=== PATIENT | male | born 1950 | race Caucasian/White ===

== ENCOUNTER → 2020-08-13 09:16 | Outpatient (BNVA) | payer MEDICARE, SELFPAY | PROVIDERS: PCP Internal Medicine; Visit Provider Internal Medicine | DX: R07.2 Precordial pain (principal) | CPT/HCPCS: 93005; 99212 ==

== ENCOUNTER 2021-08-10 07:05 | Emergency (ER) | payer MEDICARE, SELFPAY ==
--- NOTE | ~2021-08-10 | MR_ITS ---
EXAMINATION: MR BRAIN WITHOUT CONTRAST CLINICAL INFORMATION: Vertigo. Posterior fossa stroke. COMPARISON: CT head from 08/10/2021. TECHNIQUE: MRI of the brain was obtained using routine sequences without contrast. FINDINGS: No focal restricted diffusion is demonstrated to suggest acute or subacute cerebral ischemia. No evidence of acute or chronic hemorrhagic products on heme-sensitive imaging. Scattered periventricular, deep white matter, and brainstem T2 FLAIR hyperintensities consistent with mild to moderate underlying microangiopathy. Proportional prominence of the ventricles and sulcal spaces without evidence of obstructive hydrocephalus. No abnormal mass effect. No midline shift. Normal appearance of the pituitary gland. Normal positioning of the cerebellar tonsils. Normal arterial and venous vascular flow voids are present. Normal, homogeneous marrow signal. Mild mucosal thickening of the paranasal sinuses. No signal abnormalities within the mastoids. MR/MR head/brain wo con IMPRESSION: 1. No acute intracranial abnormalities. 2. Mild to moderate underlying microangiopathy.
--- NOTE | ~2021-08-10 | XR_ITS ---
EXAMINATION: XR CHEST CLINICAL INFORMATION: Dizziness COMPARISON: Previous chest x-ray November 2018 TECHNIQUE: Frontal view of the chest was obtained. FINDINGS: The cardiac and mediastinal contours are stable. The lungs are clear. There is no pleural effusion or pneumothorax. There are degenerative changes of the spine. XR/XR chest 1V IMPRESSION: No evidence for acute disease in the chest.
--- NOTE | ~2021-08-10 | CT_ITS ---
EXAMINATION: CT HEAD WITHOUT CONTRAST CLINICAL INFORMATION: Dizziness COMPARISON: Previous head CT July 2014 TECHNIQUE: Contiguous axial imaging was performed from the skull base to vertex without intravenous administration of contrast. This CT examination was performed using dose optimization techniques as appropriate, variously including the following: *Automated exposure control *Adjustment of mA and/or kV according to patient size (this includes techniques or standardized protocols for targeted exams where dose is matched to indication/reason for exam; i.e. extremities or head) *Use of iterative reconstruction technique DLP: 695 mGy-cm FINDINGS: There is no evidence of acute intracranial hemorrhage or territorial infarction. No abnormal mass effect or midline shift is seen. Boogie to white matter differentiation is well preserved. No extra-axial fluid collections are identified. The ventricles are normal in size. There is no abnormal attenuation within the brain parenchyma. The osseous structures and soft tissues are normal. The mastoid air cells and visualized portions of the paranasal sinuses are well aerated. CT/CT head/brain wo con IMPRESSION: No acute intracranial pathology.
--- NOTE | 2021-08-10 07:19 | ECG_ITS ---
Test Reason : dizziness Blood Pressure : / mmHG Vent. Rate : 056 BPM Atrial Rate : 056 BPM P-R Int : 166 ms QRS Dur : 082 ms QT Int : 448 ms P-R-T Axes : -10 -18 030 degrees QTc Int : 432 ms Sinus bradycardia Minimal voltage criteria for LVH, may be normal variant ( R in aVL ) Borderline ECG When compared with ECG of 27-NOV-2018 06:54, No significant change was found Referred By: Glenroy Aggarwal Electronically Signed By:CLAUDIO DELGADILLO MD
--- NOTE | 2021-08-10 07:22 | ED_ITS ---
HPI - Dizziness General Chief Complaint: Dizziness Stated Complaint: dizziness Time Seen by Provider: 08/10/21 07:18 Source: patient and EMS Mode of arrival: ambulatory Limitations: no limitations History of Present Illness HPI Narrative: 70-year-old male came in by ambulance for evaluation of feeling dizziness since she woke up this morning. 70-year-old male woke up this morning feeling room spinning around him, patient could not walk around at home unsteady gait, patient otherwise decline headache, nausea, vomiting, numbness, or weakness. Patient had history of similar symptoms in the past. Related Data Home Medications Medication Instructions Recorded Confirmed aspirin 81 mg tablet,delayed 81 mg PO DAILY 08/13/20 08/13/20 release cetirizine 10 mg tablet 10 mg PO DAILY 08/13/20 08/13/20 citalopram 10 mg tablet 10 mg PO DAILY 08/13/20 08/13/20 cyanocobalamin (vitamin B-12) 500 500 mcg PO DAILY 08/13/20 08/13/20 mcg tablet docusate sodium 100 mg capsule 100 mg PO DAILY 08/13/20 08/13/20 donepezil 10 mg tablet 10 mg PO DAILY 08/13/20 08/13/20 epinephrine 0.3 mg/0.3 mL 0.3 mg IM DAILY PRN 08/13/20 08/13/20 injection, auto-injector finasteride 5 mg tablet 5 mg PO DAILY 08/13/20 08/13/20 gabapentin 400 mg capsule 800 mg PO TID 08/13/20 08/13/20 lisinopril 20 mg tablet 20 mg PO DAILY 08/13/20 08/13/20 metformin 500 mg tablet,extended 500 mg PO BID 08/13/20 08/13/20 release 24 hr omeprazole 20 mg capsule,delayed 20 mg PO DAILY 08/13/20 08/13/20 release oxycodone-acetaminophen 5 mg-325 1 tab PO BID PRN 08/13/20 08/13/20 mg tablet risperidone 0.5 mg tablet 0.5 mg PO BID 08/13/20 08/13/20 rosuvastatin 40 mg tablet 40 mg PO DAILY 08/13/20 08/13/20 sennosides 8.6 mg tablet 8.6 mg PO DAILY 08/13/20 08/13/20 tamsulosin 0.4 mg capsule mg PO 08/13/20 08/13/20 Previous Rx's Medication Instructions Recorded meclizine 25 mg tablet 25 mg PO TID PRN #20 tab 08/10/21 Allergies Allergy/AdvReac Type Severity Reaction Status Date / Time shellfish derived Allergy Unknown Hives/Short Verified 08/13/20 09:37 of breath Review of Systems Review of Systems: All other systems are reviewed and are negative Constitutional: Reports as per HPI and Reports no additional constitutional complaints Eyes: Reports as per HPI and Reports no additional eye complaints Reports system reviewed and no additional complaints, except as documented Cardiovascular: Reports as per HPI and Reports no additional cardiovascular complaints Respiratory: Reports as per HPI and Reports no additional respiratory complaints Gastrointestinal: Reports as per HPI and Reports no additional gastrointestinal complaints Genitourinary: Reports no additional female genitourinary complaints Musculoskeletal: Reports no additional musculoskeletal complaints Skin/Breast: Reports system reviewed and no additional complaints, except as docu Psychiatric: Reports no additional psychiatric complaints Endocrine: Reports no additional endocrine complaints Hematologic/Lymphatic: Reports no additional hematologic/lymphatic complaints Allergic/Immunologic: Reports no additional allergic/immunologic complaints Reports system reviewed and no additional complaints, except as documented and Reports Abnormal speech present COUNT INCLUDES THE [facility] Past Medical History Medical History Essential hypertension Other and unspecified hyperlipidemia Type 2 diabetes mellitus with unspecified complications Surgical History History of cardiac catheterization (~09/17/14) Family History Family History Father Diabetes Hyperlipidemia Mother Stroke Social History Social History Alcohol intake: never Patient Tobacco Use Status: Former Tobacco user Use of substances other than those prescribed or required for medical reasons: No Advance Directives: No Advance Directives Information Provided: No Physical Exam Vital Signs: Vital Signs: Last Vital Signs Temp 98.0 F 08/10/21 13:22 Pulse 56 08/10/21 13:22 Resp 15 08/10/21 13:22 BP 133/72 08/10/21 13:22 Pulse Ox 98 08/10/21 13:22 Body Mass Index 26.7 Vital signs have been reviewed as appeared to be correct. Blood pressure normal. Heart rate normal. Respiration rate normal. Temperature normal. Oxygen saturation normal. Appearance: Alert. Oriented X3. No acute distress. Head: Normal external exam. Normocephalic. Atraumatic. No Schrader signs noted. No raccoon eyes noted Eyes: PERRLA. EOMI. Conjunctiva and sclera normal. Eyelids normal. ENT: TM's Normal. Pharynx normal. Uvula midline. Moist mucous membranes. No trismus noted. No drooling noted. No muffled voice noted. Neck: Normal inspection. Neck supple. FROM. No adenopathy. Thyroid Normal. No meningeal signs. No neck mass noted. CVS: Normal heart rate and rhythm. Heart sound normal. No murmurs noted. Pulses normal throughout. Respiratory: No respiratory distress. Painless inspiration. Breath sounds normal. No wheezes/rales/rhonchi noted. Chest nontender. No accessory muscle usage noted or decreased air movement noted. Abdomen: Soft and nontender. Bowel sounds normal in all 4 quadrants. No distention noted. No organomegaly noted. No visible injury noted. Back: No CVA tenderness. Full range of motion noted. Skin: Skin warm and dry. Normal skin color. Normal skin turgor. No rashes/lesions/lacerations noted. Extremities: No lower extremity edema. Extremities exhibit normal range of motion. Extremities nontender. Neuro: Oriented X 3. Cranial nerve exam: II-XII are grossly intact No motor deficit. No sensory deficit. Reflexes normal. NIH Stroke Scale Internal: Initial- Upon Arrival Level of Consciousness: Alert Level of Consciousness Questions: Answers both questions correctly Level of Consciousness Commands: Performs both tasks correctly Best Gaze: Normal Visual: No visual loss Facial Palsy: Normal Motor Arm (Right): No drift Motor Arm (Left): No drift Motor Leg (Right): No drift Motor Leg (Left): No drift Limb Ataxia: Absent Sensory: Normal Best Language: No aphasia Dysarthia: Normal Extinction and Inattention: No abnormality Score: 0 Course Course Course Narrative: Assessment and plan. 70-year-old male came in with vertigo since he woke up this morning, patient has a normal neuro exam, CT/MRI of the brain show no acute stroke, patient's symptoms improved with meclizine, patient has unremarkable labs. Patient was instructed to use meclizine, drink plenty of fluids, take time before changing position. MDM - Dizziness Medical Records Attestation: I reviewed the patient's medical records. Lab Data Attestation: I reviewed the patient's lab results. Result diagrams: 08/10/21 07:32 08/10/21 07:32 Labs: Lab Results 08/10/21 08/10/21 08/10/21 Range/Units 07:32 07:32 07:32 WBC 7.1 (4.8-10.8) X10*3/uL RBC 4.55 L (4.60-5.80) X10*6/uL Hgb 13.0 L (14.0-18.0) g/dl Hct 40.1 L (42.0-52.0) % MCV 88.1 (80.0-98.0) fL MCH 28.6 (27.0-33.0) pg MCHC 32.4 (31.0-36.0) g/dl RDW 13.2 (11.0-16.0) % Plt Count 261 (160-400) X10*3/uL MPV 11.0 (9.4-12.4) fL Immature Gran % (Auto) 0.1 (0.0-0.4) % Neut % (Auto) 63.1 (45-73) % Lymph % (Auto) 23.5 (20-40) % [place] % (Auto) 9.9 (2-11) % Eos % (Auto) 2.4 (0-4) % Baso % (Auto) 1.0 (0-2) % Lymph # (Auto) 1.7 (1.2-4.9) X10*3/uL [place] # (Auto) 0.7 (0.1-1.2) X10*3/uL Eos # (Auto) 0.2 (0.0-0.4) X10*3/uL Baso # (Auto) 0.1 (0.0-0.2) X10*3/uL Abs Immat Gran (auto) 0.01 (0.00-0.03) X10*3/uL Absolute Neuts (auto) 4.5 (2.0-8.3) x10*3/uL Absolute Nucleated RBC 0.000 (0.0-0.012) X10*3/uL Nucleated RBC % (auto) 0.0 (0.0-0.2) /100WBC Sodium 140 (135-145) mmol/L Potassium 4.1 (3.3-5.1) mmol/L Chloride 110 H (96-108) mmol/L Carbon Dioxide 24 (22-29) mmol/L Anion Gap 10 L (12-20) BUN 14 (9-16) mg/dL Creatinine 0.79 (0.5-1.4) mg/dL Estim Creat Clear Calc 79.0 Estimated GFR > 60 Random Glucose 120 H (60-115) mg/dL Calcium 9.0 (8.4-10.2) mg/dL Total Bilirubin 0.8 (0.0-1.0) mg/dL Direct Bilirubin 0.3 (0.0-0.5) mg/dL AST 17 (5-37) U/L ALT 18 (0-40) U/L Alkaline Phosphatase 64 (39-117) U/L Troponin I High Sens < 3.5 (<3.5-35.0) ng/L B-Natriuretic Peptide 92 (<100) pg/mL Total Protein 6.3 L (6.5-8.0) g/dL Albumin 4.1 (3.5-5.0) g/dL Lipase 20 (8-78) U/L Urine Color Urine Appearance Urine pH (5.0-8.0) Ur Specific [place] (1.005-1.025) Urine Protein (NEG-TRACE) MG/DL Urine Glucose (UA) (NEG) MG/DL Urine Ketones (NEG) MG/DL Urine Blood (NEG) Urine Nitrite (NEG) Ur Leukocyte Esterase (NEG) COVID-19 (DAVIAN) (Negative) COVID-19 Clin Com 08/10/21 08/10/21 Range/Units 07:32 09:53 WBC (4.8-10.8) X10*3/uL RBC (4.60-5.80) X10*6/uL Hgb (14.0-18.0) g/dl Hct (42.0-52.0) % MCV (80.0-98.0) fL MCH (27.0-33.0) pg MCHC (31.0-36.0) g/dl RDW (11.0-16.0) % Plt Count (160-400) X10*3/uL MPV (9.4-12.4) fL Immature Gran % (Auto) (0.0-0.4) % Neut % (Auto) (45-73) % Lymph % (Auto) (20-40) % [place] % (Auto) (2-11) % Eos % (Auto) (0-4) % Baso % (Auto) (0-2) % Lymph # (Auto) (1.2-4.9) X10*3/uL [place] # (Auto) (0.1-1.2) X10*3/uL Eos # (Auto) (0.0-0.4) X10*3/uL Baso # (Auto) (0.0-0.2) X10*3/uL Abs Immat Gran (auto) (0.00-0.03) X10*3/uL Absolute Neuts (auto) (2.0-8.3) x10*3/uL Absolute Nucleated RBC (0.0-0.012) X10*3/uL Nucleated RBC % (auto) (0.0-0.2) /100WBC Sodium (135-145) mmol/L Potassium (3.3-5.1) mmol/L Chloride (96-108) mmol/L Carbon Dioxide (22-29) mmol/L Anion Gap (12-20) BUN (9-16) mg/dL Creatinine (0.5-1.4) mg/dL Estim Creat Clear Calc Estimated GFR Random Glucose (60-115) mg/dL Calcium (8.4-10.2) mg/dL Total Bilirubin (0.0-1.0) mg/dL Direct Bilirubin (0.0-0.5) mg/dL AST (5-37) U/L ALT (0-40) U/L Alkaline Phosphatase (39-117) U/L Troponin I High Sens (<3.5-35.0) ng/L B-Natriuretic Peptide (<100) pg/mL Total Protein (6.5-8.0) g/dL Albumin (3.5-5.0) g/dL Lipase (8-78) U/L Urine Color STRAW Urine Appearance CLEAR Urine pH 5.5 (5.0-8.0) Ur Specific [place] <= 1.005 (1.005-1.025) Urine Protein NEG (NEG-TRACE) MG/DL Urine Glucose (UA) NEG (NEG) MG/DL Urine Ketones NEG (NEG) MG/DL Urine Blood NEG (NEG) Urine Nitrite NEG (NEG) Ur Leukocyte Esterase NEG (NEG) COVID-19 (DAVIAN) Negative (Negative) COVID-19 Clin Com See Note Imaging Data CT scan - head: Radiologist's impression: No acute intracranial pathology. Chest x-ray: Radiologist's impression: No evidence for acute disease in the chest. MRI - head: Radiologist's impression: 1. No acute intracranial abnormalities. 2. Mild to moderate underlying microangiopathy. ? ECG Data Attestation: I personally reviewed and interpreted this ECG as follows: Interpretation: Sinus bradycardia at 56 beats per minutes, left axis deviation, LVH, no ST-T changes. Discharge Plan Discharge Clinical Impression: Vertigo Patient Disposition: Home, Self-Care Instructions: Vertigo (ED) Prescriptions: New meclizine 25 mg tablet 25 mg PO TID PRN (Reason: motion sickness) Qty: 20 RF: 0 No Action aspirin 81 mg tablet,delayed release (DR/EC) 81 mg PO DAILY RF: 0 sennosides 8.6 mg tablet 8.6 mg PO DAILY RF: 0 oxycodone-acetaminophen 5-325 mg tablet 1 tab PO BID PRNRF: 0 gabapentin 400 mg capsule 800 mg PO TID RF: 0 finasteride 5 mg tablet 5 mg PO DAILY RF: 0 cetirizine 10 mg tablet 10 mg PO DAILY RF: 0 rosuvastatin 40 mg tablet 40 mg PO DAILY RF: 0 docusate sodium 100 mg capsule 100 mg PO DAILY RF: 0 lisinopril 20 mg tablet 20 mg PO DAILY RF: 0 citalopram 10 mg tablet 10 mg PO DAILY RF: 0 omeprazole 20 mg capsule,delayed release(DR/EC) 20 mg PO DAILY RF: 0 metformin 500 mg tablet extended release 24 hr 500 mg PO BID RF: 0 cyanocobalamin (vitamin B-12) 500 mcg tablet 500 mcg PO DAILY RF: 0 epinephrine 0.3 mg/0.3 mL auto-injector 0.3 mg IM DAILY PRN (Reason: allergies) RF: 0 tamsulosin 0.4 mg capsule PO RF: 0 donepezil 10 mg tablet 10 mg PO DAILY RF: 0 risperidone 0.5 mg tablet 0.5 mg PO BID RF: 0 Referrals: Katalina Banks MD [Primary Care Provider] - 2 days
[2021-08-10 07:23] VITALS: BP 151/72; PULSE 62; RESP 15; TEMP 36.6; O2SAT 99; BMI 26.7
[2021-08-10] MEDS: 0.9 % Sodium Chloride 1,000 ML 999 ML IVCONT (07:33)
[2021-08-10 07:38] LABS: MANUAL DIFF FLAG NO
[2021-08-10] MEDS: Meclizine HCl 25 MG TABLET PO (07:38)
[2021-08-10 07:40] LABS: Basophils Absolute Auto 0.1 X10*3/uL (0.0-0.2); Eosinophils Absolute Auto 0.2 X10*3/uL (0.0-0.4); Eosinophils Percent Auto 2.4 % (0-4); Hematocrit 40.1 % (42.0-52.0); Imm Gran Abs Auto 0.01 X10*3/uL (0.00-0.03); Imm Gran Pct Auto 0.1 % (0.0-0.4); Lymphocytes Absolute Auto 1.7 X10*3/uL (1.2-4.9); Lymphocytes Percent Auto 23.5 % (20-40); Mean Corpuscular HGB Conc 32.4 g/dl (31.0-36.0); Mean Corpuscular Hemoglobin 28.6 pg (27.0-33.0); Mean Corpuscular Volume 88.1 fL (80.0-98.0); Monocytes Absolute Auto 0.7 X10*3/uL (0.1-1.2); Monocytes Percent Auto 9.9 % (2-11); Neutrophils Absolute Auto 4.5 x10*3/uL (2.0-8.3); Neutrophils Percent Auto 63.1 % (45-73); Platelet Count 261 X10*3/uL (160-400); Red Blood Count 4.55 X10*6/uL (4.60-5.80); Red Cell Distribution Width 13.2 % (11.0-16.0); White Blood Count 7.1 X10*3/uL (4.8-10.8)
[2021-08-10 07:55] LABS: COVID-19 Test Negative (Negative)
[2021-08-10 07:59] LABS: Alanine Aminotransferase 18 U/L (0-40); Albumin Level 4.1 g/dL (3.5-5.0); Alkaline Phosphatase 64 U/L (39-117); Anion Gap 10 (12-20); Aspartate Amino Transferase 17 U/L (5-37); Bilirubin Direct 0.3 mg/dL (0.0-0.5); Bilirubin Total 0.8 mg/dL (0.0-1.0); Blood Urea Nitrogen 14 mg/dL (9-16); Carbon Dioxide 24 mmol/L (22-29); Chloride 110 mmol/L (96-108); Estimated Glomerular Filt Rate > 60; Glucose Random 120 mg/dL (60-115); Lipase 20 U/L (8-78); Potassium 4.1 mmol/L (3.3-5.1); Sodium 140 mmol/L (135-145); Total Protein 6.3 g/dL (6.5-8.0)
[2021-08-10 08:01] LABS: B Type Natriuretic Peptide 92 pg/mL (<100); Troponin-I High Sensitivity < 3.5 ng/L (<3.5-35.0)
[2021-08-10 09:44] VITALS: BP 141/75; PULSE 58; RESP 15; O2SAT 99
[2021-08-10 10:00] LABS: Appearance Urine CLEAR; Color Urine STRAW; Glucose Urine UA NEG (NEG); Leukocyte Esterase Urine NEG (NEG); Nitrite Urine NEG (NEG); PH 5.5 (5.0-8.0); Specific Gravity - Urine <= 1.005 (1.005-1.025); Urine Blood NEG (NEG); Urine Ketones NEG (NEG); Urine Protein NEG (NEG-TRACE)
[2021-08-10 10:59] VITALS: BP 133/72; PULSE 56; RESP 16; TEMP 36.8; O2SAT 99
[2021-08-10 13:22] VITALS: BP 133/72; PULSE 56; RESP 15; TEMP 36.7; O2SAT 98
== END 2021-08-10 15:05 | disposition home or self-care (01) ==
PROVIDERS: Emergency Provider Emergency Medicine; PCP Internal Medicine
DX: R42 Dizziness and giddiness (principal); E11.9 Type 2 diabetes mellitus without complications; I10 Essential (primary) hypertension; E78.5 Hyperlipidemia, unspecified; Z20.822 Contact with and (suspected) exposure to COVID-19; Z79.02 Long term (current) use of antithrombotics/antiplatelets; Z79.899 Other long term (current) drug therapy
CPT/HCPCS: 36415; 70450; 70551; 71045; 80048; 80076; 81003; 83690; 83880; 84484; 85025; 87635; 93005; 96360; 99284; 99285

== ENCOUNTER → 2021-08-16 08:41 | Outpatient (BNVA) | payer MEDICARE, SELFPAY | PROVIDERS: PCP Internal Medicine; Referring Provider Internal Medicine; Visit Provider Internal Medicine | DX: R07.2 Precordial pain (principal) | CPT/HCPCS: 99212 ==

== ENCOUNTER 2022-05-27 10:54 | Observation (INO) | payer OTHER, SELFPAY ==
[2022-05-27] VITALS (8 sets, daily range): BP systolic 120–179; BP diastolic 64–95; PULSE 52–82; RESP 12–19; TEMP 36.6–36.9; O2SAT 98–100; BMI 26.8
--- NOTE | 2022-05-27 | ECG_ITS ---
Test Reason : chest pain Blood Pressure : / mmHG Vent. Rate : 061 BPM Atrial Rate : 061 BPM P-R Int : 158 ms QRS Dur : 092 ms QT Int : 424 ms P-R-T Axes : 002 -25 033 degrees QTc Int : 426 ms Normal sinus rhythm Minimal voltage criteria for LVH, may be normal variant ( R in aVL ) Borderline ECG When compared with ECG of 27-MAY-2022 11:09, No significant change was found Referred By: Sisi Campbell Electronically Signed By:LORETO MALAGON
--- NOTE | ~2022-05-27 | CT_ITS ---
EXAMINATION: CT HEAD WITHOUT CONTRAST (STROKE PROTOCOL) CLINICAL INFORMATION: Stroke protocol. Confusion, headache. COMPARISON: CT head 08/10/2021, MR brain 08/10/2021 TECHNIQUE: Contiguous axial imaging was performed from the skull base to vertex without intravenous administration of contrast. This CT examination was performed using dose optimization techniques as appropriate, variously including the following: *Automated exposure control *Adjustment of mA and/or kV according to patient size (this includes techniques or standardized protocols for targeted exams where dose is matched to indication/reason for exam; i.e. extremities or head) *Use of iterative reconstruction technique DLP: 753 mGy-cm FINDINGS: There is no intracranial hemorrhage, hematoma, or extra-axial fluid collection. The ventricles are normal in size. There is no hydrocephalus, edema, or mass effect. The kuhn-white matter differentiation appears well preserved . Some minor periventricular white matter gliosis is similar to prior exam. There is no visible acute territorial infarct or mass lesion. The calvarium appears intact. There is no pneumocephalus or orbital emphysema. The visualized sinuses and middle ears and mastoid air cells show no significant mucosal thickening. There are no air-fluid levels. Small plaque-like exostosis from left lateral frontal bone is stable from prior exam. Results called and discussed with ROBERT Epstein in the emergency department at [address]/CT head for stroke IMPRESSION: No acute intracranial abnormality.
--- NOTE | ~2022-05-27 | US_ITS ---
EXAMINATION: US EXTRACRANIAL CAROTID DUPLEX, BILATERAL CLINICAL INFORMATION: TIA COMPARISON: Carotid ultrasound July 23, 2014 TECHNIQUE: Real-time ultrasound and Doppler techniques (integrating B-mode 2-D vascular images, Doppler spectral analysis and color-flow Doppler imaging) were utilized to interrogate the extracranial carotid arteries, the vertebral arteries and proximal subclavian arteries bilaterally. The degree of stenosis is determined by criteria similar to NASCET. FINDINGS: Right Side: 1. There is mild atherosclerotic plaque seen in the bifurcation/proximal ICA region. 2. The common carotid artery PSV proximally is 59 cm/s and distally 55 cm/s. 3. The proximal internal carotid artery velocities are 94 cm/s systolic and 28 cm/s diastolic. 4. The proximal external carotid artery PSV is 84 cm/s. 5. The vertebral artery shows antegrade flow. 6. The subclavian artery waveforms are normal. Left Side: 1. There is mild atherosclerotic plaque seen in the bifurcation/proximal ICA region. 2. The common carotid artery PSV proximally is 80 cm/s and distally 64 cm/s. 3. The proximal internal carotid artery velocities are 75 cm/s systolic and 25 cm/s diastolic. 4. The proximal external carotid artery PSV is 111 cm/s. 5. The vertebral artery shows antegrade flow. 6. The subclavian artery waveforms are normal. US/US carotid duplex BI IMPRESSION: 1. RIGHT: Minimal, non-hemodynamically significant stenosis of the proximal right internal carotid artery corresponding to a 0-49% stenosis by velocity criteria. 2. LEFT: Minimal, non-hemodynamically significant stenosis of the proximal left internal carotid artery corresponding to a 0-49% stenosis by velocity criteria.
--- NOTE | ~2022-05-27 | MR_ITS ---
EXAMINATION: MR BRAIN WITHOUT CONTRAST CLINICAL INFORMATION: Question TIA. COMPARISON: MRI dated 08/10/2021. TECHNIQUE: Multiplanar, multisequence imaging of the brain was performed without contrast. FINDINGS: No diffusion abnormalities are identified to suggest an acute or subacute infarct. The ventricles are normal in size. No mass effect or midline shift is seen. Mild scattered white matter signal changes remain stable compared to the previous examination. No extra-axial fluid collections are seen. Mild chronic white matter microangiopathy and the sara is stable. The cerebellum is normal. The gradient refocused acquisition demonstrates no pathologic magnetic susceptibility artifact to indicate underlying acute or chronic blood products. The craniovertebral junction, marrow signal, and midline structures are normal. The major intracranial flow voids at the level of the kash[place] of [place] are preserved. The dural venous sinus flow voids are maintained. The mastoid air cells and paranasal sinuses are well aerated. MR/MR head/brain wo con IMPRESSION: No acute infarct. No acute intracranial process. Stable mild chronic white matter microangiopathy.
--- NOTE | ~2022-05-27 | XR_ITS ---
EXAMINATION: XR CHEST CLINICAL INFORMATION: Stroke symptoms COMPARISON: 08/10/2021 TECHNIQUE: Frontal view of the chest was obtained. FINDINGS: Cardiac leads overlie the chest. The lungs are well expanded. There is no focal consolidation, edema, or effusion. No pneumothorax. The cardiomediastinal silhouette is within normal limits. No acute osseous abnormality. XR/XR chest 1V IMPRESSION: Clear lungs.
--- NOTE | 2022-05-27 11:00 | ECG_ITS ---
Test Reason : stroke Blood Pressure : / mmHG Vent. Rate : 066 BPM Atrial Rate : 066 BPM P-R Int : 166 ms QRS Dur : 092 ms QT Int : 410 ms P-R-T Axes : 024 -23 044 degrees QTc Int : 429 ms Normal sinus rhythm Minimal voltage criteria for LVH, may be normal variant ( R in aVL ) Borderline ECG When compared with ECG of 10-AUG-2021 08:07, No significant change was found Referred By: Sisi Campbell Electronically Signed By:LORETO MALAGON
[2022-05-27 11:09] LABS: MANUAL DIFF FLAG NO
[2022-05-27 11:13] LABS: Basophils Percent Auto 0.6 % (0-2); Eosinophils Absolute Auto 0.1 X10*3/uL (0.0-0.4); Hematocrit 39.4 % (42.0-52.0); Imm Gran Abs Auto 0.02 X10*3/uL (0.00-0.03); Imm Gran Pct Auto 0.3 % (0.0-0.4); Lymphocytes Absolute Auto 1.2 X10*3/uL (1.2-4.9); Lymphocytes Percent Auto 17.1 % (20-40); Mean Corpuscular Hemoglobin 28.4 pg (27.0-33.0); Mean Corpuscular Volume 86.2 fL (80.0-98.0); Mean Platelet Volume 10.4 fL (9.4-12.4); Monocytes Absolute Auto 0.7 X10*3/uL (0.1-1.2); Neutrophils Absolute Auto 4.8 x10*3/uL (2.0-8.3); Platelet Count 288 X10*3/uL (160-400); Red Blood Count 4.57 X10*6/uL (4.60-5.80); White Blood Count 6.8 X10*3/uL (4.8-10.8)
[2022-05-27 11:18] LABS: Glucose, Whole Blood 98 mg/dL (60-115)
[2022-05-27 11:20] LABS: INTERNATIONAL NORM RATIO 1.1 (0.9-1.1); Prothrombin Time 12.1 SEC (10.0-13.1)
[2022-05-27 11:22] LABS: Partial Thromboplastin Time 28.1 SEC (26.0-36.4)
--- NOTE | 2022-05-27 11:29 | ED.NEUROSD ---
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 No signs of weakness, no falls reported. A neighbor told EMS he seemed fine at 8am. Onset (ago): hour(s) (patient seemed himself at 8am per a neighbor) Timing confirmed by: other (neighbor) Location: altered History of same: No Severity: mild Quality: improving Relieving factors: time Exacerbating factors: none Context: gradual onset On Anticoagulants: No Associated symptoms: denies other symptoms Treatments Prior to Arrival: none Related Data Home Medications Medication Instructions Recorded Confirmed aspirin 81 mg tablet,delayed 81 mg PO DAILY 08/13/20 08/16/21 release cetirizine 10 mg tablet 10 mg PO DAILY 08/13/20 08/16/21 cyanocobalamin (vitamin B-12) 500 500 mcg PO DAILY 08/13/20 08/16/21 mcg tablet docusate sodium 100 mg capsule 100 mg PO DAILY 08/13/20 08/16/21 donepezil 10 mg tablet 10 mg PO BEDTIME 08/13/20 08/16/21 epinephrine 0.3 mg/0.3 mL 0.3 mg IM DAILY PRN allergies 08/13/20 08/16/21 injection, auto-injector finasteride 5 mg tablet 5 mg PO DAILY 08/13/20 08/16/21 gabapentin 400 mg capsule 800 mg PO TID 08/13/20 08/16/21 lisinopril 20 mg tablet 20 mg PO DAILY 08/13/20 08/16/21 metformin 500 mg tablet,extended 500 mg PO BID 08/13/20 08/16/21 release 24 hr omeprazole 20 mg capsule,delayed 20 mg PO DAILY 08/13/20 08/16/21 release oxycodone-acetaminophen 5 mg-325 1 tab PO BID PRN 08/13/20 08/16/21 mg tablet risperidone 0.5 mg tablet 0.5 mg PO BID 08/13/20 08/16/21 rosuvastatin 40 mg tablet 40 mg PO DAILY 08/13/20 08/16/21 sennosides 8.6 mg tablet 8.6 mg PO DAILY 08/13/20 08/16/21 tamsulosin 0.4 mg capsule 0.8 mg PO DAILY 08/13/20 08/16/21 citalopram 20 mg tablet 1 tab PO BEDTIME 05/27/22 trazodone 50 mg tablet 1 tab PO BEDTIME PRN Sleep 05/27/22 Previous Rx's Medication Instructions Recorded meclizine 25 mg tablet 25 mg PO TID PRN motion sickness 08/10/21 #20 tabs Allergies Allergy/AdvReac Type Severity Reaction Status Date / Time shellfish derived Allergy Unknown Hives/Short Verified 08/16/21 09:18 of breath Review of Systems Review of Systems: Constitutional : No Weight loss, No Fever, No Chills, No Fatigue, No Malaise ENT/Mouth : No sore throat, No Rhinorrhea Eyes: No Eye Pain, No Swelling, No Redness Cardiovascular : No Chest Pain, No SOB, No Dyspnea on Exertion, No Orthopnea, No Edema, No Palpitations Respiratory : No Cough, No Sputum, No Wheezing Gastrointestinal : No Nausea, No Vomiting, No Diarrhea, No Constipation, No abdominal Pain, No Hematochezia, No Melena Genitourinary : No Dysuria, No Urinary Frequency, No Hematuria, Musculoskeletal : No joint pain, No Myalgias, No Joint Swelling Skin : No Skin Lesions, No rash Neuro : No Weakness, No Numbness, No Dizziness, No Headache, pos confusion Psych : No Anxiety/Panic, No Depression Heme/Lymph: No Bruising, No Bleeding,No Lymphadenopathy Endocrine : No Polyuria, No Polydipsia All other systems reviewed and are negative [facility] Past Medical History Attestation statement: The following information was validated with the patient. Medical History Essential hypertension Other and unspecified hyperlipidemia Type 2 diabetes mellitus with unspecified complications Surgical History History of cardiac catheterization (~09/17/14) Family History Family History Father Diabetes Hyperlipidemia Mother Stroke Social History Social History Alcohol intake: never Patient Tobacco Use Status: Never used Tobacco Use of substances other than those prescribed or required for medical reasons: No Advance Directives: Yes Advance Directives Information Provided: Yes Advance Directives on File: No Physical Exam Vital Signs: Vital Signs: Last Vital Signs Temp 98.5 F 05/27/22 11:18 Pulse 72 05/27/22 12:53 Resp 18 05/27/22 12:53 BP 152/79 H 05/27/22 12:53 Pulse Ox 98 05/27/22 12:53 O2 Del Method 05/27/22 12:53 BMI result Body Mass Index 26.8 Appearance: Alert. Oriented X2. No acute distress. Eyes: Pupils equal, round and reactive to light. ENT: Pharynx normal. Neck: Normal inspection. Neck supple. CVS: Normal heart rate and rhythm. Pulses normal. Respiratory: No respiratory distress. Breath sounds normal. Abdomen: Soft and non-tender. Skin: Skin warm and dry. Normal skin color. Normal skin turgor. Extremities: No lower extremity edema. No calf ttp Neuro: Oriented X 2. No motor deficit. No sensory deficit. Course Course Course Narrative: not a candidate for tPa given mild symptoms and non debilitating symptoms NIH 1 at this time patient now fluent and more coherent, does not know the year still patient now back to baseline states he remembers getting up this AM then cannot remember what happened after that, he is very alert now looks much better, possible TIA will admit for further workup PO aspirin ordered, patient aware patient c/o chest pain, repeat EKG ordered will send off repeat troponin as well - repeat EKG no ischemic findings MDM - Neuro Symptoms/Deficit MDM Narrative Medical decision making narrative: 71 yo male with hx of HTN, DM, HLD, on donepezil so there must be some form of cognitive impairment here with confusion possibly seen normal at 8am by a neighbor. At this time will need labs, UA and CXR for infection. CT head for ICH. He has no deficits to suggest LVO I am holding off on CTA at this time. Possible TIA vs infection. Dispo per results and findings. Lab Data Result diagrams: 05/27/22 11:04 05/27/22 11:04 Labs: Lab Results 05/27/22 05/27/22 05/27/22 Range/Units 10:59 11:04 11:04 WBC 6.8 (4.8-10.8) X10*3/uL RBC 4.57 L (4.60-5.80) X10*6/uL Hgb 13.0 L (14.0-18.0) g/dl Hct 39.4 L (42.0-52.0) % MCV 86.2 (80.0-98.0) fL MCH 28.4 (27.0-33.0) pg MCHC 33.0 (31.0-36.0) g/dl RDW 13.0 (11.0-16.0) % Plt Count 288 (160-400) X10*3/uL MPV 10.4 (9.4-12.4) fL Immature Gran % (Auto) 0.3 (0.0-0.4) % Neut % (Auto) 71.0 (45-73) % Lymph % (Auto) 17.1 L (20-40) % [place] % (Auto) 10.0 (2-11) % Eos % (Auto) 1.0 (0-4) % Baso % (Auto) 0.6 (0-2) % Lymph # (Auto) 1.2 (1.2-4.9) X10*3/uL [place] # (Auto) 0.7 (0.1-1.2) X10*3/uL Eos # (Auto) 0.1 (0.0-0.4) X10*3/uL Baso # (Auto) 0.0 (0.0-0.2) X10*3/uL Abs Immat Gran (auto) 0.02 (0.00-0.03) X10*3/uL Absolute Neuts (auto) 4.8 (2.0-8.3) x10*3/uL Absolute Nucleated RBC 0.000 (0.0-0.012) X10*3/uL Nucleated RBC % (auto) 0.0 (0.0-0.2) /100WBC PT (10.0-13.1) SEC Whole Blood PT 12.0 (11.1-13.5) sec INR (0.9-1.1) Whole Blood INR 1.0 (0.9-1.1) APTT (26.0-36.4) SEC VBG pH (7.32-7.43) VBG pCO2 mmHg VBG pO2 mmHg VBG HCO3 (22-26) mmol/L VBG O2 Saturation % VBG Base Excess mmol/L Sodium 136 (135-145) mmol/L Potassium 3.9 (3.3-5.1) mmol/L Chloride 101 (96-108) mmol/L Carbon Dioxide 25 (22-29) mmol/L Anion Gap 14 (12-20) BUN 18 H (9-16) mg/dL Creatinine 0.85 (0.5-1.4) mg/dL Estim Creat Clear Calc 69.8 Estimated GFR > 60 POC Glucose (60-115) mg/dL Random Glucose 116 H (60-115) mg/dL Lactic Acid (0.5-2.0) mmol/L Calcium 9.0 (8.4-10.2) mg/dL Magnesium 1.8 (1.6-2.6) mg/dL Total Bilirubin 0.9 (0.0-1.0) mg/dL Direct Bilirubin 0.3 (0.0-0.5) mg/dL AST 15 (5-37) U/L ALT 13 (0-40) U/L Alkaline Phosphatase 67 (39-117) U/L Troponin I High Sens (<3.5-35.0) ng/L Total Protein 6.6 (6.5-8.0) g/dL Albumin 4.3 (3.5-5.0) g/dL Lipase 21 (8-78) U/L Ethyl Alcohol < 10 mg/dL COVID-19 (DAVIAN) (Negative) COVID-19 Clin Com 05/27/22 05/27/22 05/27/22 Range/Units 11:04 11:04 11:15 WBC (4.8-10.8) X10*3/uL RBC (4.60-5.80) X10*6/uL Hgb (14.0-18.0) g/dl Hct (42.0-52.0) % MCV (80.0-98.0) fL MCH (27.0-33.0) pg MCHC (31.0-36.0) g/dl RDW (11.0-16.0) % Plt Count (160-400) X10*3/uL MPV (9.4-12.4) fL Immature Gran % (Auto) (0.0-0.4) % Neut % (Auto) (45-73) % Lymph % (Auto) (20-40) % [place] % (Auto) (2-11) % Eos % (Auto) (0-4) % Baso % (Auto) (0-2) % Lymph # (Auto) (1.2-4.9) X10*3/uL [place] # (Auto) (0.1-1.2) X10*3/uL Eos # (Auto) (0.0-0.4) X10*3/uL Baso # (Auto) (0.0-0.2) X10*3/uL Abs Immat Gran (auto) (0.00-0.03) X10*3/uL Absolute Neuts (auto) (2.0-8.3) x10*3/uL Absolute Nucleated RBC (0.0-0.012) X10*3/uL Nucleated RBC % (auto) (0.0-0.2) /100WBC PT 12.1 (10.0-13.1) SEC Whole Blood PT (11.1-13.5) sec INR 1.1 (0.9-1.1) Whole Blood INR (0.9-1.1) APTT 28.1 (26.0-36.4) SEC VBG pH (7.32-7.43) VBG pCO2 mmHg VBG pO2 mmHg VBG HCO3 (22-26) mmol/L VBG O2 Saturation % VBG Base Excess mmol/L Sodium (135-145) mmol/L Potassium (3.3-5.1) mmol/L Chloride (96-108) mmol/L Carbon Dioxide (22-29) mmol/L Anion Gap (12-20) BUN (9-16) mg/dL Creatinine (0.5-1.4) mg/dL Estim Creat Clear Calc Estimated GFR POC Glucose 98 (60-115) mg/dL Random Glucose (60-115) mg/dL Lactic Acid (0.5-2.0) mmol/L Calcium (8.4-10.2) mg/dL Magnesium (1.6-2.6) mg/dL Total Bilirubin (0.0-1.0) mg/dL Direct Bilirubin (0.0-0.5) mg/dL AST (5-37) U/L ALT (0-40) U/L Alkaline Phosphatase (39-117) U/L Troponin I High Sens < 3.5 (<3.5-35.0) ng/L Total Protein (6.5-8.0) g/dL Albumin (3.5-5.0) g/dL Lipase (8-78) U/L Ethyl Alcohol mg/dL COVID-19 (DAVIAN) (Negative) COVID-19 Clin Com 05/27/22 05/27/22 05/27/22 Range/Units 11:34 11:38 11:39 WBC (4.8-10.8) X10*3/uL RBC (4.60-5.80) X10*6/uL Hgb (14.0-18.0) g/dl Hct (42.0-52.0) % MCV (80.0-98.0) fL MCH (27.0-33.0) pg MCHC (31.0-36.0) g/dl RDW (11.0-16.0) % Plt Count (160-400) X10*3/uL MPV (9.4-12.4) fL Immature Gran % (Auto) (0.0-0.4) % Neut % (Auto) (45-73) % Lymph % (Auto) (20-40) % [place] % (Auto) (2-11) % Eos % (Auto) (0-4) % Baso % (Auto) (0-2) % Lymph # (Auto) (1.2-4.9) X10*3/uL [place] # (Auto) (0.1-1.2) X10*3/uL Eos # (Auto) (0.0-0.4) X10*3/uL Baso # (Auto) (0.0-0.2) X10*3/uL Abs Immat Gran (auto) (0.00-0.03) X10*3/uL Absolute Neuts (auto) (2.0-8.3) x10*3/uL Absolute Nucleated RBC (0.0-0.012) X10*3/uL Nucleated RBC % (auto) (0.0-0.2) /100WBC PT (10.0-13.1) SEC Whole Blood PT (11.1-13.5) sec INR (0.9-1.1) Whole Blood INR (0.9-1.1) APTT (26.0-36.4) SEC VBG pH 7.40 (7.32-7.43) VBG pCO2 39 mmHg VBG pO2 37 mmHg VBG HCO3 25 (22-26) mmol/L VBG O2 Saturation 57.0 % VBG Base Excess 0.6 mmol/L Sodium (135-145) mmol/L Potassium (3.3-5.1) mmol/L Chloride (96-108) mmol/L Carbon Dioxide (22-29) mmol/L Anion Gap (12-20) BUN (9-16) mg/dL Creatinine (0.5-1.4) mg/dL Estim Creat Clear Calc Estimated GFR POC Glucose (60-115) mg/dL Random Glucose (60-115) mg/dL Lactic Acid 1.4 (0.5-2.0) mmol/L Calcium (8.4-10.2) mg/dL Magnesium (1.6-2.6) mg/dL Total Bilirubin (0.0-1.0) mg/dL Direct Bilirubin (0.0-0.5) mg/dL AST (5-37) U/L ALT (0-40) U/L Alkaline Phosphatase (39-117) U/L Troponin I High Sens (<3.5-35.0) ng/L Total Protein (6.5-8.0) g/dL Albumin (3.5-5.0) g/dL Lipase (8-78) U/L Ethyl Alcohol mg/dL COVID-19 (DAVIAN) Negative (Negative) COVID-19 Clin Com See Note ECG Data Attestation: I personally reviewed and interpreted this ECG as follows: ECG interpretation date: 05/27/22 ECG interpretation time: 11:35 Interpretation: Rate: 66 Rhythm: NSR [place]: left, LVH Normal P waves. Normal MIKAEL. Normal QRS complex. ST T wave : normal no CHARU qTC: normal prior studies: no acute ischemia The study has been interpreted contemporaneously by me. EKG #2 Rate: 61 Rhythm: NSR [place]: left LVH Normal P waves. Normal MIKAEL. Normal QRS complex. ST T wave : normal no CHARU qTC: normal prior studies: no acute ischemia The study has been interpreted contemporaneously by me. . NIH Stroke Scale Internal: Initial- Upon Arrival Level of Consciousness: Alert Level of Consciousness Questions: Answers one question correctly Level of Consciousness Commands: Performs both tasks correctly Best Gaze: Normal Visual: No visual loss Facial Palsy: Normal Motor Arm (Right): No drift Motor Arm (Left): No drift Motor Leg (Right): No drift Motor Leg (Left): No drift Limb Ataxia: Absent Sensory: Normal Best Language: No aphasia Dysarthia: Normal Extinction and Inattention: No abnormality Score: 1 Discharge Plan Discharge Clinical Impression: Transient cerebral ischemia Qualifiers: Transient cerebral ischemia type: unspecified Qualified Code(s): G45.9 - Transient cerebral ischemic attack, unspecified Patient Disposition: Admitted As Inpatient
[2022-05-27 11:30] LABS: Alanine Aminotransferase 13 U/L (0-40); Albumin Level 4.3 g/dL (3.5-5.0); Alkaline Phosphatase 67 U/L (39-117); Anion Gap 14 (12-20); Aspartate Amino Transferase 15 U/L (5-37); Bilirubin Direct 0.3 mg/dL (0.0-0.5); Bilirubin Total 0.9 mg/dL (0.0-1.0); Blood Urea Nitrogen 18 mg/dL (9-16); Carbon Dioxide 25 mmol/L (22-29); Chloride 101 mmol/L (96-108); Creatinine Clr Calc Pharmacy 69.8; Estimated Glomerular Filt Rate > 60; Ethanol < 10 mg/dL; Glucose Random 116 mg/dL (60-115); Lipase 21 U/L (8-78); Magnesium 1.8 mg/dL (1.6-2.6); Potassium 3.9 mmol/L (3.3-5.1); Sodium 136 mmol/L (135-145); Total Protein 6.6 g/dL (6.5-8.0)
[2022-05-27 11:33] LABS: Troponin-I High Sensitivity < 3.5 ng/L (<3.5-35.0)
[2022-05-27 11:44] LABS: Venous Blood Gas Refer to POC result
[2022-05-27 11:45] LABS: VBG Base Excess 0.6 mmol/L; VBG HCO3 25 mmol/L (22-26); VBG pCO2 39 mmHg; VBG pO2 37 mmHg
[2022-05-27 11:53] LABS: Lactic Acid 1.4 mmol/L (0.5-2.0)
[2022-05-27 12:02] LABS: COVID-19 Test Negative (Negative); IDNOW Serial# 16C4AD1C
[2022-05-27 14:26] LABS: Appearance Urine Clear; Color Urine Yellow; Glucose Urine UA Negative (Negative); Leukocyte Esterase Urine Negative (Negative); Nitrite Urine Negative (Negative); Urine Blood Negative (Negative); Urine Ketones Negative (Negative); Urine Protein Negative (Neg-Trace)
[2022-05-27] MEDS: Acetaminophen 325 MG TABLET 650 MG PO ×2 (15:16→23:37)
[2022-05-27] MEDS: Aspirin Enteric Coated 325 MG TABLET.DR PO (15:16)
--- NOTE | 2022-05-27 15:26 | PHA.MEDREC ---
Pharmacy Consult ? Medication Reconciliation Pharmacy has completed the medication reconciliation. Patient is unable to recall the last time they took their medications ever since event leading to admission. Patient confirms medications and cross-referenced with claim history. 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
--- NOTE | 2022-05-27 15:37 | MHC.STROKE ---
[age] F PRE-NOTIFIED STROKE ALERT , ARRIVED AT 1054. PRIMARY COMPLAINT AMS, VAGUE BUT FOLLOWING ALL COMMANDS. PMH TBI, EXAMINED BY DR GUZMAN, NIHSS = 1, LOC. DIRECT TO CT ON EMS STRETCHER, NO BLEED. WITHIN AN HOUR HIS CONFUSION RESOLVED, HE PASSED SWALLOW SCREEN, HE HAD COFFEE WITH A NEIGHBOR AT 0800 AND SEEMED FINE, THE VISITING NURSE CAME AT 1030 AND NOTICED HE WAS MORE CONFUSED THAN NORMAL ?HX OF DEMENTIA ALSO. HE WAS ABLE TO FOLLOW ALL COMMANDS, I DID INITIATE STROKE EDUCATION AND EXPLAIN WHY HE WAS HERE. ?TIA, ?PARTIAL COMPLEX SEIZURE, NEUROLOGY CONSULT PENDING.
--- NOTE | 2022-05-27 15:47 | PC.NURSE ---
PT OFF UNIT TO MRI
--- NOTE | 2022-05-27 15:50 | CA_ITS ---
Transthoracic Echocardiogram Patient (Last, First, Middle): Romaine Garcia, Gender: Male Date of : 1950 Age: 71 Procedure Date: 05/27/2022 Procedure Type: Transthoracic Echocardiogram Location: [facility] [place] Height: 167.64 cm Weight: 77.11 kg BSA: 1.87 m2 Heart Rate: bpm BP: 154 / 77 mmHg Demand Planning Analyst: Referring MD: Rolanda JONES Symptoms: ?tia Study Quality: Fair ECG Rhythm: Sinus Conclusions: - The left ventricular systolic function is normal. The visually estimated ejection fraction is between 55-60%. - No obvious valvular pathology seen on this study. - There is mild dilatation of the ascending aorta measuring 4.00 cm. Findings Left Ventricle Normal left ventricular cavity size. There is mildly increased left ventricular wall thickness. The left ventricular systolic function is normal. The visually estimated ejection fraction is between 55-60%. There is no evidence of regional wall motion abnormalities. Right Ventricle Normal right ventricular cavity size and systolic function. Atria Both atria are normal in size. Aortic Valve There is a normal trileaflet aortic valve. There is no aortic valve stenosis. There is trace (trivial) aortic valve regurgitation. Mitral Valve The mitral valve appears normal. There is no mitral valve regurgitation. There is no mitral valve stenosis. Pulmonic Valve The pulmonic valve is likely normal. Tricuspid Valve Normal tricuspid valve structure. There is trace tricuspid valve regurgitation. The pulmonary artery systolic pressure is normal. Great Vessels There is mild dilatation of the ascending aorta measuring 4.00 cm. Venous The inferior vena cava is normal in size and collapses greater than 50% with inspiration. Pericardium/Pleural There is no evidence of pericardial effusion. Prior Study Comparison No prior study available for comparison. Recommendations, Care & Conclusions No obvious valvular pathology seen on this study. Measurements 2D Linear Measurements IVSd: 1.19 0.6-0.9/0.6-1.0 cm LVIDd: 4.08 3.9-5.3/4.2-5.9 cm LVIDd Index: 2.18 2.4-3.2/2.2-3.1 cm/m2 LVIDs: 3.02 2.0-3.6 cm LVPWd: 1.30 0.7-1.1 cm Ao Root: 3.50 2.1-3.5 cm LA Diam: 3.10 2.7-3.8/3.0-4.0 cm LAIDs Index: 1.66 1.5-2.3 cm/m2 LV Mass: 224.30 67-162/88-224 g LV Mass Index: 119.95 43-95/49-115 g/m2 LVOT Diam: 2.10 3.0+(-)1.3 cm 2D Systolic Function EF 4C: 54.40 >55% EF 2C: 52.80 >55% EF BiP: 52.20 >55% Mitral Valve MV Pk E: 0.59 MV PK A: 0.81 MV Decel Time: 258.00 E/A: 0.70 E'Lateral: 7.29 E'Medial: 5.00 E/E' Med: 11.70 E/E' Lat: 8.10 PHT: 75.00 MVA PHT: 2.93 Decel [place]: 2.28 Aortic Valve AoV Pk Kevin: 1.05 AoV Mn Kevin: 0.68 AoV VTI: 0.27 AoV Pk Grad: 4.00 Aov Mn Grad: 2.00 NEMESIO Cont.VTI: 2.77 LVOT LVOT Pk Kevin: 0.84 LVOT Mn Kevin: 0.51 LVOT VTI: 0.22 LVOT Pk Grad: 3.00 LVOT Mn Grad: 1.00 LVOT Diam: 2.10 LVOT Area: 3.46 Diastolic Function MV Pk E: 0.59 MV Pk A: 0.81 E/A: 0.70 E'Medial: 5.00 E/E' Med: 11.70 E' Laterial: 7.29 E/E' Lat: 8.10 Right Ventricle TAPSE (mm): 23.00 TVS' Kevin: 8.00 Tricuspid Valve TR Pk Kevin: 2.32 TR Pk Grad: 22.00 RA Press: 3.00 RVSP: 25.00 Great Vessels Aorta Ao Root-2D: 3.50 2.0-3.7 cm Ao Asc: 4.00 2.1-3.4 cm Pulmonary Valve PV Pk Kevin: 0.90 Peak PV Grad: 3.00 Updated in Other Vendor System with Status of Final Esvin Unger MD electronically signed on 05/28/2022 1:06:33 PM with status of Final
[2022-05-27 16:10] LABS: Troponin-I High Sensitivity 3.8 ng/L (<3.5-35.0)
--- NOTE | 2022-05-27 18:36 | PC.NURSE ---
Pt c/o headache. Messaged hospitalist to request medication to manage pain.
--- NOTE | 2022-05-27 18:45 | PM.IMHP ---
History of Present Illness Date of Service: 05/27/22 Attending physician on admission: Brooke Reyes Chief Complaint: ?TIA Patient with history of noninsulin dependent diabetes, hypertension, hyperlipidemia, bph, depression, and dementia without behavioral disurbance presented to the ED this morning via EMS for altered mental status confusion. A neighbor who had seen the patient this morning around 8am said the patient seemed fine. However, when [facility] arrived at the home seeming very confused, unaware of who his nurse was or why she was there. EMS reported that he seemed very confused as well and this was also noted on arrival by ED MD initially speaking in incoherent sentences and disoriented to time. No observed weakness, gait ataxia, aphasia, facial droop. While in the ED symptoms steadily improved and then fully resolved. The patient reports no known memory of this morning. He states this has never occurred before. CT head was negative for acute intracranial abnormality. CTA held as patient not a candidate for tPA and NIH score 1. He is reporting left sided chest tightness and numbness in the left arm ongoing for 2 days intermittently and has occurred intermittently in the past. Previously underwent negative work up with Dr. Samuels in cardiology and EKG x 2 in ED showed NSR rate [address]-T wave abnormality. Troponin <3.5, repeat troponin pending. Hematology and chemistries otherwise unremarkable. UA negative. CXR negative. His only other concern is occassional leg cramping which he states is not new. Review of Systems Review of Systems: General: No fevers, malaise, unintentional weight loss HEENT: No blurred vision or diplopia Cardiovascular: No chest pain, palpitations, or leg edema Respiratory: No shortness of breath, wheezing, cough GI: No abdominal pain, nausea, vomiting, diarrhea, constipation, melena, hematochezia : No dysuria, hematuria, increased frequency MSK: +leg cramping Neuro: +confusion, +paresthesia LUE. No headaches, weakness Skin: No rashes or lesions [facility] Medical History (Updated 05/27/22 @ 15:00 by ROBERT Sorto) BPH (benign prostatic hyperplasia) Dementia Depression Essential hypertension Other and unspecified hyperlipidemia Type 2 diabetes mellitus with unspecified complications Family History Father Diabetes Hyperlipidemia Mother Stroke Surgical History History of cardiac catheterization (~09/17/14) Social History Alcohol intake: never Patient Tobacco Use Status: Never used Tobacco Use of substances other than those prescribed or required for medical reasons: No Advance Directives: Yes Advance Directives Information Provided: Yes Advance Directives on File: No Meds Allergies Allergy/AdvReac Type Severity Reaction Status Date / Time shellfish derived Allergy Unknown Hives/Short Verified 08/16/21 09:18 of breath Active Medications: Current Medications Pharmacy Consult (Consult Rx Perform Med Rec) 1 each MISCELLANE ONCE PRN PRN Reason: Consult order Home Medications Medication Instructions Recorded Confirmed Last Taken Type aspirin 81 mg tablet,delayed 81 mg PO DAILY 08/13/20 05/27/22 Unknown History release cetirizine 10 mg tablet 10 mg PO DAILY 08/13/20 05/27/22 Unknown History cyanocobalamin (vitamin B-12) 500 500 mcg PO DAILY 08/13/20 05/27/22 Unknown History mcg tablet docusate sodium 100 mg capsule 100 mg PO DAILY 08/13/20 05/27/22 Unknown History donepezil 10 mg tablet 10 mg PO BEDTIME 08/13/20 05/27/22 Unknown History epinephrine 0.3 mg/0.3 mL 0.3 mg IM DAILY PRN allergies 08/13/20 05/27/22 Unknown History injection, auto-injector finasteride 5 mg tablet 5 mg PO DAILY 08/13/20 05/27/22 Unknown History gabapentin 400 mg capsule 800 mg PO TID 08/13/20 05/27/22 Unknown History lisinopril 20 mg tablet 20 mg PO DAILY 08/13/20 05/27/22 Unknown History metformin 500 mg tablet,extended 500 mg PO BID 08/13/20 05/27/22 Unknown History release 24 hr omeprazole 20 mg capsule,delayed 20 mg PO DAILY@0630 08/13/20 05/27/22 Unknown History release risperidone 0.5 mg tablet 0.5 mg PO BID 08/13/20 05/27/22 Unknown History rosuvastatin 40 mg tablet 40 mg PO DAILY 08/13/20 05/27/22 Unknown History sennosides 8.6 mg tablet 8.6 mg PO DAILY 08/13/20 05/27/22 Unknown History tamsulosin 0.4 mg capsule 0.8 mg PO DAILY 08/13/20 05/27/22 Unknown History acetaminophen 325 mg tablet 325 mg PO QID PRN pain 05/27/22 05/27/22 Unknown History (Tylenol) citalopram 20 mg tablet 1 tab PO BEDTIME 05/27/22 05/27/22 Unknown History trazodone 50 mg tablet 1 tab PO BEDTIME PRN Sleep 05/27/22 05/27/22 Unknown History Physical Exam Vital Signs and Narrative: Vital Signs: Last Vital Signs Temp 98.5 F 05/27/22 11:18 Pulse 72 05/27/22 12:53 Resp 18 05/27/22 12:53 BP 152/79 H 05/27/22 12:53 Pulse Ox 98 05/27/22 12:53 O2 Del Method 05/27/22 12:53 BMI result Body Mass Index 26.8 Constitutional - Awake and Alert, No apparent distress Eyes - PERRLA, EOMI Cardiovascular - S1S2, RRR, No edema Respiratory - Normal lung expansion, Normal respiratory effort, No respiratory distress, CTA bilaterally Gastrointestinal - NT / ND; +BS; No rebound or guarding Extremities - no calf tenderness bilaterally, no swelling Skin - Warm/Dry Neurological - Alert & oriented x3, CN II-XII intact. 5/5 strength BLE and BUE. Pronator drift test normal. Coordination in tact. Psychological - Appropriate affect Results Labs CBC and Chem 7: 05/27/22 11:04 05/27/22 11:04 Labs: Laboratory Results - last 24 hr 05/27/22 05/27/22 05/27/22 10:59 11:04 11:04 MCV 86.2 MCH 28.4 MCHC 33.0 RDW 13.0 Plt Count 288 MPV 10.4 Immature Gran % (Auto) 0.3 Neut % (Auto) 71.0 Lymph % (Auto) 17.1 L [place] % (Auto) 10.0 Eos % (Auto) 1.0 Baso % (Auto) 0.6 Lymph # (Auto) 1.2 [place] # (Auto) 0.7 Eos # (Auto) 0.1 Baso # (Auto) 0.0 Abs Immat Gran (auto) 0.02 Absolute Neuts (auto) 4.8 Absolute Nucleated RBC 0.000 Nucleated RBC % (auto) 0.0 PT Whole Blood PT 12.0 INR Whole Blood INR 1.0 APTT VBG pH VBG pCO2 VBG pO2 VBG HCO3 VBG O2 Saturation VBG Base Excess Anion Gap 14 Estim Creat Clear Calc 69.8 Estimated GFR > 60 POC Glucose Random Glucose 116 H Lactic Acid Calcium 9.0 Magnesium 1.8 Total Bilirubin 0.9 Direct Bilirubin 0.3 AST 15 ALT 13 Alkaline Phosphatase 67 Total Protein 6.6 Albumin 4.3 Lipase 21 Urine Color Urine Appearance Urine pH Ur Specific [place] Urine Protein Urine Glucose (UA) Urine Ketones Urine Blood Urine Nitrite Ur Leukocyte Esterase Ethyl Alcohol < 10 COVID-19 (DAVIAN) COVID-19 Jade Magnet 05/27/22 05/27/22 05/27/22 11:04 11:15 11:34 MCV MCH MCHC RDW Plt Count MPV Immature Gran % (Auto) Neut % (Auto) Lymph % (Auto) [place] % (Auto) Eos % (Auto) Baso % (Auto) Lymph # (Auto) [place] # (Auto) Eos # (Auto) Baso # (Auto) Abs Immat Gran (auto) Absolute Neuts (auto) Absolute Nucleated RBC Nucleated RBC % (auto) PT 12.1 Whole Blood PT INR 1.1 Whole Blood INR APTT 28.1 VBG pH VBG pCO2 VBG pO2 VBG HCO3 VBG O2 Saturation VBG Base Excess Anion Gap Estim Creat Clear Calc Estimated GFR POC Glucose 98 Random Glucose Lactic Acid 1.4 Calcium Magnesium Total Bilirubin Direct Bilirubin AST ALT Alkaline Phosphatase Total Protein Albumin Lipase Urine Color Urine Appearance Urine pH Ur Specific [place] Urine Protein Urine Glucose (UA) Urine Ketones Urine Blood Urine Nitrite Ur Leukocyte Esterase Ethyl Alcohol COVID-19 (DAVIAN) COVID-19 Jade Magnet 05/27/22 05/27/22 05/27/22 11:38 11:39 14:19 MCV MCH MCHC RDW Plt Count MPV Immature Gran % (Auto) Neut % (Auto) Lymph % (Auto) [place] % (Auto) Eos % (Auto) Baso % (Auto) Lymph # (Auto) [place] # (Auto) Eos # (Auto) Baso # (Auto) Abs Immat Gran (auto) Absolute Neuts (auto) Absolute Nucleated RBC Nucleated RBC % (auto) PT Whole Blood PT INR Whole Blood INR APTT VBG pH 7.40 VBG pCO2 39 VBG pO2 37 VBG HCO3 25 VBG O2 Saturation 57.0 VBG Base Excess 0.6 Anion Gap Estim Creat Clear Calc Estimated GFR POC Glucose Random Glucose Lactic Acid Calcium Magnesium Total Bilirubin Direct Bilirubin AST ALT Alkaline Phosphatase Total Protein Albumin Lipase Urine Color Yellow Urine Appearance Clear Urine pH 6.0 Ur Specific [place] 1.010 Urine Protein Negative Urine Glucose (UA) Negative Urine Ketones Negative Urine Blood Negative Urine Nitrite Negative Ur Leukocyte Esterase Negative Ethyl Alcohol COVID-19 (DAVIAN) Negative COVID-19 Clin Com See Note Imaging Radiologist's Impressions: Impressions Head CT 05/27/22 11:08 IMPRESSION: No acute intracranial abnormality. Chest X-Ray 05/27/22 12:20 IMPRESSION: Clear lungs. Assessment and Plan (1) Transient cerebral ischemia: Qualifiers: Transient cerebral ischemia type: unspecified Qualified Code(s): G45.9 - Transient cerebral ischemic attack, unspecified Status: Acute (2) Precordial chest pain: Status: Acute Plan Patient with history of noninsulin dependent diabetes, hypertension, hyperlipidemia, bph, depression, and dementia to be observed for possible TIA. 1-Acute confusion- resolved with unclear cause. Infectious causes ruled out with negative CXR, negative UA, no leukocytosis, lactic acid normal. Could be period of increased confusion related to dementia. However, patient has risk factors for TIA including htn, dm, hld with 5 points on ABCD^2 score indicating moderate risk of stroke after suspected TIA. Will be observed overnight with further workup -Prolonged period of confusion, difference from baseline this morning, without any other focal deficit and full return to baseline. No history CVA -Head CT in ED was negative for any acute abnormality. -Given 324mg aspirin -Brain MRI and echocardiogram ordered -Neurology consulted 2-Chest pain- likely non-anginal -similar to prior episodes of chest pain and seen by Dr. Bellamy diagnosed with precordial chest pain. -EKG x 2 in ED without acute ST-t wave abnormality -Troponin neg. Repeat trop pending 3-Type 2 diabetes- non insulin dependent -Continue home meds -POC glucose -Diabetic diet 4-HTN- controlled -Continue home HTN meds 5- HLD -Continue rosuvastatin 6-BPH- stable -Continue finasteride and tamsulosin 8-Dementia/Depression- without behavioral disturbance- stable -Continue citalopram, risperdone, donezapil 9- GERD- continue omeprazole DVT prophylaxis- 324mg aspirin. Full code Quality Stroke Does the patient have a stroke diagnosis?: No VTE Prior VTE?: No VTE Risk Level:: Medical - moderate - high VTE Device Contraindication: Treatment Not Indicated VTE Drug Contraindication: N/A - Med Ordered
[2022-05-27 18:48] LABS: Glucose, Whole Blood 101 mg/dL (60-115)
[2022-05-27] MEDS: Enoxaparin Sodium 40 MG/0.4 ML SYRINGE SUBCUT (18:56)
--- NOTE | 2022-05-27 19:14 | PC.NURSE ---
Hospitalist responded to connect with another hospitalist. Waiting on response from Dr. Reyes.
--- NOTE | 2022-05-27 20:28 | PC.NURSE ---
Assumed care of pt at 1900. Pt. needing to use restroom. Pt. also complains of a headache. Will reach out to hospitalist for pain medication. Pt. states he has not eaten since arrival. Will obtain food for pt. Pt. resting in bed at this time.
[2022-05-27 20:51] LABS: Glucose, Whole Blood 103 mg/dL (60-115)
[2022-05-27] MEDS: metFORMIN HCl ER 500 MG TAB.ER.24H PO (22:24)
[2022-05-27] MEDS: Gabapentin 400 MG CAPSULE 800 MG PO (22:24)
[2022-05-27] MEDS: risperiDONE 0.5 MG TABLET PO (22:24)
[2022-05-27] MEDS: Escitalopram Oxalate 10 MG TABLET PO (22:24)
[2022-05-27] MEDS: Donepezil HCl 10 MG TABLET PO (22:33)
--- NOTE | 2022-05-27 23:40 | PC.NURSE ---
Obtained order for tylenol. Medicated pt. per NOV. Pt now resting comfortably in bed.
[2022-05-28 06:00] VITALS: BP 137/63; PULSE 55; RESP 16; TEMP 36.4; O2SAT 97
[2022-05-28] MEDS: Omeprazole 20 MG CAPSULE.DR PO (06:39)
[2022-05-28] MEDS: Acetaminophen 325 MG TABLET 650 MG PO (06:43)
--- NOTE | 2022-05-28 06:44 | PC.NURSE ---
Pt. awake and alert this morning, headache still present but a bit less than yesterday, now 01/09. Medicated with tylenol per NOV. Resting quietly in room.
[2022-05-28 08:22] VITALS: BP 129/74; PULSE 60; RESP 18; O2SAT 97
[2022-05-28] MEDS: Finasteride 5 MG TABLET PO (08:23)
[2022-05-28] MEDS: Gabapentin 400 MG CAPSULE 800 MG PO (08:23)
[2022-05-28] MEDS: Sennosides 8.6 MG TABLET PO (08:24)
[2022-05-28] MEDS: Docusate Sodium 100 MG CAPSULE PO (08:24)
[2022-05-28] MEDS: lisinopriL 20 MG TABLET PO (08:24)
[2022-05-28] MEDS: Atorvastatin Calcium 80 MG TABLET PO (08:24)
[2022-05-28] MEDS: Loratadine 10 MG TABLET PO (08:24)
[2022-05-28] MEDS: metFORMIN HCl ER 500 MG TAB.ER.24H PO (08:24)
[2022-05-28] MEDS: Cyanocobalamin (Vitamin B-12) 500 MCG TABLET PO (08:24)
[2022-05-28] MEDS: Tamsulosin HCL 0.4 MG CAPSULE 0.8 MG PO (08:24)
[2022-05-28] MEDS: risperiDONE 0.5 MG TABLET PO (08:24)
--- NOTE | 2022-05-28 11:16 | MHC.CM.PN ---
SHAILESH 05/28/22 MALE 71 DX TIA STROKE PROTOCOL SS RESOLVED HE LIVES ALONE. 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 VACCINATED X4 PFIZER. HCP IS ON FILE. DP HOME WITH RESUMPTION OF SERVICES IN PLACE. HE CAN NOT RECALL WHICH AGENCY PROVIDES HOME CARE SERVICES. [employer] SERVICES PROVIDED BY [facility]. FAMILY MEMBER WILL PROVIDE TRANSPORTATION HOME. HE HAS A NEW PCP, DR KARIME JENKINS.
--- NOTE | 2022-05-28 11:38 | PM.NEUROCN ---
History of Present Illness Data of Consult Service Date: 05/28/22 Primary Care Provider: Unknown Physician HPI Reason for consult: Change in mental status 71 years old man with underlying diagnosis of dementia and depression was in usual state of health when he woke up and went out with his dog. Later he was noted to be confused not knowing what was happening. There was no headache or any seizure-like activity. There was no focal weakness or difficulty speaking. Now he was feeling better. He denied drinking alcohol or use of any new medicine Review of Systems Review of Systems: No recent cold or flu-like PMFSH Past Medical History Medical History (Updated 05/28/22 @ 11:42 by Magnolia Haley MD) BPH (benign prostatic hyperplasia) Dementia Depression Essential hypertension Other and unspecified hyperlipidemia Type 2 diabetes mellitus with unspecified complications Family History Family History Father Diabetes Hyperlipidemia Mother Stroke Surgical History Surgical History History of cardiac catheterization (~09/17/14) Social History Social History Alcohol intake: never Patient Tobacco Use Status: Never used Tobacco Use of substances other than those prescribed or required for medical reasons: No Advance Directives: Yes Advance Directives Information Provided: Yes Advance Directives on File: No Meds Allergies Allergy/AdvReac Type Severity Reaction Status Date / Time shellfish derived Allergy Unknown Hives/Short Verified 08/16/21 09:18 of breath Active Medications: Current Medications Acetaminophen (Acetaminophen 325 Mg Tablet) 650 mg PO Q6H PRN PRN Reason: Pain, Mild (Pain Scale 1-3) Last Admin: 05/28/22 06:43 Dose: 650 mg Atorvastatin Calcium (Atorvastatin Calcium 80 Mg Tablet) 80 mg PO DAILY [facility] Last Admin: 05/28/22 08:24 Dose: 80 mg Cyanocobalamin (Cyanocobalamin (Vitamin B-12) 500 Mcg Tablet) 500 mcg PO DAILY [facility] Last Admin: 05/28/22 08:24 Dose: 500 mcg Docusate Sodium (Docusate Sodium 100 Mg Capsule) 100 mg PO DAILY [facility] Last Admin: 05/28/22 08:24 Dose: 100 mg Donepezil HCl (Donepezil Hcl 10 Mg Tablet) 10 mg PO BEDTIME [facility] Last Admin: 05/27/22 22:33 Dose: 10 mg Enoxaparin Sodium (Enoxaparin Sodium 40 Mg/0.4 Ml Syringe) 40 mg SUBCUT Q24H [facility] Last Admin: 05/27/22 18:56 Dose: 40 mg Escitalopram Oxalate (Escitalopram Oxalate 10 Mg Tablet) 10 mg PO BEDTIME [facility] Last Admin: 05/27/22 22:24 Dose: 10 mg Finasteride (Finasteride 5 Mg Tablet) 5 mg PO DAILY [facility] Last Admin: 05/28/22 08:23 Dose: 5 mg Gabapentin (Gabapentin 400 Mg Capsule) 800 mg PO TID [facility] Last Admin: 05/28/22 08:23 Dose: 800 mg Lisinopril (Lisinopril 20 Mg Tablet) 20 mg PO DAILY [facility]; Protocol Last Admin: 05/28/22 08:24 Dose: 20 mg Loratadine (Loratadine 10 Mg Tablet) 10 mg PO DAILY [facility] Last Admin: 05/28/22 08:24 Dose: 10 mg Meclizine HCl (Meclizine Hcl 25 Mg Tablet) 25 mg PO TID PRN PRN Reason: motion sickness Metformin HCl (Metformin Hcl Er 500 Mg Tab.Er.24h) 500 mg PO BID [facility] Last Admin: 05/28/22 08:24 Dose: 500 mg Omeprazole (Omeprazole 20 Mg Capsule.Dr) 20 mg PO DAILY@0630 [facility] Last Admin: 05/28/22 06:39 Dose: 20 mg Pharmacy Consult (Consult Rx Perform Med Rec) 1 each MISCELLANE ONCE PRN PRN Reason: Consult order Risperidone (Risperidone 0.5 Mg Tablet) 0.5 mg PO BID [facility] Last Admin: 05/28/22 08:24 Dose: 0.5 mg Senna (Sennosides 8.6 Mg Tablet) 8.6 mg PO DAILY [facility] Last Admin: 05/28/22 08:24 Dose: 8.6 mg Tamsulosin HCl (Tamsulosin Hcl 0.4 Mg Capsule) 0.8 mg PO DAILY [facility] Last Admin: 05/28/22 08:24 Dose: 0.8 mg Trazodone HCl (Trazodone Hcl 50 Mg Tablet) 50 mg PO BEDTIME PRN PRN Reason: Sleep Home Medications Medication Instructions Recorded Confirmed Last Taken Type aspirin 81 mg tablet,delayed 81 mg PO DAILY 08/13/20 05/27/22 Unknown History release cetirizine 10 mg tablet 10 mg PO DAILY 08/13/20 05/27/22 Unknown History cyanocobalamin (vitamin B-12) 500 500 mcg PO DAILY 08/13/20 05/27/22 Unknown History mcg tablet docusate sodium 100 mg capsule 100 mg PO DAILY 08/13/20 05/27/22 Unknown History donepezil 10 mg tablet 10 mg PO BEDTIME 08/13/20 05/27/22 Unknown History epinephrine 0.3 mg/0.3 mL 0.3 mg IM DAILY PRN allergies 08/13/20 05/27/22 Unknown History injection, auto-injector finasteride 5 mg tablet 5 mg PO DAILY 08/13/20 05/27/22 Unknown History gabapentin 400 mg capsule 800 mg PO TID 08/13/20 05/27/22 Unknown History lisinopril 20 mg tablet 20 mg PO DAILY 08/13/20 05/27/22 Unknown History metformin 500 mg tablet,extended 500 mg PO BID 08/13/20 05/27/22 Unknown History release 24 hr omeprazole 20 mg capsule,delayed 20 mg PO DAILY@0630 08/13/20 05/27/22 Unknown History release risperidone 0.5 mg tablet 0.5 mg PO BID 08/13/20 05/27/22 Unknown History rosuvastatin 40 mg tablet 40 mg PO DAILY 08/13/20 05/27/22 Unknown History sennosides 8.6 mg tablet 8.6 mg PO DAILY 08/13/20 05/27/22 Unknown History tamsulosin 0.4 mg capsule 0.8 mg PO DAILY 08/13/20 05/27/22 Unknown History acetaminophen 325 mg tablet 325 mg PO QID PRN pain 05/27/22 05/27/22 Unknown History (Tylenol) citalopram 20 mg tablet 1 tab PO BEDTIME 05/27/22 05/27/22 Unknown History trazodone 50 mg tablet 1 tab PO BEDTIME PRN Sleep 05/27/22 05/27/22 Unknown History Physical Exam Vital Signs: Vital Signs: Last Vital Signs Temp 97.6 F 05/28/22 06:00 Pulse 60 05/28/22 08:22 Resp 18 05/28/22 08:22 BP 129/74 05/28/22 08:22 Pulse Ox 97 05/28/22 08:22 O2 Del Method 05/28/22 08:22 BMI result Body Mass Index 26.8 Neuro: Other: He was alert and awake with normal spontaneity of speech fluency comprehension and slightly anxious affect. Face was symmetrical. Visual guardado are full. There was no pronator drift. Deep tendon reflexes were trace with flexor plantars. Results Labs CBC & Chem 7: 05/27/22 11:04 05/27/22 11:04 Labs: Urine 05/27/22 Range/Units 14:19 Urine Color Yellow Urine Appearance Clear Urine pH 6.0 (5.0-8.0) Ur Specific [place] 1.010 (1.005-1.025) Urine Protein Negative (Neg-Trace) mg/dL Urine Glucose (UA) Negative (Negative) mg/dL Noncontrast head CT did not reveal any significant abnormality. Noncontrast MRI of brain revealed moderately severe chronic microvascular ischemic changes Assessment and Plan (1) Confusion and disorientation: Status: Acute 71 years old man with previous diagnoses of depression and dementia treated with multiple medicines came to hospital with new onset of confusion which now has resolved. There was no obvious explanation. His brain imaging revealed moderate chronic microvascular ischemic changes. He denied taking any new medicine or drink alcohol. My recommendation is to arrange outpatient EEG and further EEG type of workup to rule out seizure disorder presenting as confusion and cognitive dysfunction. (2) Cerebral microvascular disease: Status: Acute Continue baby aspirin, statin and blood pressure managed Procedures Date of Service Date of Service: 05/28/22
--- NOTE | 2022-05-28 12:14 | P.DS_ITS ---
DS: Providers Provider Date of Service: 05/28/22 Date of admission: 05/27/22 15:28 Date of discharge: 05/28/22 Primary care physician: Unknown Physician Consults: 05/27/22 15:32 Consult to Neurology Routine Consulting Provider: [facility] Reason for consultation: ?TIA DS: Diagnosis Discharge Diagnosis (1) Confusion and disorientation: Status: Acute (2) Cerebral microvascular disease: Status: Acute DS: Summary Hospital Course Hospital Course: from admission H+P by hospitalist ROBERT Mendes, 05/27/22: Patient with history of noninsulin dependent diabetes, hypertension, hyperlipidemia, bph, depression, and dementia without behavioral disurbance presented to the ED this morning via EMS for altered mental status confusion. A neighbor who had seen the patient this morning around 8am said the patient seemed fine. However, when [facility] arrived at the home seeming very confused, unaware of who his nurse was or why she was there. EMS reported that he seemed very confused as well and this was also noted on arrival by ED MD initially speaking in incoherent sentences and disoriented to time. No observed weakness, gait ataxia, aphasia, facial droop. While in the ED symptoms steadily improved and then fully resolved. The patient reports no known memory of this morning. He states this has never occurred before. CT head was negative for acute intracranial abnormality. CTA held as patient not a candidate for tPA and NIH score 1. He is reporting left sided chest tightness and numbness in the left arm ongoing for 2 days intermittently and has occurred intermittently in the past. Previously underwent negative work up with Dr. Samuels in cardiology and EKG x 2 in ED showed NSR rate [address]-T wave abnormality. Troponin <3.5, repeat troponin pending. Hematology and chemistries otherwise unremarkable. UA negative. CXR negative. His only other concern is occassional leg cramping which he states is not new. The patient was admitted on observation status. MRI showed chronic microvascular ischemic changes with no acute ischemia. Confusion did not recur, nor did chest tightness; serial troponins were normal. Neurology was consulted. The possibility of seizure disorder was raised. Outpatient EEG and neurology follow-up was recommended. He should continue aspirin, statin, and lisinopril. Time Spent with Patient Time attestation: Total time spent providing and/or coordinating discharge services: Discharge coordination time: Less than 30 minutes Quality: Safe Use of Opioids Does Pt have an Active Cancer Diagnosis on the Problem List?: No Quality: Stroke Does the patient have a stroke diagnosis?: No Physical Exam Vital Signs: Vital Signs: Last Vital Signs Temp 97.6 F 05/28/22 06:00 Pulse 60 05/28/22 08:22 Resp 18 05/28/22 08:22 BP 129/74 05/28/22 08:22 Pulse Ox 97 05/28/22 08:22 O2 Del Method 05/28/22 08:22 BMI result Body Mass Index 26.8 Gen: in no acute distress HEENT: sclera anicteric, moist mucus membranes Neck: supple Lungs: clear to auscultation bilaterally Heart: regular rate and rhythm, no murmurs Abd: soft, non-tender, non-distended Ext: no edema Skin: warm/well-perfused Neuro: alert and oriented x3, no focal findings Psych: appropriate affect DS: Data Data Completed and Pending Completed studies during hospitalization [Text1]: Laboratory Results WBC 6.8 X10*3/uL (4.8-10.8) 05/27/22 11:04 RBC 4.57 X10*6/uL (4.60-5.80) L 05/27/22 11:04 Hgb 13.0 g/dl (14.0-18.0) L 05/27/22 11:04 Hct 39.4 % (42.0-52.0) L 05/27/22 11:04 MCV 86.2 fL (80.0-98.0) 05/27/22 11:04 MCH 28.4 pg (27.0-33.0) 05/27/22 11:04 MCHC 33.0 g/dl (31.0-36.0) 05/27/22 11:04 RDW 13.0 % (11.0-16.0) 05/27/22 11:04 Plt Count 288 X10*3/uL (160-400) 05/27/22 11:04 MPV 10.4 fL (9.4-12.4) 05/27/22 11:04 Immature Gran % (Auto) 0.3 % (0.0-0.4) 05/27/22 11:04 Neut % (Auto) 71.0 % (45-73) 05/27/22 11:04 Lymph % (Auto) 17.1 % (20-40) L 05/27/22 11:04 [place] % (Auto) 10.0 % (2-11) 05/27/22 11:04 Eos % (Auto) 1.0 % (0-4) 05/27/22 11:04 Baso % (Auto) 0.6 % (0-2) 05/27/22 11:04 Lymph # (Auto) 1.2 X10*3/uL (1.2-4.9) 05/27/22 11:04 [place] # (Auto) 0.7 X10*3/uL (0.1-1.2) 05/27/22 11:04 Eos # (Auto) 0.1 X10*3/uL (0.0-0.4) 05/27/22 11:04 Baso # (Auto) 0.0 X10*3/uL (0.0-0.2) 05/27/22 11:04 Abs Immat Gran (auto) 0.02 X10*3/uL (0.00-0.03) 05/27/22 11:04 Absolute Neuts (auto) 4.8 x10*3/uL (2.0-8.3) 05/27/22 11:04 Absolute Nucleated RBC 0.000 X10*3/uL (0.0-0.012) 05/27/22 11:04 Nucleated RBC % (auto) 0.0 /100WBC (0.0-0.2) 05/27/22 11:04 PT 12.1 SEC (10.0-13.1) 05/27/22 11:04 Whole Blood PT 12.0 sec (11.1-13.5) 05/27/22 10:59 INR 1.1 (0.9-1.1) 05/27/22 11:04 Whole Blood INR 1.0 (0.9-1.1) 05/27/22 10:59 APTT 28.1 SEC (26.0-36.4) 05/27/22 11:04 VBG pH 7.40 (7.32-7.43) 05/27/22 11:39 VBG pCO2 39 mmHg 05/27/22 11:39 VBG pO2 37 mmHg 05/27/22 11:39 VBG HCO3 25 mmol/L (22-26) 05/27/22 11:39 VBG O2 Saturation 57.0 % 05/27/22 11:39 VBG Base Excess 0.6 mmol/L 05/27/22 11:39 Sodium 136 mmol/L (135-145) 05/27/22 11:04 Potassium 3.9 mmol/L (3.3-5.1) 05/27/22 11:04 Chloride 101 mmol/L (96-108) 05/27/22 11:04 Carbon Dioxide 25 mmol/L (22-29) 05/27/22 11:04 Anion Gap 14 (12-20) 05/27/22 11:04 BUN 18 mg/dL (9-16) H 05/27/22 11:04 Creatinine 0.85 mg/dL (0.5-1.4) 05/27/22 11:04 Estim Creat Clear Calc 69.8 05/27/22 11:04 Estimated GFR > 60 05/27/22 11:04 POC Glucose 103 mg/dL (60-115) 05/27/22 20:46 Random Glucose 116 mg/dL (60-115) H 05/27/22 11:04 Lactic Acid 1.4 mmol/L (0.5-2.0) 05/27/22 11:34 Calcium 9.0 mg/dL (8.4-10.2) 05/27/22 11:04 Magnesium 1.8 mg/dL (1.6-2.6) 05/27/22 11:04 Total Bilirubin 0.9 mg/dL (0.0-1.0) 05/27/22 11:04 Direct Bilirubin 0.3 mg/dL (0.0-0.5) 05/27/22 11:04 AST 15 U/L (5-37) 05/27/22 11:04 ALT 13 U/L (0-40) 05/27/22 11:04 Alkaline Phosphatase 67 U/L (39-117) 05/27/22 11:04 Troponin I High Sens 3.8 ng/L (<3.5-35.0) 05/27/22 15:43 Total Protein 6.6 g/dL (6.5-8.0) 05/27/22 11:04 Albumin 4.3 g/dL (3.5-5.0) 05/27/22 11:04 Lipase 21 U/L (8-78) 05/27/22 11:04 Urine Color Yellow 05/27/22 14:19 Urine Appearance Clear 05/27/22 14:19 Urine pH 6.0 (5.0-8.0) 05/27/22 14:19 Ur Specific [place] 1.010 (1.005-1.025) 05/27/22 14:19 Urine Protein Negative mg/dL (Neg-Trace) 05/27/22 14:19 Urine Glucose (UA) Negative mg/dL (Negative) 05/27/22 14:19 Urine Ketones Negative mg/dL (Negative) 05/27/22 14:19 Urine Blood Negative (Negative) 05/27/22 14:19 Urine Nitrite Negative (Negative) 05/27/22 14:19 Ur Leukocyte Esterase Negative (Negative) 05/27/22 14:19 Ethyl Alcohol < 10 mg/dL 05/27/22 11:04 COVID-19 (DAVIAN) Negative (Negative) 05/27/22 11:38 COVID-19 Clin Com See Note 05/27/22 11:[address] 05/27/22 11:08 IMPRESSION: No acute intracranial abnormality. Chest X-Ray 05/27/22 12:20 IMPRESSION: Clear lungs. Brain MRI 05/27/22 17:30 IMPRESSION: No acute infarct. No acute intracranial process. Stable mild chronic white matter microangiopathy. TTE 05/27/22 - The left ventricular systolic function is normal.? The visually estimated ejection fraction is between 55-60%. ? - No obvious valvular pathology seen on this study.? - There is mild dilatation of the ascending aorta measuring 4.00 cm.? Carotid US 05/28/22 1. RIGHT: Minimal, non-hemodynamically significant stenosis of the proximal right internal carotid artery corresponding to a 0-49% stenosis by velocity criteria. 2. LEFT: Minimal, non-hemodynamically significant stenosis of the proximal left internal carotid artery corresponding to a 0-49% stenosis by velocity criteria. ? Labs on day of discharge: Laboratory Results - last 24 hr 05/27/22 05/27/22 05/27/22 14:19 15:43 18:33 POC Glucose 101 Troponin I High Sens 3.8 Urine Color Yellow Urine Appearance Clear Urine pH 6.0 Ur Specific [place] 1.010 Urine Protein Negative Urine Glucose (UA) Negative Urine Ketones Negative Urine Blood Negative Urine Nitrite Negative Ur Leukocyte Esterase Negative 05/27/22 20:46 POC Glucose 103 Troponin I High Sens Urine Color Urine Appearance Urine pH Ur Specific [place] Urine Protein Urine Glucose (UA) Urine Ketones Urine Blood Urine Nitrite Ur Leukocyte Esterase Discharge Plan Discharge Patient Disposition: Home Health Service Discharge Diagnosis: transient confusion Referrals: Magnolia Haley MD [Physician] - 1 Week Cathleen Alcantar MD [Physician] - 1 Week Discharge Medications: Continued trazodone 50 mg tablet 1 tab PO BEDTIME PRN (Reason: Sleep) citalopram 20 mg tablet 1 tab PO BEDTIME acetaminophen [Tylenol] 325 mg Tablet 325 mg PO QID PRN (Reason: pain) meclizine 25 mg tablet 25 mg PO TID PRN (Reason: motion sickness) Qty: 20 0RF aspirin 81 mg tablet,delayed release (DR/EC) 81 mg PO DAILY sennosides 8.6 mg tablet 8.6 mg PO DAILY gabapentin 400 mg capsule 800 mg PO TID finasteride 5 mg tablet 5 mg PO DAILY cetirizine 10 mg tablet 10 mg PO DAILY rosuvastatin 40 mg tablet 40 mg PO DAILY docusate sodium 100 mg capsule 100 mg PO DAILY lisinopril 20 mg tablet 20 mg PO DAILY omeprazole 20 mg capsule,delayed release(DR/EC) 20 mg PO DAILY@0630 metformin 500 mg tablet extended release 24 hr 500 mg PO BID cyanocobalamin (vitamin B-12) 500 mcg tablet 500 mcg PO DAILY epinephrine 0.3 mg/0.3 mL auto-injector 0.3 mg IM DAILY PRN (Reason: allergies) tamsulosin 0.4 mg capsule 0.8 mg PO DAILY Rx Instructions: TAKE 30 MIN AFTER SAME MEAL EVERYDAY donepezil 10 mg tablet 10 mg PO BEDTIME risperidone 0.5 mg tablet 0.5 mg PO BID Discharge Orders: Discharge Order (Routine); Ordered 05/28/22 Ordered By: Brooke Reyes Diet: Diabetic diet Activity on Discharge: no driving Stand Alone Forms: Patient Portal Discharge page Care Plan Goals: neurologic workup Health Concerns: transient confusion Plan of Treatment: no medicine changes please see primary care doctor Dr Alcantar within 1 week and schedule EEG with neurology follow-up with Dr Haley Assessment: See Discharge Summary
--- NOTE | 2022-05-28 14:05 | MHC.CM.PN ---
Patient is discharged to home with resumption of services [employer] and [facility]. T/W unable to identify correct [facility]. Contact info for [facility] at home. Patient instructed to call agency to resume services. Patient has arranged for transportation home.
== END 2022-05-28 14:10 | disposition home health service (06) ==
LOC: HO.ED 14:19 → HO.EDOVER 16:01
PROVIDERS: Admitting Provider Physician Assistant; Emergency Provider Emergency Medicine; PCP Internal Medicine; Visit Provider Family Medicine
DX: I67.89 Other cerebrovascular disease (principal); R07.2 Precordial pain; R41.0 Disorientation, unspecified; E11.9 Type 2 diabetes mellitus without complications; I10 Essential (primary) hypertension; R51.9 Headache, unspecified; F33.1 Major depressive disorder, recurrent, moderate; Z20.822 Contact with and (suspected) exposure to COVID-19; Z79.899 Other long term (current) drug therapy
CPT/HCPCS: 36415; 70450; 70551; 71045; 80048; 80076; 81003; 82077; 82803; 82947; 83605; 83690; 83735; 84484; 85025; 85610; 85730; 87635; 93005; 93306; 93880; 96372; 99219; 99285; J1650

== ENCOUNTER 2022-06-30 16:45 | Emergency (ER) | payer OTHER, SELFPAY ==
--- NOTE | ~2022-06-30 | CT_ITS ---
EXAMINATION: CT ANGIOGRAM HEAD CT ANGIOGRAM NECK CLINICAL INFORMATION: Reason for Exam stroke last week, worsening headache COMPARISON: CT head without contrast the 2021 TECHNIQUE: Initial noncontrast pipeline systems operator imaging of the head and neck was performed. Noncontrast head CT was also performed. Test bolus sequences followed by intravenous administration 70 mL of Omnipaque 350. Helical imaging was performed in the axial plane from the aortic arch to the skull vertex. Delayed postcontrast imaging of the head was also performed. The data was processed at the fish technologist's workstation for generation of MIP sequences. Angled MIPs and volume rendered reformatted images were also generated at an offline 3D workstation. Stenoses are assessed in accordance with NASCET criteria unless otherwise indicated. DLP: 2292 mGy-cm This CT examination was performed using dose optimization techniques as appropriate, variously including the following: *Automated exposure control. *Adjustment of mA and/or kV according to patient size (this includes techniques or standardized protocols for targeted exams where dose is matched to indication/reason for exam; i.e. extremities or head). *Use of iterative reconstruction technique. FINDINGS: CT Head: There is no evidence of acute intracranial hemorrhage or edematous territorial infarction. A few foci of hypoattenuation in the periventricular and deep white matter are consistent with mild microangiopathy. Boogie-white matter differentiation is preserved. The ventricles are normal in size and configuration. No evidence for obstructive hydrocephalus. No abnormal mass effect or midline shift. No extra-axial fluid collections. Similarly noted high riding left jugular bulb No pathologic intra-axial enhancement or regional oligemia. No acute soft tissue or osseous abnormalities. CT Neck: The thyroid gland and remaining cervical soft tissues are within normal limits. Multilevel cervical spondylosis. CT Upper Chest: The visualized lung apices and upper mediastinum are within normal limits. Neck CTA: Aortic Arch: Normal contour and caliber. Four vessel branching pattern with left vertebral artery arising directly from the arch between the left common carotid and left subclavian arteries. Great Vessel Origins: No significant stenosis of the branch origins. Right Common Carotid Artery: No focal stenosis or occlusion. Cervical Right Internal Carotid Artery: Normal opacification without focal stenosis or occlusion. Left Common Carotid Artery: No focal stenosis or occlusion. Cervical Left Internal Carotid Artery: Mild calcific atherosclerotic disease of the carotid bulb and proximal internal carotid artery without flow-limiting stenosis. Cervical Right Vertebral Artery: Dominant. No focal stenosis or occlusion. Cervical Left Vertebral Artery: Diffusely diminutive, likely on a congenital basis Brain CTA: Intracranial Internal Carotid Arteries: No focal stenosis or occlusion. Right Anterior Cerebral Artery: Normal A1 segment. Normal opacification of the distal ALEC segments. Left Anterior Cerebral Artery: Normal A1 segment. Normal opacification of the distal ALEC segments. Anterior Communicating Artery: Normal. Right Middle Cerebral Artery: Normal M1 segment of the MCA without focal stenosis or occlusion. Normal arborization of the distal segments. Left Middle Cerebral Artery: Normal M1 segment of the MCA without focal stenosis or occlusion. Normal arborization of the distal segments. Right Vertebral Artery: Normal V4 segment. Left Vertebral Artery: There is absent opacification of the distal intradural left vertebral artery, likely chronic. Basilar Artery: Normal without focal stenosis or occlusion. Normal appearance of the proximal superior cerebellar arteries. The superior cerebellar arteries are duplicated bilaterally. The vertebrobasilar system is diminutive related to configuration of the posterior cerebral arteries. Right Posterior Cerebral Artery: configuration. No discrete P1 segment is identified. Artery Normal opacification of the distal GEEK SQUAD AGENT segments. Left Posterior Cerebral Artery: The P1 segment is diminutive. origin of the GEEK SQU[employer]ENT with robust opacification of the posterior communicating artery. Normal opacification of the distal GEEK SQU[employer]ENT segments. Normal opacification of the superior sagittal, straight, transverse, and sigmoid sinuses. CT/CT angio head neck IMPRESSION: 1. No acute intracranial abnormality including hemorrhage, mass effect, hydrocephalus, or acute territorial edematous infarction. 2. No arterial high grade stenosis or large vessel occlusion in the head or neck. The left cervical vertebral artery is diffusely diminutive in caliber, likely on a congenital basis, with minimal opacification of the distal intradural segment which is likely chronic.
--- NOTE | ~2022-06-30 | XR_ITS ---
EXAMINATION: XR CHEST CLINICAL INFORMATION: Chest pain. COMPARISON: 05/27/2022 chest radiograph. TECHNIQUE: Frontal view of the chest was obtained. FINDINGS: No significant abnormality is noted involving the heart, lungs, mediastinum, bony thorax or soft tissues. XR/XR chest 1V IMPRESSION: No acute cardiopulmonary process.
[2022-06-30 16:50] VITALS: BP 132/75; PULSE 67; O2SAT 99
[2022-06-30 16:54] VITALS: BP 153/76; PULSE 63; RESP 20; TEMP 36.6; O2SAT 100; BMI 26.6
--- NOTE | 2022-06-30 16:54 | ECG_ITS ---
Test Reason : CHEST PAIN Blood Pressure : / mmHG Vent. Rate : 062 BPM Atrial Rate : 062 BPM P-R Int : 154 ms QRS Dur : 094 ms QT Int : 400 ms P-R-T Axes : 020 -25 053 degrees QTc Int : 406 ms Normal sinus rhythm Minimal voltage criteria for LVH, may be normal variant ( R in aVL ) Borderline ECG When compared with ECG of 27-MAY-2022 13:30, No significant change was found Referred By: Camryn Cabrera Electronically Signed By:LORETO MALAGON
--- NOTE | 2022-06-30 16:57 | ED.CHESTPAIN ---
HPI - Chest Pain General Chief Complaint: Chest Pain Stated Complaint: chest pain Source: patient and EMS Mode of arrival: EMS Limitations: language barrier History of Present Illness HPI narrative: 71-year-old male presents via EMS for evaluation of a worsening headache, head numbness, tinnitus, and left-sided chest pain. States that he had a stroke in April, and feels that his headache and pressure in his head has worsened over the past few weeks. He also has some complaints of intermittent changes in vision that resolve quickly and uncontrolled hypertension. He does not report shortness of breath, diaphoresis, weakness, loss of balance, difficulty swallowing, fevers or chills. MD complaint: chest pain and chest discomfort Pertinent past history: coronary artery disease Onset (ago): week(s) Timing of current episode: episodic Prior episodes: Yes Pain location: left chest Pain radiation: none Severity: moderate Pain scale (0-10): 5 Quality: aching Relieving factors: rest Context: other (TIA in April) Treatment prior to arrival: none Risk Factors Coronary artery disease risk factors: diabetes, hyperlipidemia and hypertension Related Data Home Medications Medication Instructions Recorded Confirmed aspirin 81 mg tablet,delayed 81 mg PO DAILY 08/13/20 05/27/22 release cetirizine 10 mg tablet 10 mg PO DAILY 08/13/20 05/27/22 cyanocobalamin (vitamin B-12) 500 500 mcg PO DAILY 08/13/20 05/27/22 mcg tablet docusate sodium 100 mg capsule 100 mg PO DAILY 08/13/20 05/27/22 donepezil 10 mg tablet 10 mg PO BEDTIME 08/13/20 05/27/22 epinephrine 0.3 mg/0.3 mL 0.3 mg IM DAILY PRN allergies 08/13/20 05/27/22 injection, auto-injector finasteride 5 mg tablet 5 mg PO DAILY 08/13/20 05/27/22 gabapentin 400 mg capsule 800 mg PO TID 08/13/20 05/27/22 lisinopril 20 mg tablet 20 mg PO DAILY 08/13/20 05/27/22 metformin 500 mg tablet,extended 500 mg PO BID 08/13/20 05/27/22 release 24 hr omeprazole 20 mg capsule,delayed 20 mg PO DAILY@0630 08/13/20 05/27/22 release risperidone 0.5 mg tablet 0.5 mg PO BID 08/13/20 05/27/22 rosuvastatin 40 mg tablet 40 mg PO DAILY 08/13/20 05/27/22 sennosides 8.6 mg tablet 8.6 mg PO DAILY 08/13/20 05/27/22 tamsulosin 0.4 mg capsule 0.8 mg PO DAILY 08/13/20 05/27/22 acetaminophen 325 mg tablet 325 mg PO QID PRN pain 05/27/22 05/27/22 (Tylenol) citalopram 20 mg tablet 1 tab PO BEDTIME 05/27/22 05/27/22 trazodone 50 mg tablet 1 tab PO BEDTIME PRN Sleep 05/27/22 05/27/22 Previous Rx's Medication Instructions Recorded meclizine 25 mg tablet 25 mg PO TID PRN motion sickness 08/10/21 #20 tabs Allergies Allergy/AdvReac Type Severity Reaction Status Date / Time shellfish derived Allergy Unknown Hives/Short Verified 08/16/21 09:18 of breath Review of Systems Review of Systems: Constitutional: No Fever, No Chills ENT/Mouth: No Ear Pain, No Hoarseness, No sore throat Eyes: Positive tinnitus, positive transient scotomas, No Eye Pain, No Swelling, No Redness, No Foreign Body Cardiovascular: Positive Chest Pain, No SOB Respiratory: No Cough, No Dyspnea Gastrointestinal: No Nausea, No Vomiting, No Diarrhea, No abdominal Pain Genitourinary: No Dysuria, No Hematuria Musculoskeletal: No joint pain, No Myalgias, No Joint Swelling Skin: No Skin lacerations, No rash Neuro: No Weakness, No Numbness, No Paresthesias, No Loss of Consciousness, No Dizziness, positive Headache Psych: No Anxiety/Panic, No Depression Heme/Lymph: no easy bruising, no Lymphadenopathy Endocrine: No Polyuria, No Polydipsia Yes all other systems are reviewed and are negative [facility] Past Medical History Attestation statement: The following information was validated with the patient. Source: old records reviewed Medical History BPH (benign prostatic hyperplasia) Cerebral microvascular disease Confusion and disorientation Dementia Depression Essential hypertension Other and unspecified hyperlipidemia Precordial chest pain Transient cerebral ischemia Type 2 diabetes mellitus with unspecified complications Surgical History History of cardiac catheterization (~09/17/14) Family History Family History Father Diabetes Hyperlipidemia Mother Stroke Social History Social History Alcohol intake: former Patient Tobacco Use Status: Never used Tobacco Use of substances other than those prescribed or required for medical reasons: No Advance Directives: Yes Advance Directives Information Provided: No Advance Directives on File: No service: No Current occupational status: retired Physical Exam Vital Signs: Vital Signs: Last Vital Signs Temp 97.8 F 06/30/22 16:54 Pulse 60 06/30/22 19:43 Resp 16 06/30/22 19:43 BP 136/69 06/30/22 19:43 Pulse Ox 98 06/30/22 19:43 O2 Del Method 06/30/22 19:43 BMI result Body Mass Index 26.6 Appearance: Alert. Oriented X3. No acute distress. Eyes: Pupils equal, round and reactive to light. ENT: Pharynx normal. Neck: Normal inspection. Neck supple. CVS: Normal heart rate and rhythm. Pulses normal. Respiratory: No respiratory distress. Breath sounds normal. Abdomen: Soft and nontender. Skin: Skin warm and dry. Normal skin color. Normal skin turgor. Extremities: No lower extremity edema. Moves all extremities against resistance. Neuro: No motor deficit. No sensory deficit. Cranial nerves 2-12 intact. NIH Stroke Scale Internal: Initial- Upon Arrival Level of Consciousness: Alert Level of Consciousness Questions: Answers both questions correctly Level of Consciousness Commands: Performs both tasks correctly Best Gaze: Normal Visual: No visual loss Facial Palsy: Normal Motor Arm (Right): No drift Motor Arm (Left): No drift Motor Leg (Right): No drift Motor Leg (Left): No drift Limb Ataxia: Absent Sensory: Normal Best Language: No aphasia Dysarthia: Normal Extinction and Inattention: No abnormality Score: 0 Course Course Course Narrative: 71-year-old male presents with multiple complaints including several days of left-sided intermittent dull chest pain, several weeks of worsening headache, transient scotomas, and elevated blood pressures. He was treated on 05/27/2022 for altered mental status and confusion and diagnosed with a TIA. Patient is on aspirin, no other blood thinners. It is suspected that he has dementia or cognitive impairment secondary to donepezil use. At the time of my assessment, patient is alert oriented x4, answering questions politely and appropriately, following directions, NIH stroke scale is 0. Patient is afebrile, appears nontoxic, even unlabored respirations, clear lung sounds to auscultation all lobes. Will rule out ACS, and CVA. Will order CT a head neck as he does have a history of prior TIA on 05/27/2022. Labs are unremarkable. Will repeat troponin for 20:00 19:44 CT scan pending 20:00 CTA negative for acute findings requiring emergent intervention. Low likelihood of CVA TIA at this time. Patient reports some depression, will order care team consult. 20:23 2nd troponin is 0. Low to no likelihood of ACS. Care team consult complete. Plan of care is to have family involved and get services for home. Plan of care is to discharge home. Patient does not have family, and does not have transportation, will try to provide lift for this patient. Patient verbalized understanding of and agrees to plan of care discharge home. Verbalized understanding of signs and symptoms indicating need for emergent intervention. linux consultant utilized for all correspondence. Google translate utilized for discharge instructions. MDM - Chest Pain Differential Diagnosis Differential diagnosis: Likely fracture of rib, pneumothorax, stable angina, atypical chest pain, st elevation myocardial infarction, costochondritis and chest pain Medical Records Data Attestation: I reviewed the patient's medical records. Lab Data Attestation: I reviewed the patient's lab results. Result diagrams: 06/30/22 17:10 06/30/22 17:53 Labs: Lab Results 06/30/22 06/30/22 06/30/22 Range/Units 17:10 17:10 17:10 WBC 10.4 (4.8-10.8) X10*3/uL RBC 4.98 (4.60-5.80) X10*6/uL Hgb 14.1 (14.0-18.0) g/dl Hct 42.6 (42.0-52.0) % MCV 85.5 (80.0-98.0) fL MCH 28.3 (27.0-33.0) pg MCHC 33.1 (31.0-36.0) g/dl RDW 13.1 (11.0-16.0) % Plt Count 308 (160-400) X10*3/uL MPV 10.4 (9.4-12.4) fL Immature Gran % (Auto) 0.7 H (0.0-0.4) % Neut % (Auto) 77.7 H (45-73) % Lymph % (Auto) 14.8 L (20-40) % [place] % (Auto) 5.7 (2-11) % Eos % (Auto) 0.6 (0-4) % Baso % (Auto) 0.5 (0-2) % Lymph # (Auto) 1.5 (1.2-4.9) X10*3/uL [place] # (Auto) 0.6 (0.1-1.2) X10*3/uL Eos # (Auto) 0.1 (0.0-0.4) X10*3/uL Baso # (Auto) 0.1 (0.0-0.2) X10*3/uL Abs Immat Gran (auto) 0.07 H (0.00-0.03) X10*3/uL Absolute Neuts (auto) 8.1 (2.0-8.3) x10*3/uL Absolute Nucleated RBC 0.000 (0.0-0.012) X10*3/uL Nucleated RBC % (auto) 0.0 (0.0-0.2) /100WBC PT 11.4 (10.0-13.1) SEC INR 1.0 (0.9-1.1) Sodium (135-145) mmol/L Potassium (3.3-5.1) mmol/L Chloride (96-108) mmol/L Carbon Dioxide (22-29) mmol/L Anion Gap (12-20) BUN (9-16) mg/dL Creatinine (0.5-1.4) mg/dL Estim Creat Clear Calc Estimated GFR Random Glucose (60-115) mg/dL Calcium (8.4-10.2) mg/dL Magnesium (1.6-2.6) mg/dL Total Bilirubin (0.0-1.0) mg/dL Direct Bilirubin (0.0-0.5) mg/dL AST (5-37) U/L ALT (0-40) U/L Alkaline Phosphatase (39-117) U/L Troponin I High Sens < 3.5 (<3.5-35.0) ng/L B-Natriuretic Peptide (<100) pg/mL Total Protein (6.5-8.0) g/dL Albumin (3.5-5.0) g/dL Lipase (8-78) U/L 06/30/22 06/30/22 06/30/22 Range/Units 17:10 17:53 19:44 WBC (4.8-10.8) X10*3/uL RBC (4.60-5.80) X10*6/uL Hgb (14.0-18.0) g/dl Hct (42.0-52.0) % MCV (80.0-98.0) fL MCH (27.0-33.0) pg MCHC (31.0-36.0) g/dl RDW (11.0-16.0) % Plt Count (160-400) X10*3/uL MPV (9.4-12.4) fL Immature Gran % (Auto) (0.0-0.4) % Neut % (Auto) (45-73) % Lymph % (Auto) (20-40) % [place] % (Auto) (2-11) % Eos % (Auto) (0-4) % Baso % (Auto) (0-2) % Lymph # (Auto) (1.2-4.9) X10*3/uL [place] # (Auto) (0.1-1.2) X10*3/uL Eos # (Auto) (0.0-0.4) X10*3/uL Baso # (Auto) (0.0-0.2) X10*3/uL Abs Immat Gran (auto) (0.00-0.03) X10*3/uL Absolute Neuts (auto) (2.0-8.3) x10*3/uL Absolute Nucleated RBC (0.0-0.012) X10*3/uL Nucleated RBC % (auto) (0.0-0.2) /100WBC PT (10.0-13.1) SEC INR (0.9-1.1) Sodium 135 (135-145) mmol/L Potassium 4.8 D (3.3-5.1) mmol/L Chloride 99 (96-108) mmol/L Carbon Dioxide 22 (22-29) mmol/L Anion Gap 19 (12-20) BUN 23 H (9-16) mg/dL Creatinine 0.83 (0.5-1.4) mg/dL Estim Creat Clear Calc 71.5 Estimated GFR > 60 Random Glucose 141 H (60-115) mg/dL Calcium 9.6 D (8.4-10.2) mg/dL Magnesium 1.8 (1.6-2.6) mg/dL Total Bilirubin 0.6 (0.0-1.0) mg/dL Direct Bilirubin 0.3 (0.0-0.5) mg/dL AST 11 (5-37) U/L ALT 10 (0-40) U/L Alkaline Phosphatase 68 (39-117) U/L Troponin I High Sens < 3.5 (<3.5-35.0) ng/L B-Natriuretic Peptide 27 (<100) pg/mL Total Protein 6.5 (6.5-8.0) g/dL Albumin 4.3 (3.5-5.0) g/dL Lipase 27 (8-78) U/L Imaging Data Chest x-ray: Attestation: I personally reviewed and interpreted this imaging study as follows: Radiologist's impression: EXAMINATION: XR CHEST CLINICAL INFORMATION: Chest pain. COMPARISON: 05/27/2022 chest radiograph. TECHNIQUE: Frontal view of the chest was obtained. FINDINGS: No significant abnormality is noted involving the heart, lungs, mediastinum, bony thorax or soft tissues. XR/XR chest 1V IMPRESSION: No acute cardiopulmonary process. ? CTA head neck: Attestation: I personally reviewed and interpreted this imaging study as follows: Radiologist's impression: EXAMINATION: CT ANGIOGRAM HEAD CT ANGIOGRAM NECK CLINICAL INFORMATION: Reason for Exam stroke last week, worsening headache COMPARISON: CT head without contrast the 2021 TECHNIQUE: Initial noncontrast roll carrier imaging of the head and neck was performed. Noncontrast head CT was also performed. Test bolus sequences followed by intravenous administration 70 mL of Omnipaque 350. Helical imaging was performed in the axial plane from the aortic arch to the skull vertex. Delayed postcontrast imaging of the head was also performed. The data was processed at the echocardiography radiology technologist's workstation for generation of MIP sequences. Angled MIPs and volume rendered reformatted images were also generated at an offline 3D workstation. Stenoses are assessed in accordance with NASCET criteria unless otherwise indicated. DLP: 2292 mGy-cm This CT examination was performed using dose optimization techniques as appropriate, variously including the following: *Automated exposure control. *Adjustment of mA and/or kV according to patient size (this includes techniques or standardized protocols for targeted exams where dose is matched to indication/reason for exam; i.e. extremities or head). *Use of iterative reconstruction technique. FINDINGS: CT Head: There is no evidence of acute intracranial hemorrhage or edematous territorial infarction. A few foci of hypoattenuation in the periventricular and deep white matter are consistent with mild microangiopathy. Boogie-white matter differentiation is preserved. The ventricles are normal in size and configuration. No evidence for obstructive hydrocephalus. No abnormal mass effect or midline shift. No extra-axial fluid collections. Similarly noted high riding left jugular bulb No pathologic intra-axial enhancement or regional oligemia. No acute soft tissue or osseous abnormalities. CT Neck: The thyroid gland and remaining cervical soft tissues are within normal limits. Multilevel cervical spondylosis. CT Upper Chest: The visualized lung apices and upper mediastinum are within normal limits. Neck CTA: Aortic Arch: Normal contour and caliber. Four vessel branching pattern with left vertebral artery arising directly from the arch between the left common carotid and left subclavian arteries. Great Vessel Origins: No significant stenosis of the branch origins. Right Common Carotid Artery: No focal stenosis or occlusion. Cervical Right Internal Carotid Artery: Normal opacification without focal stenosis or occlusion. Left Common Carotid Artery: No focal stenosis or occlusion. Cervical Left Internal Carotid Artery: Mild calcific atherosclerotic disease of the carotid bulb and proximal internal carotid artery without flow-limiting stenosis. Cervical Right Vertebral Artery: Dominant. No focal stenosis or occlusion. Cervical Left Vertebral Artery: Diffusely diminutive, likely on a congenital basis Brain CTA: Intracranial Internal Carotid Arteries: No focal stenosis or occlusion. Right Anterior Cerebral Artery: Normal A1 segment. Normal opacification of the distal ALEC segments. Left Anterior Cerebral Artery: Normal A1 segment. Normal opacification of the distal ALEC segments. Anterior Communicating Artery: Normal. Right Middle Cerebral Artery: Normal M1 segment of the MCA without focal stenosis or occlusion. Normal arborization of the distal segments. Left Middle Cerebral Artery: Normal M1 segment of the MCA without focal stenosis or occlusion. Normal arborization of the distal segments. Right Vertebral Artery: Normal V4 segment. Left Vertebral Artery: There is absent opacification of the distal intradural left vertebral artery, likely chronic. Basilar Artery: Normal without focal stenosis or occlusion. Normal appearance of the proximal superior cerebellar arteries. The superior cerebellar arteries are duplicated bilaterally. The vertebrobasilar system is diminutive related to configuration of the posterior cerebral arteries. Right Posterior Cerebral Artery: configuration. No discrete P1 segment is identified. Artery Normal opacification of the distal BUSINESS PROJECT MANAGER segments. Left Posterior Cerebral Artery: The P1 segment is diminutive. origin of the BUSINESS PROJECT MANAGER with robust opacification of the posterior communicating artery. Normal opacification of the distal BUSINESS PROJECT MANAGER segments. Normal opacification of the superior sagittal, straight, transverse, and sigmoid sinuses. CT/CT angio head neck IMPRESSION: ? 1.? No acute intracranial abnormality including hemorrhage, mass effect, hydrocephalus, or acute territorial edematous infarction. ? 2.? No arterial high grade stenosis or large vessel occlusion in the head or neck. The left cervical vertebral artery is diffusely diminutive in caliber, likely on a congenital basis, with minimal opacification of the distal intradural segment which is likely chronic. ECG Data ECG #1: Attestation: I personally reviewed and interpreted this ECG as follows: ECG interpretation date: 06/30/22 ECG interpretation time: 17:35 Prior ECG tracings: available for review Interpretation: Vent. rate 62 BPM MI interval 154 ms QRS duration 94 ms QT/QTc 400/406 ms P-R-T axes 20 -25 53 Normal sinus rhythm Minimal voltage criteria for LVH, may be normal variant ( R in aVL ) Borderline ECG When compared with ECG of 27-MAY-2022 13:30, No significant change was found Discharge Plan Discharge Clinical Impression: Atypical chest pain, Headache Patient Disposition: Home, Self-Care Instructions: Acute Headache (ED), Noncardiac Chest Pain (ED) Additional Instructions: Usted fue evaluado por dolor de cata y dolor en el pecho. Garg electrocardiograma es de ritmo sinusal normal, jenni enzimas card?acas son negativas. Garg tomograf?a computarizada de cata y jazmín es negativa para hallazgos agudos. Jenni valores de laboratorio est?n dentro de los l?mites normales. Por favor, jacquelyn un seguimiento con garg m?dico de atenci?n primaria. Regrese al departamento de emergencias por cualquier s?ntoma nuevo, preocupante o que empeore. You were evaluated for headache and chest pain. Your EKG is normal sinus rhythm, your cardiac enzymes are negative. Your CT scan of head and neck are negative for acute findings. Your lab values are within normal limits. Please follow-up with your primary care physician. Return to the emergency department for any new, concerning, worsening symptoms. Prescriptions: No Action trazodone 50 mg tablet 1 tab PO BEDTIME PRN (Reason: Sleep) citalopram 20 mg tablet 1 tab PO BEDTIME acetaminophen [Tylenol] 325 mg Tablet 325 mg PO QID PRN (Reason: pain) meclizine 25 mg tablet 25 mg PO TID PRN (Reason: motion sickness) Qty: 20 0RF aspirin 81 mg tablet,delayed release (DR/EC) 81 mg PO DAILY sennosides 8.6 mg tablet 8.6 mg PO DAILY gabapentin 400 mg capsule 800 mg PO TID finasteride 5 mg tablet 5 mg PO DAILY cetirizine 10 mg tablet 10 mg PO DAILY rosuvastatin 40 mg tablet 40 mg PO DAILY docusate sodium 100 mg capsule 100 mg PO DAILY lisinopril 20 mg tablet 20 mg PO DAILY omeprazole 20 mg capsule,delayed release(DR/EC) 20 mg PO DAILY@0630 metformin 500 mg tablet extended release 24 hr 500 mg PO BID cyanocobalamin (vitamin B-12) 500 mcg tablet 500 mcg PO DAILY epinephrine 0.3 mg/0.3 mL auto-injector 0.3 mg IM DAILY PRN (Reason: allergies) tamsulosin 0.4 mg capsule 0.8 mg PO DAILY Rx Instructions: TAKE 30 MIN AFTER SAME MEAL EVERYDAY donepezil 10 mg tablet 10 mg PO BEDTIME risperidone 0.5 mg tablet 0.5 mg PO BID
[2022-06-30 17:13] LABS: MANUAL DIFF FLAG NO
[2022-06-30 17:14] LABS: Basophils Absolute Auto 0.1 X10*3/uL (0.0-0.2); Basophils Percent Auto 0.5 % (0-2); Eosinophils Absolute Auto 0.1 X10*3/uL (0.0-0.4); Eosinophils Percent Auto 0.6 % (0-4); Hematocrit 42.6 % (42.0-52.0); Hemoglobin 14.1 g/dl (14.0-18.0); Imm Gran Abs Auto 0.07 X10*3/uL (0.00-0.03); Imm Gran Pct Auto 0.7 % (0.0-0.4); Lymphocytes Absolute Auto 1.5 X10*3/uL (1.2-4.9); Lymphocytes Percent Auto 14.8 % (20-40); Mean Corpuscular HGB Conc 33.1 g/dl (31.0-36.0); Mean Corpuscular Hemoglobin 28.3 pg (27.0-33.0); Mean Corpuscular Volume 85.5 fL (80.0-98.0); Mean Platelet Volume 10.4 fL (9.4-12.4); Monocytes Absolute Auto 0.6 X10*3/uL (0.1-1.2); Monocytes Percent Auto 5.7 % (2-11); Neutrophils Absolute Auto 8.1 x10*3/uL (2.0-8.3); Neutrophils Percent Auto 77.7 % (45-73); Platelet Count 308 X10*3/uL (160-400); Red Blood Count 4.98 X10*6/uL (4.60-5.80); Red Cell Distribution Width 13.1 % (11.0-16.0); White Blood Count 10.4 X10*3/uL (4.8-10.8)
[2022-06-30 17:26] LABS: Prothrombin Time 11.4 SEC (10.0-13.1)
[2022-06-30 17:49] LABS: Troponin-I High Sensitivity < 3.5 ng/L (<3.5-35.0)
[2022-06-30 17:50] LABS: B Type Natriuretic Peptide 27 pg/mL (<100)
[2022-06-30 18:16] LABS: Alanine Aminotransferase 10 U/L (0-40); Albumin Level 4.3 g/dL (3.5-5.0); Alkaline Phosphatase 68 U/L (39-117); Anion Gap 19 (12-20); Aspartate Amino Transferase 11 U/L (5-37); Bilirubin Direct 0.3 mg/dL (0.0-0.5); Bilirubin Total 0.6 mg/dL (0.0-1.0); Blood Urea Nitrogen 23 mg/dL (9-16); Calcium 9.6 mg/dL (8.4-10.2); Carbon Dioxide 22 mmol/L (22-29); Chloride 99 mmol/L (96-108); Creatinine Clr Calc Pharmacy 71.5; Estimated Glomerular Filt Rate > 60; Glucose Random 141 mg/dL (60-115); Lipase 27 U/L (8-78); Magnesium 1.8 mg/dL (1.6-2.6); Potassium 4.8 mmol/L (3.3-5.1); Sodium 135 mmol/L (135-145); Total Protein 6.5 g/dL (6.5-8.0)
[2022-06-30] MEDS: iohexoL 350 MG/ML 100 ML INFUS..BTL IV (18:36)
[2022-06-30 19:43] VITALS: BP 136/69; PULSE 60; RESP 16; O2SAT 98
[2022-06-30 20:11] LABS: Troponin-I High Sensitivity < 3.5 ng/L (<3.5-35.0)
--- NOTE | 2022-06-30 20:36 | MHC.CARE ---
Care Team received a consult for depression. Care Team met with pt and he reported being depressed due to being alone. 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 Pt stated he is alright at the moment and in case of an emergency he would press the PERS button. Pt denied SI/HI/AVH. Pt requested for this underwriter to contact his dtr/AUGER SUPERVISOR Winnie Garcia . Care Team left a detailed message and provided contact phone number in case of any questions.
== END 2022-06-30 21:04 | disposition home or self-care (01) ==
PROVIDERS: Nurse Practitioner Family; Emergency Provider Emergency Medicine; PCP Internal Medicine
DX: R07.89 Other chest pain (principal); R51.9 Headache, unspecified; E11.9 Type 2 diabetes mellitus without complications; I10 Essential (primary) hypertension; E78.5 Hyperlipidemia, unspecified; Z79.82 Long term (current) use of aspirin; Z79.02 Long term (current) use of antithrombotics/antiplatelets; Z79.84 Long term (current) use of oral hypoglycemic drugs; Z79.899 Other long term (current) drug therapy; Z86.73 Personal history of transient ischemic attack (TIA), and cerebral infarction without residual deficits
CPT/HCPCS: 36415; 70496; 70498; 71045; 80048; 80076; 83690; 83735; 83880; 84484; 85025; 85610; 93005; 99283; 99284; 99285; Q9967

== ENCOUNTER → 2022-11-02 13:26 | Outpatient (BNVA) | payer OTHER, SELFPAY | PROVIDERS: PCP Internal Medicine; Referring Provider Internal Medicine; Visit Provider Internal Medicine | DX: R07.2 Precordial pain (principal) | CPT/HCPCS: 93005; 99212 ==

== ENCOUNTER 2023-06-07 08:14 | Emergency (ER) | payer OTHER, SELFPAY ==
--- NOTE | ~2023-06-07 | XR_ITS ---
EXAMINATION: XR CHEST CLINICAL INFORMATION: Pain COMPARISON: 06/30/2022 TECHNIQUE: Frontal view of the chest was obtained. FINDINGS: Cardiomediastinal silhouette is normal in size. There is no consolidation, pleural effusion or pneumothorax. Old left sided rib fracture. XR/XR chest 1V IMPRESSION: No acute cardiopulmonary process.
--- NOTE | ~2023-06-07 | CT_ITS ---
EXAMINATION: CT HEAD WITHOUT CONTRAST CLINICAL INFORMATION: Headache. COMPARISON: CT angiography from 06/30/2022. Head MRI from 05/27/2022. TECHNIQUE: Contiguous axial imaging was performed from the skull base to vertex without intravenous administration of contrast. This CT examination was performed using dose optimization techniques as appropriate, variously including the following: *Automated exposure control *Adjustment of mA and/or kV according to patient size (this includes techniques or standardized protocols for targeted exams where dose is matched to indication/reason for exam; i.e. extremities or head) *Use of iterative reconstruction technique DLP: 623 mGy-cm FINDINGS: No intracranial hemorrhage, extra-axial surface collection, focal mass effect or midline shift. Chronic mild patchy hypoattenuation within supratentorial white matter is compatible with sequela of mild microangiopathy. The kuhn-white matter differentiation is maintained. No acute abnormalities within the posterior fossa. The cerebellar tonsils are in normal position. The calvarium is intact. The visualized paranasal sinuses and mastoid air cells are well aerated. The orbits, globes and temporomandibular joints are unremarkable. CT/CT head/brain wo IV con IMPRESSION: No acute intracranial pathology.
[2023-06-07 08:20] VITALS: BP 127/73; PULSE 65; O2SAT 100
--- NOTE | 2023-06-07 08:21 | ECG_ITS ---
Test Reason : chest pain Blood Pressure : / mmHG Vent. Rate : 056 BPM Atrial Rate : 056 BPM P-R Int : 168 ms QRS Dur : 084 ms QT Int : 408 ms P-R-T Axes : 042 -18 053 degrees QTc Int : 393 ms Sinus bradycardia Otherwise normal ECG When compared with ECG of 30-JUN-2022 17:35, No significant change was found Referred By: Sisi Campbell Electronically Signed By:LORETO MALAGON
[2023-06-07 08:25] VITALS: BP 150/70; PULSE 58; RESP 16; TEMP 36.6; O2SAT 100; BMI 26.3
--- NOTE | 2023-06-07 08:26 | ED_ITS ---
HPI - Chest Pain General Chief Complaint: Chest Pain Stated Complaint: chest pains, left arm numbness, per ems Time Seen by Provider: 06/07/23 08:21 Source: patient and old records reviewed Mode of arrival: EMS Limitations: no limitations History of Present Illness HPI narrative: 72 yo male with hx of TIA, dementia, BPH, GERD, HLD, HTN here with c/o 2 days of L sided chest pressure which hurts his arm and makes it feel tingly he states his left hurts and he has numbness in it at times due to his prior stroke. He denies fevers, cough, travel or procedures. He states he has had pain in his chest before but not related to exertion he has no hx of CAD or MA in the past per his reports. He states nothing makes it better or worse he denies dyspnea or nausea. He was given aspirin prior to arrival. He also has a mild headache which is typical for him - no trauma no fevers. MD complaint: chest pain Onset (ago): day(s) (2) Timing of current episode: constant Prior episodes: Yes Onset: during rest Pain location: left chest Pain radiation: left arm Severity: moderate Quality: heaviness Relieving factors: nothing Exacerbating factors: palpation and movement Treatment prior to arrival: aspirin Related Data Home Medications Medication Instructions Recorded Confirmed aspirin 81 mg tablet,delayed 81 mg PO DAILY 08/13/20 11/02/22 release cetirizine 10 mg tablet 10 mg PO DAILY 08/13/20 11/02/22 cyanocobalamin (vitamin B-12) 500 500 mcg PO DAILY 08/13/20 11/02/22 mcg tablet docusate sodium 100 mg capsule 100 mg PO DAILY 08/13/20 11/02/22 donepezil 10 mg tablet 10 mg PO BEDTIME 08/13/20 11/02/22 epinephrine 0.3 mg/0.3 mL 0.3 mg IM DAILY PRN allergies 08/13/20 11/02/22 injection, auto-injector finasteride 5 mg tablet 5 mg PO DAILY 08/13/20 11/02/22 gabapentin 400 mg capsule 800 mg PO TID 08/13/20 11/02/22 lisinopril 20 mg tablet 20 mg PO DAILY 08/13/20 11/02/22 metformin 500 mg tablet,extended 500 mg PO BID 08/13/20 11/02/22 release 24 hr omeprazole 20 mg capsule,delayed 20 mg PO DAILY@0630 08/13/20 11/02/22 release risperidone 0.5 mg tablet 0.5 mg PO BID 08/13/20 11/02/22 rosuvastatin 40 mg tablet 40 mg PO DAILY 08/13/20 11/02/22 sennosides 8.6 mg tablet 8.6 mg PO DAILY 08/13/20 11/02/22 tamsulosin 0.4 mg capsule 0.8 mg PO DAILY 08/13/20 11/02/22 acetaminophen 325 mg tablet 325 mg PO QID PRN pain 05/27/22 11/02/22 (Tylenol) trazodone 50 mg tablet 1 tab PO BEDTIME PRN Sleep 05/27/22 11/02/22 citalopram 20 mg tablet 20 mg PO BEDTIME 11/02/22 11/02/22 Previous Rx's Medication Instructions Recorded meclizine 25 mg tablet 25 mg PO TID PRN motion sickness 08/10/21 #20 tabs lidocaine 5 % topical patch 1 patch topical DAILY #30 ea 06/07/23 Allergies Allergy/AdvReac Type Severity Reaction Status Date / Time shellfish derived Allergy Unknown Hives/Short Verified 08/16/21 09:18 of breath Review of Systems Review of Systems: Constitutional : No Weight loss, No Fever, No Chills Cardiovascular : pos Chest Pain, no SOB, no Dyspnea on Exertion, No Orthopnea, No Edema, No Palpitations Respiratory : No Cough, No Sputum Gastrointestinal : no Nausea, No Vomiting, No Diarrhea, No abdominal Pain, No Hematochezia, No Melena Genitourinary : No Dysuria, No Urinary Frequency Musculoskeletal : No joint pain, No Myalgias, No Joint Swelling Skin : No Skin Lesions, No rash Neuro : No Weakness, No Numbness, No Dizziness, pos Headache Psych : No Anxiety/Panic, No Depression All other systems reviewed and are negative PMFSH Past Medical History Attestation statement: The following information was validated with the patient. Source: old records reviewed Medical History BPH (benign prostatic hyperplasia) Cerebral microvascular disease Confusion and disorientation Dementia Depression Essential hypertension Other and unspecified hyperlipidemia Precordial chest pain Transient cerebral ischemia Type 2 diabetes mellitus with unspecified complications Surgical History History of cardiac catheterization (~09/17/14) Family History Family History Father Diabetes Hyperlipidemia Mother Stroke Social History Social History Alcohol intake: former Patient Tobacco Use Status: Never used Tobacco Advance Directives: No Advance Directives Information Provided: Yes service: No Current occupational status: retired Physical Exam Vital Signs: Vital Signs: Last Vital Signs Temp 97.8 F 06/07/23 08:25 Pulse 60 06/07/23 10:54 Resp 14 06/07/23 10:54 BP 116/65 06/07/23 10:54 Pulse Ox 97 06/07/23 10:54 O2 Del Method Room Air 06/07/23 10:54 BMI result Body Mass Index 26.3 Appearance: Alert. Oriented X3. No acute distress. Eyes: Pupils equal, round and reactive to light. ENT: Pharynx normal. Neck: Normal inspection. Neck supple. CVS: Normal heart rate and rhythm. Pulses normal. Chest wall: ttp along L pectoralis does reproduce pain Respiratory: No respiratory distress. Breath sounds normal. Abdomen: Soft and nontender. Skin: Skin warm and dry. Normal skin color. Normal skin turgor. Extremities: No lower extremity edema. No calf ttp Neuro: Oriented X 3. No motor deficit. No sensory deficit. Course Course Course Narrative: work up is negative at this time Reevaluation(s) Reevaluation #1: feels much better, trop flat, CXR and EKG negative with [address] head negative now notes that pain and arm numbness has been on and off for months has L sided neck pain at times could be cervical radiculopathy he is NV intact in LUE and SILT intact with 2+ radial pulse will refer to PCP for further workup he also c/o anxiety will refer to [facility] Medications Administered Discontinued Medications Generic Name Dose Route Start Last Admin Trade Name Freq PRN Reason Stop Dose Admin Morphine Sulfate 4 mg 06/07/23 08:33 06/07/23 09:00 Morphine Sulfate 4 Mg/Ml Cartridge IVPUSH 06/07/23 08:34 4 mg ONCE ONE Administration Protocol Ondansetron HCl 4 mg 06/07/23 08:33 06/07/23 09:00 Ondansetron Hcl 4 Mg/2 Ml Vial IVPUSH 06/07/23 08:34 4 mg ONCE ONE Administration Medical Decision Making Medical Decision Making [facility] Narrative: 72 yo male with hx of TIA, dementia, BPH, GERD, HLD, HTN at this time here with c/o chest pain for 2 days without associated symptoms other than chronic arm pain and feeling tingles - he is NV intact and NIH is 0 he has a mild chronic headache. At this time pulses intact doubt dissection. He has wells score 0 doubt VTE. He also denies infectious symptoms. I have ordered troponin x 2, EKG, CXR. I suspect MSK pain. His head CT was ordered to rule any SDH given headach es. Differential Diagnosis Differential Diagnoses: The differential diagnosis associated with the presentation includes ACS< chest wall pain, headache low susp for ICH, NIH 0 doubt TIA or stroke symptoms x 2 days with score of 0 wells score 0 Admission/Observation Consideration of admission/observation: Escalation of care including admission/observation considered EKG and trop negative with [address] head negative feels better stable for DC pain and numbness on and off for more than 6 months suspect cervical radicular issue without neurologic findings can be worked up as outpatient Lab Data [facility] Lab Attestation statement: I reviewed the patient's lab results. 06/07/23 08:57 06/07/23 08:57 Labs: Lab Results 06/07/23 06/07/23 06/07/23 Range/Units 08:57 08:57 08:57 WBC 5.7 (4.8-10.8) X10*3/uL RBC 4.73 (4.60-5.80) X10*6/uL Hgb 13.4 L (14.0-18.0) g/dl Hct 40.4 L (42.0-52.0) % MCV 85.4 (80.0-98.0) fL MCH 28.3 (27.0-33.0) pg MCHC 33.2 (31.0-36.0) g/dl RDW 13.3 (11.0-16.0) % Plt Count 272 (160-400) X10*3/uL MPV 10.8 (9.4-12.4) fL Immature Gran % (Auto) 0.2 (0.0-0.4) % Neut % (Auto) 68.1 (45-73) % Lymph % (Auto) 20.4 (20-40) % [place] % (Auto) 8.9 (2-11) % Eos % (Auto) 1.4 (0-4) % Baso % (Auto) 1.0 (0-2) % Lymph # (Auto) 1.2 (1.2-4.9) X10*3/uL [place] # (Auto) 0.5 (0.1-1.2) X10*3/uL Eos # (Auto) 0.1 (0.0-0.4) X10*3/uL Baso # (Auto) 0.1 (0.0-0.2) X10*3/uL Abs Immat Gran (auto) 0.01 (0.00-0.03) X10*3/uL Absolute Neuts (auto) 3.9 (2.0-8.3) x10*3/uL Absolute Nucleated RBC 0.000 (0.0-0.012) X10*3/uL Nucleated RBC % (auto) 0.0 (0.0-0.2) /100WBC PT 12.4 (11.1-13.3) SEC INR 1.0 (0.9-1.1) Sodium 138 (135-145) mmol/L Potassium 3.8 D (3.3-5.1) mmol/L Chloride 106 (96-108) mmol/L Carbon Dioxide 24 (22-29) mmol/L Anion Gap 12 (12-20) BUN 18 H (9-16) mg/dL Creatinine 0.81 (0.5-1.4) mg/dL Estim Creat Clear Calc 72.2 Estimated GFR > 60 Random Glucose 122 H (60-115) mg/dL Calcium 9.8 (8.4-10.2) mg/dL Magnesium 1.9 (1.6-2.6) mg/dL Total Bilirubin 0.7 (0.0-1.0) mg/dL Direct Bilirubin 0.2 (0.0-0.5) mg/dL AST 14 (5-37) U/L ALT 9 (0-40) U/L Alkaline Phosphatase 72 (39-117) U/L Troponin I High Sens (<3.5-35.0) ng/L B-Natriuretic Peptide (<100) pg/mL Total Protein 6.7 (6.5-8.0) g/dL Albumin 4.2 (3.5-5.0) g/dL Lipase 22 (8-78) U/L 06/07/23 06/07/23 Range/Units 08:57 08:57 WBC (4.8-10.8) X10*3/uL RBC (4.60-5.80) X10*6/uL Hgb (14.0-18.0) g/dl Hct (42.0-52.0) % MCV (80.0-98.0) fL MCH (27.0-33.0) pg MCHC (31.0-36.0) g/dl RDW (11.0-16.0) % Plt Count (160-400) X10*3/uL MPV (9.4-12.4) fL Immature Gran % (Auto) (0.0-0.4) % Neut % (Auto) (45-73) % Lymph % (Auto) (20-40) % [place] % (Auto) (2-11) % Eos % (Auto) (0-4) % Baso % (Auto) (0-2) % Lymph # (Auto) (1.2-4.9) X10*3/uL [place] # (Auto) (0.1-1.2) X10*3/uL Eos # (Auto) (0.0-0.4) X10*3/uL Baso # (Auto) (0.0-0.2) X10*3/uL Abs Immat Gran (auto) (0.00-0.03) X10*3/uL Absolute Neuts (auto) (2.0-8.3) x10*3/uL Absolute Nucleated RBC (0.0-0.012) X10*3/uL Nucleated RBC % (auto) (0.0-0.2) /100WBC PT (11.1-13.3) SEC INR (0.9-1.1) Sodium (135-145) mmol/L Potassium (3.3-5.1) mmol/L Chloride (96-108) mmol/L Carbon Dioxide (22-29) mmol/L Anion Gap (12-20) BUN (9-16) mg/dL Creatinine (0.5-1.4) mg/dL Estim Creat Clear Calc Estimated GFR Random Glucose (60-115) mg/dL Calcium (8.4-10.2) mg/dL Magnesium (1.6-2.6) mg/dL Total Bilirubin (0.0-1.0) mg/dL Direct Bilirubin (0.0-0.5) mg/dL AST (5-37) U/L ALT (0-40) U/L Alkaline Phosphatase (39-117) U/L Troponin I High Sens < 2.7 (<3.5-35.0) ng/L B-Natriuretic Peptide 54 (<100) pg/mL Total Protein (6.5-8.0) g/dL Albumin (3.5-5.0) g/dL Lipase (8-78) U/L Independent Interpretation I performed an independent interpretation of an: EKG, Plain X-Ray (normal ) and CT Scan (no ICH) Interpretation: Rate: 56 Rhythm: sinus bradycardia [place]: left Normal P waves. Normal MIKAEL. Normal QRS complex. ST T wave : normal no CHARU qTC: normal prior studies: no acute ischemia The study has been interpreted contemporaneously by me. . External Record Review External record reviewed: Inpatient record Discharge Plan Discharge Clinical Impression: Atypical chest pain, Cervical radiculopathy Instructions: Chest Pain (ED), Cervical Radiculopathy (ED) Additional Instructions: your heart tests were normal. your symptoms could be related to your neck please talk to your doctor about further workup with xrays or MRI given this has been going on for several months. return for worsening pain, fevers, vomiting, difficulty breathing, weakness or any other concerns. please call [facility] to talk about your anxiety and get a therapist [address] [place] [id number] [phone] jenni pruebas card?acas fueron normales. Jenni s?ntomas podr?an estar relacionados con amin jazmín. Hable con amin m?dico sobre an?lisis adicionales con radiograf?as o resonancias magn?hailey, dado que esto darnell estado sucediendo anh varios meses. Regrese si el dolor empeora, fiebre, v?mitos, dificultad para respirar, debilidad o cualquier otra inquietud. Llame a [facility] para hablar sobre amin ansiedad y buscar un terapeuta. [address] [facility] [phone] Prescriptions: New lidocaine 5 % adhesive patch,medicated 1 patch topical DAILY Qty: 30 0RF Rx Instructions: leave on most painful area for up to 12 hrs No Action trazodone 50 mg tablet 1 tab PO BEDTIME PRN (Reason: Sleep) acetaminophen [Tylenol] 325 mg Tablet 325 mg PO QID PRN (Reason: pain) citalopram 20 mg tablet 20 mg PO BEDTIME meclizine 25 mg tablet 25 mg PO TID PRN (Reason: motion sickness) Qty: 20 0RF aspirin 81 mg tablet,delayed release (DR/EC) 81 mg PO DAILY sennosides 8.6 mg tablet 8.6 mg PO DAILY gabapentin 400 mg capsule 800 mg PO TID finasteride 5 mg tablet 5 mg PO DAILY cetirizine 10 mg tablet 10 mg PO DAILY rosuvastatin 40 mg tablet 40 mg PO DAILY docusate sodium 100 mg capsule 100 mg PO DAILY lisinopril 20 mg tablet 20 mg PO DAILY omeprazole 20 mg capsule,delayed release(DR/EC) 20 mg PO DAILY@0630 metformin 500 mg tablet extended release 24 hr 500 mg PO BID cyanocobalamin (vitamin B-12) 500 mcg tablet 500 mcg PO DAILY epinephrine 0.3 mg/0.3 mL auto-injector 0.3 mg IM DAILY PRN (Reason: allergies) tamsulosin 0.4 mg capsule 0.8 mg PO DAILY Rx Instructions: TAKE 30 MIN AFTER SAME MEAL EVERYDAY donepezil 10 mg tablet 10 mg PO BEDTIME risperidone 0.5 mg tablet 0.5 mg PO BID Referrals: Mila Barba MD [Primary Care Provider] - 5 days Print Language: Samoan
[2023-06-07] MEDS: ondansetron HCL 4 MG/2 ML VIAL IVPUSH (09:00)
[2023-06-07] MEDS: Morphine Sulfate 4 MG/ML CARTRIDGE IVPUSH (09:00)
[2023-06-07 09:05] LABS: MANUAL DIFF FLAG NO
[2023-06-07 09:07] LABS: Basophils Absolute Auto 0.1 X10*3/uL (0.0-0.2); Eosinophils Absolute Auto 0.1 X10*3/uL (0.0-0.4); Eosinophils Percent Auto 1.4 % (0-4); Hematocrit 40.4 % (42.0-52.0); Hemoglobin 13.4 g/dl (14.0-18.0); Imm Gran Abs Auto 0.01 X10*3/uL (0.00-0.03); Imm Gran Pct Auto 0.2 % (0.0-0.4); Lymphocytes Absolute Auto 1.2 X10*3/uL (1.2-4.9); Lymphocytes Percent Auto 20.4 % (20-40); Mean Corpuscular HGB Conc 33.2 g/dl (31.0-36.0); Mean Corpuscular Hemoglobin 28.3 pg (27.0-33.0); Mean Corpuscular Volume 85.4 fL (80.0-98.0); Mean Platelet Volume 10.8 fL (9.4-12.4); Monocytes Absolute Auto 0.5 X10*3/uL (0.1-1.2); Monocytes Percent Auto 8.9 % (2-11); Neutrophils Absolute Auto 3.9 x10*3/uL (2.0-8.3); Neutrophils Percent Auto 68.1 % (45-73); Platelet Count 272 X10*3/uL (160-400); Red Blood Count 4.73 X10*6/uL (4.60-5.80); Red Cell Distribution Width 13.3 % (11.0-16.0); White Blood Count 5.7 X10*3/uL (4.8-10.8)
[2023-06-07 09:14] LABS: Prothrombin Time 12.4 SEC (11.1-13.3)
[2023-06-07 09:21] LABS: Alanine Aminotransferase 9 U/L (0-40); Albumin Level 4.2 g/dL (3.5-5.0); Alkaline Phosphatase 72 U/L (39-117); Anion Gap 12 (12-20); Aspartate Amino Transferase 14 U/L (5-37); Bilirubin Direct 0.2 mg/dL (0.0-0.5); Bilirubin Total 0.7 mg/dL (0.0-1.0); Blood Urea Nitrogen 18 mg/dL (9-16); Calcium 9.8 mg/dL (8.4-10.2); Carbon Dioxide 24 mmol/L (22-29); Chloride 106 mmol/L (96-108); Creatinine Clr Calc Pharmacy 72.2; Estimated Glomerular Filt Rate > 60; Glucose Random 122 mg/dL (60-115); Lipase 22 U/L (8-78); Magnesium 1.9 mg/dL (1.6-2.6); Potassium 3.8 mmol/L (3.3-5.1); Sodium 138 mmol/L (135-145); Total Protein 6.7 g/dL (6.5-8.0)
[2023-06-07 09:27] LABS: B Type Natriuretic Peptide 54 pg/mL (<100)
[2023-06-07 09:29] LABS: Troponin-I High Sensitivity < 2.7 ng/L (<3.5-35.0)
[2023-06-07 09:31] VITALS: BP 115/63; PULSE 56; RESP 14; O2SAT 95
[2023-06-07 10:00] VITALS: BP 116/60; PULSE 59; RESP 16; O2SAT 97
[2023-06-07 10:54] VITALS: BP 116/65; PULSE 60; RESP 14; O2SAT 97
[2023-06-07 11:21] VITALS: BP 116/60; PULSE 62; RESP 16; O2SAT 97
== END 2023-06-07 11:30 | disposition home or self-care (01) ==
PROVIDERS: Emergency Provider Emergency Medicine; PCP Internal Medicine
DX: R07.89 Other chest pain (principal); M54.12 Radiculopathy, cervical region; I10 Essential (primary) hypertension; E78.5 Hyperlipidemia, unspecified; K21.9 Gastro-esophageal reflux disease without esophagitis; Z86.73 Personal history of transient ischemic attack (TIA), and cerebral infarction without residual deficits; Z79.82 Long term (current) use of aspirin; Z79.899 Other long term (current) drug therapy
CPT/HCPCS: 36415; 70450; 71045; 80048; 80076; 83690; 83735; 83880; 84484; 85025; 85610; 93005; 96374; 96375; 99284; J2270; J2405

== ENCOUNTER 2023-07-17 07:50 | Outpatient (AMB) | payer OTHER, SELFPAY ==
[2023-07-17 08:11] VITALS: BP 114/62; PULSE 65; BMI 25.8
--- NOTE | 2023-07-17 08:11 | A.OFFVIS_ITS ---
Intake Vital Signs 07/17/23 08:11 Height 5 ft 6 in Weight 159 lb 9.835 oz BMI 25.8 BP 114/62 Blood Pressure Location Lt brachial Position Sitting Pulse 65 Pulse Source Pulse Oximeter Intake Visit Reasons: [facility] [place] ed fu - cp- ([facility] pt) Intake Note: [facility] [place] fu patient having some s/b during physical activities and some chest pain Configuration Management Consultant Required: No Allergies shellfish derived Allergy (Unknown, Verified 07/17/23 08:15) Hives/Short of breath Medication List - Last Reconciled 07/17/23 by MICAH AscencioC acetaminophen (Tylenol) 325 mg PO QID PRN aspirin 81 mg PO DAILY buspirone 5 mg PO DAILY cetirizine 10 mg PO DAILY citalopram 20 mg PO BEDTIME cyanocobalamin (vitamin B-12) 500 mcg PO DAILY docusate sodium 100 mg PO DAILY donepezil 10 mg PO BEDTIME epinephrine 0.3 mg IM DAILY PRN finasteride 5 mg PO DAILY gabapentin 800 mg PO TID lidocaine 5% 1 patch topical DAILY linaclotide (Linzess) 72 mcg PO DAILY lisinopril 20 mg PO DAILY meclizine 25 mg PO TID PRN metformin ER 500 mg PO BID omeprazole 20 mg PO DAILY@0630 risperidone 0.5 mg PO BID rosuvastatin 40 mg PO DAILY sennosides 8.6 mg PO DAILY tamsulosin 0.8 mg PO DAILY trazodone 1 tab PO BEDTIME PRN HPI [facility] [place] ed fu - cp- ([facility] pt) HPI Details Romaine is a 72-year-old male with past medical history of hypertension, hyperlipidemia, diabetes, atypical chest discomfort who was recently seen in the emergency room for chest discomfort and ruled out for ACS. He now presents for follow-up. Today he reports that he has been getting a discomfort in his left chest that feels like a pressure and goes into his arm. He mostly gets it when he lays down on that side. He does have limited range of motion with his left arm at the shoulder. He does not get this discomfort with walking or stair climbing. He does report shortness of breath with physical activity such as walking and stair climbing. He denies palpitations, presyncope, syncope, PND, orthopnea or edema. Taking meds as directed. [facility] Medical History (Updated 07/17/23 @ 10:52 by Azalia Bruce NP-C) Cerebral microvascular disease Confusion and disorientation Depression Dementia BPH (benign prostatic hyperplasia) Transient cerebral ischemia Other and unspecified hyperlipidemia Essential hypertension Type 2 diabetes mellitus with unspecified complications Precordial chest pain Surgical History History of cardiac catheterization (~09/17/14) Family History Father Diabetes Hyperlipidemia Mother Stroke Social History Alcohol intake: former Patient Tobacco Use Status: Never used Tobacco service: No Current occupational status: retired Review of Systems Const All systems reviewed & are unremarkable except as noted in HPI and below ENT Reports dizziness Card Reports chest pain, Denies chest pain at rest, Denies chest pain with activity, Denies rapid heart rate, Denies pedal edema, Denies edema, Denies leg edema, Denies lightheadedness, Denies palpitations, Denies dyspnea, Reports dyspnea on exertion and Denies orthopnea Resp Denies cough, Denies dyspnea and Reports dyspnea on exertion GI Denies hematochezia and Denies change in stool character Musc Denies abnormal gait, Reports limited range of motion, Reports muscle cramps, Denies muscle weakness, Denies numbness, Denies radiating pain into limb, Denies stiffness and Denies tingling Neuro Denies abnormal gait, Reports dizziness, Denies numbness and Denies tingling Endo Denies palpitations Physical Exam Vital Signs: Last Vital Signs Pulse 65 07/17/23 08:11 BP 114/62 07/17/23 08:11 BMI result Body Mass Index 25.8 Const General: cooperative, healthy appearing, comfortable and no acute distress Orientation/consciousness: patient oriented x3 Neck Neck: Yes normal visual inspection Resp Effort & Inspection: normal respiratory effort Auscultation: clear to auscultation bilaterally, no crackles, no rales, no rhonchi and no wheezes Cardio Jugular venous distension: no JVD Rate: regular rate Rhythm: regular rhythm Heart sounds: S1 normal heart sound present, S2 normal heart sound present, no murmurs and no rubs Neuro General: patient oriented x3 Extrem Other: left shoulder discomfort with ROM General: Yes normal to inspection Psych Appearance: grossly normal Mental Status: mental status grossly normal Speech and movement: Normal speech and movement present Assessment & Plan Assessment & Plan (1) Chest discomfort: Code(s): R07.89 - Other chest pain Plan: Report of chest discomfort which seems atypical for angina. He has no known history of CAD. He does have multiple cardiac risk factors including hypertension, hyperlipidemia, diabetes. His last nuclear stress test was normal in 2019. Last echo 05/2022 showed EF 55-60%, no valve abnormalities, ascending aorta 4 cm. Today he reports shortness of breath with activity as well as his left chest discomfort which mostly occurs laying on that side. It seems his discomfort may be related to shoulder issues however will evaluate for ischemia with his symptom of shortness of breath. He states he will not be able to walk on a treadmill due to shortness of breath. Will order a pharmacological nuclear stress test. Plan to call him with results and arrange appointment if abnormal. Otherwise cardiology follow-up in 6 months, sooner if needed. Signs and symptoms of angina reviewed. Emergency care if ever needed for symptoms (2) Shortness of breath: Code(s): R06.02 - Shortness of breath (3) Essential hypertension: Code(s): I10 - Essential (primary) hypertension Plan: Well controlled at present time. No medication changes made (4) Other and unspecified hyperlipidemia: Code(s): E78.5 - Hyperlipidemia, unspecified Plan: [place] LDL goal less than 70 in patient with diabetes. no recent cholesterol level in our system. Labs are followed by PCP Orders: Orders CA lexiscan stress w willis Today R06.02 - Shortness of breath, R07.89 - Other chest pain NM cardiolite stress test Today R06.02 - Shortness of breath, R07.89 - Other chest pain Coding Level of Care Code Est Pt Level 4 (70013) Diagnoses Chest discomfort R07.89 Shortness of breath R06.02 Essential hypertension I10 Other and unspecified hyperlipidemia E78.5 Time Spent (min) 26
== END 2023-07-17 08:35 | disposition home or self-care (01) ==
PROVIDERS: PCP Internal Medicine; Visit Provider Nurse Practitioner Family
DX: R07.89 Other chest pain (principal); R06.02 Shortness of breath; I10 Essential (primary) hypertension; E78.5 Hyperlipidemia, unspecified
CPT/HCPCS: 99214

== ENCOUNTER → 2023-07-17 07:50 | Outpatient (BNVA) | payer OTHER, SELFPAY | PROVIDERS: PCP Internal Medicine; Visit Provider Nurse Practitioner Family | DX: R07.89 Other chest pain (principal); R06.02 Shortness of breath; I10 Essential (primary) hypertension; E78.5 Hyperlipidemia, unspecified | CPT/HCPCS: 99212 ==

== ENCOUNTER → 2023-08-28 07:44 | Outpatient (REF) | payer OTHER, SELFPAY ==
--- NOTE | ~2023-08-28 | NM_ITS ---
Lexiscan Myocardial perfusion study Indication: Chest pain, assess for coronary disease ischemia Technique: The patient was brought in for a Lexiscan perfusion study on 08/28/2023 and was injected 0.4 mg of Lexiscan intravenously. Within a minute of this injection 25 mCi of sestamibi was given intravenously. Images were obtained using the SPECT gamma camera interlaced with the gating device. Images were obtained in supine position. Resting perfusion study was performed on 08/29/2023. Patient was administered 25 mCi of sestamibi intravenously at rest. Images were then obtained in supine position. Images were processed with the software and compared side to side in short axis, horizontal long axis and vertical long axis views. Total DLP 102mGy-cm. Findings: Raw acquisition reviewed. Arms by the patient's side. The stress perfusion study showed mildly reduced tracer uptake in the mid to distal lateral wall. With CT attenuation correction, there is improvement suggestive of soft tissue attenuation artifact. The gated study shows low normal LV systolic function with calculated LVEF of 51%. LV cavity is normal in size. The gated study shows normal wall thickening and contraction of segments. Resting study shows no significant perfusion abnormality. Gating at rest reveals normal wall motion with ejection fraction at 61%. The findings are consistent with mild reversible lateral perfusion defect. Improvement with CT attenuation correction congestive of soft tissue attenuation artifact. NM/NM cardiolite stress test Impression: 1. Myocardial perfusion imaging study shows mild reversible lateral perfusion defect suspected to be from soft tissue attenuation artifact. Otherwise unremarkable. 2. Gated LVEF is 51% during stress and 61% during rest. 3. Transient ischemic dilatation not present. EKG component of the test reported separately.
--- NOTE | 2023-08-28 07:59 | CA_ITS ---
Acquisition Time: 2023-08-28 08:04:41 Total Exercise Time: 00:02:00 Test Indications: Dyspnea Medications: SEE H Protocol: LEXISCAN Max HR: 123 BPM 84% of Pred: 146 BPM Max BP: 118/070 mmHG Max Work Load: 1.6 METS Pharmacological stress test with lexiscan injection while walking slowly on treadmill, with mild SOB, no chest discomfort, with normotesnive response to injection, with nondiagnoisitic EKGs. Aminophylline 75mg IVP given to reverse Lexiscan. Nuclear images pending. Test reviewed with Dr. Samuels Referred By: Azalia Bruce Overread By: Judy Montesinos
== END ==
LOC: HO.CARD 07:44
PROVIDERS: PCP Internal Medicine; Visit Provider Nurse Practitioner Family
DX: R07.89 Other chest pain (principal); R06.02 Shortness of breath
CPT/HCPCS: 78452; 93017; A9500; J0280; J2785

== ENCOUNTER → 2023-08-28 07:59 | Outpatient (BNV) | payer OTHER, SELFPAY | PROVIDERS: PCP Internal Medicine; Visit Provider Nurse Practitioner | DX: R06.02 Shortness of breath (principal); R07.89 Other chest pain | CPT/HCPCS: 78452; 93016; 93018 ==

== ENCOUNTER 2023-09-13 05:45 | Emergency (ER) | payer OTHER, SELFPAY ==
--- NOTE | ~2023-09-13 | XR_ITS ---
EXAMINATION: XR LUMBOSACRAL SPINE CLINICAL INFORMATION: Low back pain. COMPARISON: 03/22/2017 TECHNIQUE: Three views of the lumbosacral spine. FINDINGS: There are 5 nonrib-bearing lumbar vertebral bodies. There is leftward curvature of the lumbar spine. Normal sagittal alignment. Vertebral body heights are maintained. There are ventral bridging syndesmophytes. Moderate intervertebral disc space narrowing at L5-S1. Facet hypertrophy at L4-L5 and L5-S1. XR/XR lumbar spine 2-3V IMPRESSION: Moderate degenerative disc disease at L5-S1. Facet degeneration at L4-L5 and L5-S1.
[2023-09-13 05:52] VITALS: BP 124/62; BP 126/71; PULSE 64; PULSE 90; RESP 18; TEMP 36.4; O2SAT 98; BMI 24.2
[2023-09-13 06:11] LABS: MANUAL DIFF FLAG NO
[2023-09-13 06:18] LABS: Basophils Absolute Auto 0.1 X10*3/uL (0.0-0.2); Basophils Percent Auto 0.9 % (0-2); Eosinophils Absolute Auto 0.1 X10*3/uL (0.0-0.4); Eosinophils Percent Auto 1.3 % (0-4); Hematocrit 40.5 % (42.0-52.0); Hemoglobin 13.2 g/dl (14.0-18.0); Imm Gran Abs Auto 0.02 X10*3/uL (0.00-0.03); Imm Gran Pct Auto 0.3 % (0.0-0.4); Lymphocytes Absolute Auto 1.8 X10*3/uL (1.2-4.9); Lymphocytes Percent Auto 25.8 % (20-40); Mean Corpuscular HGB Conc 32.6 g/dl (31.0-36.0); Mean Corpuscular Hemoglobin 28.4 pg (27.0-33.0); Mean Corpuscular Volume 87.3 fL (80.0-98.0); Mean Platelet Volume 10.2 fL (9.4-12.4); Monocytes Absolute Auto 0.6 X10*3/uL (0.1-1.2); Monocytes Percent Auto 8.3 % (2-11); Neutrophils Absolute Auto 4.3 x10*3/uL (2.0-8.3); Neutrophils Percent Auto 63.4 % (45-73); Platelet Count 287 X10*3/uL (160-400); Red Blood Count 4.64 X10*6/uL (4.60-5.80); Red Cell Distribution Width 13.6 % (11.0-16.0); White Blood Count 6.8 X10*3/uL (4.8-10.8)
[2023-09-13 06:29] LABS: Alanine Aminotransferase 12 U/L (0-40); Albumin Level 4.3 g/dL (3.5-5.0); Alkaline Phosphatase 63 U/L (39-117); Anion Gap 12 (12-20); Aspartate Amino Transferase 16 U/L (5-37); Bilirubin Total 1.2 mg/dL (0.0-1.0); Blood Urea Nitrogen 19 mg/dL (9-16); Calcium 9.7 mg/dL (8.4-10.2); Carbon Dioxide 27 mmol/L (22-29); Chloride 105 mmol/L (96-108); Creatinine Clr Calc Pharmacy 64.9; Estimated Glomerular Filt Rate > 60; Glucose Fasting 122 mg/dL (60-99); Lipase 21 U/L (8-78); Potassium 4.3 mmol/L (3.3-5.1); Sodium 140 mmol/L (135-145)
--- NOTE | 2023-09-13 09:53 | ED.GENADULT ---
HPI - General Adult General Chief complaint: Back Pain/Injury Stated complaint: back and body pain Time Seen by Provider: 09/13/23 09:53 Source: patient and EMS Mode of arrival: EMS Limitations: no limitations History of Present Illness HPI narrative: Patient is a 72 year old assigned male at with a history of HTN presenting to the emergency department today with low back pain. Patient states that over the last 2 days he has felt a spasm sensation in his right lower back. Patient denies any dizziness, lightheadedness, abdominal pain, nausea, vomiting, fever, chills, blurry vision, double vision, loss of vision, chest pain, difficulty breathing, shortness of breath, night sweats, pain with urination, increased urinary frequency, increased urinary urgency, blood in his urine or stool, syncope or a near syncopal episode, recent trauma or falls, bowel incontinence, bladder incontinence, bowel retention, bladder retention, or any other complaints at this time. Onset (ago): day(s) (2) Location: back Severity: mild Severity scale (1-10): 3 Quality: aching Pain Consistency: intermittent Relieving factors: none Exacerbating factors: none Associated symptoms: denies other symptoms Treatments prior to arrival: NSAID Related Data Home Medications Medication Instructions Recorded Confirmed aspirin 81 mg tablet,delayed 81 mg PO DAILY 08/13/20 07/17/23 release cetirizine 10 mg tablet 10 mg PO DAILY 08/13/20 07/17/23 cyanocobalamin (vitamin B-12) 500 500 mcg PO DAILY 08/13/20 07/17/23 mcg tablet docusate sodium 100 mg capsule 100 mg PO DAILY 08/13/20 07/17/23 donepezil 10 mg tablet 10 mg PO BEDTIME 08/13/20 07/17/23 epinephrine 0.3 mg/0.3 mL 0.3 mg IM DAILY PRN allergies 08/13/20 07/17/23 injection, auto-injector finasteride 5 mg tablet 5 mg PO DAILY 08/13/20 07/17/23 gabapentin 400 mg capsule 800 mg PO TID 08/13/20 07/17/23 lisinopril 20 mg tablet 20 mg PO DAILY 08/13/20 07/17/23 metformin 500 mg tablet,extended 500 mg PO BID 08/13/20 07/17/23 release 24 hr omeprazole 20 mg capsule,delayed 20 mg PO DAILY@0630 08/13/20 07/17/23 release risperidone 0.5 mg tablet 0.5 mg PO BID 08/13/20 07/17/23 rosuvastatin 40 mg tablet 40 mg PO DAILY 08/13/20 07/17/23 sennosides 8.6 mg tablet 8.6 mg PO DAILY 08/13/20 07/17/23 tamsulosin 0.4 mg capsule 0.8 mg PO DAILY 08/13/20 07/17/23 acetaminophen 325 mg tablet 325 mg PO QID PRN pain 05/27/22 07/17/23 (Tylenol) trazodone 50 mg tablet 1 tab PO BEDTIME PRN Sleep 05/27/22 07/17/23 citalopram 20 mg tablet 20 mg PO BEDTIME 11/02/22 07/17/23 buspirone 5 mg tablet 5 mg PO DAILY 07/17/23 07/17/23 linaclotide 72 mcg capsule 72 mcg PO DAILY 07/17/23 07/17/23 (Linzess) Previous Rx's Medication Instructions Recorded meclizine 25 mg tablet 25 mg PO TID PRN motion sickness 08/10/21 #20 tabs lidocaine 5 % topical patch 1 patch topical DAILY #30 ea 06/07/23 cyclobenzaprine 5 mg tablet 5 mg PO TID PRN muscle spasm 7 09/13/23 days #21 tabs prednisone 20 mg tablet 20 mg PO DAILY 7 days #7 tabs 09/13/23 Allergies Allergy/AdvReac Type Severity Reaction Status Date / Time shellfish derived Allergy Unknown Hives/Short Verified 07/17/23 08:15 of breath Review of Systems Constitutional: Constitutional: Reports no additional constitutional complaints, Denies chills, Denies fever(s) and Denies night sweats Eyes: Eyes: Reports no additional eye complaints, Denies blurry vision, Denies change in vision, Denies diplopia, Denies eye discharge, Denies loss of vision and Denies eye pain ENT: Denies dizziness Cardiovascular: Cardiovascular: Reports no additional cardiovascular complaints, Denies chest pain, Denies lightheadedness, Denies Loss of Consciousness and Denies dyspnea Respiratory: Respiratory: Reports no additional respiratory complaints and Denies dyspnea Gastrointestinal: Gastrointestinal: Reports no additional gastrointestinal complaints, Denies abdominal pain, Denies melena, Denies hematochezia, Denies change in bowel habits and Denies change in stool character Genitourinary: Genitourinary: Reports no additional male genitourinary complaints, Denies hematuria, Denies oliguria, Denies difficulty urinating, Denies dysuria, Denies urinary frequency, Denies urinary hesitancy, Denies urinary incontinence and Denies urinary urgency Musculoskeletal: Musculoskeletal: Reports no additional musculoskeletal complaints, Reports back pain, Denies numbness and Denies tingling Neurologic: Denies dizziness, Denies loss of vision, Denies numbness and Denies tingling Psychiatric: Psychiatric: Reports no additional psychiatric complaints Endocrine: Endocrine: Reports no additional endocrine complaints Hematologic/Lymphatic: Hematologic/Lymphatic: Reports no additional hematologic/lymphatic complaints Allergic/Immunologic: Allergic/Immunologic: Reports no additional allergic/immunologic complaints PMFSH Past Medical History Attestation statement: The following information was validated with the patient. Source: old records reviewed and nursing notes reviewed Medical History Shortness of breath Chest discomfort Cerebral microvascular disease Confusion and disorientation Depression Dementia BPH (benign prostatic hyperplasia) Transient cerebral ischemia Other and unspecified hyperlipidemia Essential hypertension Type 2 diabetes mellitus with unspecified complications Precordial chest pain Surgical History History of cardiac catheterization (~09/17/14) Family History Family History Father Diabetes Hyperlipidemia Mother Stroke Social History Social History Alcohol intake: former Patient Tobacco Use Status: Never used Tobacco Advance Directives: No Advance Directives Information Provided: No service: No Current occupational status: retired Physical Exam ED Vital Signs: Vital Signs - 24 hr 09/13/23 05:52 09/13/23 11:13 Temperature 97.6 F 98.1 F Pulse Rate 64 63 Respiratory Rate 18 14 Blood Pressure 126/71 132/81 Pulse Oximetry 97 Oxygen Delivery Method Room Air BMI result Body Mass Index 24.2 Const General: cooperative, no acute distress, alert and awake Nutritional Appearance: well nourished Orientation/consciousness: patient oriented x3 Limitations: no limitations HENMT Head: Yes normal to inspection and Yes atraumatic Ears: hearing grossly normal bilaterally and external ears normal General nose exam: Normal external nose present, no nasal discharge noted and no epistaxis Face and sinus: Yes normal facial exam, No abrasion and No laceration Mouth: Normal oral and palatal mucosa present, no drooling and no muffled voice Eyes General: appearance normal, both eyes and all related structures Periorbital: periorbital findings normal Eyelids: Yes eyelids normal Conjunctivae: conjunctivae normal Pupils: Equal, round and reactive pupils present EOM: EOMs intact bilaterally Neck Neck: Yes normal visual inspection, Yes full ROM and Yes no lymphadenopathy Chest Chest palpation & inspection: normal inspection of the chest Resp Effort & Inspection: normal respiratory effort and able to speak in complete sentences GI Inspection: Yes normal to inspection General: Yes no CVA tenderness Back/Spine/Pelvis Back: no CVA tenderness Cervical Spine: normal cervical lordosis and cervical ROM normal Thoracic/Lumbar Spine: thoracic and lumbar spine normal to inspection and thoraco-lumbar ROM normal Pelvis: no pain with anterior-posterior compression Neuro General: patient oriented x3 and moves all extremities Cranial nerves: Yes Equal, round and reactive pupils present Cognition (Neuro): normal cognition Motor exam (neuro): 5/5 motor strength present throughout Sensory Exam: Normal double simultaneous stimulation for sensation Coordination: [id number] test normal Extrem General: Yes normal to inspection, Yes full ROM and Yes capillary refill normal Psych Appearance: grossly normal Mental Status: mental status grossly normal Affect: normal affect Attitude: cooperative Thought process: Normal thought process present Thought content: Normal thought content present Insight: Good insight present (Psych) Medications Administered Discontinued Medications Generic Name Dose Route Start Last Admin Trade Name Conrad PRN Reason Stop Dose Admin Cyclobenzaprine HCl 5 mg 09/13/23 09:56 09/13/23 10:14 Cyclobenzaprine Hcl 5 Mg Tablet PO 09/13/23 09:57 5 mg ONCE ONE Administration Ketorolac Tromethamine 15 mg 09/13/23 09:56 09/13/23 10:14 Ketorolac Tromethamine 15 Mg/Ml Vial IM 09/13/23 09:57 15 mg ONCE ONE Administration Medical Decision Making Medical Decision Making MDM Narrative: Patient is a 72 year old assigned male at with a history of HTN presenting to the emergency department today with low back pain. Patient's physical exam was unremarkable. Patient's blood work was unremarkable. Patient's urine showed no acute process. Patient's lumbar x-ray showed degenerative changes but was otherwise unremarkable. I explained my physical exam findings as well as all test results to the patient. I answered all questions asked by the patient. I stressed the importance of the patient taking his medication as prescribed. I stressed the importance of the patient following up with his primary care provider. I stressed the importance of the patient returning to the emergency department immediately if his symptoms were to worsen or if he were to develop any dizziness, shortness of breath, difficulty breathing, chest pain, blurry vision, loss of vision, nausea, vomiting, abdominal pain, fever, chills, back pain, or any other complaints. Patient verbalized agreement and understanding with this treatment plan and discharge. Differential Diagnosis Differential Diagnoses: The differential diagnosis associated with the presentation includes Low back pain UTI Back strain Admission/Observation Consideration of admission/observation: Escalation of care including admission/observation considered Patient would have been admitted to the hospital had his work up had any findings where hospital admission was appropriate and his clinical presentation warranted hospital admission. Lab Data MDM Lab Attestation statement: I reviewed the patient's lab results. My interpretation of these studies and their corresponding values is that they are grossly normal. 09/13/23 06:06 09/13/23 06:06 Labs: Lab Results 09/13/23 09/13/23 Range/Units 06:06 10:18 WBC 6.8 (4.8-10.8) X10*3/uL RBC 4.64 (4.60-5.80) X10*6/uL Hgb 13.2 L (14.0-18.0) g/dl Hct 40.5 L (42.0-52.0) % MCV 87.3 (80.0-98.0) fL MCH 28.4 (27.0-33.0) pg MCHC 32.6 (31.0-36.0) g/dl RDW 13.6 (11.0-16.0) % Plt Count 287 (160-400) X10*3/uL MPV 10.2 (9.4-12.4) fL Immature Gran % (Auto) 0.3 (0.0-0.4) % Neut % (Auto) 63.4 (45-73) % Lymph % (Auto) 25.8 (20-40) % Bell % (Auto) 8.3 (2-11) % Eos % (Auto) 1.3 (0-4) % Baso % (Auto) 0.9 (0-2) % Lymph # (Auto) 1.8 (1.2-4.9) X10*3/uL Bell # (Auto) 0.6 (0.1-1.2) X10*3/uL Eos # (Auto) 0.1 (0.0-0.4) X10*3/uL Baso # (Auto) 0.1 (0.0-0.2) X10*3/uL Abs Immat Gran (auto) 0.02 (0.00-0.03) X10*3/uL Absolute Neuts (auto) 4.3 (2.0-8.3) x10*3/uL Absolute Nucleated RBC 0.000 (0.0-0.012) X10*3/uL Nucleated RBC % (auto) 0.0 (0.0-0.2) /100WBC Sodium 140 (135-145) mmol/L Potassium 4.3 (3.3-5.1) mmol/L Chloride 105 (96-108) mmol/L Carbon Dioxide 27 (22-29) mmol/L Anion Gap 12 (12-20) BUN 19 H (9-16) mg/dL Creatinine 0.90 (0.5-1.4) mg/dL Estim Creat Clear Calc 64.9 Estimated GFR > 60 Fasting Glucose 122 H (60-99) mg/dL Calcium 9.7 (8.4-10.2) mg/dL Total Bilirubin 1.2 H (0.0-1.0) mg/dL AST 16 (5-37) U/L ALT 12 (0-40) U/L Alkaline Phosphatase 63 (39-117) U/L Total Protein 7.0 (6.5-8.0) g/dL Albumin 4.3 (3.5-5.0) g/dL Lipase 21 (8-78) U/L Urine Color Yellow Urine Appearance Clear Urine pH 6.5 (5.0-9.0) Ur Specific Kress 1.010 (1.005-1.025) Urine Protein Negative (Neg-Trace) mg/dL Urine Glucose (UA) Negative (Negative) mg/dL Urine Ketones Negative (Negative) mg/dL Urine Blood Negative (Negative) Urine Nitrite Negative (Negative) Ur Leukocyte Esterase Negative (Negative) Urine RBC 0-2 (0-2) /HPF Urine WBC 0-5 (0-5) /HPF Ur Squamous Epith Cells 0-2 (0-2) /HPF Urine Bacteria None Seen (None Seen) Hyaline Casts 0-2 (0-2) /LPF Independent Interpretation I performed an independent interpretation of an: Plain X-Ray Interpretation: My interpretation is in agreement with the radiologist's impression of this imaging study. EXAMINATION: XR LUMBOSACRAL SPINE CLINICAL INFORMATION: Low back pain. COMPARISON: 03/22/2017 TECHNIQUE: Three views of the lumbosacral spine. FINDINGS: There are 5 nonrib-bearing lumbar vertebral bodies. There is leftward curvature of the lumbar spine. Normal sagittal alignment. Vertebral body heights are maintained. There are ventral bridging syndesmophytes. Moderate intervertebral disc space narrowing at L5-S1. Facet hypertrophy at L4-L5 and L5-S1. XR/XR lumbar spine 2-3V IMPRESSION: Moderate degenerative disc disease at L5-S1. Facet degeneration at L4-L5 and L5-S1. Dictated By: Sameera Martin MD Signed By: Electronically signed by Sameera Martin MD 09/13/23 [id number] Radiology Impression Discussion of test interpretation with radiology: I have reviewed the radiologist's reading. Independent Historian Clinical information obtained from an independent historian. History obtained from or confirmed by: EMS (EMS provided additional history and confirmed the history provided by the patient.) Prescription Management I considered prescription management with: Pain Medication (patient prescribed pain medication.) Chronic Conditions Patient?s care impacted by: Diabetes and Hypertension Discharge Plan Discharge Clinical Impression: Back pain Patient Disposition: Home, Self-Care Instructions: Back Pain (ED) Additional Instructions: Follow up with your primary care provider and a special forces specialist. Return to the emergency department immediately if your symptoms worsen or if you develop any dizziness, shortness of breath, difficulty breathing, chest pain, blurry vision, loss of vision, nausea, vomiting, abdominal pain, fever, chills, back pain, or any other complaints. Prescriptions: New cyclobenzaprine 5 mg tablet 5 mg PO TID PRN (Reason: muscle spasm) 7 Days Qty: 21 0RF prednisone 20 mg tablet 20 mg PO DAILY 7 Days Qty: 7 0RF No Action trazodone 50 mg tablet 1 tab PO BEDTIME PRN (Reason: Sleep) acetaminophen [Tylenol] 325 mg Tablet 325 mg PO QID PRN (Reason: pain) citalopram 20 mg tablet 20 mg PO BEDTIME meclizine 25 mg tablet 25 mg PO TID PRN (Reason: motion sickness) Qty: 20 0RF lidocaine 5 % adhesive patch,medicated 1 patch topical DAILY Qty: 30 0RF Rx Instructions: leave on most painful area for up to 12 hrs aspirin 81 mg tablet,delayed release (DR/EC) 81 mg PO DAILY sennosides 8.6 mg tablet 8.6 mg PO DAILY gabapentin 400 mg capsule 800 mg PO TID finasteride 5 mg tablet 5 mg PO DAILY cetirizine 10 mg tablet 10 mg PO DAILY rosuvastatin 40 mg tablet 40 mg PO DAILY docusate sodium 100 mg capsule 100 mg PO DAILY lisinopril 20 mg tablet 20 mg PO DAILY omeprazole 20 mg capsule,delayed release(DR/EC) 20 mg PO DAILY@0630 metformin 500 mg tablet extended release 24 hr 500 mg PO BID cyanocobalamin (vitamin B-12) 500 mcg tablet 500 mcg PO DAILY epinephrine 0.3 mg/0.3 mL auto-injector 0.3 mg IM DAILY PRN (Reason: allergies) tamsulosin 0.4 mg capsule 0.8 mg PO DAILY Rx Instructions: TAKE 30 MIN AFTER SAME MEAL EVERYDAY donepezil 10 mg tablet 10 mg PO BEDTIME risperidone 0.5 mg tablet 0.5 mg PO BID Linzess 72 mcg capsule 72 mcg PO DAILY buspirone 5 mg tablet 5 mg PO DAILY Referrals: [facility] [Provider Group] (Call to establish and follow up with a special forces specialist. ) Mila Barba MD [Primary Care Provider] - Print Language: Greenlandic
[2023-09-13] MEDS: Cyclobenzaprine HCl 5 MG TABLET PO (10:14)
[2023-09-13] MEDS: Ketorolac Tromethamine 15 MG/ML VIAL IM (10:14)
[2023-09-13 10:25] LABS: Appearance Urine Clear; Color Urine Yellow; Glucose Urine UA Negative (Negative); Leukocyte Esterase Urine Negative (Negative); Nitrite Urine Negative (Negative); PH 6.5 (5.0-9.0); Urine Blood Negative (Negative); Urine Ketones Negative (Negative); Urine Protein Negative (Neg-Trace)
[2023-09-13 10:30] LABS: Bacteria Urine None Seen (None Seen); Hyaline Casts Urine 0-2 /LPF (0-2); RBC Urine 0-2 /HPF (0-2); Squamous Epithelial Cell Urine 0-2 /HPF (0-2); WBC Urine 0-5 /HPF (0-5)
[2023-09-13 11:13] VITALS: BP 132/81; PULSE 63; RESP 14; TEMP 36.7; O2SAT 97
== END 2023-09-13 11:39 | disposition home or self-care (01) ==
PROVIDERS: Emergency Provider Student in an Organized Health Care Education/Training Program; PCP Internal Medicine
DX: M54.50 Low back pain, unspecified (principal); E11.9 Type 2 diabetes mellitus without complications; I10 Essential (primary) hypertension; E78.5 Hyperlipidemia, unspecified; Z79.82 Long term (current) use of aspirin; Z79.02 Long term (current) use of antithrombotics/antiplatelets; Z79.84 Long term (current) use of oral hypoglycemic drugs
CPT/HCPCS: 36415; 72100; 80053; 81001; 83690; 85025; 96372; 99284; J1885

== ENCOUNTER 2024-02-02 08:31 | Outpatient (AMB) | payer OTHER, SELFPAY ==
--- NOTE | 2024-02-02 08:33 | MHC.OFFVIS ---
Vital Signs 02/02/24 08:34 Height 5 ft 6 in Weight 158 lb 11.725 oz BMI 25.6 BP 120/60 Blood Pressure Location Lt brachial Position Sitting Pulse 68 Pulse Source Pulse Oximeter Pulse Oximetry (%) 99 Oxygen Delivery Method Room Air Intake Visit Reasons: r/s 01/22/24 6 mos followup Intake Note: pt is here for 6 month f/u pt feels good Allergies shellfish derived Allergy (Unknown, Verified 07/17/23 08:15) Hives/Short of breath Medication List - Last Reconciled 02/02/24 by Azalia Bruce, [employer]-C acetaminophen (Tylenol) 325 mg PO QID PRN aspirin 81 mg PO DAILY buspirone 5 mg PO DAILY cetirizine 10 mg PO DAILY citalopram 20 mg PO BEDTIME cyanocobalamin (vitamin B-12) 500 mcg PO DAILY cyclobenzaprine 5 mg PO TID PRN 7 days docusate sodium 100 mg PO DAILY donepezil 10 mg PO BEDTIME epinephrine 0.3 mg IM DAILY PRN finasteride 5 mg PO DAILY gabapentin 800 mg PO TID lidocaine 5% 1 patch topical DAILY linaclotide (Linzess) 72 mcg PO DAILY lisinopril 20 mg PO DAILY meclizine 25 mg PO TID PRN metformin ER 500 mg PO BID omeprazole 20 mg PO DAILY@0630 prednisone 20 mg PO DAILY 7 days risperidone 0.5 mg PO BID rosuvastatin 40 mg PO DAILY sennosides 8.6 mg PO DAILY tamsulosin 0.8 mg PO DAILY trazodone 1 tab PO BEDTIME PRN HPI HPI r/s 01/22/24 6 mos followup: Details: Romaine is a 73-year-old male with past medical history of hypertension, hyperlipidemia, diabetes, atypical chest discomfort followed by mildly abnormal nuclear stress test who presents for follow-up. Today he reports that he does have increasing shortness of breath when climbing stairs. He feels the symptom has worsened since his last visit in July. He reports having fatigue and he has not able to do the exercise or activities that he would normally do years ago. He feels this change has, gradually. If he lays on his left side he will still get a pressure in the left chest. He does not notice that symptom at other times. He does have limited range of motion with his left arm at the shoulder. He denies palpitations, presyncope, syncope, PND, orthopnea or edema. Taking meds as directed. [facility] Medical History Shortness of breath Chest discomfort Cerebral microvascular disease Confusion and disorientation Depression Dementia BPH (benign prostatic hyperplasia) Transient cerebral ischemia Other and unspecified hyperlipidemia Essential hypertension Type 2 diabetes mellitus with unspecified complications Precordial chest pain Surgical History History of cardiac catheterization (~09/17/14) Family History Father Diabetes Hyperlipidemia Mother Stroke Social History Alcohol intake: former Patient Tobacco Use Status: Never used Tobacco service: No Current occupational status: retired Review of Systems Const All systems reviewed & are unremarkable except as noted in HPI and below Reports fatigue and Denies weakness ENT Denies dizziness Card Details: discomfort left shoulder region when lays on left side Denies chest pain, Denies chest pain with activity, Denies syncope, Denies rapid heart rate, Denies pedal edema, Denies edema, Denies leg edema, Denies lightheadedness, Denies palpitations, Denies dyspnea, Reports dyspnea on exertion and Denies orthopnea Resp Denies cough, Denies dyspnea and Reports dyspnea on exertion GI Denies hematochezia and Denies change in stool character Musc Denies abnormal gait, Denies muscle cramps, Denies muscle weakness, Denies numbness, Denies radiating pain into limb and Denies tingling Neuro Denies abnormal gait, Denies dizziness, Denies syncope, Denies numbness, Denies tingling and Denies weakness Endo Reports fatigue and Denies palpitations Physical Exam Vital Signs: Last Vital Signs Pulse 68 02/02/24 08:34 BP 120/60 02/02/24 08:34 Pulse Ox 99 02/02/24 08:34 Oxygen Delivery Method Room Air 02/02/24 08:34 BMI result Body Mass Index 25.6 Const General: cooperative, healthy appearing, comfortable and no acute distress Orientation/consciousness: patient oriented x3 Neck Neck: Yes normal visual inspection and Yes no JVD Resp Effort & Inspection: normal respiratory effort Auscultation: clear to auscultation bilaterally, no rales, no rhonchi and no wheezes Cardio Jugular venous distension: no JVD Rate: regular rate Rhythm: regular rhythm Heart sounds: S1 normal heart sound present, S2 normal heart sound present, no murmurs and no rubs Neuro General: patient oriented x3 Extrem General: Yes normal to inspection and No no pedal edema Psych Appearance: grossly normal Mental Status: mental status grossly normal Speech and movement: Normal speech and movement present Assessment & Plan Assessment & Plan (1) Chest discomfort: Code(s): R07.89 - Other chest pain Category: Medical Plan: Report of chest discomfort which still seems atypical for angina as it only occurs laying on his left side. He does have increasing shortness of breath and fatigue with physical activity. He does admit to being mostly sedentary. He has no known history of CAD. He does have multiple cardiac risk factors including hypertension, hyperlipidemia, diabetes. His nuclear stress test was normal in 2019. Last echo 05/2022 showed EF 55-60%, no valve abnormalities, ascending aorta 4 cm. A nuclear stress test was done on 08/29/2023 showing mild reversible lateral perfusion defect suspected to be from soft tissue attenuation artifact. Today he reports that his shortness of breath has been more noticeable in the last 6 months. With his cardiac risk factors and mildly abnormal stress test will further evaluate with a CTA of the coronary arteries. He is agreeable to this plan. Signs and symptoms of angina reviewed with him. Emergency care if ever needed for symptoms. Cardiology follow-up in 3 months, sooner if needed. (2) Shortness of breath: Code(s): R06.02 - Shortness of breath Category: Medical Plan: As above (3) Essential hypertension: Code(s): I10 - Essential (primary) hypertension Category: Medical Plan: Well controlled at present time. No medication changes made (4) Other and unspecified hyperlipidemia: Code(s): E78.5 - Hyperlipidemia, unspecified Category: Medical Plan: [place] LDL goal less than 70 in patient with diabetes. no recent cholesterol level in our system. Labs are followed by PCP (5) Abnormal nuclear stress test: Code(s): R94.39 - Abnormal result of other cardiovascular function study Category: Medical Plan: As above (6) Ascending aorta dilatation: Code(s): I77.810 - Thoracic aortic ectasia Category: Medical Plan: Last echo shows ascending aorta 4 cm. Will update echocardiogram prior to next visit. Plan Time spent on chart, documentation, interview and assessment Orders: Orders CT Cardiac Coronary Angio Today E78.5 - Hyperlipidemia, unspecified, I10 - Essential (primary) hypertension, R06.02 - Shortness of breath, R94.39 - Abnormal result of other cardiovascular function study Basic Metabolic Panel Today R06.02 - Shortness of breath, R94.39 - Abnormal result of other cardiovascular function study CA echo transthoracic complete Today I77.810 - Thoracic aortic ectasia, R94.39 - Abnormal result of other cardiovascular function study Coding Level of Care Code Est Pt Level 4 (87282) Diagnoses Chest discomfort R07.89 Shortness of breath R06.02 Essential hypertension I10 Other and unspecified hyperlipidemia E78.5 Abnormal nuclear stress test R94.39 Ascending aorta dilatation I77.810 Time Spent (min) 28
[2024-02-02 08:34] VITALS: BP 120/60; PULSE 68; O2SAT 99; BMI 25.6
== END 2024-02-02 09:06 | disposition home or self-care (01) ==
PROVIDERS: PCP Internal Medicine; Visit Provider Nurse Practitioner Family
DX: R07.89 Other chest pain (principal); R06.02 Shortness of breath; I10 Essential (primary) hypertension; E78.5 Hyperlipidemia, unspecified; R94.39 Abnormal result of other cardiovascular function study; I77.810 Thoracic aortic ectasia
CPT/HCPCS: 99214

== ENCOUNTER → 2024-02-02 08:31 | Outpatient (BNVA) | payer OTHER, SELFPAY | PROVIDERS: PCP Internal Medicine; Visit Provider Nurse Practitioner Family | DX: R07.89 Other chest pain (principal); R06.02 Shortness of breath; I10 Essential (primary) hypertension; E78.5 Hyperlipidemia, unspecified; R94.39 Abnormal result of other cardiovascular function study; I77.810 Thoracic aortic ectasia | CPT/HCPCS: 99212 ==

== ENCOUNTER → 2024-02-20 07:29 | Outpatient (REF) | payer OTHER, SELFPAY ==
--- NOTE | 2024-02-20 07:32 | CA_ITS ---
Transthoracic Echocardiogram Patient (Last, First, Middle): Romaine Garcia, Gender: Male Date of : 1950 Age: 73 Procedure Date: 02/20/2024 Procedure Type: Transthoracic Echocardiogram Location: OP Height: 167.64 cm Weight: 71.67 kg BSA: 1.81 m2 Heart Rate: 54 bpm BP: 118 / 60 mmHg Diamond Sorter: SB Referring MD: Azalia Bruce RECORDS AND TAPE RECORDINGS ENGINEERMelissa Symptoms: R94.39 - Abnormal result of other cardiovascular function study Study Quality: Adequate ECG Rhythm: Bradycardia Conclusions: - The left ventricular systolic function is normal. The calculated ejection fraction is 65% by biplane method. - No obvious valvular pathology seen on this study. - There is mild dilatation of the ascending aorta measuring 4.10 cm and mild dilatation of the aortic arch measuring 3.80 cm. Findings Left Ventricle Normal left ventricular cavity size. There is normal left ventricular wall thickness. The left ventricular systolic function is normal. The calculated ejection fraction is 65% by biplane method. There is no evidence of regional wall motion abnormalities. Diastolic function is normal for age. LV peak GLS -18.9%. Right Ventricle Mildly increased right ventricular cavity size. There is normal right ventricular systolic function. Atria Both atria are normal in size. Aortic Valve There is a normal trileaflet aortic valve. There is no aortic valve stenosis. There is trace (trivial) aortic valve regurgitation. Mitral Valve The mitral valve appears normal. There is no mitral valve regurgitation. There is no mitral valve stenosis. Pulmonic Valve The pulmonic valve is likely normal. Tricuspid Valve There is mild tricuspid valve regurgitation. There is no evidence of pulmonary hypertension. Great Vessels There is mild dilatation of the ascending aorta measuring 4.10 cm and mild dilatation of the aortic arch measuring 3.80 cm. Venous The inferior vena cava is normal in size and collapses greater than 50% with inspiration. Pericardium/Pleural There is no evidence of pericardial effusion. Prior Study Comparison Changes noted compared to prior study dated: 05/27/2022. Slight increase in ascending aortic dimension but it could also be technical. Recommendations, Care & Conclusions No obvious valvular pathology seen on this study. Measurements 2D Linear Measurements IVSd: 0.97 0.6-0.9/0.6-1.0 cm LVIDd: 4.81 3.9-5.3/4.2-5.9 cm LVIDd Index: 2.66 2.4-3.2/2.2-3.1 cm/m2 LVIDs: 3.01 2.0-3.6 cm LVPWd: 0.79 0.7-1.1 cm LA Diam: 4.00 2.7-3.8/3.0-4.0 cm LAIDs Index: 2.21 1.5-2.3 cm/m2 LV Mass: 177.86 67-162/88-224 g LV Mass Index: 98.26 43-95/49-115 g/m2 LVOT Diam: 2.10 3.0+(-)1.3 cm 2D Systolic Function EF 4C: 56.90 >55% EF 2C: 70.80 >55% EF BiP: 65.10 >55% Mitral Valve MV Pk E: 0.70 MV PK A: 0.81 MV Decel Time: 255.00 E/A: 0.90 E'Lateral: 8.05 E'Medial: 5.33 E/E' Med: 13.10 E/E' Lat: 8.70 PHT: 75.00 MVA PHT: 2.93 Decel [place]: 2.73 Aortic Valve AoV Pk Kevin: 1.02 AoV Pk Grad: 4.00 NEMESIO: 3.66 LVOT LVOT Pk Kevin: 1.08 LVOT Mn Kevin: 0.68 LVOT VTI: 0.24 LVOT Pk Grad: 5.00 LVOT Mn Grad: 2.00 LVOT Diam: 2.10 LVOT Area: 3.46 Diastolic Function MV Pk E: 0.70 MV Pk A: 0.81 E/A: 0.90 E'Medial: 5.33 E/E' Med: 13.10 E' Laterial: 8.05 E/E' Lat: 8.70 Right Ventricle TAPSE (mm): 23.50 TVS' Kevin: 16.50 Tricuspid Valve TR Pk Kevin: 2.01 TR Pk Grad: 16.00 RA Press: 3.00 RVSP: 19.00 Great Vessels Aorta Sinus of Valsalva: 3.90 2.0-3.[address] [place]: 3.43 1.7-3.4 cm Ao Asc: 4.10 2.1-3.4 cm Ao Arch: 3.80 Ao Desc: 1.70 Pulmonary Veins Pulm Vein S/D 1.50 Pulmonary Valve PV Pk Kevin: 0.83 Peak PV Grad: 3.00 Updated in Other Vendor System with Status of Final Esvin Unger MD electronically signed on 02/20/2024 9:44:49 AM with status of Final
== END ==
LOC: HO.CARD 07:29
PROVIDERS: PCP Internal Medicine; Visit Provider Nurse Practitioner Family
DX: I77.810 Thoracic aortic ectasia (principal); R94.39 Abnormal result of other cardiovascular function study
CPT/HCPCS: 93306; 93356

== ENCOUNTER → 2024-02-20 07:32 | Outpatient (BNV) | payer OTHER, SELFPAY | PROVIDERS: PCP Internal Medicine; Visit Provider Internal Medicine | DX: I36.1 Nonrheumatic tricuspid (valve) insufficiency (principal) | CPT/HCPCS: 93306; 93356 ==

== ENCOUNTER 2024-04-29 09:52 | Emergency (ER) | payer OTHER, SELFPAY ==
--- NOTE | 2024-04-29 | ECG_ITS ---
Test Reason : chest pain Blood Pressure : / mmHG Vent. Rate : 057 BPM Atrial Rate : 057 BPM P-R Int : 140 ms QRS Dur : 080 ms QT Int : 432 ms P-R-T Axes : 065 -21 047 degrees QTc Int : 420 ms Sinus bradycardia Otherwise normal ECG When compared with ECG of 07-JUN-2023 08:23, No significant change was found Referred By: Generic ED Physician Electronically Signed By:Giovanny Ibarra
--- NOTE | ~2024-04-29 | XR_ITS ---
EXAMINATION: XR CHEST CLINICAL INFORMATION: Chest pain. COMPARISON: 06/07/2023 TECHNIQUE: Frontal view of the chest was obtained. FINDINGS: The lungs are moderately expanded. No focal consolidation. No pleural effusion. Cardiac silhouette is unchanged. XR/XR chest 1V IMPRESSION: No acute abnormality.
[2024-04-29 09:57] VITALS: BP 135/77; BP 148/67; PULSE 60; PULSE 63; RESP 16; TEMP 37; O2SAT 100; BMI 26.8
[2024-04-29 10:17] LABS: MANUAL DIFF FLAG NO
--- NOTE | 2024-04-29 10:18 | ED_ITS ---
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 Was given nitro by the EMS is feeling better right now MD complaint: chest pain Onset (ago): hour(s) (1) Prior episodes: Yes Onset: during rest Pain location: left chest Pain radiation: left arm Severity: mild Quality: aching Relieving factors: nothing Exacerbating factors: nothing Context: recent illness Risk Factors Coronary artery disease risk factors: diabetes Related Data Home Medications ?Medication ?Instructions ?Recorded ?Confirmed aspirin 81 mg tablet,delayed 81 mg PO DAILY 08/13/20 02/02/24 release cetirizine 10 mg tablet 10 mg PO DAILY 08/13/20 02/02/24 cyanocobalamin (vitamin B-12) 500 500 mcg PO DAILY 08/13/20 02/02/24 mcg tablet docusate sodium 100 mg capsule 100 mg PO DAILY 08/13/20 02/02/24 donepezil 10 mg tablet 10 mg PO BEDTIME 08/13/20 02/02/24 epinephrine 0.3 mg/0.3 mL 0.3 mg IM DAILY PRN allergies 08/13/20 02/02/24 injection, auto-injector finasteride 5 mg tablet 5 mg PO DAILY 08/13/20 02/02/24 gabapentin 400 mg capsule 800 mg PO TID 08/13/20 02/02/24 lisinopril 20 mg tablet 20 mg PO DAILY 08/13/20 02/02/24 metformin 500 mg tablet,extended 500 mg PO BID 08/13/20 02/02/24 release 24 hr omeprazole 20 mg capsule,delayed 20 mg PO DAILY@0630 08/13/20 02/02/24 release risperidone 0.5 mg tablet 0.5 mg PO BID 08/13/20 02/02/24 rosuvastatin 40 mg tablet 40 mg PO DAILY 08/13/20 02/02/24 sennosides 8.6 mg tablet 8.6 mg PO DAILY 08/13/20 02/02/24 tamsulosin 0.4 mg capsule 0.8 mg PO DAILY 08/13/20 02/02/24 acetaminophen 325 mg tablet 325 mg PO QID PRN pain 05/27/22 02/02/24 (Tylenol) trazodone 50 mg tablet 1 tab PO BEDTIME PRN Sleep 05/27/22 02/02/24 citalopram 20 mg tablet 20 mg PO BEDTIME 11/02/22 02/02/24 buspirone 5 mg tablet 5 mg PO DAILY 07/17/23 02/02/24 linaclotide 72 mcg capsule 72 mcg PO DAILY 07/17/23 02/02/24 (Linzess) Previous Rx's ?Medication ?Instructions ?Recorded meclizine 25 mg tablet 25 mg PO TID PRN motion sickness 08/10/21 #20 tabs lidocaine 5 % topical patch 1 patch topical DAILY #30 ea 06/07/23 cyclobenzaprine 5 mg tablet 5 mg PO TID PRN muscle spasm 7 09/13/23 days #21 tabs prednisone 20 mg tablet 20 mg PO DAILY 7 days #7 tabs 09/13/23 Allergies Allergy/AdvReac Type Severity Reaction Status Date / Time shellfish derived Allergy Unknown Hives/Short Verified 04/29/24 10:02 of breath Review of Systems 2 Constitutional: Constitutional: Reports no additional constitutional complaints ENT: Reports system reviewed and no additional complaints, except as documented Gastrointestinal: Gastrointestinal: Reports no additional gastrointestinal complaints PMFSH Past Medical History Source: unable to obtain Medical History Shortness of breath Chest discomfort Cerebral microvascular disease Confusion and disorientation Depression Dementia BPH (benign prostatic hyperplasia) Transient cerebral ischemia Other and unspecified hyperlipidemia Essential hypertension Type 2 diabetes mellitus with unspecified complications Precordial chest pain Surgical History History of cardiac catheterization (~09/17/14) Family History Family History Father Diabetes Hyperlipidemia Mother Stroke Social History Social History Alcohol intake: former Patient Tobacco Use Status: Never used Tobacco service: No Current occupational status: retired Physical Exam 2 Vital Signs: Vital Signs: Last Vital Signs Temp 98.4 F 04/29/24 14:32 Pulse 60 04/29/24 14:32 Resp 12 04/29/24 14:32 BP 140/69 H 04/29/24 14:32 Pulse Ox 98 04/29/24 14:32 O2 Del Method Room Air 04/29/24 14:32 BMI result Body Mass Index 26.8 Const: General: cooperative, comfortable, no acute distress, well developed, alert and awake Nutritional Appearance: average body habitus O rientation/consciousness: patient oriented x3 Limitations: no limitations HEENT: Head: Yes normal to inspection Face and sinus: Yes normal facial exam Neck: Neck: Yes normal visual inspection and Yes full ROM Chest: Chest palpation & inspection: normal inspection of the chest Resp: Effort & Inspection: normal respiratory effort and able to speak in complete sentences Cardio: Jugular venous distension: no JVD Rate: regular rate Rhythm: r egular rhythm GI: Inspection: Yes normal to inspection Palpation (GI): Soft to palpation, not firm and nontender Neuro: General: patient oriented x3 Cranial nerves: Yes CN's II-XII intact bilaterally Course Reevaluation(s) Reevaluation #1: seen by vacuum frame operator Dr Ramos pt will be transfer to [facility] for cath Time: 12:44 Medications Administered Discontinued Medications Generic Name Dose Route Start Last Admin Trade Name Freq PRN Reason Stop Dose Admin Heparin Sodium/Sodium Chloride 25,000 unit in 250 mls @ 0 mls/hr 04/29/24 12:45 04/29/24 13:11 Heparin Sodium,Porcine/1/2ns IVCONT 12 units/kg/hr .Q0M BERKLEY 9.02 mls/hr Titration Protocol Per Protocol Lorazepam 1 mg 04/29/24 10:17 04/29/24 10:32 Lorazepam 1 Mg Tablet PO 04/29/24 10:18 1 mg ONCE ONE Administration Medical Decision Making Medical Decision Making [facility] Narrative: Patient presented with chest pain we will obtain EKG high sensitive troponin reassessed Differential Diagnosis Differential Diagnoses: The differential diagnosis associated with the presentation includes ACS/atypical chest pain/musculoskeletal chest pain/pneumothorax Admission/Observation Consideration of admission/observation: Escalation of care including admission/observation considered Consult Healthcare Provider Management of the patient was discussed with: Lathe Machine Operator Mold Setter Dr Ramos Lab Data [facility] Lab Attestation statement: I reviewed the patient's lab results. 04/29/24 10:08 04/29/24 10:08 Labs: Lab Results 04/29/24 Range/Units 10:08 WBC 7.8 (4.8-10.8) X10*3/uL RBC 4.44 L (4.60-5.80) X10*6/uL Hgb 12.8 L (14.0-18.0) g/dl Hct 37.9 L (42.0-52.0) % MCV 85.4 (80.0-98.0) fL MCH 28.8 (27.0-33.0) pg MCHC 33.8 (31.0-36.0) g/dl RDW 13.6 (11.0-16.0) % Plt Count 277 (160-400) X10*3/uL MPV 10.7 (9.4-12.4) fL Immature Gran % (Auto) 0.4 (0.0-0.4) % Neut % (Auto) 63.2 (45-73) % Lymph % (Auto) 24.0 (20-40) % Wilson % (Auto) 10.2 (2-11) % Eos % (Auto) 1.4 (0-4) % Baso % (Auto) 0.8 (0-2) % Lymph # (Auto) 1.9 (1.2-4.9) X10*3/uL Wilson # (Auto) 0.8 (0.1-1.2) X10*3/uL Eos # (Auto) 0.1 (0.0-0.4) X10*3/uL Baso # (Auto) 0.1 (0.0-0.2) X10*3/uL Abs Immat Gran (auto) 0.03 (0.00-0.03) X10*3/uL Absolute Neuts (auto) 4.9 (2.0-8.3) x10*3/uL Absolute Nucleated RBC 0.000 (0.0-0.012) X10*3/uL Nucleated RBC % (auto) 0.0 (0.0-0.2) /100WBC PT 11.5 (11.1-13.3) SEC INR 0.9 (0.9-1.1) APTT 32.5 (26.0-36.8) SEC Sodium 137 (135-145) mmol/L Potassium 4.2 (3.3-5.1) mmol/L Chloride 103 (96-108) mmol/L Carbon Dioxide 25 (22-29) mmol/L Anion Gap 13 (12-20) BUN 16 (9-16) mg/dL Creatinine 0.86 (0.5-1.4) mg/dL Estim Creat Clear Calc 66.9 Estimated GFR > 60 Random Glucose 105 (60-115) mg/dL Calcium 9.9 (8.4-10.2) mg/dL Magnesium 1.9 (1.6-2.6) mg/dL Total Bilirubin 0.7 (0.0-1.0) mg/dL AST 17 (5-37) U/L ALT 16 (0-40) U/L Alkaline Phosphatase 62 (39-117) U/L Troponin I High Sens < 2.7 (<3.5-35.0) ng/L B-Natriuretic Peptide 39 (<100) pg/mL Total Protein 6.9 (6.5-8.0) g/dL Albumin 4.3 (3.5-5.0) g/dL Independent Interpretation I performed an independent interpretation of an: EKG Interpretation: Normal sinus rhythm rate [address]-T changes no ischemia EKG reviewed interpreted by me Radiology Impression Discussion of test interpretation with radiology: I have reviewed the radiologist's reading. External Record Review External record reviewed: Inpatient record and Office record Chronic Conditions Patient?s care impacted by: Diabetes Critical Care Time Critical Care Time Critical Care Time: Yes Total Critical Care Time: 60 Attestation: ACS started in heparin Xfer to [facility] Discharge Plan Discharge Clinical Impression: ACS (acute coronary syndrome) Chest pain Qualifiers: Chest pain type: unspecified Qualified Code(s): R07.9 - Chest pain, unspecified Patient Disposition: [facility] Transfer Details: MM5 bed 21B for cath Prescriptions: No Action trazodone 50 mg tablet 1 tab PO BEDTIME PRN (Reason: Sleep) acetaminophen [Tylenol] 325 mg Tablet 325 mg PO QID PRN (Reason: pain) citalopram 20 mg tablet 20 mg PO BEDTIME meclizine 25 mg tablet 25 mg PO TID PRN (Reason: motion sickness) Qty: 20 0RF lidocaine 5 % adhesive patch,medicated 1 patch topical DAILY Qty: 30 0RF Rx Instructions: leave on most painful area for up to 12 hrs cyclobenzaprine 5 mg tablet 5 mg PO TID PRN (Reason: muscle spasm) 7 Days Qty: 21 0RF prednisone 20 mg tablet 20 mg PO DAILY 7 Days Qty: 7 0RF aspirin 81 mg tablet,delayed release (DR/EC) 81 mg PO DAILY sennosides 8.6 mg tablet 8.6 mg PO DAILY gabapentin 400 mg capsule 800 mg PO TID finasteride 5 mg tablet 5 mg PO DAILY cetirizine 10 mg tablet 10 mg PO DAILY rosuvastatin 40 mg tablet 40 mg PO DAILY docusate sodium 100 mg capsule 100 mg PO DAILY lisinopril 20 mg tablet 20 mg PO DAILY omeprazole 20 mg capsule,delayed release(DR/EC) 20 mg PO DAILY@0630 metformin 500 mg tablet extended release 24 hr 500 mg PO BID cyanocobalamin (vitamin B-12) 500 mcg tablet 500 mcg PO DAILY epinephrine 0.3 mg/0.3 mL auto-injector 0.3 mg IM DAILY PRN (Reason: allergies) tamsulosin 0.4 mg capsule 0.8 mg PO DAILY Rx Instructions: TAKE 30 MIN AFTER SAME MEAL EVERYDAY donepezil 10 mg tablet 10 mg PO BEDTIME risperidone 0.5 mg tablet 0.5 mg PO BID Linzess 72 mcg capsule 72 mcg PO DAILY buspirone 5 mg tablet 5 mg PO DAILY Interventions: Acute Care Transfer Worksheet (ED) Last Done: 04/29/24 14:32 Discharge Date/Time: 04/29/24 14:33 Print Language: Serbian
[2024-04-29 10:19] LABS: Basophils Absolute Auto 0.1 X10*3/uL (0.0-0.2); Basophils Percent Auto 0.8 % (0-2); Eosinophils Absolute Auto 0.1 X10*3/uL (0.0-0.4); Eosinophils Percent Auto 1.4 % (0-4); Hematocrit 37.9 % (42.0-52.0); Hemoglobin 12.8 g/dl (14.0-18.0); Imm Gran Abs Auto 0.03 X10*3/uL (0.00-0.03); Imm Gran Pct Auto 0.4 % (0.0-0.4); Lymphocytes Absolute Auto 1.9 X10*3/uL (1.2-4.9); Mean Corpuscular HGB Conc 33.8 g/dl (31.0-36.0); Mean Corpuscular Hemoglobin 28.8 pg (27.0-33.0); Mean Corpuscular Volume 85.4 fL (80.0-98.0); Mean Platelet Volume 10.7 fL (9.4-12.4); Monocytes Absolute Auto 0.8 X10*3/uL (0.1-1.2); Monocytes Percent Auto 10.2 % (2-11); Neutrophils Absolute Auto 4.9 x10*3/uL (2.0-8.3); Neutrophils Percent Auto 63.2 % (45-73); Platelet Count 277 X10*3/uL (160-400); Red Blood Count 4.44 X10*6/uL (4.60-5.80); Red Cell Distribution Width 13.6 % (11.0-16.0); White Blood Count 7.8 X10*3/uL (4.8-10.8)
[2024-04-29 10:29] LABS: INTERNATIONAL NORM RATIO 0.9 (0.9-1.1); Prothrombin Time 11.5 SEC (11.1-13.3)
[2024-04-29] MEDS: LORazepam 1 MG TABLET PO (10:32)
[2024-04-29 10:34] LABS: Alanine Aminotransferase 16 U/L (0-40); Albumin Level 4.3 g/dL (3.5-5.0); Alkaline Phosphatase 62 U/L (39-117); Anion Gap 13 (12-20); Aspartate Amino Transferase 17 U/L (5-37); Bilirubin Total 0.7 mg/dL (0.0-1.0); Blood Urea Nitrogen 16 mg/dL (9-16); Calcium 9.9 mg/dL (8.4-10.2); Carbon Dioxide 25 mmol/L (22-29); Chloride 103 mmol/L (96-108); Creatinine Clr Calc Pharmacy 66.9; Estimated Glomerular Filt Rate > 60; Glucose Random 105 mg/dL (60-115); Magnesium 1.9 mg/dL (1.6-2.6); Potassium 4.2 mmol/L (3.3-5.1); Sodium 137 mmol/L (135-145); Total Protein 6.9 g/dL (6.5-8.0)
[2024-04-29 10:40] LABS: B Type Natriuretic Peptide 39 pg/mL (<100)
[2024-04-29 10:41] LABS: Troponin-I High Sensitivity < 2.7 ng/L (<3.5-35.0)
--- NOTE | 2024-04-29 11:46 | P.CONCA_ITS ---
History of Present Illness History of Present Illness Date of Service: 04/29/24 Requesting physician: Rahat Kenny Chief complaint: LARRY CRAWFORD FROM DR VAZQUEZ DIZZY Narrative: 73-year-old gentleman with known history of diabetes, hypertension and hyperlipidemia who is presenting for chest discomfort. He has known history of previous TIA. He has been seen in the office previously for chest discomfort and underwent stress Mibi where lateral perfusion defect was noted but it was unclear whether this is due to artifact versus true ischemia. Plan was that he will get a coronary CTA. Apparently was advised to undergo CTA but it did not happen and discussing with him today he is saying that he had eye surgery and missed the appointment. He is now presenting mainly for dizziness which he describes as lightheadedness, left-sided chest discomfort and left arm numbness. He is saying that previous episodes of chest discomfort were also associated with left arm numbness but dizziness comes and goes. Currently he is pain-free. Blood pressure is stable. EKGs not showing any dynamic changes. First set of high sensitive troponin level is less than 2.7. [facility] Past Medical History Medical History Shortness of breath Chest discomfort Cerebral microvascular disease Confusion and disorientation Depression Dementia BPH (benign prostatic hyperplasia) Transient cerebral ischemia Other and unspecified hyperlipidemia Essential hypertension Type 2 diabetes mellitus with unspecified complications Precordial chest pain Family History Family History Father Diabetes Hyperlipidemia Mother Stroke Surgical History Surgical History History of cardiac catheterization (~09/17/14) Social History Social History Alcohol intake: former Patient Tobacco Use Status: Never used Tobacco Advance Directives: No Advance Directives Information Provided: Yes Do you have a plan to hurt others: No Plan service: No Current occupational status: retired Meds Allergies Allergy/AdvReac Type Severity Reaction Status Date / Time shellfish derived Allergy Unknown Hives/Short Verified 04/29/24 10:02 of breath Home Medications ?Medication ?Instructions ?Recorded ?Confirmed ?Last Taken ?Type aspirin 81 mg tablet,delayed 81 mg PO DAILY 08/13/20 02/02/24 Unknown History release cetirizine 10 mg tablet 10 mg PO DAILY 08/13/20 02/02/24 Unknown History cyanocobalamin (vitamin B-12) 500 500 mcg PO DAILY 08/13/20 02/02/24 Unknown History mcg tablet docusate sodium 100 mg capsule 100 mg PO DAILY 08/13/20 02/02/24 Unknown History donepezil 10 mg tablet 10 mg PO BEDTIME 08/13/20 02/02/24 Unknown History epinephrine 0.3 mg/0.3 mL 0.3 mg IM DAILY PRN allergies 08/13/20 02/02/24 Unknown History injection, auto-injector finasteride 5 mg tablet 5 mg PO DAILY 08/13/20 02/02/24 Unknown History gabapentin 400 mg capsule 800 mg PO TID 08/13/20 02/02/24 Unknown History lisinopril 20 mg tablet 20 mg PO DAILY 08/13/20 02/02/24 Unknown History metformin 500 mg tablet,extended 500 mg PO BID 08/13/20 02/02/24 Unknown History release 24 hr omeprazole 20 mg capsule,delayed 20 mg PO DAILY@0630 08/13/20 02/02/24 Unknown History release risperidone 0.5 mg tablet 0.5 mg PO BID 08/13/20 02/02/24 Unknown History rosuvastatin 40 mg tablet 40 mg PO DAILY 08/13/20 02/02/24 Unknown History sennosides 8.6 mg tablet 8.6 mg PO DAILY 08/13/20 02/02/24 Unknown History tamsulosin 0.4 mg capsule 0.8 mg PO DAILY 08/13/20 02/02/24 Unknown History acetaminophen 325 mg tablet 325 mg PO QID PRN pain 05/27/22 02/02/24 Unknown History (Tylenol) trazodone 50 mg tablet 1 tab PO BEDTIME PRN Sleep 05/27/22 02/02/24 Unknown History citalopram 20 mg tablet 20 mg PO BEDTIME 11/02/22 02/02/24 Unknown History buspirone 5 mg tablet 5 mg PO DAILY 07/17/23 02/02/24 Unknown History linaclotide 72 mcg capsule 72 mcg PO DAILY 07/17/23 02/02/24 Unknown History (Linzess) Physical Exam 2 Vital Signs: Vital Signs: Last Vital Signs Temp 98.6 F 04/29/24 09:57 Pulse 60 04/29/24 09:57 Resp 16 04/29/24 09:57 BP 148/67 H 04/29/24 09:57 Pulse Ox 100 04/29/24 09:57 O2 Del Method Room Air 04/29/24 09:57 BMI result Body Mass Index 26.8 GENERAL APPEARANCE: in no acute distress, pleasant. NECK: no carotid bruit, no jugular venous distention. SKIN: no suspicious lesions, warm and dry. HEART: no murmurs, regular rate and rhythm. LUNGS: clear to auscultation bilaterally. ABDOMEN: soft, nontender. EXTREMITIES: no edema. PERIPHERAL PULSES: equal. No radio radial delay. NEUROLOGIC: No gross deficits, AAO X 3 Objective Labs and Meds 04/29/24 10:08 04/29/24 10:08 Lab results: Laboratory Results - last 24 hr 04/29/24 10:08 WBC 7.8 RBC 4.44 L Hgb 12.8 L Hct 37.9 L MCV 85.4 MCH 28.8 MCHC 33.8 RDW 13.6 Plt Count 277 MPV 10.7 Immature Gran % (Auto) 0.4 Neut % (Auto) 63.2 Lymph % (Auto) 24.0 Reagan % (Auto) 10.2 Eos % (Auto) 1.4 Baso % (Auto) 0.8 Lymph # (Auto) 1.9 Reagan # (Auto) 0.8 Eos # (Auto) 0.1 Baso # (Auto) 0.1 Abs Immat Gran (auto) 0.03 Absolute Neuts (auto) 4.9 Absolute Nucleated RBC 0.000 Nucleated RBC % (auto) 0.0 PT 11.5 INR 0.9 Sodium 137 Potassium 4.2 Chloride 103 Carbon Dioxide 25 Anion Gap 13 BUN 16 Creatinine 0.86 Estim Creat Clear Calc 66.9 Estimated GFR > 60 Random Glucose 105 Calcium 9.9 Magnesium 1.9 Total Bilirubin 0.7 AST 17 ALT 16 Alkaline Phosphatase 62 Troponin I High Sens < 2.7 B-Natriuretic Peptide 39 Total Protein 6.9 Albumin 4.3 Imaging Radiologist's impression: Impressions Chest X-Ray 04/29/24 10:27 IMPRESSION: No acute abnormality. Assessment and Plan (1) Ascending aorta dilatation: Status: Acute (2) Unstable angina: Status: Acute (3) Essential hypertension: Status: Acute Plan [age] year gentleman with known history of diabetes, hypertension, hyperlipidemia and mild ascending aortic dilatation 4 cm presenting for chest discomfort, dizziness and left arm numbness. Previous episodes of chest discomfort were also associated with left arm numbness. Clinical story is suspicious for underlying coronary disease and there is concern for unstable angina. Start him on a heparin drip. Continue aspirin and lisinopril. Keep NPO after midnight for potential cardiac catheterization tomorrow. If he had any recurrent chest discomfort then we will reassess him. Thank you for allowing me to participate in the care of your patient. Please feel free to contact me if you have any questions. Procedures Date of Service Date of Service: 04/29/24
[2024-04-29 11:49] VITALS: BP 125/64; PULSE 55; RESP 16; O2SAT 99
--- NOTE | 2024-04-29 12:50 | PC.NURSE ---
Called lab confirmed w/ tech that PTT can be added on to previous blue top drawn.
[2024-04-29] MEDS: Heparin Sodium,Porcine/1/2NS 25,000 UNIT/250 ML IV.SOLN 9.02 UNIT IVCONT (13:00)
--- NOTE | 2024-04-29 13:07 | PC.NURSE ---
2nd RN Taylor called to confirm lab can add on to the tube, lab stated they have no tube to run off of. This RN called lab again, explained that PT/INR Blue top tube had been earlier drawn and can PTT be added on to that tube? Lab confirmed they DO have tube and CAN run PTT off that sample. Lab stated PTT to be resulted in 10 minutes. Paused in MAR d/t miscommunication from lab. Heparin gtt to be started now.
[2024-04-29 13:15] LABS: Partial Thromboplastin Time 32.5 SEC (26.0-36.8)
--- NOTE | 2024-04-29 13:33 | PC.NURSE ---
Called and gave RN to RN report to Alex on MM5, all questions answered, patient to be transferred to [facility] MM5 bed 21B awaiting EMS arrival
[2024-04-29 14:12] VITALS: BP 140/69; PULSE 60; RESP 12; TEMP 36.9; O2SAT 98
--- NOTE | 2024-04-29 14:30 | PC.NURSE ---
Verbal report given to EMS, all questions answered.
[2024-04-29 14:32] VITALS: BP 140/69; PULSE 60; RESP 12; TEMP 36.9; O2SAT 98
== END 2024-04-29 14:33 | disposition short-term general hospital (02) ==
PROVIDERS: Emergency Provider Emergency Medicine; PCP Internal Medicine
DX: R07.9 Chest pain, unspecified (principal); I24.9 Acute ischemic heart disease, unspecified; E11.9 Type 2 diabetes mellitus without complications; I10 Essential (primary) hypertension; E78.5 Hyperlipidemia, unspecified; I77.810 Thoracic aortic ectasia; R06.02 Shortness of breath; Z79.02 Long term (current) use of antithrombotics/antiplatelets; Z79.899 Other long term (current) drug therapy; Z79.82 Long term (current) use of aspirin
CPT/HCPCS: 36415; 71045; 80053; 83735; 83880; 84484; 85025; 85610; 85730; 93005; 96374; 99285; J1644

== ENCOUNTER → 2024-04-29 10:28 | Outpatient (BNV) | payer OTHER, SELFPAY | PROVIDERS: Emergency Provider Emergency Medicine; PCP Internal Medicine; Visit Provider Internal Medicine Cardiovascular Disease | DX: I77.810 Thoracic aortic ectasia (principal); I20.0 Unstable angina; I10 Essential (primary) hypertension; R07.9 Chest pain, unspecified; R00.1 Bradycardia, unspecified | CPT/HCPCS: 93010; 99283 ==

== ENCOUNTER → 2024-04-30 23:59 | Outpatient (BNV) | payer OTHER, SELFPAY | PROVIDERS: PCP Internal Medicine; Visit Provider Internal Medicine Cardiovascular Disease | DX: I20.0 Unstable angina (principal) | CPT/HCPCS: 93458; 99152 ==

== ENCOUNTER 2024-05-09 08:01 | Outpatient (AMB) | payer OTHER, SELFPAY ==
[2024-05-09 08:18] VITALS: BP 150/72; PULSE 51; BMI 25.8
--- NOTE | 2024-05-09 08:18 | A.OFFVIS_ITS ---
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 Language: Pashto Allergies shellfish derived Allergy (Unknown, Verified 05/09/24 08:20) Hives/Short of breath Medication List - Last Reconciled 05/09/24 by DEL Ascencio acetaminophen (Tylenol) 325 mg PO QID PRN aspirin 81 mg PO DAILY buspirone 5 mg PO DAILY cetirizine 10 mg PO DAILY citalopram 20 mg PO BEDTIME cyanocobalamin (vitamin B-12) 500 mcg PO DAILY cyclobenzaprine 5 mg PO TID PRN 7 days docusate sodium 100 mg PO DAILY donepezil 10 mg PO BEDTIME epinephrine 0.3 mg IM DAILY PRN finasteride 5 mg PO DAILY gabapentin 800 mg PO TID lidocaine 5% 1 patch topical DAILY linaclotide (Linzess) 72 mcg PO DAILY meclizine 25 mg PO TID PRN metformin ER 500 mg PO BID metoprolol tartrate 12.5 mg PO BID omeprazole 20 mg PO DAILY@0630 prednisone 20 mg PO DAILY 7 days risperidone 0.5 mg PO BID rosuvastatin 40 mg PO DAILY sennosides 8.6 mg PO DAILY tamsulosin 0.8 mg PO DAILY trazodone 1 tab PO BEDTIME PRN HPI HPI f/u after cath: Details: Romaine is a 73-year-old male with past medical history of hypertension, hyperlipidemia, diabetes, atypical chest discomfort, mildly abnormal nuclear stress test who recently presented to [facility] with chest discomfort and was transferred to [facility] for cardiac catheterization showing no significant CAD. He now presents for follow-up. presents for follow-up. Today he reports that is having tightness in his left chest region. He states this is essentially the same discomfort that he presented to the emergency room with. His symptom does come and go. It is worse when he lays on his left side. It is not clearly brought on by walking but when he has it can be worsened by that activity. He will typically sit and take deep breaths and this helps to improve his discomfort. His breathing has been stable. No PND, orthopnea or edema. No lightheadedness, presyncope, syncope, falls. Right radial catheterization site is feeling good. Taking all meds as directed. Has noticed his home blood pressure has been elevated and he reports a mild headache since stopping his lisinopril. Taking meds as directed. [facility] Medical History Chest discomfort Shortness of breath Cerebral microvascular disease Confusion and disorientation Depression Dementia BPH (benign prostatic hyperplasia) Transient cerebral ischemia Other and unspecified hyperlipidemia Essential hypertension Type 2 diabetes mellitus with unspecified complications Precordial chest pain Surgical History History of cardiac catheterization (~09/17/14) Family History Father Diabetes Hyperlipidemia Mother Stroke Social History Alcohol intake: former Patient Tobacco Use Status: Never used Tobacco service: No Current occupational status: retired Review of Systems Const All systems reviewed & are unremarkable except as noted in HPI and below ENT Denies dizziness Card Reports chest pain (left chest discomfort), Denies chest pain at rest, Denies chest pain with activity, Denies rapid heart rate, Denies pedal edema, Denies edema, Denies leg edema, Denies lightheadedness, Denies palpitations, Denies dyspnea, Denies dyspnea on exertion and Denies orthopnea Resp Denies cough, Denies dyspnea and Denies dyspnea on exertion GI Denies hematochezia and Denies change in stool character Musc Details: left shoulder with limited ROM Denies abnormal gait, Reports limited range of motion, Denies muscle cramps, Denies muscle weakness, Denies numbness, Denies radiating pain into limb, Denies stiffness and Denies tingling Neuro Denies abnormal gait, Denies dizziness, Denies numbness and Denies tingling Endo Denies palpitations Physical Exam Vital Signs: Last Vital Signs Pulse 51 05/09/24 08:18 BP 150/72 H 05/09/24 08:18 BMI result Body Mass Index 25.8 Const General: cooperative, healthy appearing, comfortable and no acute distress Orientation/consciousness: patient oriented x3 Neck Neck: Yes normal visual inspection and Yes no JVD Resp Effort & Inspection: normal respiratory effort Auscultation: clear to auscultation bilaterally, no rales, no rhonchi and no wheezes Cardio Jugular venous distension: no JVD Rate: regular rate Rhythm: regular rhythm Heart sounds: S1 normal heart sound present, S2 normal heart sound present, no murmurs and no rubs Neuro General: patient oriented x3 Extrem General: Yes normal to inspection and No no pedal edema Psych Appearance: grossly normal Mental Status: mental status grossly normal Speech and movement: Normal speech and movement present Office Procedures EKG Details: Today, read by me, sinus bradycardia, no acute ST or T-wave abnormalities, QTC 401 milliseconds, rate 51 [id number], Complete Assessment & Plan Assessment & Plan (1) Chest discomfort: Code(s): R07.89 - Other chest pain Category: Medical Plan: Report of chest discomfort, previously with atypical description. He does have increasing shortness of breath and fatigue with physical activity. He has no known history of CAD. He does have multiple cardiac risk factors including hypertension, hyperlipidemia, diabetes. His nuclear stress test was normal in 2019. Last echo 05/2022 showed EF 55-60%, no valve abnormalities, ascending aorta 4 cm. A nuclear stress test was done on 08/29/2023 showing mild reversible lateral perfusion defect suspected to be from soft tissue attenuation artifact. He presented to [facility] on 04/29/2024 with chest discomfort. His troponin was negative. He was thought to have unstable angina and was transferred to [facility] for cardiac catheterization which showed no significant coronary artery disease. His blood pressure was running on the low side and lisinopril was stopped. He was started on low-dose metoprolol. Today he reports that he continues to have some left-sided chest discomfort that he describes as tightness. The symptom does come and go, worsened by laying on his left side. Overall still seems atypical. EKG done today showing sinus bradycardia, no acute ST or T-wave abnormalities, rate 51. Blood pressure elevated at 150/72. His symptoms still sounds atypical and could be musculoskeletal in nature. For completeness will have him check a stat troponin level. Will stop metoprolol as he has sinus bradycardia. Will restart lisinopril at 10 mg daily. Will cancel CTA of the coronaries as no longer needed. Plan to call him with test results. Emergency care if needed for symptoms. Cardiology follow-up 1 month, sooner if needed to re-evaluate vital signs and symptoms. (2) S/P cardiac catheterization: Comment: 04/30/2024, no significant coronary artery disease Code(s): Z98.890 - Other specified postprocedural states Category: Surgical Plan: Right radial catheterization site well healed (3) Essential hypertension: Code(s): I10 - Essential (primary) hypertension Category: Medical Plan: Elevated at this visit. Reports not feeling as well since the lisinopril was stopped. He has a mild headache. He was reporting some low blood pressures when on lisinopril 20 mg daily. Restarting his lisinopril at 10 mg daily (4) Other and unspecified hyperlipidemia: Code(s): E78.5 - Hyperlipidemia, unspecified Category: Medical Plan: [place] LDL goal less than 70 in patient with diabetes. no recent cholesterol level in our system. Labs are followed by PCP (5) Abnormal nuclear stress test: Code(s): R94.39 - Abnormal result of other cardiovascular function study Category: Medical Plan: As above - false abnormal in the setting of no significant CAD on catheterization (6) Ascending aorta dilatation: Code(s): I77.810 - Thoracic aortic ectasia Category: Medical Plan: Echocardiogram 02/20/2024 shows EF 65%, no valve abnormalities, no regional wall motion abnormalities, ascending aorta 4.1 cm (7) Hospital discharge follow-up: Code(s): Z09 - Encounter for follow-up examination after completed treatment for conditions other than malignant neoplasm Category: Medical Plan: As above Plan Time spent on chart, documentation, interview and assessment Orders: Orders Troponin-I High Sensitivity Today R07.89 - Other chest pain Medications: New lisinopril dose reduced 10 mg PO DAILY 30 tabs 5RF Coding Level of Care Code Est Pt Level 4 (90353) Diagnoses Chest discomfort R07.89 S/P cardiac catheterization Z98.890 Essential hypertension I10 Other and unspecified hyperlipidemia E78.5 Abnormal nuclear stress test R94.39 Ascending aorta dilatation I77.810 Hospital discharge follow-up Z09 CPT Codes EKG - CPT: [id number], Complete ([id number]) Time Spent (min) 36
== END 2024-05-09 09:06 | disposition home or self-care (01) ==
PROVIDERS: PCP Internal Medicine; Visit Provider Nurse Practitioner Family
DX: R07.89 Other chest pain (principal); Z98.890 Other specified postprocedural states; I10 Essential (primary) hypertension; E78.5 Hyperlipidemia, unspecified; R94.39 Abnormal result of other cardiovascular function study; I77.810 Thoracic aortic ectasia; Z09 Encounter for follow-up examination after completed treatment for conditions other than malignant neoplasm
CPT/HCPCS: 93010; 99214

== ENCOUNTER 2024-05-09 08:01 | Outpatient (REF) | payer OTHER, SELFPAY ==
[2024-05-09 10:15] LABS: Troponin-I High Sensitivity < 2.7 ng/L (<3.5-35.0)
== END 2024-05-09 08:02 | disposition home or self-care (01) ==
LOC: HO.LAB 08:01
PROVIDERS: PCP Internal Medicine; Visit Provider Nurse Practitioner Family
DX: R07.89 Other chest pain (principal); I10 Essential (primary) hypertension; E78.5 Hyperlipidemia, unspecified; R94.39 Abnormal result of other cardiovascular function study; I77.810 Thoracic aortic ectasia; Z98.890 Other specified postprocedural states
CPT/HCPCS: 36415; 84484; 93005; 99212

== ENCOUNTER 2024-05-31 07:50 | Emergency (ER) | payer OTHER, SELFPAY ==
--- NOTE | ~2024-05-31 | MR_ITS ---
MRI OF THE BRAIN WITHOUT IV CONTRAST INDICATION: Left arm numbness. COMPARISON: CT head and CTA head and neck May 31, 2024. TECHNIQUE: Multiplanar multisequence MR imaging of the brain was obtained without IV contrast. FINDINGS: There is no hydrocephalus, extra-axial surface collection, or herniation. 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 There is no acute infarct on diffusion-weighted imaging. There is no intracranial hemorrhage on the gradient recalled echo acquisition. The midline structures are normal. The cerebellar tonsils are normally positioned. The cerebellum and brainstem are normal. The craniocervical junction is normal. Osseous marrow signal intensity is homogenous. The visualized soft tissues are unremarkable. MR/MR head/brain wo con IMPRESSION: * No acute intracranial findings. No acute infarcts. * There is moderate chronic microangiopathy. 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 Electronically signed by: Darrin Pop MD 05/31/2024 10:41 AM EDT
--- NOTE | ~2024-05-31 | CT_ITS ---
EXAMINATION: CT HEAD WITHOUT CONTRAST/STROKE ALERT CLINICAL INFORMATION: Acute stroke, left upper extremity numbness. COMPARISON: CT scan of brain on 06/07/2030 TECHNIQUE: Contiguous axial imaging was performed from the skull-base to vertex without intravenous administration of contrast. This CT examination was performed using dose optimization techniques as appropriate, variously including the following: *Automated exposure control *Adjustment of mA and/or kV according to patient size (this includes techniques or standardized protocols for targeted exams where dose is matched to indication/reason for exam; i.e. extremities or head) *Use of iterative reconstruction technique DLP: 667 mGy-cm FINDINGS: Ventricles, sulci and cisterns are normal for the patient's age. A few focal low attenuation lesions are seen in bilateral frontal deep white matter. There is no midline shift, no abnormal intra- or extra- axial fluid accumulation. Boogie and white matter differentiation is normal. Bone window images show no evidence of skull fracture. CT/CT head for stroke IMPRESSION: 1. Unchanged focal ischemic white matter lesions compatible with microangiopathy. 2. No intracranial hemorrhage or skull fracture is seen. 3. No evidence of space occupying lesion could be found. 4. The current plain CT scan of the brain shows no diagnostic evidence of acute cerebral infarction. This critical result was discussed with Dr. Rahat Kenny on 05/31/2024 at 809 hours and it was ascertained that the content and urgency of this report was understood at the time of direct communication. Electronically signed by: Emily Hooker MD 05/31/2024 08:12 AM EDT
--- NOTE | ~2024-05-31 | CT_ITS ---
EXAMINATION: CT ANGIOGRAM NECK WITH CONTRAST CT ANGIOGRAM BRAIN WITH CONTRAST CLINICAL INFORMATION: Left arm numbness. COMPARISON: Head CT and CTA head and neck May 31, 2024. TECHNIQUE: Test bolus sequences followed by intravenous administration 70 mL of Omnipaque 350. Helical imaging was performed in the axial plane from the thoracic inlet to the skull vertex. Delayed postcontrast imaging of the head was also performed. The data was processed at the nanotechnologist workstation for generation of MIP sequences. Angled MIPs and volume rendered reformatted images were also generated at an offline 3D workstation under concurrent supervision. Stenoses are assessed in accordance with NASCET criteria unless otherwise indicated. This CT examination was performed using dose optimization techniques as appropriate, variously including the following: *Automated exposure control *Adjustment of mA and/or kV according to patient size (this includes techniques or standardized protocols for targeted exams where dose is matched to indication/reason for exam; i.e. extremities or head) *Use of iterative reconstruction technique FINDINGS: BRAIN: [There is no intracranial hemorrhage, hydrocephalus, extra-axial surface collection, midline shift, or other herniation pattern. Boogie to white matter differentiation is diffusely maintained without evidence of an evolved acute territorial infarct. The basilar cisterns are preserved. No significant soft tissue abnormality. No acute osseous abnormality. The paranasal sinuses and the mastoid air cells are well aerated.] CERVICAL SOFT TISSUES AND LUNG APICES: Imaged upper lungs are clear. No significant soft tissue findings within the neck. There is multilevel cervical spondylosis. NECK CTA: The left common carotid artery arises from the brachiocephalic artery, an anatomic variant. The right vertebral artery is dominant and widely patent. 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 Mild atherosclerotic disease involving the carotid bifurcations bilaterally without significant stenosis involving the proximal internal carotid arteries on either side. 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 No acute arterial occlusions intracranially. No aneurysms in the high flow vascular malformations. CT/CT angio head neck stroke IMPRESSION: * No acute intracranial findings. No acute territorial infarction or intracranial hemorrhage. * No acute arterial occlusion and no significant arterial stenoses within the head or neck. 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 * There is multilevel cervical spondylosis. Covering provider paged with these findings at 8:49 AM on May 31, 2024. Electronically signed by: Darrin Pop MD 05/31/2024 08:50 AM EDT
--- NOTE | 2024-05-31 07:57 | ECG_ITS ---
Test Reason : stroke Blood Pressure : / mmHG Vent. Rate : 068 BPM Atrial Rate : 068 BPM P-R Int : 176 ms QRS Dur : 082 ms QT Int : 416 ms P-R-T Axes : 045 -23 034 degrees QTc Int : 442 ms Normal sinus rhythm Normal ECG When compared with ECG of 29-APR-2024 09:54, No significant change was found Referred By: Rahat Kenny Electronically Signed By:LORETO MALAGON
[2024-05-31 08:00] LABS: Glucose, Whole Blood 108 mg/dL (60-115)
--- NOTE | 2024-05-31 08:02 | ED.NEUROSD ---
HPI - Neuro Symptoms/Deficit General Chief Complaint: Stroke Stated Complaint: L ARM NUMBNESS Time Seen by Provider: 05/31/24 07:53 Source: patient Mode of arrival: EMS Limitations: no limitations History of Present Illness HPI Narrative: This is 73 years old the patient with history of type 2 diabetes, hypertension presented to the emergency department with a chief complaint of left arm numbness he states that he woke up with a left arm numbness. no weakness no speech problem. Denies any other complaints such as chest pain shortness of breath. Onset (ago): unknown Location: left arm History of same: No Severity: moderate Quality: numb Relieving factors: none Exacerbating factors: none Context: other (Woke up with the symptoms) Related Data Home Medications ?Medication ?Instructions ?Recorded ?Confirmed aspirin 81 mg tablet,delayed 81 mg PO DAILY 08/13/20 05/09/24 release cetirizine 10 mg tablet 10 mg PO DAILY 08/13/20 05/09/24 cyanocobalamin (vitamin B-12) 500 500 mcg PO DAILY 08/13/20 05/09/24 mcg tablet docusate sodium 100 mg capsule 100 mg PO DAILY 08/13/20 05/09/24 donepezil 10 mg tablet 10 mg PO BEDTIME 08/13/20 05/09/24 epinephrine 0.3 mg/0.3 mL 0.3 mg IM DAILY PRN allergies 08/13/20 05/09/24 injection, auto-injector finasteride 5 mg tablet 5 mg PO DAILY 08/13/20 05/09/24 gabapentin 400 mg capsule 800 mg PO TID 08/13/20 05/09/24 metformin 500 mg tablet,extended 500 mg PO BID 08/13/20 05/09/24 release 24 hr omeprazole 20 mg capsule,delayed 20 mg PO DAILY@0630 08/13/20 05/09/24 release risperidone 0.5 mg tablet 0.5 mg PO BID 08/13/20 05/09/24 rosuvastatin 40 mg tablet 40 mg PO DAILY 08/13/20 05/09/24 sennosides 8.6 mg tablet 8.6 mg PO DAILY 08/13/20 05/09/24 tamsulosin 0.4 mg capsule 0.8 mg PO DAILY 08/13/20 05/09/24 acetaminophen 325 mg tablet 325 mg PO QID PRN pain 05/27/22 05/09/24 (Tylenol) trazodone 50 mg tablet 1 tab PO BEDTIME PRN Sleep 05/27/22 05/09/24 citalopram 20 mg tablet 20 mg PO BEDTIME 11/02/22 05/09/24 buspirone 5 mg tablet 5 mg PO DAILY 07/17/23 05/09/24 linaclotide 72 mcg capsule 72 mcg PO DAILY 07/17/23 05/09/24 (Linzess) Previous Rx's ?Medication ?Instructions ?Recorded meclizine 25 mg tablet 25 mg PO TID PRN motion sickness 08/10/21 #20 tabs lidocaine 5 % topical patch 1 patch topical DAILY #30 ea 06/07/23 cyclobenzaprine 5 mg tablet 5 mg PO TID PRN muscle spasm 7 09/13/23 days #21 tabs prednisone 20 mg tablet 20 mg PO DAILY 7 days #7 tabs 09/13/23 lisinopril 10 mg tablet 10 mg PO DAILY #30 tabs 05/09/24 Allergies Allergy/AdvReac Type Severity Reaction Status Date / Time shellfish derived Allergy Unknown Hives/Short Verified 05/31/24 08:26 of breath PMFSH Past Medical History Medical History Chest discomfort Shortness of breath Cerebral microvascular disease Confusion and disorientation Depression Dementia BPH (benign prostatic hyperplasia) Transient cerebral ischemia Other and unspecified hyperlipidemia Essential hypertension Type 2 diabetes mellitus with unspecified complications Precordial chest pain Surgical History History of cardiac catheterization (~09/17/14) Family History Family History Father Diabetes Hyperlipidemia Mother Stroke Social History Social History Alcohol intake: former Patient Tobacco Use Status: Never used Tobacco service: No Current occupational status: retired Physical Exam Vital Signs: Vital Signs: Last Vital Signs Temp 97.7 F 05/31/24 10:02 Pulse 61 05/31/24 10:02 Resp 11 L 05/31/24 10:02 BP 146/80 H 05/31/24 10:02 Pulse Ox 100 05/31/24 10:02 O2 Del Method Room Air 05/31/24 10:02 BMI result Body Mass Index 25.6 Patient looks well no toxic-appearing Const: General: cooperative Orientation/consciousness: patient oriented x3 Limitations: no limitations HEENT: Head: Yes normal to inspection Face and sinus: Yes normal facial exam Neck: Neck: Yes normal visual inspection, Yes full ROM and Yes no lymphadenopathy Chest: Chest palpation & inspection: normal inspection of the chest Resp: Effort & Inspection: normal respiratory effort Auscultation: clear to auscultation bilaterally Cardio: Other: Regular rate rhythm Rate: regular rate GI: Inspection: Yes normal to inspection Palpation (GI): Soft to palpation, not firm and nontender Skin: General skin exam: no rashes or lesions noted and elasticity normal Lesions: no lesions Rashes: no rashes Neuro: Other: Left arm numbness present stroke scale 1 General: patient oriented x3 Cranial nerves: Yes CN's II-XII intact bilaterally Cognition (Neuro): normal cognition Gait exam (Neuro): Normal gait present Motor exam (neuro): 5/5 motor strength present throughout Course Reevaluation(s) Reevaluation #1: CT and CTA head and neck no acute disease, at this point I think we are going to do an MRI of the brain to complete the workup if MRI is negative I think the patient can be discharged home Time: 08:52 Reevaluation #2: MRI resulted no evidence of acute CVA at this point I think the patient can be safely discharged home he is comfortable with the plan of care Time: 11:28 Medications Administered Discontinued Medications Generic Name Dose Route Start Last Admin Trade Name Conrad PRN Reason Stop Dose Admin Iohexol 100 ml 05/31/24 08:11 05/31/24 08:12 Iohexol 350 Mg/Ml 100 Ml Infus..Btl IV 05/31/24 08:12 70 ml ONCE ONE Administration Medical Decision Making Medical Decision Making MDM Narrative: Patient presented with left arm numbness we will do imaging Differential Diagnosis Differential Diagnoses: The differential diagnosis associated with the presentation includes Broad differential diagnosis which include a CVA, peripheral neuropathy Admission/Observation Consideration of admission/observation: Escalation of care including admission/observation considered Lab Data [facility] Lab Attestation statement: I reviewed the patient's lab results. 05/31/24 08:00 05/31/24 08:00 Labs: Lab Results 05/31/24 05/31/24 Range/Units 07:54 08:00 WBC 6.6 (4.8-10.8) X10*3/uL RBC 4.47 L (4.60-5.80) X10*6/uL Hgb 13.0 L (14.0-18.0) g/dl Hct 38.9 L (42.0-52.0) % MCV 87.0 (80.0-98.0) fL MCH 29.1 (27.0-33.0) pg MCHC 33.4 (31.0-36.0) g/dl RDW 13.3 (11.0-16.0) % Plt Count 286 (160-400) X10*3/uL MPV 10.5 (9.4-12.4) fL Immature Gran % (Auto) 0.3 (0.0-0.4) % Neut % (Auto) 60.1 (45-73) % Lymph % (Auto) 29.2 (20-40) % [place] % (Auto) 7.9 (2-11) % Eos % (Auto) 1.7 (0-4) % Baso % (Auto) 0.8 (0-2) % Lymph # (Auto) 1.9 (1.2-4.9) X10*3/uL [place] # (Auto) 0.5 (0.1-1.2) X10*3/uL Eos # (Auto) 0.1 (0.0-0.4) X10*3/uL Baso # (Auto) 0.1 (0.0-0.2) X10*3/uL Abs Immat Gran (auto) 0.02 (0.00-0.03) X10*3/uL Absolute Neuts (auto) 4.0 (2.0-8.3) x10*3/uL Absolute Nucleated RBC 0.000 (0.0-0.012) X10*3/uL Nucleated RBC % (auto) 0.0 (0.0-0.2) /100WBC Hold Purple Top SEE NOTE PT 11.9 (11.1-13.3) SEC INR 1.0 (0.9-1.1) Sodium 137 (135-145) mmol/L Potassium 4.5 (3.3-5.1) mmol/L Chloride 105 (96-108) mmol/L Carbon Dioxide 24 (22-29) mmol/L Anion Gap 13 (12-20) BUN 20 H (9-16) mg/dL Creatinine 0.90 (0.5-1.4) mg/dL Estim Creat Clear Calc 63.9 Estimated GFR > 60 POC Glucose 108 (60-115) mg/dL Random Glucose 111 (60-115) mg/dL Calcium 9.7 (8.4-10.2) mg/dL Total Bilirubin 1.0 (0.0-1.0) mg/dL AST 19 (5-37) U/L ALT 11 (0-40) U/L Alkaline Phosphatase 66 (39-117) U/L Troponin I High Sens < 2.7 (<3.5-35.0) ng/L Total Protein 6.7 (6.5-8.0) g/dL Albumin 4.1 (3.5-5.0) g/dL Independent Interpretation I performed an independent interpretation of an: EKG (sinus 68 no ischemia) Radiology Impression Discussion of test interpretation with radiology: I discussed test interpretation with the radiologist and I have reviewed the radiologist's reading. Independent Historian Clinical information obtained from an independent historian. History obtained from or confirmed by: EMS External Record Review External record reviewed: Inpatient record Chronic Conditions Patient?s care impacted by: Diabetes NIH Stroke Scale Internal: Initial- Upon Arrival Level of Consciousness: Alert Level of Consciousness Questions: Answers both questions correctly Level of Consciousness Commands: Performs both tasks correctly Best Gaze: Normal Visual: No visual loss Facial Palsy: Normal Motor Arm (Right): No drift Motor Arm (Left): No drift Motor Leg (Right): No drift Motor Leg (Left): No drift Limb Ataxia: Absent Sensory: Mild to moderate sensory loss Best Language: No aphasia Dysarthia: Normal Extinction and Inattention: No abnormality Score: 1 Discharge Plan Discharge Clinical Impression: Arm numbness left Patient Disposition: Home, Self-Care Instructions: Paresthesia (ED) Additional Instructions: Follow-up with your primary care physician, the MRI showed that you do not have a stroke Prescriptions: No Action trazodone 50 mg tablet 1 tab PO BEDTIME PRN (Reason: Sleep) acetaminophen [Tylenol] 325 mg Tablet 325 mg PO QID PRN (Reason: pain) citalopram 20 mg tablet 20 mg PO BEDTIME meclizine 25 mg tablet 25 mg PO TID PRN (Reason: motion sickness) Qty: 20 0RF lidocaine 5 % adhesive patch,medicated 1 patch topical DAILY Qty: 30 0RF Rx Instructions: leave on most painful area for up to 12 hrs cyclobenzaprine 5 mg tablet 5 mg PO TID PRN (Reason: muscle spasm) 7 Days Qty: 21 0RF prednisone 20 mg tablet 20 mg PO DAILY 7 Days Qty: 7 0RF aspirin 81 mg tablet,delayed release (DR/EC) 81 mg PO DAILY sennosides 8.6 mg tablet 8.6 mg PO DAILY gabapentin 400 mg capsule 800 mg PO TID finasteride 5 mg tablet 5 mg PO DAILY cetirizine 10 mg tablet 10 mg PO DAILY rosuvastatin 40 mg tablet 40 mg PO DAILY docusate sodium 100 mg capsule 100 mg PO DAILY omeprazole 20 mg capsule,delayed release(DR/EC) 20 mg PO DAILY@0630 metformin 500 mg tablet extended release 24 hr 500 mg PO BID cyanocobalamin (vitamin B-12) 500 mcg tablet 500 mcg PO DAILY epinephrine 0.3 mg/0.3 mL auto-injector 0.3 mg IM DAILY PRN (Reason: allergies) tamsulosin 0.4 mg capsule 0.8 mg PO DAILY Rx Instructions: TAKE 30 MIN AFTER SAME MEAL EVERYDAY donepezil 10 mg tablet 10 mg PO BEDTIME risperidone 0.5 mg tablet 0.5 mg PO BID lisinopril 10 mg tablet 10 mg PO DAILY Qty: 30 5RF Rx Instructions: dose reduced Linzess 72 mcg capsule 72 mcg PO DAILY buspirone 5 mg tablet 5 mg PO DAILY Referrals: Mila Barba MD [Primary Care Provider] - 06/05/24 Print Language: German
[2024-05-31 08:08] LABS: MANUAL DIFF FLAG NO
[2024-05-31 08:12] LABS: Basophils Absolute Auto 0.1 X10*3/uL (0.0-0.2); Basophils Percent Auto 0.8 % (0-2); Eosinophils Absolute Auto 0.1 X10*3/uL (0.0-0.4); Eosinophils Percent Auto 1.7 % (0-4); Hematocrit 38.9 % (42.0-52.0); Imm Gran Abs Auto 0.02 X10*3/uL (0.00-0.03); Imm Gran Pct Auto 0.3 % (0.0-0.4); Lymphocytes Absolute Auto 1.9 X10*3/uL (1.2-4.9); Lymphocytes Percent Auto 29.2 % (20-40); Mean Corpuscular HGB Conc 33.4 g/dl (31.0-36.0); Mean Corpuscular Hemoglobin 29.1 pg (27.0-33.0); Mean Platelet Volume 10.5 fL (9.4-12.4); Monocytes Absolute Auto 0.5 X10*3/uL (0.1-1.2); Monocytes Percent Auto 7.9 % (2-11); Neutrophils Percent Auto 60.1 % (45-73); Platelet Count 286 X10*3/uL (160-400); Red Blood Count 4.47 X10*6/uL (4.60-5.80); Red Cell Distribution Width 13.3 % (11.0-16.0); White Blood Count 6.6 X10*3/uL (4.8-10.8)
[2024-05-31] MEDS: iohexoL 350 MG/ML 100 ML INFUS..BTL IV (08:12)
[2024-05-31 08:15] LABS: Prothrombin Time 11.9 SEC (11.1-13.3)
[2024-05-31 08:21] VITALS: BP 166/82; PULSE 66; RESP 18; TEMP 36.6; O2SAT 100; BMI 25.6
[2024-05-31 08:28] VITALS: BP 155/76; PULSE 69; RESP 15; TEMP 36.6; O2SAT 100
[2024-05-31 08:30] LABS: Alanine Aminotransferase 11 U/L (0-40); Albumin Level 4.1 g/dL (3.5-5.0); Alkaline Phosphatase 66 U/L (39-117); Anion Gap 13 (12-20); Aspartate Amino Transferase 19 U/L (5-37); Blood Urea Nitrogen 20 mg/dL (9-16); Calcium 9.7 mg/dL (8.4-10.2); Carbon Dioxide 24 mmol/L (22-29); Chloride 105 mmol/L (96-108); Creatinine Clr Calc Pharmacy 63.9; Estimated Glomerular Filt Rate > 60; Glucose Random 111 mg/dL (60-115); Potassium 4.5 mmol/L (3.3-5.1); Sodium 137 mmol/L (135-145); Total Protein 6.7 g/dL (6.5-8.0)
--- NOTE | 2024-05-31 08:32 | PC.NURSE ---
Pt swallow screen pass. Pt able to swallow and hold liquid in mouth effectively.
[2024-05-31 08:33] LABS: Troponin-I High Sensitivity < 2.7 ng/L (<3.5-35.0)
[2024-05-31 10:02] VITALS: BP 146/80; PULSE 61; RESP 11; TEMP 36.5; O2SAT 100
[2024-05-31 12:00] VITALS: BP 140/82; PULSE 62; RESP 15; TEMP 36.6; O2SAT 95
[2024-05-31 18:34] LABS: Prothrombin Time Whole Bld POC 12.5 sec (11.1-13.5)
== END 2024-05-31 12:01 | disposition home or self-care (01) ==
PROVIDERS: Emergency Provider Emergency Medicine; PCP Internal Medicine
DX: R20.0 Anesthesia of skin (principal); R29.701 NIHSS score 1; E11.9 Type 2 diabetes mellitus without complications; I10 Essential (primary) hypertension; Z79.82 Long term (current) use of aspirin; Z79.84 Long term (current) use of oral hypoglycemic drugs; Z79.02 Long term (current) use of antithrombotics/antiplatelets
CPT/HCPCS: 36415; 70450; 70496; 70498; 70551; 80053; 82947; 84484; 85025; 85610; 93005; 99285; Q9967

== ENCOUNTER 2024-06-13 09:26 | Outpatient (AMB) | payer OTHER, SELFPAY ==
[2024-06-13 09:32] VITALS: BP 130/72; PULSE 61; BMI 25.6
--- NOTE | 2024-06-13 09:32 | MHC.OFFVIS ---
Vital Signs 06/13/24 09:32 Height 5 ft 6 in Weight 158 lb 11.725 oz BMI 25.6 BP 130/72 Blood Pressure Location Lt brachial Position Sitting Pulse 61 Pulse Source Pulse Oximeter Intake Visit Reasons: 1m follow up Regional [employer] Required: No Allergies shellfish derived Allergy (Unknown, Verified 06/13/24 09:35) Hives/Short of breath Medication List - Last Reconciled 06/13/24 by DEL Ascencio acetaminophen (Tylenol) 325 mg PO QID PRN aspirin 81 mg PO DAILY buspirone mg PO DAILY cetirizine 10 mg PO DAILY citalopram 20 mg PO BEDTIME cyanocobalamin (vitamin B-12) 500 mcg PO DAILY cyclobenzaprine 5 mg PO TID PRN 7 days docusate sodium 100 mg PO DAILY donepezil 10 mg PO BEDTIME epinephrine 0.3 mg IM DAILY PRN finasteride 5 mg PO DAILY gabapentin 800 mg PO TID linaclotide (Linzess) 72 mcg PO DAILY lisinopril 10 mg PO DAILY meclizine 25 mg PO TID PRN metformin ER 500 mg PO BID omeprazole 20 mg PO DAILY@0630 prednisone 20 mg PO DAILY 7 days risperidone 0.5 mg PO BID rosuvastatin 40 mg PO DAILY sennosides 8.6 mg PO DAILY tamsulosin 0.8 mg PO DAILY trazodone 1 tab PO BEDTIME PRN HPI HPI 1m follow up: Details: Romaine is a 73-year-old male with past medical history of hypertension, hyperlipidemia, diabetes, atypical chest discomfort, mildly abnormal nuclear stress test who recently presented to [facility] with chest discomfort and was transferred to [facility] for cardiac catheterization showing no significant CAD. He now presents for follow-up. Today he reports that the discomfort in his left chest region has improved. He will notice it at times if he lays on his left side. It is not clearly brought on walking or stair climbing. When he walks at times he will notice a headache which he feels is his blood pressure being elevated. He will stop and rest when he needs to. His breathing has been comfortable, no PND, orthopnea or edema. No lightheadedness, presyncope, syncope, falls. Taking all meds as directed. Home blood pressures have ranged 118-140 systolic. He was in the emergency room on 05/31/2024 for left arm numbness. He ruled out for CVA. Taking meds as directed. COUNTS INCLUDE 234 BEDS AT THE [facility] Medical History Chest discomfort Shortness of breath Cerebral microvascular disease Confusion and disorientation Depression Dementia BPH (benign prostatic hyperplasia) Transient cerebral ischemia Other and unspecified hyperlipidemia Essential hypertension Type 2 diabetes mellitus with unspecified complications Precordial chest pain Surgical History History of cardiac catheterization (~09/17/14) Family History Father Diabetes Hyperlipidemia Mother Stroke Social History Alcohol intake: former Patient Tobacco Use Status: Never used Tobacco service: No Current occupational status: retired Review of Systems Const All systems reviewed & are unremarkable except as noted in HPI and below ENT Denies dizziness Card Denies chest pain, Denies chest pain at rest, Denies chest pain with activity, Denies rapid heart rate, Denies pedal edema, Denies edema, Denies leg edema, Denies lightheadedness, Denies palpitations, Denies dyspnea, Denies dyspnea on exertion and Denies orthopnea Resp Denies cough, Denies dyspnea and Denies dyspnea on exertion GI Denies hematochezia and Denies change in stool character Musc Denies abnormal gait, Denies limited range of motion, Denies muscle cramps, Denies muscle weakness, Denies numbness, Denies radiating pain into limb, Denies stiffness and Denies tingling Neuro Denies abnormal gait, Denies dizziness, Denies numbness and Denies tingling Endo Denies palpitations Physical Exam Vital Signs: Last Vital Signs Pulse 61 06/13/24 09:32 BP 130/72 06/13/24 09:32 BMI result Body Mass Index 25.6 Const General: cooperative, healthy appearing, comfortable and no acute distress Orientation/consciousness: patient oriented x3 Neck Neck: Yes normal visual inspection and Yes no JVD Resp Effort & Inspection: normal respiratory effort Auscultation: clear to auscultation bilaterally, no rales, no rhonchi and no wheezes Cardio Jugular venous distension: no JVD Rate: regular rate Rhythm: regular rhythm Heart sounds: S1 normal heart sound present, S2 normal heart sound present, no murmurs and no rubs Neuro General: patient oriented x3 Extrem General: Yes normal to inspection and No no pedal edema Psych Appearance: grossly normal Mental Status: mental status grossly normal Speech and movement: Normal speech and movement present Assessment & Plan Assessment & Plan (1) Chest discomfort: Code(s): R07.89 - Other chest pain Category: Medical Plan: Prior report of chest discomfort, with atypical description. He had also reported increasing shortness of breath and fatigue with physical activity. He had no known history of CAD. He does have multiple cardiac risk factors including hypertension, hyperlipidemia, diabetes. His nuclear stress test was normal in 2019. Last echo 05/2022 showed EF 55-60%, no valve abnormalities, ascending aorta 4 cm. A nuclear stress test was done on 08/29/2023 showing mild reversible lateral perfusion defect suspected to be from soft tissue attenuation artifact. He then presented to [facility] on 04/29/2024 with chest discomfort. His troponin was negative. He was thought to have unstable angina and was transferred to [facility] for cardiac catheterization which showed no significant coronary artery disease. His blood pressure was running on the low side and lisinopril was stopped. He was started on low-dose metoprolol. On last visit his blood pressure was elevated and he was restarted on a lower dose of lisinopril. He had sinus bradycardia and his metoprolol was stopped. Today he reports that his chest discomfort has improved overall. He will still notice some discomfort at times when he lays on his left side. Offered reassurance that this is noncardiac pain. Continue with risk factor modifications. (2) S/P cardiac catheterization: Comment: 04/30/2024, no significant coronary artery disease Code(s): Z98.890 - Other specified postprocedural states Category: Surgical Plan: As above (3) Essential hypertension: Code(s): I10 - Essential (primary) hypertension Category: Medical Plan: Normal range at this time. Home blood pressures also reported to be normal range. He does state that when he walks he will get a mild headache and believes that his blood pressure is elevated. For now will continue his current lisinopril dose as he had low readings on the higher dose. Continue activity as tolerated. Maintain good hydration and follow a low-salt diet, all reviewed. Follows with PCP as well. Cardiology follow-up 1 year, sooner if needed. (4) Other and unspecified hyperlipidemia: Code(s): E78.5 - Hyperlipidemia, unspecified Category: Medical Plan: [place] LDL goal less than 70 in patient with diabetes. no recent cholesterol level in our system. Labs are followed by PCP (5) Abnormal nuclear stress test: Code(s): R94.39 - Abnormal result of other cardiovascular function study Category: Medical Plan: As above - false abnormal in the setting of no significant CAD on catheterization (6) Ascending aorta dilatation: Code(s): I77.810 - Thoracic aortic ectasia Category: Medical Plan: Echocardiogram 02/20/2024 shows EF 65%, no valve abnormalities, no regional wall motion abnormalities, ascending aorta 4.1 cm Plan Time spent on chart, documentation, interview and assessment Coding Level of Care Code Est Pt Level 4 (11217) Diagnoses Chest discomfort R07.89 S/P cardiac catheterization Z98.890 Essential hypertension I10 Other and unspecified hyperlipidemia E78.5 Abnormal nuclear stress test R94.39 Ascending aorta dilatation I77.810 Time Spent (min) 28
== END 2024-06-13 10:10 | disposition home or self-care (01) ==
PROVIDERS: PCP Internal Medicine; Visit Provider Nurse Practitioner Family
DX: R07.89 Other chest pain (principal); Z98.890 Other specified postprocedural states; I10 Essential (primary) hypertension; E78.5 Hyperlipidemia, unspecified; R94.39 Abnormal result of other cardiovascular function study; I77.810 Thoracic aortic ectasia
CPT/HCPCS: 99214

== ENCOUNTER → 2024-06-13 09:26 | Outpatient (BNVA) | payer OTHER, SELFPAY | PROVIDERS: PCP Internal Medicine; Visit Provider Nurse Practitioner Family | DX: R07.89 Other chest pain (principal); R94.39 Abnormal result of other cardiovascular function study; I10 Essential (primary) hypertension; I77.810 Thoracic aortic ectasia; E78.5 Hyperlipidemia, unspecified; Z98.890 Other specified postprocedural states | CPT/HCPCS: 99212 ==

== ENCOUNTER 2025-03-10 14:05 | Emergency (ER) | payer OTHER, SELFPAY ==
--- NOTE | 2025-03-10 | ECG_ITS ---
Test Reason : CHEST PAIN Blood Pressure : */* mmHG Vent. Rate : 97 BPM Atrial Rate : 97 BPM P-R Int : 170 ms QRS Dur : 88 ms QT Int : 350 ms P-R-T Axes : 25 -39 72 degrees QTcB Int : 444 ms Normal sinus rhythm Left axis deviation Minimal voltage criteria for LVH, may be normal variant ( R in aVL ) Abnormal ECG When compared with ECG of 31-May-2024 08:16, No significant change was found Referred By: Generic ED Physician Electronically Signed By: JAIME RAMIREZ MD
--- NOTE | ~2025-03-10 | XR_ITS ---
EXAMINATION: XR CHEST CLINICAL INFORMATION: cp COMPARISON: 04/29/2024. TECHNIQUE: Frontal view of the chest was obtained. FINDINGS: The cardiac, hilar, and mediastinal contours are normal. Lungs demonstrate mild increased patchy atelectasis in both bases. No consolidations. Suggestion of mild peribronchial thickening in both perihilar regions. No pneumothorax or effusion. No focal osseous or soft tissue abnormality. XR/XR chest 1V IMPRESSION: 1. Increased linear markings in the bilateral lower lungs with associated suggestion of peribronchial thickening, raising the possibility of small airways infectious or inflammatory disease. 2. No discrete consolidative pneumonia or effusion. Electronically signed by: Kemar Montesinos MD 03/10/2025 03:05 PM EDT
[2025-03-10 14:29] VITALS: BP 92/60; PULSE 110; O2SAT 97
[2025-03-10 14:32] VITALS: BP 127/66; PULSE 96; RESP 16; TEMP 36.8; O2SAT 97; BMI 26.6
[2025-03-10 14:44] VITALS: BP 127/66; PULSE 99; RESP 16; TEMP 36.8; O2SAT 97
[2025-03-10 14:54] VITALS: PULSE 99
[2025-03-10 15:25] LABS: MANUAL DIFF FLAG NO
[2025-03-10 15:28] LABS: Basophils Absolute Auto 0.1 X10*3/uL (0.0-0.2); Basophils Percent Auto 0.3 % (0-2); Eosinophils Absolute Auto 0.1 X10*3/uL (0.0-0.4); Eosinophils Percent Auto 0.4 % (0-4); Hematocrit 41.5 % (42.0-52.0); Hemoglobin 13.5 g/dl (14.0-18.0); Imm Gran Abs Auto 0.06 X10*3/uL (0.00-0.03); Imm Gran Pct Auto 0.4 % (0.0-0.4); Lymphocytes Absolute Auto 0.3 X10*3/uL (1.2-4.9); Mean Corpuscular HGB Conc 32.5 g/dl (31.0-36.0); Mean Corpuscular Hemoglobin 28.4 pg (27.0-33.0); Mean Corpuscular Volume 87.4 fL (80.0-98.0); Mean Platelet Volume 10.6 fL (9.4-12.4); Monocytes Absolute Auto 1.3 X10*3/uL (0.1-1.2); Monocytes Percent Auto 7.5 % (2-11); Neutrophils Percent Auto 89.4 % (45-73); Platelet Count 269 X10*3/uL (160-400); Red Blood Count 4.75 X10*6/uL (4.60-5.80); Red Cell Distribution Width 13.5 % (11.0-16.0); White Blood Count 16.7 X10*3/uL (4.8-10.8)
--- NOTE | 2025-03-10 15:33 | PC.NURSE ---
74 M present to ED with left sided chest pain. Pt sts he woke up and was sitting watching tv when it started. also c/o L arm weakness. Equal strength bilat, PERRLA, CSMs present. A+OX4 and able to follow commands appropriately. Sts pain is now a 4/10 after receiving 2 nitro tabs via EMS. RR even and unlabored, denies SOB. Pt calm, relaxed, no visible s/s of distress.
[2025-03-10 15:47] LABS: Alanine Aminotransferase 14 U/L (0-40); Albumin Level 4.3 g/dL (3.5-5.0); Alkaline Phosphatase 71 U/L (39-117); Anion Gap 14 (12-20); Aspartate Amino Transferase 18 U/L (5-37); Bilirubin Total 0.9 mg/dL (0.0-1.0); Blood Urea Nitrogen 19 mg/dL (9-16); Calcium 9.5 mg/dL (8.4-10.2); Carbon Dioxide 26 mmol/L (22-29); Chloride 104 mmol/L (96-108); Creatinine Clr Calc Pharmacy 71.7; Estimated Glomerular Filt Rate > 60; Glucose Random 146 mg/dL (60-115); Lipase 47 U/L (8-78); Potassium 4.1 mmol/L (3.3-5.1); Sodium 140 mmol/L (135-145); Total Protein 6.3 g/dL (6.5-8.0); Troponin-I High Sensitivity < 2.7 ng/L (<3.5-35.0)
--- NOTE | 2025-03-10 16:23 | ED.CHESTPAIN ---
HPI - Chest Pain General Chief Complaint: Chest Pain Stated Complaint: CHEST PAIN, VOMITING Time Seen by Provider: 03/10/25 16:11 Source: patient Mode of arrival: ambulatory Limitations: no limitations History of Present Illness ED Provider: HPI narrative: Patient is diabetic with history of hypertension frequent chest pain cardiac catheterization in 04/24 which was negative patient has been having pain almost every day with tingling or paresthesia extremities taking gabapentin patient with similar pain in the past with multiple workups negative patient has received aspirin and 2 nitro with slight improvement in the pain patient also does have anxiety Related Data Home Medications ?Medication ?Instructions ?Recorded ?Confirmed aspirin 81 mg tablet,delayed 81 mg PO DAILY 08/13/20 06/13/24 release cetirizine 10 mg tablet 10 mg PO DAILY 08/13/20 06/13/24 cyanocobalamin (vitamin B-12) 500 500 mcg PO DAILY 08/13/20 06/13/24 mcg tablet docusate sodium 100 mg capsule 100 mg PO DAILY 08/13/20 06/13/24 donepezil 10 mg tablet 10 mg PO BEDTIME 08/13/20 06/13/24 epinephrine 0.3 mg/0.3 mL 0.3 mg IM DAILY PRN allergies 08/13/20 06/13/24 injection, auto-injector finasteride 5 mg tablet 5 mg PO DAILY 08/13/20 06/13/24 gabapentin 400 mg capsule 800 mg PO TID 08/13/20 06/13/24 metformin 500 mg tablet,extended 500 mg PO BID 08/13/20 06/13/24 release 24 hr omeprazole 20 mg capsule,delayed 20 mg PO DAILY@0630 08/13/20 06/13/24 release risperidone 0.5 mg tablet 0.5 mg PO BID 08/13/20 06/13/24 rosuvastatin 40 mg tablet 40 mg PO DAILY 08/13/20 06/13/24 sennosides 8.6 mg tablet 8.6 mg PO DAILY 08/13/20 06/13/24 tamsulosin 0.4 mg capsule 0.8 mg PO DAILY 08/13/20 06/13/24 acetaminophen 325 mg tablet 325 mg PO QID PRN pain 05/27/22 06/13/24 (Tylenol) trazodone 50 mg tablet 1 tab PO BEDTIME PRN Sleep 05/27/22 06/13/24 citalopram 20 mg tablet 20 mg PO BEDTIME 11/02/22 06/13/24 linaclotide 72 mcg capsule 72 mcg PO DAILY 07/17/23 06/13/24 (Linzess) buspirone 7.5 mg tablet mg PO DAILY 06/13/24 06/13/24 Previous Rx's ?Medication ?Instructions ?Recorded meclizine 25 mg tablet 25 mg PO TID PRN motion sickness 08/10/21 #20 tabs cyclobenzaprine 5 mg tablet 5 mg PO TID PRN muscle spasm 7 09/13/23 days #21 tabs prednisone 20 mg tablet 20 mg PO DAILY 7 days #7 tabs 09/13/23 lisinopril 10 mg tablet 10 mg PO DAILY #90 tabs 09/06/24 Allergies Allergy/AdvReac Type Severity Reaction Status Date / Time shellfish derived Allergy Unknown Hives/Short Verified 03/10/25 14:33 of breath Review of Systems Review of Systems: Yes all other systems are reviewed and are negative [facility] Past Medical History Medical History Chest discomfort Shortness of breath Cerebral microvascular disease Confusion and disorientation Depression Dementia BPH (benign prostatic hyperplasia) Transient cerebral ischemia Other and unspecified hyperlipidemia Essential hypertension Type 2 diabetes mellitus with unspecified complications Precordial chest pain Surgical History History of cardiac catheterization (~09/17/14) Family History Family History Father Diabetes Hyperlipidemia Mother Stroke Social History Social History Alcohol intake: former Patient Tobacco Use Status: Never used Tobacco Smoked in Last 30 Days: No Use of substances other than those prescribed or required for medical reasons: No Advance Directives: No Advance Directives Information Provided: Yes service: No Current occupational status: retired Physical Exam Vital Signs: Vital Signs: Last Vital Signs Temp 98.2 F 03/10/25 14:44 Pulse 99 03/10/25 14:44 Resp 16 03/10/25 14:44 BP 127/66 03/10/25 14:44 Pulse Ox 97 03/10/25 14:44 O2 Del Method Room Air 03/10/25 14:44 BMI result Body Mass Index 26.6 Appearance: Alert. Oriented X3. No acute distress. Eyes: No pallor or icterus ENT: Pharynx normal. Oral Mucosa moist Neck: Normal inspection. Neck supple. CVS: Normal heart rate and rhythm. Pulses normal. Respiratory: No respiratory distress. Equal air entry bilateral, no wheezing/rales/rhonchi Abdomen: Soft and nontender. Bowel sounds are present, no mass palpable, no CVA tenderness Skin: Skin warm and dry. Normal skin color. Normal skin turgor. Extremities: No lower extremity edema. No calf tenderness Neuro: Oriented X 3. No motor deficit. No sensory deficit.No cerebellar signs , cranial nerves II-XII intact Medical Decision Making Medical Decision Making [facility] Narrative: Patient has atypical chest pain with previous workup including cardiac catheterization negative does have diabetic neuropathy on gabapentin initial troponin was negative will repeat the troponin EKG without ischemic changes Patient's 2nd troponin also negative will discharge patient home Differential Diagnosis Differential Diagnoses: The differential diagnosis associated with the presentation includes Admission/Observation Consideration of admission/observation: Escalation of care including admission/observation considered Lab Data [facility] Lab Attestation statement: I reviewed the patient's lab results. 03/10/25 15:22 03/10/25 15:22 Labs: Lab Results 03/10/25 03/10/25 Range/Units 15:22 17:12 WBC 16.7 H (4.8-10.8) X10*3/uL RBC 4.75 (4.60-5.80) X10*6/uL Hgb 13.5 L (14.0-18.0) g/dl Hct 41.5 L (42.0-52.0) % MCV 87.4 (80.0-98.0) fL MCH 28.4 (27.0-33.0) pg MCHC 32.5 (31.0-36.0) g/dl RDW 13.5 (11.0-16.0) % Plt Count 269 (160-400) X10*3/uL MPV 10.6 (9.4-12.4) fL Immature Gran % (Auto) 0.4 (0.0-0.4) % Neut % (Auto) 89.4 H (45-73) % Lymph % (Auto) 2.0 L (20-40) % Faulk % (Auto) 7.5 (2-11) % Eos % (Auto) 0.4 (0-4) % Baso % (Auto) 0.3 (0-2) % Lymph # (Auto) 0.3 L (1.2-4.9) X10*3/uL Faulk # (Auto) 1.3 H (0.1-1.2) X10*3/uL Eos # (Auto) 0.1 (0.0-0.4) X10*3/uL Baso # (Auto) 0.1 (0.0-0.2) X10*3/uL Abs Immat Gran (auto) 0.06 H (0.00-0.03) X10*3/uL Absolute Neuts (auto) 15.0 H (2.0-8.3) x10*3/uL Absolute Nucleated RBC 0.000 (0.0-0.012) X10*3/uL Nucleated RBC % (auto) 0.0 (0.0-0.2) /100WBC Sodium 140 (135-145) mmol/L Potassium 4.1 (3.3-5.1) mmol/L Chloride 104 (96-108) mmol/L Carbon Dioxide 26 (22-29) mmol/L Anion Gap 14 (12-20) BUN 19 H (9-16) mg/dL Creatinine 0.79 (0.5-1.4) mg/dL Estim Creat Clear Calc 71.7 Estimated GFR > 60 Random Glucose 146 H (60-115) mg/dL Calcium 9.5 (8.4-10.2) mg/dL Total Bilirubin 0.9 (0.0-1.0) mg/dL AST 18 (5-37) U/L ALT 14 (0-40) U/L Alkaline Phosphatase 71 (39-117) U/L Troponin I High Sens < 2.7 2.9 (<3.5-35.0) ng/L Total Protein 6.3 L (6.5-8.0) g/dL Albumin 4.3 (3.5-5.0) g/dL Lipase 47 (8-78) U/L Independent Interpretation I performed an independent interpretation of an: EKG Interpretation: Normal sinus rhythm heart rate 97 beats per minute normal interval normal axis no acute ischemia Discharge Plan Discharge Clinical Impression: Chest pain Patient Disposition: Home, Self-Care Instructions: Chest Pain (ED) Additional Instructions: Continue take your medications as prescribed by your PCP Your chest pain is not from the heart Continue gabapentin Prescriptions: No Action lisinopril 10 mg tablet 10 mg PO DAILY Qty: 90 3RF trazodone 50 mg tablet 1 tab PO BEDTIME PRN (Reason: Sleep) acetaminophen [Tylenol] 325 mg Tablet 325 mg PO QID PRN (Reason: pain) citalopram 20 mg tablet 20 mg PO BEDTIME meclizine 25 mg tablet 25 mg PO TID PRN (Reason: motion sickness) Qty: 20 0RF cyclobenzaprine 5 mg tablet 5 mg PO TID PRN (Reason: muscle spasm) 7 Days Qty: 21 0RF prednisone 20 mg tablet 20 mg PO DAILY 7 Days Qty: 7 0RF aspirin 81 mg tablet,delayed release (DR/EC) 81 mg PO DAILY sennosides 8.6 mg tablet 8.6 mg PO DAILY gabapentin 400 mg capsule 800 mg PO TID finasteride 5 mg tablet 5 mg PO DAILY cetirizine 10 mg tablet 10 mg PO DAILY rosuvastatin 40 mg tablet 40 mg PO DAILY docusate sodium 100 mg capsule 100 mg PO DAILY omeprazole 20 mg capsule,delayed release(DR/EC) 20 mg PO DAILY@0630 metformin 500 mg tablet extended release 24 hr 500 mg PO BID cyanocobalamin (vitamin B-12) 500 mcg tablet 500 mcg PO DAILY epinephrine 0.3 mg/0.3 mL auto-injector 0.3 mg IM DAILY PRN (Reason: allergies) tamsulosin 0.4 mg capsule 0.8 mg PO DAILY Rx Instructions: TAKE 30 MIN AFTER SAME MEAL EVERYDAY donepezil 10 mg tablet 10 mg PO BEDTIME risperidone 0.5 mg tablet 0.5 mg PO BID Linzess 72 mcg capsule 72 mcg PO DAILY buspirone 7.5 mg tablet PO DAILY Print Language: [place] Citizen
--- OUTSIDE RECORDS SUMMARY | 2025-03-10 16:53 | XMS_ITS | Clinical Summary ---
Author Organization [facility] Address [address] [place] [address] Phone Care Team Providers Care Director Of Enterprise [employer] Name Role Phone Mila Rojas MD Primary Care Prov ider Allergies Active Allergy Reactions Criticality Noted Date Comments Shellfish Derived 05/09/2023 Shrimp 06/24/2009 Medications lancets lancets 1 each by Other route if needed. 08/15/20 23 Active citalopram (CeleXA) 40 mg tablet Take 1 tablet (40 mg total) by mouth at bedtime. 07/20/20 23 Active diclofenac (VOLTAREN) 1 % topical gel Apply 4 g topically 2 (two) times a day. 07/18/20 22 Active donepeziL (ARICEPT) 10 mg tablet Take 1 tablet (10 mg total) by mouth at bedtime. 09/18/20 23 Active EPINEPHrine (EpiPen 2-Joseph) 0.3 mg/0.3 mL injection Inject 0.3 mL (0.3 mg total) as directed if needed. 10/12/19 23 Active finasteride (PROSCAR) 5 mg tablet Take 1 tablet (5 mg total) by mouth 1 (one) time each day. 08/03/20 23 Active linaCLOtide (Linzess) 72 mcg capsule Take 1 capsule (72 mcg total) by mouth 1 (one) time each day. 03/17/20 23 Active lisinopriL (PRINIVIL,ZESTRIL ) 20 mg tablet Take 1 tablet (20 mg total) by mouth 1 (one) time each day. 09/18/20 23 Active risperiDONE (RisperDAL) 0.5 mg tablet Take 1 tablet (0.5 mg total) by mouth 2 (two) times a day. 05/21/20 22 Active tamsulosin (FLOMAX) 0.4 mg 24 hr capsule Take 2 capsules (0.8 mg total) by mouth 1 (one) time each day. 07/20/20 23 Active tobramycin-dexAME THasone (TOBRADEX) ophthalmic suspension 1 drop. 11/29/19 23 Active traZODone (DESYREL) 50 mg tablet Take 1 tablet (50 mg total) by mouth at bedtime. 01/07/20 22 Active busPIRone (BUSPAR) 5 mg tablet Take 1 tablet (5 mg total) by mouth. Active metFORMIN XR (GLUCOPHAGE-XR) 500 mg 24 hr tablet TAKE 2 TABLETS BY MOUTH EVERY DAY WITH BREAKFAST AND TAKE 1 TABLET WITH DINNER 270 tablet 1 08/07/20 24 Active OneTouch Ultra Test test strip Use as instructed 100 each 1 08/08/20 24 Active traMADoL (ULTRAM) 50 mg tablet 09/02/20 24 Active rosuvastatin (CRESTOR) 40 mg tablet TOME 1 TABLETA POR VIA ORAL TOD[place] 90 tablet 1 01/04/20 25 Active docusate sodium (COLACE) 100 mg capsule TOME 1 CAPSULA POR VIA ORAL TOD[place] 90 capsule 1 01/04/20 25 Active gabapentin (NEURONTIN) 400 mg capsule TAKE 1 CAPSULE BY MOUTH 3 TIMES DAILY NEEDED FOR PAIN 270 capsule 01/11/20 25 Active cyanocobalamin (VITAMIN B-12) 500 mcg tablet TOME 1 TABLETA POR VIA ORAL TOD[place] 90 tablet 1 01/16/20 25 Active senna 8.6 mg tablet TAKE 1 TABLET (8.6 MG TOTAL) BY MOUTH AT BEDTIME. 90 tablet 01/16/20 25 Active aspirin 81 mg EC tablet Take 1 tablet (81 mg total) by mouth 1 (one) time each day. 90 tablet 1 01/25/20 25 Active diclofenac (Voltaren Arthritis Pain) 1 % topical gel Apply 4 g topically 2 (two) times a day. 240 g 1 02/20/20 25 2024 Active lidocaine (LIDODERM) 5 % patchIndications: Diabetic mononeuropathy simplex ([facility] V24, [facility] V28) Apply 1 patch topically 1 (one) time each day. Remove & discard patch within 12 hours or as directed by MD. 30 each 2 02/20/20 25 2024 Active omeprazole (PriLOSEC) [address] capsule TAKE 1 CAPSULE BY MOUTH 1 TIME EACH DAY. 90 capsule 1 02/28/20 25 Active omeprazole (PriLOSEC) [address] capsule Take 1 capsule (20 mg total) by mouth 1 (one) time each day. 90 capsule 1 09/08/20 24 2024 Discontinued Active Problems Problem Noted Date Diagnosed Date Overweight (BMI 25.0-29.9) 01/07/2025 Other spondylosis, cervical region 11/28/2024 Type 2 diabetes, controlled, with neuropathy ([facility] V24, [facility] V28) 09/11/2024 Other spondylosis, cervical region 09/11/2024 Bilateral shoulder region arthritis 04/15/2021 Chronic low back pain 04/15/2021 Cervical spondylosis 03/21/2018 Fatty liver 04/21/2017 Osteoarthritis of spine with radiculopathy, cerv ical region 12/15/2016 DM (diabetes mellitus), type 2 with peripheral vascular complications ([facility] V24, [facility] V28) 03/06/2015 Anxiety 01/28/2015 Dysphagia 07/29/2013 Overview (11/20/2023): EGD March 2012 revealed small superficial esophageal / gastric erosion. Barium swallow April 2013 revealed cervical spondylosis with mild compression of posterior esophagus. GERD (gastroesophageal reflux disease) 2 HTN (hypertension) 08/05/2011 Prostatism 06/29/2011 Overview (11/20/2023): PSA and biopsy of the prostate was benign. Two sites with precancerous tissue and repeat biopsy was recommended in 05/[address] Loja. TURP done 2014. No malignancy. Cognitive impairment 06/24/2009 Depression 06/24/2009 DJD (degenerative joint disease), lumbosacral High cholesterol 06/24/2009 Encounters Date Type Department Care Team Description 02/19/2025 9:45 AM EDT Office Visit Orthopedic Surgery - [place] [address] [place] [phone] Riley Jose, DPM Dermatophytosis of nail (Primary Dx); Type 2 diabetes, controlled, with neuropathy ([facility] V24, [facility] V28); Foot callus; Pain in toe of right foot; Pain in toe of left foot; Metatarsalgia of both feet; Diabetic mononeuropathy simplex ([facility] V24, [facility] V28); Acquired hallux valgus of right foot; Acquired hallux valgus of left foot; Type II diabetes mellitus with peripheral circulatory disorder ([facility] V24, [facility] V28); Hammer toe of left foot; Acquired hammer toe of right foot; Corns and callosities [L84] 02/13/2025 11:00 AM EDT Office Visit Adult Medicine [address] [phone] Alma Resendez PA Paresthesia of both feet (Primary Dx); Restless legs; DM (diabetes mellitus), type 2 with peripheral vascular complications ([facility] V24, [facility] V28); DJD (degenerative joint disease), lumbosacral 02/07/2025 Telephone Adult Medicine [address] [phone] Mila Rojas MD triage 01/16/2025 Telephone Adult Medicine [address] [phone] Mila Rojas MD vna 01/08/2025 Lab Requisition [facility] - Main Lab [address] [facility] [place] [phone] Alex Starks MD Elevated prostate specific antigen (PSA) 01/07/2025 9:30 AM EDT Office Visit Adult Medicine [address] [phone] Alma Resendez PA DM (diabetes mellitus), type 2 with peripheral vascular complications ([facility] V24, [facility] V28) (Primary Dx); Primary hypertension; High cholesterol; Overweight (BMI 25.0-29.9) 01/06/2025 Billing Patient Not Present Adult Medicine [address] [phone] Mila Rojas MD 12/30/2024 8:00 AM EDT Office Visit Endocrinology [address] [phone] Hawa Ceballos PA Type 2 diabetes, controlled, with neuropathy (CMS/HCC V24, [facility] V28) (Primary Dx); Hypertension, unspecified type; High cholesterol; Foot callus from Last 3 Months Immunizations Name Administration Dates Next Due H1N1 Inj Preservative Free 10/29/2009 Influenza Quadravalent, 0.5m l (Fluzone High-dose) 65yo and older 06/13/2023,07/02/2021,06/03/2021,06/04,07/02/2014 Influenza trivalent, 0.5mL ( Fluad) 65yo and older 07/05/2024,06/13/2023,07/02/2021,07/02 Influenza trivalent, 0.5mL ( Fluzone High-dose) 65yo and older 06/07/2022,06/03/2021,06/16/2020,06/04,06/28/2019,06/24/2018,07/13/2017 ,07/07/2015 Influenza trivalent, 0.5mL, preservative free (Fluarix; FluLaval; Fluzone) ages 6mo and older (Afluria) 3 years and older 07/23/2014 Influenza trivalent, with pr eservative (Fluzone; Afluria) 6mo and older 08/19/2016,06/24/2013,06/13/2012,06/29,06/08/2010,06/24/2009 Moderna SARS-CoV-2 COVID-19, mRNA, LNP-S, preservative free 08/02/2021 Pfizer SARS-CoV-2 COVID-19, mRNA, LNP-S, preservative free 08/02/2021 Pneumococcal conjugate 13 va lent (Prevnar 13, PCV13) 2mo and older 06/07/2016 Pneumococcal polysaccharide 23 valent (Pneumovax 23) 2yo and older 07/23/2014,06/04/2014 TD, Adsorbed, Preservative Free 11/02/2021 Td Tetanus diptheria (Tdvax) 7yo and older 11/02/2021 Tdap Tetanus diptheria acell ular pertussis (Boostrix; Adacel) 7yo and older 10/08/2010 Zoster Live 06/04/2014 Surgical History Surgery Date Site/Laterality Comments COLONOSCOPY 04/22/10 PROCEDURE: HISTORICAL COLONOSCOPY; COMMENT: at [facility] COLONOSCOPY 02/01/17 PROCEDURE: HISTORICAL COLONOSCOPY; COMMENT: diverticulosis, internal hemorrhoids, hyperplastic mucosa with edema and acute and chronic inflammation EXCISION BENIGN SKIN LESION TRUNK / ARM / LEG PROCEDURE: [place] EXCISION TUMOR SOFT TISSUE BACK/FLANK SUBQ <3CM HERNIA REPAIR PROCEDURE: HISTORICAL HERNIA REPAIR/UMB TURP / TRANSURETHRAL INCISIO N / DRAINAGE PROSTATE 2014 PROCEDURE: HISTORICAL TURP ESOPHAGOGASTRODUODENOSCOPY 03/05/12 PROCEDURE: [place] EGD TRANSORAL BIOPSY SINGLE/MULTIPLE; COMMENT: erosive gastritis - biopsy consistent with gastritis, negative H. pylori. ESOPHAGOGASTRODUODENOSCOPY 04/05/20 PROCEDURE: [place] ESOPHAGOGASTRODUODENOSCOPY TRANSORAL DIAGNOSTIC; COMMENT: lineal erosive distal esoophagitis Medical History Medical History Date Comments Unspecified essential hypertension DX:Unspecified essential hypertension Esophageal reflux DX:Esophageal reflux Diabetes mellitus (CMS/HCC V 24, CMS/HCC V28) 01/08/2013 DX:Diabetes mellitus (HCC) Dysphagia 07/29/2013 DX:Dysphagia DM (diabetes mellitus), type 2 with peripheral vascular complications (CMS/HCC V24, CMS/HCC V28) 03/06/2015 DX:DM (diabetes mellitus), type 2 with peripheral vascular complications (HCC) 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 DX:Leukopl jose de jesus of tongue Cervical dysphagia 05/17/2016 DX:Cervical d ysphagia Osteoarthritis of spine with radiculopathy, cervical region 12/15/2016 DX:Osteoarthritis of sp ine with radiculopathy, cervical region Fatty liver 04/21/2017 DX:Fatty liver Cervical spondylosis 03/21/2018 DX:Cervical spondylosis Lipoma of chest wall DX:Lipoma o f chest wall; COMMENT: Right History of alcohol abuse DX:Hist ory of alcohol abuse; COMMENT: quit 2002; had been heavy drinker > 40yrs History of tobacco abuse DX:Hist ory of tobacco abuse Family History Medical History Relation Name Comments Diabetes Father cad Glaucoma Mother DM Relation Name Status Comments Father (Age 70) Mother (Age 80) Social History Tobacco Use Types Packs/Day Years Used Date Smoking Tobacco: Former Cigarettes 0.5 35 0 10/02/1967 - 10/02/2002 Smokeless Tobacco: Never Tobacco Cessation:Counseling Given: Not Answered Alcohol Use Standard Drinks/Week Comments No 0 (1 standard drink = 0.6 oz pur e alcohol) Sex and Gender Information Value Date Recorded Sex Assigned at Not on file Legal Sex Male 1:54 PM EST Gender Identity Not on file Sexual Orientation Not on file Obstetrics History Last Filed Vital Signs Vital Sign Reading Time Taken Comments Blood Pressure 110/78 02/13/2025 10:37 AM EDT Pulse 81 02/13/2025 10:37 AM EDT Temperature 36.6 ??C (97.8 ??F) 02/13/2025 10:37 AM E DT Respiratory Rate 14 02/13/2025 10:37 AM EDT Oxygen Saturation 97% 02/13/2025 10:37 AM EDT Inhaled Oxygen Concentration - - Weight 71.2 kg (157 lb) 02/19/2025 8:45 AM EDT Height 167.6 cm (5' 5.98 ) 02/19/2025 8:45 AM ED T Body Mass Index 25.35 02/19/2025 8:45 AM EDT Plan of Treatment Upcoming Encounters Date Type Department Care Team (Late st Contact Info) Description 04/16/2025 8:30 AM EDT Office Visit Adult Medicine [address] [phone] Mila Rojas MD [address] [place] [address] 05/22/2025 9:15 AM EDT Office Visit Orthopedic Surgery - [place] [address] [phone] Riley Jose, DPM [address] [phone] 07/07/2025 9:00 AM EDT Office Visit Adult Medicine East [address] [phone] Mila Rojas MD [address] [place] [phone] 07/29/2025 9:40 AM EDT Office Visit Endocrinology [address] [phone] Hawa Ceballos PA [address] [place] [phone] Health Maintenance Due Date Last Done Comments Zoster Vaccines (2 of 3) 07/30/2014 06/04/2014 RSV Immunization Adult Patients (1 - 1-dose 75+ series) 2023 Diabetes: Annual Foot Exam 07/01/2025 07/01/2024 Depression Screening 07/05/2025 07/05/2024 Diabetes: Blood Sugar Control Test (HGBA1C) 07/05/2025 01/03/2025, 10/16/2024, 07/01/2024 Falls Risk Assessment 07/05/2025 07/05/2024 Medicare Annual Wellness Visit 07/05/2025 07/05/2024 Social Influencers of Health Screening 07/05/2025 07/05/2024 Diabetes: Annual Retina Eye Exam 01/02/2026 01/02/2025, 01/02/2025, 06/10/2024 Diabetes: Annual Urine Albumin-Creatinine Ratio (uACR) 01/03/2026 01/03/2025, 01/15/2024 Diabetes: Annual GFR (Glomerular Filtration Rate) 02/14/2026 02/14/2025, 10/16/2024, 07/01/2024 Hypertension/CHF/CAD Annual BMP Blood Test 02/14/2026 02/14/2025, 10/16/2024, 07/01/2024 Cholesterol Screening (Lipid Panel) 01/03/2030 01/03/2025, 01/15/2024 DTaP,Tdap,and Td Vaccines (4 - Td or Tdap) 11/02/2031 11/02/2021, 11/02/2021, 10/08/2010 Hepatitis C Screening Addressed 05/03/2010 Overri dden with the intention of not completing the topic Pneumococcal Vaccine: 50+ Years Completed 06/07/2016, 07/23/2014, 06/04/2014 COVID-19 Vaccine Discontinued 01/26/2022, 10/2020, 08/02/2021, Additional history exists Influenza Vaccine Completed 07/05/2024, , 06/13/2023, Additional history exists HIB Vaccines Aged Out No longer eligi ble based on patient's age to complete this topic HPV Vaccines Aged Out No longer eligi ble based on patient's age to complete this topic Hepatitis A Vaccines Aged Out No long er eligible based on patient's age to complete this topic Hepatitis B Vaccines Aged Out No long er eligible based on patient's age to complete this topic IPV Vaccines Aged Out No longer eligi ble based on patient's age to complete this topic MMR Vaccines Aged Out No longer eligi ble based on patient's age to complete this topic Meningococcal ACWY Vaccine Aged Out N o longer eligible based on patient's age to complete this topic Meningococcal B Vaccine Aged Out No l onger eligible based on patient's age to complete this topic RSV Immunization Patients Under 20 months Aged Out No longer eligible based on patient's age to complete this topic Varicella Vaccines Aged Out No longer eligible based on patient's age to complete this topic Procedures Procedure Name Priority Date/Time Associated Diagnosis Comments VITAMIN B12 Routine 02/14/2025 10:45 AM EDT Paresthesia of both feet Restless legs THYROID STIMULATING HORMONE WITH REFLEX TO FREE T4 AND FREE T3 Routine 02/14/2025 10:45 AM EDT Paresthesia of both feet Restless legs COMPREHENSIVE METABOLIC PANEL Routine 02/14/2025 10:45 AM EDT Paresthesia of both feet Restless legs PROSTATE SPECIFIC ANTIGEN DIAGNOSTIC Routine 01/08/2025 10:28 AM EDT Elevated prostate specific antigen (PSA) HEMOGLOBIN A1C Routine 01/03/2025 9:47 AM EDT Type 2 diabetes, controlled, with neuropathy (CMS/HCC V24, CMS/[facility] V28) LIPID PANEL WITH REFLEX TO DIRECT LDL Routine 01/03/2025 9:47 AM EDT Type 2 diabetes, controlled, with neuropathy (CMS/HCC V24, CMS/HCC V28) High cholesterol MICROALBUMIN CREATININE URINE RATIO Routine 01/03/2025 9:47 AM EDT Type 2 diabetes, controlled, with neuropathy (CMS/HCC V24, CMS/HCC V28) EXTERNAL DIABETIC RETINA EYE EXAM 01/02/2025 EXTERNAL DIABETIC RETINA EYE EXAM 01/02/2025 from Last 3 Months Results * Thyroid stimulating hormone with reflex to free t4 and free t3 (02/14/2025 10:45 AM EDT) TSH 1.17 0.40 - 4.00 mcIU/mL LAB CHEMISTRY METHOD 02/14/2025 2:26 PM EDT [facility] Blood Venous blood specimen / Unknown Venipuncture / Unknown 02/14/2025 10:45 AM EDT 02/14/2025 10:45 AM EDT us Alma JONES LAB BLOOD ORDERABLES Final Resu lt [facility] [address] [place] [address], * (ABNORMAL) Vitamin B12 (02/14/2025 10:45 AM EDT) Pathologist [facility] Vitamin B-12 1,166(H) 250 - 900 pcg/mL LAB CHEMISTRY METHOD 02/14/2025 1:28 PM [facility] Blood Venous blood specimen / Unknown Venipuncture / Unknown 02/14/2025 10:45 AM EDT 02/14/2025 10:45 AM EDT Alma JONES LAB BLOOD ORDERABLES Final Resu lt [facility] [address] [place] [address], * Comprehensive metabolic panel (02/14/2025 10:45 AM EDT) [facility] Sodium 140 133 - 145 mmol/L LAB CHEMISTRY METHOD 02/14/2025 1:28 PM [facility] Potassium 4.0 3.5 - 5.5 mmol/L LAB CHEMISTRY METHOD 02/14/2025 1:28 PM [facility] Chloride 105 96 - 110 mmol/L LAB CHEMISTRY METHOD 02/14/2025 1:28 PM [facility] CO2 26 21 - 32 mmol/L LAB CHEMISTRY METHOD 02/14/2025 1:28 PM [facility] Anion Gap 9 3 - 11 LAB CHEMISTRY METHOD 02/14/2025 1:28 PM [facility] Glucose 98 70 - 100 mg/dL LAB CHEMISTRY METHOD 02/14/2025 1:28 PM [facility] BUN 16 5 - 25 mg/dL LAB CHEMISTRY METHOD 02/14/2025 1:28 PM [facility] Creatinine 0.82 0.70 - 1.30 mg/dL LAB CHEMISTRY METHOD 02/14/2025 1:28 PM [facility] eGFR 91 >=60 mL/min/1. 73m2 LAB CHEMISTRY METHOD 02/14/2025 1:28 PM EDT [facility] Comment:Calculation based on the Chronic Kidney Disease Epidemiology Collaboration (CKD-EPI) equation refit without adjustment for race. BUN/Creatinine Ratio 19.5 LAB CHEMISTRY METHOD 02/14/2025 1:28 PM [facility] Calcium 9.4 8.5 - 10.5 mg/dL LAB CHEMISTRY METHOD 02/14/2025 1:28 PM [facility] AST (SGOT) 15 10 - 42 unit/L LAB CHEMISTRY METHOD 02/14/2025 1:28 PM [facility] ALT (SGPT) 19 10 - 60 unit/L LAB CHEMISTRY METHOD 02/14/2025 1:28 PM [facility] Alkaline Phosphatase 82 42 - 121 unit/L LAB CHEMISTRY METHOD 02/14/2025 1:28 PM [facility] Total Protein 6.9 6.0 - 8.0 g/dL LAB CHEMISTRY METHOD 02/14/2025 1:28 PM [facility] Albumin 3.8 3.2 - 5.0 g/dL LAB CHEMISTRY METHOD 02/14/2025 1:28 PM [facility] Total Bilirubin 1.1 0.0 - 1.4 mg/dL LAB CHEMISTRY METHOD 02/14/2025 1:28 PM [facility] Blood Venous blood specimen / Unknown Venipuncture / Unknown 02/14/2025 10:45 AM EDT 02/14/2025 10:45 AM EDT us Alma JONES LAB BLOOD ORDERABLES Final Resu lt [facility] [address] [place] [address], * Prostate specific antigen diagnostic (01/08/2025 10:28 AM EDT) PSA 2.61 0.00 - 4.00 ng/mL LAB CHEMISTRY METHOD 01/08/2025 2:51 PM EDT [facility] Blood Venous blood specimen / Unknown 01/08/2025 10:28 AM EDT 01/08/2025 1:48 PM EDT Narrative [facility] - 01/08/2025 2:51 PM EDT The Siemens Advia Centaur Chemiluminescent Immunoassay is used. Results obtained with different assay methods or kits cannot be used interchangeably. Results cannot be interpreted as absolute evidence of the presence or absence of malignant disease. us Alex Starks MD LAB BLOOD ORDERABLES Final Resul t [facility] [address] [place] [address], [place] [phone] * (ABNORMAL) Lipid panel with reflex to direct LDL (01/03/2025 9:47 AM EDT) [facility] Cholesterol 180 0 - 200 mg/dL LAB CHEMISTRY METHOD 01/03/2025 1:11 PM EDT [facility] Triglycerides 165(H) 0 - 150 mg/dL LAB CHEMISTRY METHOD 01/03/2025 1:11 PM EDT [facility] HDL 77 >=40 mg/dL LAB CHEMISTRY METHOD 01/03/2025 1:11 PM EDT [facility] LDL Calculated 70 0 - 100 mg/dL LAB CHEMISTRY METHOD 01/03/2025 1:11 PM EDT [facility] VLDL Cholesterol Leroy 33 mg/dL LAB CHEMISTRY METHOD 01/03/2025 1:11 PM EDT [facility] Non HDL Chol. (LDL+VLDL) 103 <145 mg/dL LAB CHEMISTRY METHOD 01/03/2025 1:11 PM EDT [facility] Chol/HDL Ratio 2.3 0.0 - 4.4 LAB CHEMISTRY METHOD 01/03/2025 1:11 PM EDT [facility] Blood Venous blood specimen / Unknown Venipuncture / Unknown 01/03/2025 9:47 AM EDT 01/03/2025 9:47 AM EDT Hawa JONES LAB BLOOD ORDERABLES Final Resul t Performing Organization Address [facility] de Phone Number [facility] [address] [place] [address], [place] [phone] * Microalbumin creatinine urine ratio (01/03/2025 9:47 AM EDT) Creatinine, Urine 76.0 mg/dL LAB CHEMISTRY METHOD 01/03/2025 2:29 PM EDT [facility] Microalb, Ur 8.7 0.0 - 29.0 mg/L LAB CHEMISTRY METHOD 01/03/2025 2:29 PM EDT [facility] Microalb/Creat Ratio 11 <30 mg/g creat LAB CHEMISTRY METHOD 01/03/2025 2:29 PM EDT [facility] Urine Urine specimen obtained by clean catch procedure / Unknown Non-blood Collection / Unknown 01/03/2025 9:47 AM EDT 01/03/2025 9:47 AM EDT us Hawa JONES LAB URINE ORDERABLES Final Resul t Performing Organization Address [facility] de Phone Number [facility] [address] [place] [address], [place] [phone] * (ABNORMAL) Hemoglobin A1c (01/03/2025 9:47 AM EDT) Hemoglobin A1C 6.6(H) <6.5 % LAB CHEMISTRY METHOD 01/03/2025 2:04 PM EDT [facility] Mean Bld Glu Estim. 143 mg/dL LAB CHEMISTRY METHOD 01/03/2025 2:04 PM EDT [facility] Blood Venous blood specimen / Unknown Venipuncture / Unknown 01/03/2025 9:47 AM EDT 01/03/2025 9:47 AM EDT us Hawa JONES LAB BLOOD ORDERABLES Final Resul t [facility] [address] [place] [address], [place] [phone] * External Diabetic Retina Eye Exam Report (01/02/2025) Only the most recent of2 resultswithin the time period is included. Anatomical Region Laterality Modality Ultrasound us Provider [facility] US PROCEDURES Final Result from Last 3 Months Insurance [facility] MEDIC[facility] Member Subscriber Plan / Payer (Ef fective 2024-Present) Name:Romaine Garcia Relation to Subscriber:Self Name:Romaine Alonso Payer ID:[id number] Group ID:[id number] Type:Not on file Address: [place] [address] [address] [id number] Care Teams Director Of Enterprise Architecture Relationship Specialty Start Date End Date Mila Rojas MD [address] [place] [id number] PCP - General Internal Medicine 07/12/22 Dr. Jeri Martinez [address] [place] [id number] Referring Physician Ophthalmology 08/08/24
[2025-03-10 17:38] LABS: Troponin-I High Sensitivity 2.9 ng/L (<3.5-35.0)
== END 2025-03-11 00:31 | disposition home or self-care (01) ==
PROVIDERS: Emergency Provider Internal Medicine; PCP Internal Medicine
DX: R07.89 Other chest pain (principal); R11.2 Nausea with vomiting, unspecified; Z79.899 Other long term (current) drug therapy
CPT/HCPCS: 36415; 71045; 80053; 83690; 84484; 85025; 93005; 99283; 99285

== ENCOUNTER → 2025-03-10 14:40 | Outpatient (BNV) | payer OTHER, SELFPAY | PROVIDERS: Emergency Provider Internal Medicine; PCP Internal Medicine; Visit Provider Internal Medicine Cardiovascular Disease | DX: R94.31 Abnormal electrocardiogram [ECG] [EKG] (principal); R07.9 Chest pain, unspecified | CPT/HCPCS: 93010 ==

== ENCOUNTER → 2025-03-10 14:50 | Outpatient (BNV) | payer OTHER, SELFPAY | PROVIDERS: PCP Internal Medicine; Visit Provider Radiology Diagnostic Radiology | DX: R07.9 Chest pain, unspecified (principal) | CPT/HCPCS: 71045 ==

== ENCOUNTER 2025-04-10 02:25 | Emergency (ER) | payer OTHER, SELFPAY ==
--- NOTE | ~2025-04-10 | CT_ITS ---
CLINICAL HISTORY: [place], HTN CT head without contrast Comparison: None provided Findings: No intra-axial mass, midline shift, hydrocephalus, or acute hemorrhage. Nonspecific white matter hypodensity is present. There is no sinus or mastoid fluid. The orbits are within normal limits. There is no acute fracture. IMPRESSION: 1. No acute intracranial findings. This document has been electronically signed by: Kareem Colin MD, PHD on 04/10/2025 05:01:03
--- NOTE | 2025-04-10 05:24 | ED.GENADULT ---
HPI - General Adult General Chief complaint: General Medical Stated complaint: Left Sided Numbness Time Seen by Provider: 04/10/25 05:23 Source: patient and EMS Mode of arrival: EMS Limitations: no limitations History of Present Illness ED Provider: Dr. Shannan Navarrete HPI narrative: please see paper chart started during downtime overall, patient complaining of left arm numbness. Patient states that he fell asleep on his left arm and then it became numb. Once he woke up and he removed his date of his left arm, the numbness started going away. Patient denies any motor strength weakness. When patient came in, he complained of left leg numbness and tingling, However, when I spoke to the patient, patient states that he has chronic numbness and tingling for several months. Patient complaining also of high blood pressure in the 180s causing him to be anxious. Patient also had headache earlier today. Related Data Home Medications ?Medication ?Instructions ?Recorded ?Confirmed aspirin 81 mg tablet,delayed 81 mg PO DAILY 08/13/20 06/13/24 release cetirizine 10 mg tablet 10 mg PO DAILY 08/13/20 06/13/24 cyanocobalamin (vitamin B-12) 500 500 mcg PO DAILY 08/13/20 06/13/24 mcg tablet docusate sodium 100 mg capsule 100 mg PO DAILY 08/13/20 06/13/24 donepezil 10 mg tablet 10 mg PO BEDTIME 08/13/20 06/13/24 epinephrine 0.3 mg/0.3 mL 0.3 mg IM DAILY PRN allergies 08/13/20 06/13/24 injection, auto-injector finasteride 5 mg tablet 5 mg PO DAILY 08/13/20 06/13/24 gabapentin 400 mg capsule 800 mg PO TID 08/13/20 06/13/24 metformin 500 mg tablet,extended 500 mg PO BID 08/13/20 06/13/24 release 24 hr omeprazole 20 mg capsule,delayed 20 mg PO DAILY@0630 08/13/20 06/13/24 release risperidone 0.5 mg tablet 0.5 mg PO BID 08/13/20 06/13/24 rosuvastatin 40 mg tablet 40 mg PO DAILY 08/13/20 06/13/24 sennosides 8.6 mg tablet 8.6 mg PO DAILY 08/13/20 06/13/24 tamsulosin 0.4 mg capsule 0.8 mg PO DAILY 08/13/20 06/13/24 acetaminophen 325 mg tablet 325 mg PO QID PRN pain 05/27/22 06/13/24 (Tylenol) trazodone 50 mg tablet 1 tab PO BEDTIME PRN Sleep 05/27/22 06/13/24 citalopram 20 mg tablet 20 mg PO BEDTIME 11/02/22 06/13/24 linaclotide 72 mcg capsule 72 mcg PO DAILY 07/17/23 06/13/24 (Linzess) buspirone 7.5 mg tablet mg PO DAILY 06/13/24 06/13/24 Previous Rx's ?Medication ?Instructions ?Recorded meclizine 25 mg tablet 25 mg PO TID PRN motion sickness 08/10/21 #20 tabs cyclobenzaprine 5 mg tablet 5 mg PO TID PRN muscle spasm 7 09/13/23 days #21 tabs prednisone 20 mg tablet 20 mg PO DAILY 7 days #7 tabs 09/13/23 lisinopril 10 mg tablet 10 mg PO DAILY #90 tabs 09/06/24 lisinopril 20 mg tablet 20 mg PO DAILY #60 tabs 04/10/25 Allergies Allergy/AdvReac Type Severity Reaction Status Date / Time shellfish derived Allergy Unknown Hives/Short Verified 03/10/25 14:33 of breath Review of Systems Review of Systems: Constitutional : No Weight loss, No Fever, No Chills, No Night Sweats, No Fatigue, No Malaise ENT/Mouth : No Hearing loss, No Ear Pain, No Nasal Congestion, No Sinus Pain, No Hoarseness, No sore throat, No Rhinorrhea, No Swallowing Difficulty Eyes: No Eye Pain, No Swelling, No Redness, No Foreign Body, No Discharge, No Vision Changes Cardiovascular : No Chest Pain, No SOB, No Dyspnea on Exertion, No Orthopnea, No Edema, No Palpitations Respiratory : No Cough, No Sputum, No Wheezing, No Smoke Exposure, No Dyspnea Gastrointestinal : No Nausea, No Vomiting, No Diarrhea, No Constipation, No abdominal Pain, No Hematochezia, No Melena Genitourinary : no irregular bleeding, No Dysuria, No Urinary Frequency, No Hematuria, No Urinary Incontinence, No Urgency, No Flank Pain, No Urinary Flow Changes, No Hesitancy Musculoskeletal : No joint pain, No Myalgias, No Joint Swelling Skin : No Skin Lesions, No rash Neuro : No Weakness, No Numbness, complaining of paresthesias in the left arm after sleeping in his arm. Improved after removing his weight of his left arm. No Loss of Consciousness, No Dizziness, Complaining of Headache Psych : No Anxiety/Panic, No Depression, No SI/HI/AH/VH, No Social Issues, Heme/Lymph: No Bruising, No Bleeding,No Lymphadenopathy Endocrine : No Polyuria, No Polydipsia, No Temperature Intolerance [facility] Past Medical History Medical History Chest discomfort Shortness of breath Cerebral microvascular disease Confusion and disorientation Depression Dementia BPH (benign prostatic hyperplasia) Transient cerebral ischemia Other and unspecified hyperlipidemia Essential hypertension Type 2 diabetes mellitus with unspecified complications Precordial chest pain Surgical History History of cardiac catheterization (~09/17/14) Family History Family History Father Diabetes Hyperlipidemia Mother Stroke Social History Social History Alcohol intake: former Patient Tobacco Use Status: Never used Tobacco Advance Directives: No Advance Directives Information Provided: Yes service: No Current occupational status: retired Physical Exam ED Const Other: Appearance: Alert. Oriented X3. No acute distress. Eyes: Pupils equal, round and reactive to light. ENT: Pharynx normal. Neck: Normal inspection. Neck supple. No lymph nodes noted. No crepitus CVS: Normal heart rate and rhythm. Pulses normal. Normal S1 and S2 Respiratory: No respiratory distress. Breath sounds normal. No Wheezing. No rales Abdomen: Soft and nontender. No rigidity. No distention. Skin: Skin warm and dry. Normal skin color. Normal skin turgor. Extremities: No lower extremity edema. No Lacerations. No Rash Neuro: Oriented X 3. No motor deficit. No sensory deficit. Moving all extremities. No slurred speech. CN 2 through 12 grossly intact Psych: calm, cooperative, normal affect Course Course Course Narrative: patient states that the this time he does not have any numbness, no headache, blood pressure back in the 140s. All of patient's labs and imaging pending. Medical Decision Making Medical Decision Making MDM Narrative: I reviewed patient's records, patient has previously been seen by us here in the ED for similar symptoms complaining of left shoulder/ arm numbness. Patient has had CT scans, CTA and MRIs, negative for stroke. Patient has reported story is not quite consistent with a CVA or a TIA. Most likely a nerve compression from sleeping in his arm. However, patient's blood pressure was a bit elevated when he arrived, here in the emergency room 170/96 patient states that his headache is almost resolved and also states that there is no more numbness tingling of the left arm. CT scan of the head does not show any acute abnormality. Of note, the results will not be crossing into a system due to down time. My interpretation of labs: Patient's white blood cell count 6.95, hemoglobin 12.9, hematocrit 39.3, platelets 247, no acute abnormality patient's chemistry shows a sodium of 138, potassium 3.9, chloride 104, bicarb 24, BUN 18, creatinine 0.85, glucose 123, no significant abnormality in patient's LFTs. Overall, it does not seem likely that patient experienced a TIA or CVA. Most likely nerve compression. at discharge, patient's blood pressure 133/65 Differential Diagnosis Differential Diagnoses: The differential diagnosis associated with the presentation includes ( As above, chronic hypertension, hypertensive urgency) Admission/Observation Consideration of admission/observation: Escalation of care including admission/observation considered ( given patient's age, past medical history and symptoms, observation was considered) Lab Data MDM Lab Attestation statement: I reviewed the patient's lab results. Independent Interpretation I performed an independent interpretation of an: CT Scan Radiology Impression Discussion of test interpretation with radiology: I have reviewed the radiologist's reading. Radiologist Impression: impression: No acute intracranial findings Critical Care Time Critical Care Time Critical Care Time: Yes Total Critical Care Time: 45 Attestation: I have personally provided critical care time. Time includes review of lab data, radiology results, discussion with consultants, and monitoring for potential decompensation. Intervention performed as documented. Discharge Plan Discharge Clinical Impression: Arm paresthesia, left, Hypertension Patient Disposition: Home, Self-Care Instructions: Chronic Hypertension (ED), Paresthesia (ED) Additional Instructions: Please follow-up with your primary care physician tomorrow. If you have any worsening or new symptoms, please return to the emergency room or call 911 Prescriptions: New lisinopril 20 mg tablet 20 mg PO DAILY Qty: 60 0RF No Action lisinopril 10 mg tablet 10 mg PO DAILY Qty: 90 3RF trazodone 50 mg tablet 1 tab PO BEDTIME PRN (Reason: Sleep) acetaminophen [Tylenol] 325 mg Tablet 325 mg PO QID PRN (Reason: pain) citalopram 20 mg tablet 20 mg PO BEDTIME meclizine 25 mg tablet 25 mg PO TID PRN (Reason: motion sickness) Qty: 20 0RF cyclobenzaprine 5 mg tablet 5 mg PO TID PRN (Reason: muscle spasm) 7 Days Qty: 21 0RF prednisone 20 mg tablet 20 mg PO DAILY 7 Days Qty: 7 0RF aspirin 81 mg tablet,delayed release (DR/EC) 81 mg PO DAILY sennosides 8.6 mg tablet 8.6 mg PO DAILY gabapentin 400 mg capsule 800 mg PO TID finasteride 5 mg tablet 5 mg PO DAILY cetirizine 10 mg tablet 10 mg PO DAILY rosuvastatin 40 mg tablet 40 mg PO DAILY docusate sodium 100 mg capsule 100 mg PO DAILY omeprazole 20 mg capsule,delayed release(DR/EC) 20 mg PO DAILY@0630 metformin 500 mg tablet extended release 24 hr 500 mg PO BID cyanocobalamin (vitamin B-12) 500 mcg tablet 500 mcg PO DAILY epinephrine 0.3 mg/0.3 mL auto-injector 0.3 mg IM DAILY PRN (Reason: allergies) tamsulosin 0.4 mg capsule 0.8 mg PO DAILY Rx Instructions: TAKE 30 MIN AFTER SAME MEAL EVERYDAY donepezil 10 mg tablet 10 mg PO BEDTIME risperidone 0.5 mg tablet 0.5 mg PO BID Linzess 72 mcg capsule 72 mcg PO DAILY buspirone 7.5 mg tablet PO DAILY Print Language: Urdu
[2025-04-10 05:36] VITALS: BP 133/65; PULSE 51; RESP 16; TEMP 36.6; O2SAT 99
[2025-04-10 05:42] LABS: MANUAL DIFF FLAG NO
[2025-04-10 05:49] LABS: Hematocrit 39.3 % (42.0-52.0); Hemoglobin 12.9 g/dl (14.0-18.0); Imm Gran Abs Auto 0.02 X10*3/uL (0.00-0.03); Imm Gran Pct Auto 0.3 % (0.0-0.4); Lymphocytes Absolute Auto 1.9 X10*3/uL (1.2-4.9); Mean Corpuscular HGB Conc 32.8 g/dl (31.0-36.0); Mean Corpuscular Hemoglobin 28.4 pg (27.0-33.0); Mean Corpuscular Volume 86.6 fL (80.0-98.0); NRBC Abs Auto 0.000 X10*3/uL (0.0-0.012); NRBC Pct Auto 0.0 /100WBC (0.0-0.2); Platelet Count 247 X10*3/uL (160-400); Red Blood Count 4.54 X10*6/uL (4.60-5.80); White Blood Count 7.0 X10*3/uL (4.8-10.8)
[2025-04-10 06:01] LABS: INTERNATIONAL NORM RATIO 1.0 (0.9-1.1); Prothrombin Time 11.1 SEC (10.9-12.4)
[2025-04-10 06:09] VITALS: BP 133/65; PULSE 51; RESP 16; TEMP 36.6; O2SAT 99
[2025-04-10 06:50] LABS: Alanine Aminotransferase 12 U/L (0-40); Albumin Level 4.3 g/dL (3.5-5.0); Alkaline Phosphatase 67 U/L (39-117); Anion Gap 14 (12-20); Aspartate Amino Transferase 18 U/L (5-37); Blood Urea Nitrogen 18 mg/dL (9-16); Calcium 9.1 mg/dL (8.4-10.2); Carbon Dioxide 24 mmol/L (22-29); Chloride 104 mmol/L (96-108); Estimated Glomerular Filt Rate > 60; Potassium 3.9 mmol/L (3.3-5.1); Sodium 138 mmol/L (135-145); Total Protein 6.4 g/dL (6.5-8.0)
== END 2025-04-10 06:18 | disposition home or self-care (01) ==
PROVIDERS: Emergency Provider Emergency Medicine; PCP Internal Medicine
DX: R20.0 Anesthesia of skin (principal); I10 Essential (primary) hypertension; R53.1 Weakness; E11.9 Type 2 diabetes mellitus without complications; E78.5 Hyperlipidemia, unspecified; I20.0 Unstable angina; Z79.82 Long term (current) use of aspirin; Z79.02 Long term (current) use of antithrombotics/antiplatelets; Z79.84 Long term (current) use of oral hypoglycemic drugs; Z79.899 Other long term (current) drug therapy
CPT/HCPCS: 36415; 70450; 80053; 82248; 85025; 85610; 99284; 99291

== ENCOUNTER → 2025-04-10 03:27 | Outpatient (BNV) | payer OTHER, SELFPAY | PROVIDERS: Emergency Provider Emergency Medicine; PCP Internal Medicine; Visit Provider General Practice | DX: I10 Essential (primary) hypertension (principal); R51.9 Headache, unspecified | CPT/HCPCS: 70450 ==

== ENCOUNTER 2025-06-23 12:36 | Outpatient (AMB) | payer OTHER, SELFPAY ==
[2025-06-23 12:53] VITALS: BP 134/72; PULSE 79; BMI 25.4
--- NOTE | 2025-06-23 12:53 | MHC.OFFVIS ---
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 Required: No City Engineer: City Engineer Present Allergies shellfish derived Allergy (Unknown, Verified 06/23/25 12:56) Hives/Short of breath Medication List - Last Reconciled 06/23/25 by DEL Ascencio acetaminophen (Tylenol) 325 mg PO QID PRN aspirin 81 mg PO DAILY buspirone mg PO DAILY cetirizine 10 mg PO DAILY citalopram 20 mg PO BEDTIME cyanocobalamin (vitamin B-12) 500 mcg PO DAILY cyclobenzaprine 5 mg PO TID PRN 7 days docusate sodium 100 mg PO DAILY donepezil 10 mg PO BEDTIME epinephrine 0.3 mg IM DAILY PRN finasteride 5 mg PO DAILY gabapentin 800 mg PO TID linaclotide (Linzess) 72 mcg PO DAILY lisinopril 20 mg PO DAILY meclizine 25 mg PO TID PRN metformin ER 500 mg PO BID omeprazole 20 mg PO DAILY@0630 prednisone 20 mg PO DAILY 7 days risperidone 0.5 mg PO BID rosuvastatin 40 mg PO DAILY sennosides 8.6 mg PO DAILY tamsulosin 0.8 mg PO DAILY trazodone 1 tab PO BEDTIME PRN HPI HPI 1 yr fu: Details: Romaine is a 74-year-old male with past medical history of hypertension, hyperlipidemia, diabetes, atypical chest discomfort, mildly abnormal nuclear stress test followed by cardiac catheterization showing no significant CAD. Today he reports that he has been doing well overall. He continues to get the same discomfort in his left chest region, mostly if he lays on his left side. This symptom will resolve if he changes position. It is not brought on by walking or stair climbing. He feels that his blood pressure does go up at times with physical activity. He will get a mild headache and believes this is elevated blood pressure. The highest blood pressure he has recorded at home was 150 systolic. He is mostly sedentary. He is concerned about daytime fatigue and not sleeping well at night. He will get some shortness of breath with activity. His breathing is comfortable at rest, no PND, orthopnea or edema. No lightheadedness, presyncope, syncope, falls. Taking all meds as directed. Taking meds as directed. [id number] is present and she is assisting with Haitian translation at their request. [facility] Medical History Chest discomfort Shortness of breath Cerebral microvascular disease Confusion and disorientation Depression Dementia BPH (benign prostatic hyperplasia) Transient cerebral ischemia Other and unspecified hyperlipidemia Essential hypertension Type 2 diabetes mellitus with unspecified complications Precordial chest pain Surgical History History of cardiac catheterization (~09/17/14) Family History Father Diabetes Hyperlipidemia Mother Stroke Social History Alcohol intake: former Patient Tobacco Use Status: Never used Tobacco service: No Current occupational status: retired Review of Systems Const All systems reviewed & are unremarkable except as noted in HPI and below Reports fatigue ENT Details: hypersomnia Denies dizziness Card Denies chest pain, Denies chest pain at rest, Denies chest pain with activity, Denies rapid heart rate, Denies pedal edema, Denies edema, Denies leg edema, Denies lightheadedness, Denies palpitations, Denies dyspnea, Reports dyspnea on exertion and Denies orthopnea Resp Denies cough, Denies dyspnea and Reports dyspnea on exertion GI Denies hematochezia and Denies change in stool character Musc Reports abnormal gait (ambulates slowly with cane), Denies limited range of motion, Denies muscle cramps, Denies muscle weakness, Denies numbness, Denies radiating pain into limb, Denies stiffness and Denies tingling Neuro Reports abnormal gait (ambulates slowly with cane), Denies dizziness, Denies numbness and Denies tingling Endo Reports fatigue and Denies palpitations Physical Exam Vital Signs: Last Vital Signs Pulse 79 06/23/25 12:53 BP 134/72 06/23/25 12:53 BMI result Body Mass Index 25.4 Const General: cooperative, healthy appearing, comfortable and no acute distress Orientation/consciousness: patient oriented x3 Neck Neck: Yes normal visual inspection and Yes no JVD Resp Effort & Inspection: normal respiratory effort Auscultation: clear to auscultation bilaterally, no rales, no rhonchi and no wheezes Cardio Jugular venous distension: no JVD Rate: regular rate Rhythm: regular rhythm Heart sounds: S1 normal heart sound present, S2 normal heart sound present, no murmurs and no rubs Neuro General: patient oriented x3 Extrem General: Yes normal to inspection and No no pedal edema Psych Appearance: grossly normal Mental Status: mental status grossly normal Speech and movement: Normal speech and movement present Office Procedures EKG Details: Today, read by me, normal sinus rhythm, minimal voltage criteria for LVH, rate 79, QTC 417 milliseconds [id number], Complete Assessment & Plan Assessment & Plan (1) Hypersomnia: Code(s): G47.10 - Hypersomnia, unspecified Category: Medical Plan: Reports of daytime fatigue, falling asleep easily in the day and not sleeping well at night. Does admit to snoring. Will check a home sleep study for evaluation. (2) Chest discomfort: Code(s): R07.89 - Other chest pain Category: Medical Plan: Prior report of chest discomfort, with atypical description. He does have multiple cardiac risk factors including hypertension, hyperlipidemia, diabetes. Nuclear stress test was done on 08/29/2023 showing mild reversible lateral perfusion defect suspected to be from soft tissue attenuation artifact. He then presented to [facility] on 04/29/2024 with chest discomfort. His troponin was negative. He was thought to have unstable angina and was transferred to [facility] for cardiac catheterization which showed no significant coronary artery disease. At this time he reports chest discomfort which sounds musculoskeletal in nature. Signs and symptoms of angina reviewed with him. Continue with risk factor modifications. (3) S/P cardiac catheterization: Comment: 04/30/2024, no significant coronary artery disease Code(s): Z98.890 - Other specified postprocedural states Category: Surgical Plan: As above (4) Essential hypertension: Code(s): I10 - Essential (primary) hypertension Category: Medical Plan: Blood pressure goal less than 130/80. Blood pressure initially 134/72 today, recheck done by me 98/58 after sitting for 10 minutes. I then had him ambulate in the skinner and blood pressure lizeth to 110/60. He expresses concern about elevated blood pressure readings with exertional activities however he is mostly sedentary. Offered him reassurance. No med changes made at this time. Continue lisinopril. (5) Other and unspecified hyperlipidemia: Code(s): E78.5 - Hyperlipidemia, unspecified Category: Medical Plan: [place] LDL goal less than 70 in patient with diabetes. no recent cholesterol level in our system. 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 Update echo prior to next visit. Plan I discussed with the patient that his blood pressure readings are not concerningly high, and no adjustment to his medication is needed at this time. We reviewed his symptom of chest discomfort and how it is not likely cardiac due to prior testing.We talked about the possibility of sleep apnea contributing to his fatigue and the potential benefit of a sleep study. I recommended increasing physical activity to improve his tolerance and reduce fatigue. Orders: Orders CA echo transthoracic complete Today I77.810 - Thoracic aortic ectasia RT home sleep study Today G47.10 - Hypersomnia, unspecified Patient Instructions: - Continue taking lisinopril as prescribed. - Monitor blood pressure regularly and report significant changes. - Increase physical activity gradually to improve tolerance. - Home sleep study to evaluate for sleep apnea. Patient was informed and verbally consented to the use of an ambient scribe for clinic note documentation during this visit. Visit time spent on chart review, interview, assessment, orders, documentation. Coding Level of Care Code Est Pt Level 4 (14358) Complex EM visit Add On G2211 Diagnoses Hypersomnia G47.10 Chest discomfort R07.89 S/P cardiac catheterization Z98.890 Essential hypertension I10 Other and unspecified hyperlipidemia E78.5 Abnormal nuclear stress test R94.39 Ascending aorta dilatation I77.810 CPT Codes EKG - CPT: [id number], Complete ([id number]) Time Spent (min) 32
--- OUTSIDE RECORDS SUMMARY | 2025-06-23 15:05 | XMS_ITS | Clinical Summary ---
Demographics Address [address] [place] [address] Home Phone Work Phone Mobile Phone Work Phone Preferred Language es Marital Status Mormonism Affiliation Unknown Race Unknown
== END 2025-06-23 13:26 | disposition home or self-care (01) ==
LOC: HO.HCS 12:37
PROVIDERS: PCP Internal Medicine; Visit Provider Nurse Practitioner Family
DX: G47.10 Hypersomnia, unspecified (principal); R07.89 Other chest pain; Z98.890 Other specified postprocedural states; I10 Essential (primary) hypertension; E78.5 Hyperlipidemia, unspecified; R94.39 Abnormal result of other cardiovascular function study; I77.810 Thoracic aortic ectasia
CPT/HCPCS: 93010; 99214; G2211

== ENCOUNTER → 2025-06-23 12:36 | Outpatient (BNVA) | payer OTHER, SELFPAY | PROVIDERS: PCP Internal Medicine; Visit Provider Nurse Practitioner Family | DX: I10 Essential (primary) hypertension (principal); G47.10 Hypersomnia, unspecified; E78.5 Hyperlipidemia, unspecified; I77.810 Thoracic aortic ectasia; R94.39 Abnormal result of other cardiovascular function study | CPT/HCPCS: 93005; 99212 ==

== ENCOUNTER → 2025-07-30 07:29 | Outpatient (REF) | payer OTHER, SELFPAY ==
--- OUTSIDE RECORDS SUMMARY | 2025-07-29 07:30 | XMS_ITS | Encounter Summary ---
Author Organization Vi [facility] Address [address] [place] [address] Care Team Providers Care Community Service Director Name Role Phone Mila Rojas MD Primary Care Prov ider Reason for Visit * Reason Comments Diabetes Mellitus F/u diabetes Encounter Details Date Type Department Care Team (Late st Contact Info) Description 07/29/2025 7:30 AM EDT Office Visit Endocrinology - [place] [address] [place] [address] See Quintanilla PA [address] [place] [address] DM (diabetes mellitus), type 2 with peripheral vascular complications (CMS/HCC V24, CMS/HCC V28) (Primary Dx); High cholesterol; Primary hypertension; Weight loss Social History Tobacco Use Types Packs/Day Years Used Date Smoking Tobacco: Former Cigarettes 0.5 35 0 10/02/1967 - 10/02/2002 Smokeless Tobacco: Never Alcohol Use Standard Drinks/Week Comments No 0 (1 standard drink = 0.6 oz pur e alcohol) Housing Instability Answer Date Recorde d Are you worried that in the next 2 months you may not have stable housing? No 07/07/2025 Food Access & Nutrition Answer Date Rec orded Do you have access to a vari ety of food including fruits and vegetables? Yes 07/07/2025 Health Literacy Answer Date Recorded How often do you need to hav e someone help you when you read instructions, pamphlets, or other written material from your doctor or pharmacy? Never 07/07/2025 Caregiver: How often do you need to have someone help you when you read instructions, pamphlets, or other written material from your doctor or pharmacy? Not on file 07/07/2025 Financial Risk Answer Date Recorded How hard is it for you to pa y for the very basics like food, housing, medical care, and air conditioning / heating? Not very hard 07/07/2025 Transportation Answer Date Recorded Has the lack of transportati on kept you from meetings, work, or from getting things needed for daily living? No Has the lack of transportati on kept you from medical appointments or from getting medications? No 07/07/2025 Social Isolation Answer Date Recorded How often do you feel lonely or isolated from th ose around you? Never 07/07/2025 Food Risk Answer Date Recorded Within the past 12 months we worried whether our food would run out before we got money to buy more. Never true 07/07/2025 Within the past 12 months th e food we bought just didn't last and we didn't have money to get more. Never true 07/07/2025 Dependent Care Answer Date Recorded Do you need help finding or paying for care for your loved ones. For example, child care center assistant director or elderly care for an older adult? No 07/07/2025 Education Answer Date Recorded Do you think completing more education or training, like finishing a GED, going to college, or learning a trade, would be helpful for you? No 07/07/2025 Employment and Income Answer Date Recor ded During the last four weeks, have you been actively looking for work? No 07/07/2025 Living Situation Answer Date Recorded What is your living situation? Unrecognized valu e 07/07/2025 Sex and Gender Information Value Date Recorded Sex Assigned at Not on file Legal Sex Male 1:54 PM EST Gender Identity Not on file Sexual Orientation Not on file documented as of this encounter Last Filed Vital Signs Vital Sign Reading Time Taken Comments Blood Pressure 132/68 07/29/2025 7:38 AM EDT Pulse 58 07/29/2025 7:38 AM EDT Temperature - - Respiratory Rate 16 07/29/2025 7:38 AM EDT Oxygen Saturation - - Inhaled Oxygen Concentration - - Weight 60.8 kg (134 lb) 07/29/2025 7:38 AM EDT Height 167.6 cm (5' 6 ) 07/29/2025 7:38 AM EDT Body Mass Index 21.63 07/29/2025 7:38 AM EDT documented in this encounter Ordered Prescriptions Prescription Sig Dispense Quantity Refills Last Filled Start Date End Date FreeStyle Test test strip Check sugars once daily E11.9 100 each 5 07/29/2025 freestyle 28 gauge lancets Check blood sugar once daily E11.9 100 each 2 07/29/2025 blood-glucose meter kit Use daily or as directed for monitoring of diabetes E11.9 1 each 07/29/2025 documented in this encounter Progress Notes * ROBERT Rocha - 07/29/2025 7:30 AM EDTAddended by: SEE QUINTANILLA on: 07/29/2025 09:16 AM Modules accepted: Orders * ROBERT Rocha - 07/29/2025 7:30 AM EDT CHIEF COMPLAINT: Diabetes Mellitus (F/u diabetes) IDENTIFIER: Romaine Spangler is a 74 y.o. old male HPI: Patient is a 74-year-old male with diabetes, hypertension, hyperlipidemia, BPH, chronic pain who presents today for a diabetes. Family history of diabetes includes father who had type 2 diabetes, was on insulin. Current diabetic regimen: Metformin 500 mg, 2 tablets in the morning, 1 tablet in the evening. Fasting sugars are in the 120-130s This morning at 134 Checking sugars once a day. Up-to-date on eye eye exam. Wears diabetic shoes. Follows with Dr. Jose. With neuropathy, on gabapentin. No polyuria, no polydipsia. No nausea or vomiting or abdominal pain. Denies any hypoglycemic episodes. Patient does follow a diabetic friendly diet, does not eat large amount of carbohydrates. Avoids sugary snacks and drinks. Hypertension treated with lisinopril 10 mg once daily. BP at 132/68 Hyperlipidemia is treated with Crestor 40 mg once daily. ROS: GENERAL: No malaise HEENT: No changes in hearing or vision RESPIRATORY: No cough, wheezing or shortness of breath CARDIOVASCULAR: No chest pain, leg swelling or palpitations GI: No abdominal discomfort ENDO: see HPI NEURO: No persistent headache, syncope PAST MEDICAL HISTORY: Patient Active Problem List Diagnosis Date Noted Overweight (BMI 25.0-29.9) 01/07/2025 Other spondylosis, cervical region 11/28/2024 Type 2 diabetes, controlled, with neuropathy ([facility] V24, [facility] V28) 09/11/2024 Other spondylosis, cervical region 09/11/2024 Bilateral shoulder region arthritis 04/15/2021 Chronic low back pain 04/15/2021 Cervical spondylosis 03/21/2018 Fatty liver 04/21/2017 Osteoarthritis of spine with radiculopathy, cervical region 12/15/2016 DM (diabetes mellitus), type 2 with peripheral vascular complications ([facility] V24, [facility] V28) 03/06/2015 Anxiety 01/28/2015 Dysphagia 07/29/2013 GERD (gastroesophageal reflux disease) 03/05/2012 HTN (hypertension) 08/05/2011 Prostatism 06/29/2011 Cognitive impairment 06/24/2009 Depression 06/24/2009 DJD (degenerative joint disease), lumbosacral 06/24/2009 High cholesterol 06/24/2009 Past Surgical History: Procedure Laterality Date COLONOSCOPY 04/22/10 PROCEDURE: HISTORICAL COLONOSCOPY; COMMENT: at [facility] COLONOSCOPY 02/01/17 PROCEDURE: HISTORICAL COLONOSCOPY; COMMENT: diverticulosis, internal hemorrhoids, hyperplastic mucosa with edema and acute and chronic inflammation ESOPHAGOGASTRODUODENOSCOPY 03/05/12 PROCEDURE: HI EGD TRANSORAL BIOPSY SINGLE/MULTIPLE; COMMENT: erosive gastritis - biopsy consistent with gastritis, negative H. pylori. ESOPHAGOGASTRODUODENOSCOPY 04/05/2018 PROCEDURE: HI ESOPHAGOGASTRODUODENOSCOPY TRANSORAL DIAGNOSTIC; COMMENT: lineal erosive distal esoophagitis EXCISION BENIGN SKIN LESION TRUNK / ARM / LEG PROCEDURE: HI EXCISION TUMOR SOFT TISSUE BACK/FLANK SUBQ <3CM HERNIA REPAIR PROCEDURE: HISTORICAL HERNIA REPAIR/UMB TURP / TRANSURETHRAL INCISION / DRAINAGE PROSTATE 2014 PROCEDURE: HISTORICAL TURP SOCIAL HISTORY: Social History Tobacco Use Smoking status: Former Current packs/day: 0.00 Average packs/day: 0.5 packs/day for 35.0 years (17.5 ttl pk-yrs) Types: Cigarettes Start date: 10/02/1967 Quit date: 10/02/2002 Years since quittin.8 Smokeless tobacco: Never Substance Use Topics Alcohol use: No Alcohol/week: 0.0 standard drinks of alcohol FAMILY HISTORY: Family History Problem Relation Name Age of Onset Glaucoma Mother DM Diabetes Father cad Family Status Relation Name Status Mother at age 80 Father at age 70 No partnership data on file MEDICATIONS DISCONTINUED/REORDERED: Medications Discontinued During This Encounter Medication Reason lancets lancets OneTouch Ultra Test test strip ACTIVE MEDICATIONS: Outpatient Medications Marked as Taking for the 07/29/25 encounter (Office Visit) with ROBERT Rocha Medication Sig Dispense Refill aspirin 81 mg EC tablet Take 1 tablet (81 mg total) by mouth 1 (one) time each day. 90 tablet 1 busPIRone (BUSPAR) 5 mg tablet Take 1 tablet (5 mg total) by mouth. capsaicin (ZOSTRIX) 0.075 % cream Apply thin layer to area of discomfort TID in thin layer for 2 weeks. Wash hands after use, avoid contact with eyes. 42.5 g 3 citalopram (CeleXA) 40 mg tablet Take 1 tablet (40 mg total) by mouth at bedtime. cyanocobalamin (VITAMIN B-12) 500 mcg tablet TAKE ONE TABLET BY MOUTH MONDAY TO MONDAY 90 tablet 1 diclofenac (VOLTAREN) 1 % topical gel Apply 4 g topically 2 (two) times a day. docusate sodium (COLACE) 100 mg capsule TOME 1 CAPSULA POR VIA ORAL TODOS LOS MORALES 90 capsule 1 donepeziL (ARICEPT) 10 mg tablet Take 1 tablet (10 mg total) by mouth at bedtime. EPINEPHrine (EpiPen 2-Joseph) 0.3 mg/0.3 mL injection Inject 0.3 mL (0.3 mg total) as directed if needed. famotidine (Pepcid) 40 mg tablet Take 1 tablet (40 mg total) by mouth 2 (two) times a day. 180 each3 finasteride (PROSCAR) 5 mg tablet Take 1 tablet (5 mg total) by mouth 1 (one) time each day. gabapentin (NEURONTIN) 300 mg capsule Take one tablet in the morning and 2 tablets at night. 90 each 3 linaCLOtide (Linzess) 72 mcg capsule Take 1 capsule (72 mcg total) by mouth 1 (one) time each day. lisinopriL (PRINIVIL,ZESTRIL) 20 mg tablet Take 1 tablet (20 mg total) by mouth 1 (one) time each day. metFORMIN XR (GLUCOPHAGE-XR) 500 mg 24 hr tablet TAKE 2 TABLETS BY MOUTH EVERY DAY WITH BREAKFAST AND TAKE 1 TABLET WITH DINNER 270 tablet 1 risperiDONE (RisperDAL) 0.5 mg tablet Take 1 tablet (0.5 mg total) by mouth 2 (two) times a day. rosuvastatin (CRESTOR) 40 mg tablet TOME 1 TABLETA POR VIA ORAL TODOS LOS MORALES 90 tablet 1 senna 8.6 mg tablet TOME 1 TABLETA POR VIA ORAL TODOS LOS MORALES 90 tablet 0 sodium chloride (OCEAN) 0.65 % nasal spray Administer 1 spray into each nostril if needed for congestion. 15 mL 1 tamsulosin (FLOMAX) 0.4 mg 24 hr capsule Take 2 capsules (0.8 mg total) by mouth 1 (one) time each day. tobramycin-dexAMETHasone (TOBRADEX) ophthalmic suspension 1 drop. traMADoL (ULTRAM) 50 mg tablet traZODone (DESYREL) 50 mg tablet Take 1 tablet (50 mg total) by mouth at bedtime. [DISCONTINUED] lancets lancets 1 each by Other route if needed. [DISCONTINUED] OneTouch Ultra Test test strip Check blood glucose every day 100 strip 1 ALLERGIES: Shellfish derived and Shrimp PHYSICAL EXAM: Blood pressure 132/68, pulse 58, resp. rate 16, height 1.676 m (66 ), weight 60.8 kg (134 lb). Bodymass index is 21.63 kg/m??. Plan is deferred until next visit A speaking in full, coherent sentences Awake and alert Heart: RRR Lungs: Clear to auscultation Extremities: Warm well-perfused, left foot calluses without surrounding evidence of infection. LeftPedal pulse intact. LABS: Lab Results Component Value Date HGBA1C 6.6 (H) 01/03/2025 HGBA1C 6.6 (H) 10/16/2024 Lab Results Component Value Date MICROALBUR 8.7 01/03/2025 LDLCALC 70 01/03/2025 CREATININE 0.82 02/14/2025 MICROALBCREA 11 01/03/2025 Lab Results Component Value Date GLUCOSE 98 02/14/2025 Wt Readings from Last 5 Encounters: 07/29/25 60.8 kg (134 lb) 07/07/25 61.2 kg (135 lb) 04/16/25 65.8 kg (145 lb) 02/19/25 71.2 kg (157 lb) 02/13/25 71.6 kg (157 lb 12.8 oz) IMAGING: IMPRESSION: 1. DM (diabetes mellitus), type 2 with peripheral vascular complications (CMS/HCC V24, [facility] V28) 2. High cholesterol 3. Primary hypertension 4. Weight loss PLAN: Diabetes with neuropathy: Check A1c Reported fasting glucose levels are normal range. No change to metformin. BMI 21.63, continue with diet, routine walking. New glucometer supplies are ordered per patient request continue with statin, lisinopril for BP. At 132/68. Up-to-date on foot exam, wearing diabetic shoes now. Continue to see podiatry On gabapentin for neuropathy. Hyperlipidemia: Continue on statin. Check fasting lipids. Myself and my colleagues maintained a long-term, longitudinal relationship with this patient, overseeing care of chronic conditions including diabetes, hyperlipidemia and hypertension. This care relationship has significantly influence my decision making and treatment plans during today's encounter. Patient will follow-up with PCP regarding recent weight loss, has lost more than 20 pounds over thelast 6 months. Follow-up with me in 4-6 months for DM Medication and lab orders: Orders Placed This Encounter Procedures Hemoglobin A1c Lipid panel with reflex to direct LDL Diabetes Foot Exam DIABETES FOOT EXAM ROBERT Newman on 07/29/2025 at 9:14 AM EDT documented in this encounter Plan of Treatment Upcoming Encounters Date Type Department Care Team (Late st Contact Info) Description 09/08/2025 9:15 AM EST Office Visit Orthopedic Surgery - [address] [phone] Riley Jose DPM [address] [place] [phone] 11/10/2025 9:45 AM EST Office Visit [address] [phone] Mila Rojas MD [address] [place], [place] Scheduled Orders Name Type Priority Associated Diagnoses Orde r Schedule Complete blood count Lab Routine Weight loss 1 Occurrences starting 07/29/2025 until 07/29/2026 Thyroid stimulating hormone with reflex to free t4 and free t3 Lab Routine Weight loss 1 Occurrences starting 07/29/2025 until 07/29/2026 documented as of this encounter Results * (ABNORMAL) Lipid panel with reflex to direct LDL (07/29/2025 8:29 AM EDT) Cholesterol 169 0 - 200 mg/dL LAB CHEMISTRY METHOD 07/29/2025 10:35 AM [facility] Triglycerides 191(H) 0 - 150 mg/dL LAB CHEMISTRY METHOD 07/29/2025 10:35 AM [facility] HDL 66 >=40 mg/dL LAB CHEMISTRY METHOD 07/29/2025 10:35 AM [facility] LDL Calculated 65 0 - 100 mg/dL LAB CHEMISTRY METHOD 07/29/2025 10:35 AM [facility] Comment:Estimated LDL Calcul ated using equation: Total cholesterol - HDL cholesterol - (Triglycerides/5) VLDL Cholesterol Leroy 38.2 mg/dL LAB CHEMISTRY METHOD 07/29/2025 10:35 AM [facility] Non HDL Chol. (LDL+VLDL) 103 <145 mg/dL LAB CHEMISTRY METHOD 07/29/2025 10:35 AM [facility] Chol/HDL Ratio 2.6 0.0 - 4.4 LAB CHEMISTRY METHOD 07/29/2025 10:35 AM [facility] Blood Venous blood specimen / Unknown Venipuncture / Unknown 07/29/2025 8:29 AM EDT 07/29/2025 8:29 AM EDT See JONES LAB BLOOD ORDERABLES Final Resul t Performing Organization Address [facility]/ZIP Co de Phone Number [facility] [address] [place] [address], [place] [phone] * (ABNORMAL) Hemoglobin A1c (07/29/2025 8:29 AM EDT) Hemoglobin A1C 7.1(H) <6.5 % LAB CHEMISTRY METHOD 07/29/2025 11:06 AM EDT [facility] Mean Bld Glu Estim. 157 mg/dL LAB CHEMISTRY METHOD 07/29/2025 11:06 AM EDT [facility] Blood Venous blood specimen / Unknown Venipuncture / Unknown 07/29/2025 8:29 AM EDT 07/29/2025 8:29 AM EDT See JONES LAB BLOOD ORDERABLES Final Resul t Performing Organization Address [facility] Co de Phone Number [facility] [address] [place] [address], [place] [phone] documented in this encounter Visit Diagnoses Diagnosis DM (diabetes mellitus), type 2 with peripheral vascular complications (CMS/HCC V24, CMS/[facility] V28)- Primary Type II or unspecified type diabetes mellitus with peripheral circulatory disorders, not stated as uncontrolled High cholesterol Pure hypercholesterolemia Primary hypertension Unspecified essential hypertension Weight loss Loss of weight documented in this encounter Discontinued Medications Medication Sig Discontinue Reason Start Date End Da te lancets lancets 1 each by Other route if needed. 08/15/2023 07/29/2025 OneTouch Ultra Test test strip Check blood glucose every day 04/19/2025 07/29/2025 documented as of this encounter Orders Health Maintenance Count Last Ordered Date Firs t Ordered Date HM DIABETES FOOT EXAM 1 07/29/2025 documented in this encounter Additional Health Concerns Assessment Noted Time PHQ-9 Depression Total Score: 1 07/07/20 25 9:23 AM EDT A fall risk assessment has been complete d for the patient 07/07/2025 9:17 AM EDT documented as of this encounter Care Teams Community Service Director Relationship Specialty Start Date End Date Dawn-Dacosta, Mila Margret, MD [address] [place] [phone] PCP - General Internal Medicine 07/12/22 Dr. Jeri Martinez [address] [place] [address] [phone] Referring Physician Ophthalmology 08/08/24 documented as of this encounter
--- OUTSIDE RECORDS SUMMARY | 2025-07-30 07:31 | XMS_ITS | Encounter Summary ---
Author Organization [facility] Address [address] [place] [address] Care Team Providers Care Ice Handler Name Role Phone Mila Rojas MD Primary Care Prov ider Encounter Details Date Type Department Care Team (Late st Contact Info) Description 07/29/2025 Results Follow-Up Adult [facility] [address] [place] [address] Mila Rojsa MD [address] [place], [place] Social History Tobacco Use Types Packs/Day Years [...] for your loved ones. For example, child adolescent psychiatrist or elderly care for an older adult? [...] on file documented as of this encounter Plan of Treatment Upcoming Encounters Date Type Department Care Team (Late st Contact Info) Description 09/08/2025 9:15 AM EST Office Visit Orthopedic Surgery - [address] [phone] Riley Jose, DPM [address] [place] [phone] 11/10/2025 9:45 AM EST Office Visit Adult Medicine [address] [phone] Mila Rojas MD [address] [place] [address] documented as of this encounter Visit Diagnoses Not on filedocumented in this encounter Additional Health Concerns Assessment Noted Time PHQ-9 Depression Total Score: 1 07/07/20 9:23 AM EDT A fall risk assessment has been complete d for the patient 07/07/2025 9:17 AM EDT documented as of this encounter Care Teams Ice Handler Relationship Specialty Start Date End Date Mila Rojas MD [address] [place] [address] PCP - General Internal Medicine 07/12/22 Dr. Jeri Martinez [address] [place] [address] [phone] Referring Physician Ophthalmology 08/08/24 documented as of this encounter
--- OUTSIDE RECORDS SUMMARY | 2025-07-30 07:31 | XMS_ITS | Clinical Summary ---
Author Organization [facility] Address [address] [place] [address] [address] [place] [address] Care Team Providers Care Ribbon Blockmaker Name Role Phone Unavailable Primary Care Provider Unavailabl e Allergies Active Allergy Reactions Criticality Noted Date Comments Shellfish Allergy 05/09/2023 Medications aspirin 81 MG chewable tablet Chew 1 tablet at bed time. Active cetirizine (ZyrTEC) 10 MG tablet Take 1 tablet by mouth at bed time. Active chlorhexidine (Peridex) 0.12 % solution SWISH 15 ML IN MOUTH FOR 30 SECONDS THEN SPIT OUT DOS VECES AL D A DESPU S DE LAS COMIDAS 2 Active citalopram (CeleXA) 10 MG tablet Take 1 tablet by mouth at bed time. Active cyanocobalamin (Vitamin B-12) 500 MCG tablet Activ e Diclofenac Sodium 1 % gel APPLY 4 GRAMS TOPICALLY TO AFFECTED AREA 4 TIMES PER DAY NEEDED 3 Active donepezil (Aricept) 10 MG tablet Take 1 tablet by mouth at bed time. Active gabapentin (Neurontin) 400 MG capsule TOME CHANDRIKA C PSULA EMY VECES AL D A CUANDO SEA NECESARIO PARA EL DOLOR 3 Active EPINEPHrine (Epipen) 0.3 MG/0.3ML injection syringe Inject 0.3 mL into the shoulder, thigh, or buttocks. Active finasteride (Proscar) 5 MG tablet Take 1 tablet by mouth at bed time. Active fluticasone furoate (Arnuity Ellipta) 50 MCG/ACT inhaler Acti ve OneTouch Ultra test strip USE TO TEST BLOOD SUGAR ONCE DAILY 3 Active Lancets (onetouch ultrasoft) lancets USE TO TEST SUGARS ONE TIME DAILY 3 Active Lidocaine, Anorectal, 5 % cream Active Linzess 72 MCG capsule TOME CHANDRIKA C PSULA TODOS LOS D 3 Active lisinopril 20 MG tablet Take 1 tablet by mouth at bed time. Active loteprednol (Lotemax) 0.5 % ophthalmic suspension PLEASE SEE ATTACHED FOR DETAILED DIRECTIONS 3 Active metFORMIN (Glucophage) 500 MG tablet Take 1 tablet by mouth every 12 (twelve) hours. Active omeprazole (PriLOSEC) [address] capsule TOME CHANDRIKA C PSULA TODOS LOS D 3 Active predniSONE (Deltasone) 10 MG tablet TAKE 3 TABLET BY MOUTH X 3 DAYS, THEN 2 TABLET X 3 DAYS, THEN 1 TABLET X 3 DAYS 2 Active risperiDONE (RisperDAL) 0.5 MG tablet Take 2 tablets by mouth every 12 (twelve) hours. Active rosuvastatin (Crestor) 40 MG tablet TOME CHANDRIKA TABLETA TODOS LOS D 3 Active Sennosides 8.6 MG capsule Take 2 capsules by mouth at bed time. Active sulfamethoxazol e-trimethoprim (Bactrim DS) 800-160 MG tablet TOME CHANDRIKA TABLETA DOS VECES AL D A *TAKE IN THE AM + PM OF PROSTATE BIOPSY* 3 Active tamsulosin (Flomax) 0.4 MG 24 hr capsule Take 1 capsule by mouth at bed time. Active traZODone (Desyrel) 50 MG tablet TOME CHANDRIKA TABLETA TODOS LOS D AL ACOSTARSE CUANDO SEA NECESARIO 3 Active tobramycin-dexA METHasone (Tobradex) ophthalmic suspension PONGA CHANDRIKA GOTA EN LOS DOS OJOS CUATRO VECES AL D A 3 Active Social History Tobacco Use Types Packs/Day Years Used Date Smoking Tobacco: Former Cigarettes Passive Smoke Exposure: Never Smokeless Tobacco: Never Tobacco Cessation:Counseling Given: Not Answered Sex and Gender Information Value Date Recorded Sex Assigned at Male 08/01/2022 10:14 AM EDT Legal Sex Male 10:14 AM EDT Gender Identity Male 08/01/2022 10:14 AM EDT Sexual Orientation Straight 08/01/2022 10 :14 AM EDT Last Filed Vital Signs Vital Sign Reading Time Taken Comments Blood Pressure 135/80 09/01/2023 3:13 PM EST Pulse 60 05/24/2023 9:49 AM EDT Temperature - - Respiratory Rate - - Oxygen Saturation - - Inhaled Oxygen Concentration - - Weight - - Height - - Body Mass Index - - Plan of Treatment Health Maintenance Due Date Last Done Comments Depression Screening 1950 Lipid Panel 1948 SDOH Screening 1948 Alcohol/Substance Use Screening 1960 Hepatitis C Screening 1966 Hepatitis A Vaccines (1 of 2 - Risk 2-dose series) 1967 Hepatitis B Vaccines (1 of 3 - Risk 3-dose series) 2008 Zoster Vaccines (2 of 3) 07/30/2014 06/04/2014 Dental X-Ray: Bitewings 11/17/2022 11/16/2021, 09/23 RSV Patients and Patients Aged 60 years or older (1 - 1-dose 75+ series) 2023 Dental Oral Exam 11/10/2023 05/09/2023, , 10/13/2020 Dental Prophylaxis 11/25/2023 05/24/2023, 0 12/01/2021, 10/29/2020 Tobacco Screening 09/01/2024 09/01/2023 COVID-19 Vaccine ( season) 2025 01/26/2022, 08/02/2021, 12/04/2020, Additional history exists Influenza Vaccine (#1) 2025 3, 06/07/2022, 07/02/2021, Additional history exists Dental X-Ray: Full Mouth 05/10/2026 023, 09/23/2020, 09/23/2020 DTaP/Tdap/Td Vaccines (3 - Td or Tdap) 11/02/2031 11/02/2021, 10/08/2010 Pneumococcal Vaccine: 50+ Years Completed 06/07/2016, 07/23/2014, 06/04/2014 HIB Vaccines Aged Out No longer eligi [...] patient's age to complete this topic Meningococcal Vaccine Aged Out No adal hamida eligible based on patient's age to complete this topic RSV under 20 months Aged Out No longe r eligible based on patient's age to complete this topic Rotavirus Vaccines Aged Out No longer eligible based on patient's age to complete this topic Procedures Procedure Name Priority Date/Time Associated Diagnosis Comments PROPHYLAXIS - ADULT Routine 05/24/2023 1 0:00 AM EDT PANORAMIC RADIOGRAPHIC IMAGE Routine 05/09/2023 9:00 AM EDT PERIODIC ORAL EVALUATION - ESTABLISHED PATIENT Routine 05/09/2023 9:00 AM EDT BITEWINGS - 4 RADIOGRAPHIC IMAGES Routine 11/16/2021 12:00 AM EST from Last 3 Months or Most Recently Relevant to Health Maintenance [facility]
--- OUTSIDE RECORDS SUMMARY | 2025-07-30 07:31 | XMS_ITS | Encounter Summary ---
Author Organization [employer] Address [address] [place] [address] Care Team Providers Care Forensic Manager Name Role Phone Mila Rojas MD Primary Care Prov ider Encounter Details Date Type Department Care Team (Late st Contact Info) Description 01/08/2025 Lab Requisition [facility] - Main Lab [address] [facility] [place] [phone] Alex Starks MD [address] [facility] [address] [place] [phone] Elevated prostate specific antigen (PSA) Social History Tobacco Use Types Packs/Day Years [...] AM EST Office Visit Orthopedic Surgery - [place] [address] [facility] [address] [place] [address] Riley Jose, DPM [address] [place] [phone] 11/10/2025 9:45 AM EST Office Visit Adult [address] [phone] Mila Rojas MD [address] [place] [address] documented as of this encounter Procedures Procedure Name Priority Date/Time Associated Diagnosis Comments PROSTATE SPECIFIC ANTIGEN DIAGNOSTIC Routine 01/08/2025 10:28 AM EDT Elevated prostate specific antigen (PSA) documented in this encounter Results * Prostate specific antigen diagnostic (01/08/2025 10:28 AM EDT) PSA 2.61 0.00 - 4.00 ng/mL LAB CHEMISTRY METHOD 01/08/2025 2:51 PM EDT [facility] Blood Venous blood specimen / Unknown 01/08/2025 10:28 AM EDT 01/08/2025 1:48 PM EDT Narrative [facility] - 01/08/2025 2:51 PM EDT The Siemens Advia Centaur Chemiluminescent Immunoassay is used. Results obtained with different assay methods or kits cannot be used interchangeably. Results cannot be interpreted as absolute evidence of the presence or absence of malignant disease. us Alex Starks MD LAB BLOOD ORDERABLES Final Resul t [facility] [address] [place] [address], documented in this encounter Visit Diagnoses Diagnosis Elevated prostate specific antigen (PSA) documented in this encounter Care Teams Forensic Manager Relationship Specialty Start Date End Date Mila Rojas MD [address] [place] [address] PCP - General Internal Medicine 07/12/22 Dr. Jeri Martinez [address] [place] [address] [place] [address] Referring Physician Ophthalmology 08/08/24 documented as of this encounter
--- OUTSIDE RECORDS SUMMARY | 2025-07-30 07:31 | XMS_ITS | Encounter Summary ---
Author Organization [facility] Address [address] [facility] [address] [place] [address] Care Team Providers Care Child Advocate Name Role Phone Unavailable Primary Care Provider Unavailabl e Encounter Details Date Type Department Care Team (Latest Contact Info) Description 10/13/2020 Abstract [facility] CONVERSIONS Dental, Provider, DDS Social History Tobacco Use Types Packs/Day Years Used Date Smoking Tobacco: Never Assessed Sex and Gender Information Value Date Recorded Sex Assigned at Male 08/01/2022 10:14 AM EDT Legal Sex Male 10:14 AM EDT Gender Identity Male 08/01/2022 10:14 AM EDT Sexual Orientation Straight 08/01/2022 10 :14 AM EDT documented as of this encounter Plan of Treatment Not on file documented as of this encounter Visit Diagnoses Not on filedocumented in this encounter
--- OUTSIDE RECORDS SUMMARY | 2025-07-30 07:31 | XMS_ITS | Encounter Summary ---
Author Organization [facility] Address [address] [place] [address] Care Team Providers Care Provider Relations Rep Name Role Phone Mila Rojas MD Primary Care Prov ider Reason for Visit * Reason Onset Date Comments faxed order [facility] Encounter Details Date Type Department Care Team (Late st Contact Info) Description 07/28/2025 Telephone Adult Medicine [address] [phone] Mila Rojas MD [address] [place] [address] Social History Tobacco Use Types Packs/Day Years [...] care for your loved ones. For example, director of child welfare services or elderly care for an older adult? [...] on file documented as of this encounter Progress Notes * Laverne Owen MA - 07/29/2025 10:[address] on provider desk for signature * Wilder Chanel - 07/28/2025 9:38 AM EDT [facility] order dated 07/22/25 received please sign and fax to [phone] documented in this encounter Plan of Treatment Upcoming Encounters Date Type Department Care Team (Late st Contact Info) Description 09/08/2025 9:15 AM EST Office Visit Orthopedic Surgery - [place] [address] [place] [phone] Riley Jose, DPEvelin [address] [place] [phone] 11/10/2025 9:45 AM EST Office Visit Adult Medicine [address] [phone] Mila Rojas MD [address] [place] [address] documented as of this encounter Visit Diagnoses Not on filedocumented in this encounter Additional Health Concerns Assessment Noted Time PHQ-9 Depression Total Score: 1 07/07/20 9:23 AM EDT A fall risk assessment has been complete d for the patient 07/07/2025 9:17 AM EDT documented as of this encounter Care Teams Provider Relations Rep Relationship Specialty Start Date End Date Mila Rojas MD [address] [place] [address] PCP - General Internal Medicine 07/12/22 Dr. Jeri Martinez [address] [place] [id number] Referring Physician Ophthalmology 08/08/24 documented as of this encounter
--- OUTSIDE RECORDS SUMMARY | 2025-07-30 07:31 | XMS_ITS | Encounter Summary ---
Author Organization [email or web address] [facility] Address [address] [facility] 7[address] [place] [address] Care Team Providers Care Silk Screen Painter Name Role Phone Unavailable Primary Care Provider Unavailabl e Encounter Details Date Type Department Care Team (Latest Contact Info) Description 11/16/2021 Abstract [facility] CONVERSIONS Dental, Provider, DDS Social History Tobacco [...]
--- NOTE | 2025-07-30 07:32 | CA_ITS ---
Transthoracic Echocardiogram Patient (Last, First, Middle): Romaine Alonso, Gender: M Date of : 1950 Age: 74 Procedure Date: 07/30/2025 Procedure Type: Transthoracic Echocardiogram Location: OP Height: 167.64 cm Weight: 61.24 kg BSA: 1.69 m2 Heart Rate: bpm BP: 124 / 68 mmHg Golf Ball Marker: TO Referring MD: Azalia Bruce [employer] Symptoms: I77.810 - Thoracic aortic ectasia Study Quality: Fair/Contrast ECG Rhythm: Sinus Conclusions: - The left ventricular systolic function is normal. The calculated ejection fraction is 58% by biplane method. - No obvious valvular pathology seen on this study. - There is mild dilatation of the ascending aorta measuring 4.10 cm. Findings Procedure Information Contrast agent, definity, is being given per protocol without apparent complications. Left Ventricle Normal left ventricular cavity size. There is normal left ventricular wall thickness. The left ventricular systolic function is normal. The calculated ejection fraction is 58% by biplane method. There is no evidence of regional wall motion abnormalities. Diastolic function is normal for age. Right Ventricle Normal right ventricular cavity size and systolic function. Atria Both atria are normal in size. Aortic Valve There is a normal trileaflet aortic valve. There is mild calcification of the aortic valve. There is no aortic valve stenosis. There is trace (trivial) aortic valve regurgitation. Mitral Valve The mitral valve appears normal. There is trace mitral valve regurgitation. There is no mitral valve stenosis. Pulmonic Valve The pulmonic valve is likely normal. Tricuspid Valve Normal tricuspid valve structure. There is trace tricuspid valve regurgitation. There is no evidence of pulmonary hypertension. Great Vessels There is mild dilatation of the ascending aorta measuring 4.10 cm. Venous The inferior vena cava was not well visualized. Pericardium/Pleural There is no evidence of pericardial effusion. Prior Study Comparison No significant change compared to prior study dated: 02/20/2024. Recommendations, Care & Conclusions No obvious valvular pathology seen on this study. Measurements 2D Linear Measurements IVSd: 0.84 0.6-0.9/0.6-1.0 cm LVIDd: 5.13 3.9-5.3/4.2-5.9 cm LVIDd Index: 3.04 2.4-3.2/2.2-3.1 cm/m2 LVIDs: 3.35 2.0-3.6 cm LVPWd: 0.89 0.7-1.1 cm LA Diam: 3.70 2.7-3.8/3.0-4.0 cm LAIDs Index: 2.19 1.5-2.3 cm/m2 LV Mass: 194.90 67-162/88-224 g LV Mass Index: 115.32 43-95/49-115 g/m2 LVOT Diam: 2.30 3.0+(-)1.3 cm 2D Systolic Function EF 4C: 57.60 >55% EF 2C: 56.00 >55% EF BiP: 57.70 >55% Mitral Valve MV Pk E: 0.44 MV PK A: 0.59 MV Decel Time: 268.00 E/A: 0.80 E'Lateral: 6.96 E'Medial: 3.98 E/E' Med: 11.10 E/E' Lat: 6.30 PHT: 79.00 MVA PHT: 2.78 Decel Lassen: 1.64 Aortic Valve AoV Pk Kevin: 0.89 AoV Mn Kevin: 0.60 AoV VTI: 0.18 AoV Pk Grad: 3.00 Aov Mn Grad: 2.00 NEMESIO Cont.VTI: 3.52 LVOT LVOT Pk Kevin: 0.65 LVOT Mn Kevin: 0.44 LVOT VTI: 0.15 LVOT Pk Grad: 2.00 LVOT Mn Grad: 1.00 LVOT Diam: 2.30 LVOT Area: 4.15 Diastolic Function MV Pk E: 0.44 MV Pk A: 0.59 E/A: 0.80 E'Medial: 3.98 E/E' Med: 11.10 E' Laterial: 6.96 E/E' Lat: 6.30 Right Ventricle TAPSE (mm): 24.30 TVS' Kevin: 12.50 Tricuspid Valve TR Pk Kevin: 2.03 TR Pk Grad: 16.00 Great Vessels Aorta Sinus of Valsalva: 4.01 2.0-3.[address] Ridge: 3.24 1.7-3.4 cm Ao Asc: 4.10 2.1-3.4 cm Ao Arch: 3.40 Updated in Other Vendor System with Status of Final Esvin Unger MD electronically signed on 08/01/2025 11:44:14 AM with status of Final
--- OUTSIDE RECORDS SUMMARY | 2025-07-30 07:32 | XMS_ITS | Clinical Summary ---
Author Organization [facility] [address] [facility] Address [address] [place] [address] Phone Care Team Providers Care Agricultural Research Technologist Name Role Phone Mila Rojas MD Primary Care Prov ider Allergies Active Allergy Reactions Criticality Noted Date Comments Shellfish Derived 05/09/2023 Shrimp 06/24/2009 Medications citalopram (CeleXA) 40 mg tablet Take 1 [...] time each day. 03/17/20 23 Active lisinopriL (PRINIVIL,ZESTR IL) 20 mg tablet Take 1 tablet (20 mg total) by mouth 1 (one) time each day. 09/18/20 23 Active risperiDONE (RisperDAL) 0.5 mg tablet Take 1 tablet (0.5 mg total) by mouth 2 (two) times a day. 05/21/20 22 Active tamsulosin (FLOMAX) 0.4 mg 24 hr capsule Take 2 capsules (0.8 mg total) by mouth 1 (one) time each day. 07/20/20 23 Active tobramycin-dexA METHasone (TOBRADEX) ophthalmic suspension 1 drop. 11/29/19 23 Active traZODone (DESYREL) 50 mg tablet Take 1 tablet (50 mg total) by mouth at bedtime. 01/07/20 22 Active busPIRone (BUSPAR) 5 mg tablet Take 1 tablet (5 mg total) by mouth. Active traMADoL (ULTRAM) 50 mg tablet 09/02/20 24 Active aspirin 81 mg EC tablet Take 1 tablet (81 mg total) by mouth 1 (one) time each day. 90 tablet 1 01/25/20 25 Active famotidine (Pepcid) 40 mg tabletIndicatio ns:Chest pain, unspecified type Take 1 tablet (40 mg total) by mouth 2 (two) times a day. 180 each 3 04/16/20 25 026 Active capsaicin (ZOSTRIX) 0.075 % creamIndication s:arthritic pain Apply thin layer to area of discomfort TID in thin layer for 2 weeks. Wash hands after use, avoid contact with eyes. 42.5 g 3 04/16/20 25 Active gabapentin (NEURONTIN) 300 mg capsuleIndicati ons:DM type 2 with diabetic peripheral neuropathy (CMS/HCC V24, CMS/HCC V28) Take one tablet in the morning and 2 tablets at night. 90 each 3 04/16/20 25 Active metFORMIN XR (GLUCOPHAGE-XR) 500 mg 24 hr tablet TAKE 2 TABLETS BY MOUTH EVERY DAY WITH BREAKFAST AND TAKE 1 TABLET WITH DINNER 270 tablet 1 04/22/20 25 Active cyanocobalamin (VITAMIN B-12) 500 mcg tabletIndicatio ns:DM type 2 with diabetic peripheral neuropathy (CMS/HCC V24, CMS/HCC V28) TAKE ONE TABLET BY MOUTH MONDAY TO MONDAY 90 tablet 1 07/02/20 25 Active rosuvastatin (CRESTOR) 40 mg tablet TOME 1 TABLETA POR VIA ORAL [place] 90 tablet 1 07/01/20 25 Active docusate sodium (COLACE) 100 mg capsule TOME 1 CAPSULA POR VIA ORAL [place] 90 capsule 1 07/01/20 25 Active sodium chloride (OCEAN) 0.65 % nasal spray Administer 1 spray into each nostril if needed for congestion. 15 mL 1 07/07/20 Active senna 8.6 mg tablet TOME 1 TABLETA POR VIA ORAL TOD[place] 90 tablet 07/24/20 Active blood-glucose meter kit Use daily or as directed for monitoring of diabetes E11.9 1 each 07/29/20 Active freestyle 28 gauge lancets Check blood sugar once daily E11.9 100 each 2 07/29/20 Active FreeStyle Test test strip Check sugars once daily E11.9 100 each 5 07/29/20 Active lancets lancets 1 each by Other route if needed. 08/15/20 025 Discontinued rosuvastatin (CRESTOR) 40 mg tablet TOME 1 TABLETA POR VIA ORAL [place] 90 tablet 1 01/04/20 25 025 Discontinued docusate sodium (COLACE) 100 mg capsule TOME 1 CAPSULA POR VIA ORAL [place] 90 capsule 1 01/04/20 25 025 Discontinued OneTouch Ultra Test test strip Check blood glucose every day 100 strip 1 04/19/20 25 025 Discontinued cyanocobalamin (VITAMIN B-12) 500 mcg tabletIndicatio ns:DM type 2 with diabetic peripheral neuropathy ([facility] V24, [facility] V28) One tablet Monday to Monday 90 tablet 1 04/16/20 25 025 Discontinued senna 8.6 mg tablet Take 1 tablet (8.6 mg total) by mouth 1 (one) time each day. 90 tablet 04/21/20 25 025 Discontinued Active Problems Problem Noted Date Diagnosed Date Overweight (BMI 25.0-29.9) 01/07/2025 Other spondylosis, cervical region 11/28/2024 Type 2 diabetes, controlled, with neuropathy (CMS/[facility] V24, [facility] V28) 09/11/2024 Assessment & Plan (07/07/2025 10:45 AM EDT): Currently on Gabapentin 300mg AM and 600 PM with good control of symptoms. Continue same regimen. Orders: Comprehensive metabolic panel; Future Hemoglobin A1c; Future Lipid panel with reflex to direct LDL; Future Microalbumin creatinine urine ratio; Future Other spondylosis, cervical region 09/11/2024 Bilateral shoulder region arthritis 04/15/2021 Chronic low back pain 04/15/2021 Cervical spondylosis 03/21/2018 Fatty liver 04/21/2017 Osteoarthritis of spine with radiculopathy, cerv ical region 12/15/2016 DM (diabetes mellitus), type 2 with peripheral vascular complications ([facility] V24, [facility] V28) 03/06/2015 Assessment & Plan (07/07/2025 10:45 AM EDT): Good control of diabetes. Patient will continue with yearly Podiatric and Ophthomologic evaluations. Will continue Angiotensin Converting Enzyme Inhibitor for renal protection. Continue metformin 1500 mg a day. Patient will follow up in 4 months. We will recheck A1c before next visit. Assessment & Plan (04/19/2025 4:22 PM EDT): Good control of diabetes. Patient will continue with yearly Podiatric and Ophthomologic evaluations. Will continue Angiotensin Converting Enzyme Inhibitor for renal protection. Continue metformin 1500 mg a day. Patient will follow up in 3 months. We will recheck A1c before next visit. Anxiety 01/28/2015 Dysphagia 07/29/2013 Overview (11/20/2023): EGD March 2012 revealed small superficial esophageal / gastric erosion. Barium swallow April 2013 revealed cervical spondylosis with mild compression of posterior esophagus. GERD (gastroesophageal reflux disease) 2 HTN (hypertension) 08/05/2011 Assessment & Plan (07/07/2025 10:45 AM EDT): The patient's antihypertensive regimen is based on their underlying medical issues. At the time of this visit, the blood pressure is well controlled. Will continue lisinopril 20 mg a day. The patient is instructed to follow a low sodium diet and to follow up in 4 months. Orders: Comprehensive metabolic panel; Future Hemoglobin A1c; Future Lipid panel with reflex to direct LDL; Future Assessment & Plan (04/19/2025 4:22 PM EDT): The patient's antihypertensive regimen is based on their underlying medical issues. At the time of this visit, the blood pressure elevated, patient did not take his medication today. Will continue lisinopril 20 mg a day. Instructed to check his BP at home. The patient is instructed to follow a low sodium diet and to follow up in 3 months. Prostatism 06/29/2011 Overview (11/20/2023): PSA and biopsy of the prostate was benign. Two sites with precancerous tissue and repeat biopsy was recommended in 05/[address] Loja. TURP done 2014. No malignancy. Cognitive impairment 06/24/2009 Depression 06/24/2009 DJD (degenerative joint disease), lumbosacral High cholesterol 06/24/2009 Assessment & Plan (07/07/2025 10:45 AM EDT): Currently on Rosuvastatin 40mg. Last LDL 70, on target. Will continue same regimen. Assessment & Plan (04/19/2025 4:22 PM EDT): Currently on Rosuvastatin 40mg. Last LDL 70, on target. Will continue same regimen. Encounters Date Type Department Care Team Description 07/29/2025 7:30 AM EDT Office Visit Endocrinology [address] [phone] Hawa Ceballos PA DM (diabetes mellitus), type 2 with peripheral vascular complications (CMS/HCC V24, CMS/HCC V28) (Primary Dx); High cholesterol; Primary hypertension; Weight loss 07/29/2025 Results Follow-Up Adult Medicine [address] [phone] Annmarie byers, Mila Oswald MD 07/28/2025 Telephone Adult Medicine [address] [phone] Mila Cruz MD 07/07/2025 9:00 AM EDT Office Visit Adult Medicine [address] [phone] Mila Cruz MD Encounter for annual general medical examination with abnormal findings in adult (Primary Dx); DM (diabetes mellitus), type 2 with peripheral vascular complications (CMS/HCC V24, CMS/HCC V28); Type 2 diabetes, controlled, with neuropathy (CMS/HCC V24, CMS/HCC V28); Primary hypertension; High cholesterol; Advance care planning 06/20/2025 Telephone Adult Medicine [address] [phone] YudithJoseph, MIDLEVEL PROVIDER 06/20/2025 Telephone Adult Medicine [address] [phone] YudithAndrewis, MIDLEVEL PROVIDER 06/13/2025 Telephone Adult Medicine [address] [phone] Mila Cruz MD 06/13/2025 Telephone Adult Medicine [address] [phone] Mila Cruz MD 06/13/2025 Telephone Adult Medicine [address] [phone] Mila Cruz MD from Last 3 Months Immunizations Immunization Administration Dates Next Due H1N1 Inj Preservative [...] COLONOSCOPY 04/22/10 PROCEDURE: HISTORICAL COLONOSCOPY; COMMENT: at [facility] COLONOSCOPY 02/01/17 PROCEDURE: HISTORICAL COLONOSCOPY; COMMENT: diverticulosis, internal hemorrhoids, hyperplastic mucosa with edema and acute and chronic inflammation EXCISION BENIGN SKIN LESION TRUNK / ARM / LEG PROCEDURE: RI EXCISION TUMOR SOFT TISSUE BACK/FLANK SUBQ <3CM HERNIA REPAIR PROCEDURE: HISTORICAL HERNIA REPAIR/UMB TURP / TRANSURETHRAL INCISIO N / DRAINAGE PROSTATE 2014 PROCEDURE: HISTORICAL TURP ESOPHAGOGASTRODUODENOSCOPY 03/05/12 PROCEDURE: RI EGD TRANSORAL BIOPSY SINGLE/MULTIPLE; COMMENT: erosive gastritis - biopsy consistent with gastritis, negative H. pylori. ESOPHAGOGASTRODUODENOSCOPY 04/05/20 PROCEDURE: RI ESOPHAGOGASTRODUODENOSCOPY TRANSORAL DIAGNOSTIC; COMMENT: lineal erosive distal [...] care for your loved ones. For example, children's service worker or elderly care for an older adult? [...] Pulse 58 07/29/2025 7:38 AM EDT Temperature 36.3 C (97.4 F) 07/07/2025 8:56 AM EDT Respiratory Rate 16 07/29/2025 7:38 AM EDT Oxygen Saturation 97% 07/07/2025 8:56 AM EDT Inhaled Oxygen Concentration - - Weight 60.8 kg (134 lb) 07/29/2025 7:38 AM EDT Height 167.6 cm (5' 6 ) 07/29/2025 7:38 AM EDT Body Mass Index 21.63 07/29/2025 7:38 AM EDT Plan of Treatment Upcoming Encounters Date Type Department Care Team (Late st Contact Info) Description 09/08/2025 9:15 AM EST Office Visit Orthopedic Surgery - [place] [address] [phone] Riley Jose, DPM [address] [place] [phone] 11/10/2025 9:45 AM EST Office Visit Adult Medicine [facility] [address] [place] [phone] Mila Rojas MD [address] [place] [phone] Health Maintenance Due Date Last Done Comments Zoster Vaccines (2 of 3) 07/30/2014 06/04/2014 RSV Immunization Adult Patients (1 - 1-dose 75+ series) 2023 Diabetes: Blood Sugar Control Test (HGBA1C) 07/05/2025 07/29/2025, 01/03/2025, 10/16/2024, Additional history exists Diabetes: Annual Retina Eye Exam 01/02/2026 01/02/2025, 01/02/2025, 06/10/2024 Diabetes: Annual Urine Albumin-Creatinine Ratio (uACR) 01/03/2026 01/03/2025, 01/15/2024 Diabetes: Annual GFR (Glomerular Filtration Rate) 02/14/2026 02/14/2025, 10/16/2024, 07/01/2024 Hypertension/CHF/CAD Annual BMP Blood Test 02/14/2026 02/14/2025, 10/16/2024, 07/01/2024 Falls Risk Assessment 07/07/2026 07/07/2025 , 07/07/2025, 07/05/2024 Medicare Annual Wellness Visit 07/07/2026 07/07/2025, 07/05/2024 Social Influencers of Health Screening 07/07/2026 07/07/2025, 07/05/2024 Diabetes: Annual Foot Exam 07/29/2026 07/29/2025, Cholesterol Screening (Lipid Panel) 07/29/2030 07/29/2025, 01/03/2025, 01/15/2024 DTaP,Tdap,and Td Vaccines (4 - Td or Tdap) 11/02/2031 11/02/2021, 11/02/2021, 10/08/2010 Hepatitis C Screening Addressed 05/03/2010 Overri dden with the intention of not completing the topic Pneumococcal Vaccine: 50+ Years Completed 06/07/2016, 07/23/2014, 06/04/2014 Abdominal Aortic Aneurysm (AAA) Screen Discontinued 05/09/2017 COVID-19 Vaccine Discontinued 01/26/2022, 10/2020, 08/02/2021, Additional history exists Influenza Vaccine Completed 06/02/2025, , 06/13/2023, Additional history exists Depression Screening Completed 07/07/2025 HIB Vaccines Aged Out No longer eligi [...] Procedure Name Priority Date/Time Associated Diagnosis Comments HEMOGLOBIN A1C Routine 07/29/2025 8:29 AM EDT DM (diabetes mellitus), type 2 with peripheral vascular complications ([facility] V24, [facility] V28) LIPID PANEL WITH REFLEX TO DIRECT LDL Routine 07/29/2025 8:29 AM EDT High cholesterol COMPREHENSIVE METABOLIC PANEL Routine 02/14/2025 10:45 AM EDT Paresthesia of both feet Restless legs MICROALBUMIN CREATININE URINE RATIO Routine 01/03/2025 9:47 AM EDT Type 2 diabetes, controlled, with neuropathy ([facility] V24, [facility] V28) EXTERNAL DIABETIC RETINA EYE EXAM 01/02/2025 from Last 3 Months or Most Recently Relevant to Health Maintenance Results * (ABNORMAL) Lipid panel with reflex [...] 8:29 AM EDT 07/29/2025 8:29 AM EDT Hawa JONES LAB BLOOD ORDERABLES Final Resul t Performing Organization Address [facility]/ZIP Co de Phone Number [facility] [address] [place] [address], [place] [phone] * (ABNORMAL) Hemoglobin A1c (07/29/2025 8:29 AM EDT) Hemoglobin A1C 7.1(H) <6.5 % LAB CHEMISTRY METHOD 07/29/2025 11:06 AM EDT [facility] Mean Bld Glu Estim. 157 mg/dL LAB CHEMISTRY METHOD 07/29/2025 11:06 AM EDT [facility] Blood Venous blood specimen / Unknown Venipuncture / Unknown 07/29/2025 8:29 AM EDT 07/29/2025 8:29 AM EDT us Hawa JONES LAB BLOOD ORDERABLES Final Resul t Performing Organization Address City/[facility]/ZIP Co de Phone Number [facility] [address] [place] [address], [place] [phone] * Comprehensive metabolic panel (02/14/2025 10:45 AM EDT) Sodium 140 133 - 145 mmol/L LAB CHEMISTRY METHOD 02/14/2025 1:28 PM EDT [facility] Potassium 4.0 3.5 - 5.5 mmol/L LAB CHEMISTRY METHOD 02/14/2025 1:28 PM EDT [facility] Chloride 105 96 - 110 mmol/L LAB CHEMISTRY METHOD 02/14/2025 1:28 PM EDT [facility] CO2 26 21 - 32 mmol/L LAB CHEMISTRY METHOD 02/14/2025 1:28 PM EDT [facility] Anion Gap 9 3 - 11 LAB CHEMISTRY METHOD 02/14/2025 1:28 PM [facility] Glucose 98 70 - 100 mg/dL LAB CHEMISTRY METHOD 02/14/2025 1:28 PM [facility] BUN 16 5 - 25 mg/dL LAB CHEMISTRY METHOD 02/14/2025 1:28 PM [facility] Creatinine 0.82 0.70 - 1.30 mg/dL LAB CHEMISTRY METHOD 02/14/2025 1:28 PM [facility] eGFR 91 >=60 mL/min/1. 73m2 LAB CHEMISTRY METHOD 02/14/2025 1:28 PM [facility] Comment:Calculation based on the Chronic Kidney Disease Epidemiology Collaboration (CKD-EPI) equation refit without adjustment for race. BUN/Creatinine Ratio 19.5 LAB CHEMISTRY METHOD 02/14/2025 1:28 PM [facility] Calcium 9.4 8.5 - 10.5 mg/dL LAB CHEMISTRY METHOD 02/14/2025 1:28 PM [facility] AST (SGOT) 15 10 - 42 unit/L LAB CHEMISTRY METHOD 02/14/2025 1:28 PM [facility] ALT (SGPT) 19 10 - 60 unit/L LAB CHEMISTRY METHOD 02/14/2025 1:28 PM [facility] Alkaline Phosphatase 82 42 - 121 unit/L LAB CHEMISTRY METHOD 02/14/2025 1:28 PM [facility] Total Protein 6.9 6.0 - 8.0 g/dL LAB CHEMISTRY METHOD 02/14/2025 1:28 PM [facility] Albumin 3.8 3.2 - 5.0 g/dL LAB CHEMISTRY METHOD 02/14/2025 1:28 PM [facility] Total Bilirubin 1.1 0.0 - 1.4 mg/dL LAB CHEMISTRY METHOD 02/14/2025 1:28 PM [facility] Blood Venous blood specimen / Unknown Venipuncture / Unknown 02/14/2025 10:45 AM EDT 02/14/2025 10:45 AM EDT us Alma JONES LAB BLOOD ORDERABLES Final Resu lt Performing Organization Address [facility]/ZIP Co de Phone Number [facility] [address] [place] [address], * Microalbumin creatinine urine ratio (01/03/2025 9:47 AM EDT) Creatinine, Urine 76.0 mg/dL LAB CHEMISTRY METHOD 01/03/2025 2:29 PM EDT [facility] Microalb, Ur 8.7 0.0 - 29.0 mg/L LAB CHEMISTRY METHOD 01/03/2025 2:29 PM EDT [facility] Microalb/Creat Ratio 11 <30 mg/g creat LAB CHEMISTRY METHOD 01/03/2025 2:29 PM EDT [facility] Urine Urine specimen obtained by clean catch procedure / Unknown Non-blood Collection / Unknown 01/03/2025 9:47 AM EDT 01/03/2025 9:47 AM EDT us Hawa JONES LAB URINE ORDERABLES Final Resul t Performing Organization Address [facility]/ZIP Co de Phone Number [facility] [address] [place] [address], [place] [phone] * External Diabetic Retina Eye Exam Report (01/02/2025) Anatomical Region Laterality Modality Ultrasound us Provider [facility] US PROCEDURES Final Result from Last 3 Months or Most Recently Relevant to Health Maintenance Insurance [employer] Member Subscriber Plan / Payer (Ef fective 2024-Present) Name:Romaine Garcia Relation to Subscriber:Self Name:Romaine Alonso Payer ID:[id number] Group ID:[id number] Type:Not on file Address: [place] [address] [address] [id number] Care Teams Agricultural Research Technologist Relationship Specialty Start Date End Date Mila Rojas MD [address] [place] [phone] PCP - General Internal Medicine 07/12/22 Dr. Jeri Martinez [address] [place] [phone] Referring Physician Ophthalmology 08/08/24
== END ==
LOC: HO.CARD 07:29
PROVIDERS: PCP Internal Medicine; Visit Provider Nurse Practitioner Family
DX: I77.810 Thoracic aortic ectasia (principal)
CPT/HCPCS: 93306; Q9957

== ENCOUNTER → 2025-07-30 07:32 | Outpatient (BNV) | payer OTHER, SELFPAY | PROVIDERS: PCP Internal Medicine; Visit Provider Internal Medicine | DX: I77.810 Thoracic aortic ectasia (principal) | CPT/HCPCS: 93306 ==

== ENCOUNTER → 2025-09-11 11:07 | Outpatient (REF) | payer OTHER, SELFPAY | LOC: HO.SL 11:07 | PROVIDERS: PCP Internal Medicine; Visit Provider Nurse Practitioner Family | DX: R06.83 Snoring (principal); R40.0 Somnolence; G47.10 Hypersomnia, unspecified | CPT/HCPCS: 95806 ==

== ENCOUNTER → 2025-09-11 11:29 | Outpatient (BNV) | payer OTHER, SELFPAY | PROVIDERS: PCP Internal Medicine; Visit Provider Internal Medicine | DX: R06.83 Snoring (principal) | CPT/HCPCS: 95806 ==

== ENCOUNTER 2025-09-18 05:32 | Emergency (ER) | payer OTHER, SELFPAY ==
[2025-09-18 05:36] VITALS: BP 134/61; BP 138/80; PULSE 60; PULSE 80; RESP 16; TEMP 36.6; O2SAT 98; BMI 27.3
--- NOTE | 2025-09-18 05:47 | PC.NURSE ---
pt biba from home, a&ox4, respirations even and unlabored. pt reports x1 week of right groin pain and the feeling of a lump. pt reports x1 week ago he had been lifting heavy groceries into his house. interpreter for the deaf at bedside with MD Limon.
--- NOTE | 2025-09-18 05:51 | ED.ABDPAIN ---
HPI - Abdominal Pain General Chief Complaint: Urogenital-Male Stated Complaint: HERNIA Time Seen by Provider: 09/18/25 05:34 Source: patient Mode of arrival: ambulatory Limitations: no limitations History of Present Illness ED Provider: Dr. Angelo Limon HPI narrative: 74-year-old male with a history diabetes mellitus, hypertension, hyperlipidemia, anxiety who presents emergency department for evaluation of right groin pain/mass. Patient states that proximally 1 week ago he was lifting up a heavy box of al when he felt a pulling sensation in his right groin. He then developed a mass in his right groin which has been painful to touch. He states that the mass seems to get smaller incised when he lies down flat but increases when he stands up. States the pain has been intermittent in his 10 at its worst. The patient states that he is constipated in his last bowel movement was 3 days prior. He has been passing gas. He feels slightly bloated. He denied nausea or vomiting. He denied fever or chills. He has had no frequency, urgency or dysuria. Related Data Home Medications ?Medication ?Instructions ?Recorded ?Confirmed aspirin 81 mg tablet,delayed 81 mg PO DAILY 08/13/20 06/23/25 release cetirizine 10 mg tablet 10 mg PO DAILY 08/13/20 06/23/25 cyanocobalamin (vitamin B-12) 500 500 mcg PO DAILY 08/13/20 06/23/25 mcg tablet docusate sodium 100 mg capsule 100 mg PO DAILY 08/13/20 06/23/25 donepezil 10 mg tablet 10 mg PO BEDTIME 08/13/20 06/23/25 epinephrine 0.3 mg/0.3 mL 0.3 mg IM DAILY PRN allergies 08/13/20 06/23/25 injection, auto-injector finasteride 5 mg tablet 5 mg PO DAILY 08/13/20 06/23/25 metformin 500 mg tablet,extended 500 mg PO BID 08/13/20 06/23/25 release 24 hr omeprazole 20 mg capsule,delayed 20 mg PO DAILY@0630 08/13/20 06/23/25 release risperidone 0.5 mg tablet 0.5 mg PO BID 08/13/20 06/23/25 rosuvastatin 40 mg tablet 40 mg PO DAILY 08/13/20 06/23/25 sennosides 8.6 mg tablet 8.6 mg PO DAILY 08/13/20 06/23/25 tamsulosin 0.4 mg capsule 0.8 mg PO DAILY 08/13/20 06/23/25 acetaminophen 325 mg tablet 325 mg PO QID PRN pain 05/27/22 06/23/25 (Tylenol) trazodone 50 mg tablet 1 tab PO BEDTIME PRN Sleep 05/27/22 06/23/25 citalopram 20 mg tablet 20 mg PO BEDTIME 11/02/22 06/23/25 linaclotide 72 mcg capsule 72 mcg PO DAILY 07/17/23 06/23/25 (Linzess) buspirone 7.5 mg tablet mg PO DAILY 06/13/24 06/23/25 gabapentin 300 mg capsule 300 mg PO TID 08/25/25 sodium chloride 0.65 % nasal spray 1 spray intranasal congestion 08/25/25 aerosol (Saline Nasal) Previous Rx's ?Medication ?Instructions ?Recorded meclizine 25 mg tablet 25 mg PO TID PRN motion sickness 08/10/21 #20 tabs cyclobenzaprine 5 mg tablet 5 mg PO TID PRN muscle spasm 7 09/13/23 days #21 tabs lisinopril 20 mg tablet 20 mg PO DAILY #60 tabs 04/10/25 Hernia girdle #1 ea 09/18/25 Allergies Allergy/AdvReac Type Severity Reaction Status Date / Time shellfish derived Allergy Unknown Hives/Short Verified 09/18/25 05:40 of breath Review of Systems Review of Systems Yes all other systems are reviewed and are negative [facility] Past Medical History [facility] Narrative: Social history: He denies tobacco, alcohol and drug use. He states he lives alone but he does have family in the area. He does have a [employer] that comes in 3 hours a day. Medical History Chest discomfort Shortness of breath Cerebral microvascular disease Confusion and disorientation Depression Dementia BPH (benign prostatic hyperplasia) Transient cerebral ischemia Other and unspecified hyperlipidemia Essential hypertension Type 2 diabetes mellitus with unspecified complications Precordial chest pain Surgical History History of cardiac catheterization (~09/17/14) Family History Family History Father Diabetes Hyperlipidemia Mother Stroke Social History Social History Alcohol intake: former Patient Tobacco Use Status: Never used Tobacco Smoked in Last 30 Days: No Use of substances other than those prescribed or required for medical reasons: No Advance Directives: No Advance Directives Information Provided: Yes Do you have a plan to hurt others: No Plan service: No Current occupational status: retired Physical Exam ED Vital Signs: Vital Signs - 24 hr 09/18/25 05:36 09/18/25 06:02 Temperature 97.9 F Pulse Rate 60 Respiratory Rate 16 18 Blood Pressure 134/61 Pulse Oximetry 98 Oxygen Delivery Method Room Air BMI result Body Mass Index 27.3 Vital signs were normal Exam: General: Awake, alert in no distress Abdomen: soft, non-tender, nondistended, normal bowel sounds . The patient does have a tender right inguinal mass extending into the scrotum Back: no vertebral tenderness, no CVAT Psych: Pleasant, cooperative Medical Decision Making Medical Decision Making MDM Narrative: 74-year-old male with a history diabetes mellitus, hypertension, hyperlipidemia, anxiety who presents emergency department for evaluation of right painful inguinal groin mass x1 week. Patient's last bowel movement was 3 days prior, he is passing gas, he has had no other significant symptoms. Vital signs were normal. Physical examination is consistent with a indirect right inguinal. Differential diagnosis: ?Includes but is not limited to indirect inguinal hernia, incarcerated hernia, bowel obstructions Course: 07:11 My independent interpretation patient's laboratory evaluation is as follows: CBC was normal. Coags were normal. Glucose elevated 174. BUN and creatinine normal 14 and 0.85. LFTs were normal. Lipase was normal. The patient was given morphine 4 mg IV and Toradol 15 mg IV with improvement in his pain. Ice was applied to the patient's right inguinal groin area. The patient was placed in Trendelenburg and with gentle pressure I was able to reduce the hernia. The patient will be referred to our surgeon on-call for re-evaluation. The patient is advised to take Tylenol for pain. The patient was advised to get a groin verbal and to avoid any heavy lifting until he is re-evaluated by the surgeons. Differential Diagnosis Differential Diagnoses: The differential diagnosis associated with the presentation includes (See above) Admission/Observation Consideration of admission/observation: Escalation of care including admission/observation considered (Yes) Lab Data MDM Lab Attestation statement: I reviewed the patient's lab results. 09/18/25 05:57 09/18/25 05:57 Labs: Lab Results 09/18/25 Range/Units 05:57 WBC 7.0 (4.8-10.8) X10*3/uL RBC 4.79 (4.60-5.80) X10*6/uL Hgb 13.8 L (14.0-18.0) g/dl Hct 42.3 (42.0-52.0) % MCV 88.3 (80.0-98.0) fL MCH 28.8 (27.0-33.0) pg MCHC 32.6 (31.0-36.0) g/dl RDW 13.2 (11.0-16.0) % Plt Count 296 (160-400) X10*3/uL MPV 10.3 (9.4-12.4) fL Immature Gran % (Auto) 0.4 (0.0-0.4) % Neut % (Auto) 65.8 (45-73) % Lymph % (Auto) 22.0 (20-40) % Emanuel % (Auto) 9.1 (2-11) % Eos % (Auto) 1.7 (0-4) % Baso % (Auto) 1.0 (0-2) % Lymph # (Auto) 1.5 (1.2-4.9) X10*3/uL Emanuel # (Auto) 0.6 (0.1-1.2) X10*3/uL Eos # (Auto) 0.1 (0.0-0.4) X10*3/uL Baso # (Auto) 0.1 (0.0-0.2) X10*3/uL Abs Immat Gran (auto) 0.03 (0.00-0.03) X10*3/uL Absolute Neuts (auto) 4.6 (2.0-8.3) x10*3/uL Absolute Nucleated RBC 0.000 (0.0-0.012) X10*3/uL Nucleated RBC % (auto) 0.0 (0.0-0.2) /100WBC PT 11.6 (11.2-13.5) SEC INR 0.9 (0.9-1.1) APTT 30.3 (26.7-34.1) SEC Sodium 140 (135-145) mmol/L Potassium 3.9 (3.3-5.1) mmol/L Chloride 108 (96-108) mmol/L Carbon Dioxide 23 (22-29) mmol/L Anion Gap 13 (12-20) BUN 14 (9-16) mg/dL Creatinine 0.84 (0.5-1.4) mg/dL Estim Creat Clear Calc 72.9 Estimated GFR > 60 Random Glucose 147 H (60-115) mg/dL Calcium 9.3 (8.4-10.2) mg/dL Total Bilirubin 1.0 (0.0-1.0) mg/dL AST 30 (5-37) U/L ALT 11 (0-40) U/L Alkaline Phosphatase 75 (39-117) U/L Total Protein 7.0 (6.5-8.0) g/dL Albumin 4.5 (3.5-5.0) g/dL Lipase 23 (8-78) U/L Chronic Conditions Patient?s care impacted by: Diabetes and Hypertension Medications Administered Discontinued Medications Generic Name Dose Route Start Last Admin Trade Name Freq PRN Reason Stop Dose Admin Ketorolac Tromethamine 15 mg 09/18/25 05:52 09/18/25 06:02 Ketorolac Tromethamine 15 Mg/Ml Vial IVPUSH 09/18/25 05:53 15 mg ONCE STA Administration Morphine Sulfate 4 mg 09/18/25 05:52 09/18/25 06:02 Morphine Sulfate 4 Mg/Ml Cartridge IVPUSH 09/18/25 05:53 4 mg ONCE STA Administration Protocol Discharge Plan Discharge Clinical Impression: Indirect right inguinal hernia Patient Disposition: Home, Self-Care Instructions: Inguinal Hernia (ED) Additional Instructions: Your examination was consistent with an inguinal hernia on the right (a piece of intestine slipped down the inguinal canal and was in your right scrotum). I was able to reduce the hernia and push the piece of intestine back into your abdomen. It is very common for piece of bowel to slide down the inguinal canal again. You should avoid bending or heavy lifting until your re-evaluated by our surgeon You should wear a hernia girdle the pressure on the right side of your abdomen to help with prevent the hernia from returning. Take Tylenol (acetaminophen) 500 mg pills, 2 pills every 6 hours as needed for pain or fever. Apply ice for 15 minutes 4 to 6 times a day to the right inguinal hernia for the next 2-3 days to help reduce the pain. Follow-up with our surgeon on-call for re-evaluation. Call their office and they will schedule an appointment for you. Please return to the emergency department if your symptoms get worse or if you develop any symptoms that are concerning to you. Prescriptions: New (DME) Hernia girdle See Rx Instructions .ROUTE .MEDSUPPLY Qty: 1 0RF Rx Instructions: As directed No Action trazodone 50 mg tablet 1 tab PO BEDTIME PRN (Reason: Sleep) acetaminophen [Tylenol] 325 mg Tablet 325 mg PO QID PRN (Reason: pain) citalopram 20 mg tablet 20 mg PO BEDTIME meclizine 25 mg tablet 25 mg PO TID PRN (Reason: motion sickness) Qty: 20 0RF cyclobenzaprine 5 mg tablet 5 mg PO TID PRN (Reason: muscle spasm) 7 Days Qty: 21 0RF lisinopril 20 mg tablet 20 mg PO DAILY Qty: 60 0RF aspirin 81 mg tablet,delayed release (DR/EC) 81 mg PO DAILY sennosides 8.6 mg tablet 8.6 mg PO DAILY finasteride 5 mg tablet 5 mg PO DAILY cetirizine 10 mg tablet 10 mg PO DAILY rosuvastatin 40 mg tablet 40 mg PO DAILY docusate sodium 100 mg capsule 100 mg PO DAILY omeprazole 20 mg capsule,delayed release(DR/EC) 20 mg PO DAILY@0630 metformin 500 mg tablet extended release 24 hr 500 mg PO BID cyanocobalamin (vitamin B-12) 500 mcg tablet 500 mcg PO DAILY epinephrine 0.3 mg/0.3 mL auto-injector 0.3 mg IM DAILY PRN (Reason: allergies) tamsulosin 0.4 mg capsule 0.8 mg PO DAILY Rx Instructions: TAKE 30 MIN AFTER SAME MEAL EVERYDAY donepezil 10 mg tablet 10 mg PO BEDTIME risperidone 0.5 mg tablet 0.5 mg PO BID gabapentin 300 mg capsule 300 mg PO TID Saline Nasal 0.65 % aerosol,spray 1 spray intranasal Linzess 72 mcg capsule 72 mcg PO DAILY buspirone 7.5 mg tablet PO DAILY Referrals: Kimo Knox MD [Physician, General Surgery] Referral Note: Acute left indirect inguinal hernia x1 week after lifting heavy box of water, reduced in ED, needs follow up Clinical Impression: Indirect right inguinal hernia Print Language: Kenyan
[2025-09-18 06:02] VITALS: RESP 18
[2025-09-18 06:03] LABS: MANUAL DIFF FLAG NO
[2025-09-18 06:04] LABS: Hematocrit 42.3 % (42.0-52.0); Hemoglobin 13.8 g/dl (14.0-18.0); Imm Gran Abs Auto 0.03 X10*3/uL (0.00-0.03); Imm Gran Pct Auto 0.4 % (0.0-0.4); Lymphocytes Absolute Auto 1.5 X10*3/uL (1.2-4.9); Mean Corpuscular HGB Conc 32.6 g/dl (31.0-36.0); Mean Corpuscular Hemoglobin 28.8 pg (27.0-33.0); Mean Corpuscular Volume 88.3 fL (80.0-98.0); NRBC Abs Auto 0.000 X10*3/uL (0.0-0.012); NRBC Pct Auto 0.0 /100WBC (0.0-0.2); Platelet Count 296 X10*3/uL (160-400); Red Blood Count 4.79 X10*6/uL (4.60-5.80); White Blood Count 7.0 X10*3/uL (4.8-10.8)
--- NOTE | 2025-09-18 06:11 | PC.NURSE ---
18g placed in left forearm, labs obtained, and ice packs placed on groin per
[2025-09-18 06:26] LABS: INTERNATIONAL NORM RATIO 0.9 (0.9-1.1); Prothrombin Time 11.6 SEC (11.2-13.5)
[2025-09-18 06:27] LABS: Alanine Aminotransferase 11 U/L (0-40); Albumin Level 4.5 g/dL (3.5-5.0); Alkaline Phosphatase 75 U/L (39-117); Anion Gap 13 (12-20); Aspartate Amino Transferase 30 U/L (5-37); Blood Urea Nitrogen 14 mg/dL (9-16); Calcium 9.3 mg/dL (8.4-10.2); Carbon Dioxide 23 mmol/L (22-29); Chloride 108 mmol/L (96-108); Creatinine Clr Calc Pharmacy 72.9; Estimated Glomerular Filt Rate > 60; Lipase 23 U/L (8-78); Potassium 3.9 mmol/L (3.3-5.1); Sodium 140 mmol/L (135-145); Total Protein 7.0 g/dL (6.5-8.0)
[2025-09-18 06:30] LABS: Partial Thromboplastin Time 30.3 SEC (26.7-34.1)
--- OUTSIDE RECORDS SUMMARY | 2025-09-18 06:33 | XMS_ITS | Clinical Summary ---
Author Organization [facility] [address] [facility] Address [address] [place] [address] Phone Care Team Providers Care Gun Club Manager Name Role Phone Mila Rojas MD [...] (one) time each day. 03/17/20 23 Active risperiDONE (RisperDAL) 0.5 mg tablet [...] eyes. 42.5 g 3 04/16/20 25 Active metFORMIN XR (GLUCOPHAGE-XR) [...] needed for congestion. 15 mL 1 07/07/20 25 Active senna 8.6 mg tablet TOME 1 TABLETA POR VIA ORAL TODOS [place] 90 tablet 07/24/20 25 Active blood-glucose meter kit Use daily or as directed for monitoring of diabetes E11.9 1 each 07/29/20 25 Active freestyle 28 gauge lancets Check blood sugar once daily E11.9 100 each 2 07/29/20 25 Active FreeStyle Test test strip Check sugars once daily E11.9 100 each 5 07/29/20 25 Active lisinopriL (PRINIVIL,ZESTR IL) 20 mg tablet TOME 1 TABLETA POR VIA ORAL TODOS [place] 60 tablet 08/27/20 25 Active ammonium lactate (AmLactin) 12 % lotion Apply topically if needed for dry skin. 400 g 09/08/20 25 026 Active gabapentin (NEURONTIN) 300 mg capsuleIndicati ons:DM type 2 with diabetic peripheral neuropathy (CMS/HCC V24, CMS/HCC V28) TOME 1 CAPSULA POR VIA ORAL TODOS [place] EN LA MANANA Y TOME 2 CAPSULAS EN LA NOCHE 90 capsule 09/12/20 25 Active lisinopriL (PRINIVIL,ZESTR IL) 20 mg tablet Take 1 tablet (20 mg total) by mouth 1 (one) time each day. 09/18/20 23 025 Discontinued gabapentin (NEURONTIN) 300 mg capsuleIndicati ons:DM type 2 with diabetic peripheral neuropathy (CMS/HCC V24, CMS/HCC V28) TAKE ONE TABLET IN THE MORNING AND 2 TABLETS AT NIGHT. 90 capsule 08/11/20 25 025 Discontinued Active Problems Problem Noted Date Diagnosed Date Overweight (BMI 25.0-29.9) 01/07/2025 Other spondylosis, cervical region 11/28/2024 Type 2 diabetes, controlled, with neuropathy 08/2024 Assessment & Plan (07/07/2025 10:45 AM EDT): [...] mellitus), type 2 with peripheral vascular complications 03/06/2015 Assessment & Plan (07/07/2025 10:45 AM [...] Encounters Date Type Department Care Team Description 09/17/2025 Telephone Adult Medicine [address] [phone] Mila Rojas MD 09/08/2025 9:15 AM EST Office Visit Orthopedic Surgery [address] [phone] Riley Jose, DPM Dermatophytosis of nail (Primary Dx); Corns and callosities; Pain in toe of right foot; Pain in toe of left foot; Type II diabetes mellitus with peripheral circulatory disorder (CMS/HCC V24, CMS/HCC V28); Acquired hallux valgus of left foot; Type 2 diabetes, controlled, with neuropathy (CMS/HCC V24, CMS/HCC V28); Metatarsalgia of both feet; Diabetic mononeuropathy simplex (CMS/HCC V24, CMS/HCC V28); Acquired hallux valgus of right foot; Hammer toe of left foot 08/25/2025 Telephone Adult Medicine [address] [phone] Mila Rojas MD 08/11/2025 Telephone Adult [address] [phone] Mila Rojas MD 07/29/2025 7:30 AM EDT Office Visit [address] [phone] Hawa Ceballos PA DM (diabetes mellitus), type 2 with peripheral vascular complications (CMS/HCC V24, CMS/HCC V28) (Primary Dx); High cholesterol; Primary hypertension; Weight loss 07/29/2025 Results Follow-Up [address] [phone] Mila Rojas MD 07/28/[address] [phone] Mila Rojas MD 07/07/2025 9:00 AM EDT Office Visit [address] [phone] Mila Rojas MD Encounter for annual general medical examination with abnormal findings in adult (Primary Dx); DM (diabetes mellitus), type 2 with peripheral vascular complications (CMS/HCC V24, CMS/HCC V28); Type 2 diabetes, controlled, with neuropathy (CMS/HCC V24, CMS/HCC V28); Primary hypertension; High cholesterol; Advance care planning 06/20/2025 Telephone Adult Medicine [address] [phone] Joseph Zurita LPN 06/20/2025 Telephone Adult Medicine [address] [phone] Joseph Zurita LPN from Last 3 Months Immunizations Immunization Administration [...] COLONOSCOPY 04/22/10 PROCEDURE: HISTORICAL COLONOSCOPY; COMMENT: at [facility] COLONOSCOPY 02/01/17 PROCEDURE: HISTORICAL COLONOSCOPY; COMMENT: diverticulosis, internal hemorrhoids, hyperplastic mucosa with edema and acute and chronic inflammation EXCISION BENIGN SKIN LESION TRUNK / ARM / LEG PROCEDURE: MI EXCISION TUMOR SOFT TISSUE BACK/FLANK SUBQ <3CM HERNIA REPAIR PROCEDURE: HISTORICAL HERNIA REPAIR/UMB TURP / TRANSURETHRAL INCISIO N / DRAINAGE PROSTATE 2014 PROCEDURE: HISTORICAL TURP ESOPHAGOGASTRODUODENOSCOPY 03/05/12 PROCEDURE: MI EGD TRANSORAL BIOPSY SINGLE/MULTIPLE; COMMENT: erosive gastritis - biopsy consistent with gastritis, negative H. pylori. ESOPHAGOGASTRODUODENOSCOPY 04/05/20 PROCEDURE: MI ESOPHAGOGASTRODUODENOSCOPY TRANSORAL DIAGNOSTIC; COMMENT: lineal erosive distal [...] you may not have stable housing? No 09/04/2025 Food Access & Nutrition Answer Date Rec orded Do you have access to a vari ety of food including fruits and vegetables? Yes 09/04/2025 Health Literacy Answer Date Recorded How often do you need to hav e someone help you when you read instructions, pamphlets, or other written material from your doctor or pharmacy? Never 09/04/2025 Caregiver: How often do you need to have someone help you when you read instructions, pamphlets, or other written material from your doctor or pharmacy? Not on file 09/04/2025 Financial Risk Answer Date Recorded How hard is it for you to pa y for the very basics like food, housing, medical care, and air conditioning / heating? Not very hard 09/04/2025 Transportation Answer Date Recorded Has the lack of transportati on kept you from meetings, work, or from getting things needed for daily living? No Has the lack of transportati on kept you from medical appointments or from getting medications? No 09/04/2025 Social Isolation Answer Date Recorded How often do you feel lonely or isolated from th ose around you? Never 09/04/2025 Food Risk Answer Date Recorded Within the past 12 months we worried whether our food would run out before we got money to buy more. Never true 09/04/2025 Within the past 12 months th e food we bought just didn't last and we didn't have money to get more. Never true 09/04/2025 Dependent Care Answer Date Recorded Do you need help finding or paying for care for your loved ones. For example, child and adolescent therapist or elderly care for an older adult? No 09/04/2025 Education Answer Date Recorded Do you think completing more education or training, like finishing a GED, going to college, or learning a trade, would be helpful for you? No 09/04/2025 Employment and Income Answer Date Recor ded During the last four weeks, have you been actively looking for work? No 09/04/2025 Living Situation Answer Date Recorded What is your living situation? Unrecognized valu e 09/04/2025 Sex and Gender Information Value Date Recorded Sex Assigned at Not on file Legal Sex Male 1:54 PM EST Gender Identity Not on file Sexual Orientation Not on file Last Filed Vital Signs Vital Sign Reading Time Taken Comments Blood Pressure 114/73 09/04/2025 2:21 PM EST Pulse 84 09/04/2025 2:21 PM EST Temperature 36.7 C (98 F) 09/04/2025 2:21 PM EST Respiratory Rate 13 09/04/2025 2:21 PM EST Oxygen Saturation 96% 09/04/2025 2:21 PM EST Inhaled Oxygen Concentration - - Weight 75.8 kg (167 lb) 09/04/2025 2:21 PM EST Height 160 cm (5' 3 ) 09/04/2025 2:21 PM EST Body Mass Index 29.58 09/04/2025 2:21 PM EST Plan of Treatment Upcoming Encounters Date Type Department Care Team (Late st Contact Info) Description 11/06/2025 9:00 AM EST Office Visit Adult Medicine [facility] [address] [place], [place] [phone] Alma Resendez PA [address] [place], [place] 12/08/2025 10:00 AM EDT Office Visit Orthopedic Surgery [facility] [address] [phone] Riley Jose, DPM [address] [phone] Health Maintenance Due Date Last Done Comments Zoster Vaccines (2 of 3) 07/30/2014 06/04/2014 RSV Immunization Adult Patients (1 - 1-dose 75+ series) 2023 Diabetes: Annual Retina Eye Exam 01/02/2026 01/02/2025, 01/02/2025, 06/10/2024 Diabetes: Annual Urine Albumin-Creatinine Ratio (uACR) 01/03/2026 01/03/2025, 01/15/2024 Diabetes: Blood Sugar Control Test (HGBA1C) 01/27/2026 07/29/2025, 01/03/2025, 10/16/2024, Additional history exists Diabetes: Annual GFR (Glomerular Filtration Rate) 02/14/2026 02/14/2025, 10/16/2024, 07/01/2024 Hypertension/CHF/CAD Annual BMP Blood Test 02/14/2026 02/14/2025, 10/16/2024, 07/01/2024 Falls Risk Assessment 07/07/2026 07/07/2025 , 07/07/2025, 07/05/2024 Medicare Annual Wellness Visit 07/07/2026 07/07/2025, 07/05/2024 Diabetes: Annual Foot Exam 07/29/2026 07/29/2025, Social Influencers of Health Screening 09/04/2026 09/04/2025, 07/05/2024 Cholesterol Screening (Lipid Panel) 07/29/2030 07/29/2025, 01/03/2025, [...] 06/13/2023, Additional history exists Depression Screening Completed 09/04/2025 HIB Vaccines Aged Out No longer eligi [...] mellitus), type 2 with peripheral vascular complications ([facility] V24, [facility] V28) LIPID PANEL WITH REFLEX TO DIRECT LDL Routine 07/29/2025 8:29 AM EDT High cholesterol COMPREHENSIVE METABOLIC PANEL Routine 02/14/2025 10:45 AM EDT Paresthesia of both feet Restless legs MICROALBUMIN CREATININE URINE RATIO Routine 01/03/2025 9:47 AM EDT Type 2 diabetes, controlled, with neuropathy ([facility] V24, [facility] V28) EXTERNAL DIABETIC RETINA EYE EXAM 01/02/2025 from Last 3 Months or Most Recently Relevant to Health Maintenance Results * (ABNORMAL) Lipid panel with reflex to direct LDL (07/29/2025 8:29 AM EDT) Cholesterol 169 0 - 200 mg/dL LAB CHEMISTRY METHOD 07/29/2025 10:35 AM [facility] Triglycerides 191(H) 0 - 150 mg/dL LAB CHEMISTRY METHOD 07/29/2025 10:35 AM [facility] HDL 66 >=40 mg/dL LAB CHEMISTRY METHOD 07/29/2025 10:35 AM [facility] LDL Calculated 65 0 - 100 mg/dL LAB CHEMISTRY METHOD 07/29/2025 10:35 AM [facility] Comment:Estimated LDL Calcul ated using equation: Total cholesterol - HDL cholesterol - (Triglycerides/5) VLDL Cholesterol Leroy 38.2 mg/dL LAB CHEMISTRY METHOD 07/29/2025 10:35 AM [facility] Non HDL Chol. (LDL+VLDL) 103 <145 mg/dL LAB CHEMISTRY METHOD 07/29/2025 10:35 AM EDT [facility] Chol/HDL Ratio 2.6 0.0 - 4.4 LAB CHEMISTRY METHOD 07/29/2025 10:35 AM EDT [facility] Blood Venous blood specimen / Unknown Venipuncture / Unknown 07/29/2025 8:29 AM EDT 07/29/2025 8:29 AM EDT Hawa JONES LAB BLOOD ORDERABLES Final Resul t Performing Organization Address [facility] de Phone Number [facility] [address] [place] [address], [place] [phone] * (ABNORMAL) Hemoglobin A1c (07/29/2025 8:29 AM EDT) Hemoglobin A1C 7.1(H) <6.5 % LAB CHEMISTRY METHOD 07/29/2025 11:06 AM EDT [facility] Mean Bld Glu Estim. 157 mg/dL LAB CHEMISTRY METHOD 07/29/2025 11:06 AM EDT [facility] Blood Venous blood specimen / Unknown Venipuncture / Unknown 07/29/2025 8:29 AM EDT 07/29/2025 8:29 AM EDT us Hawa JONES LAB BLOOD ORDERABLES Final Resul t Performing Organization Address [facility]/ZIP Co de Phone Number [facility] [address] [place] [address], [place] [phone] * Comprehensive metabolic panel (02/14/2025 10:45 AM EDT) Sodium 140 133 - 145 mmol/L LAB CHEMISTRY METHOD 02/14/2025 1:28 PM EDT [facility] Potassium 4.0 3.5 - 5.5 mmol/L LAB CHEMISTRY METHOD 02/14/2025 1:28 PM EDT [facility] Chloride 105 96 - [...] 73m2 LAB CHEMISTRY METHOD 02/14/2025 1:28 PM [facility] Comment:Calculation based on the Chronic [...] g/dL LAB CHEMISTRY METHOD 02/14/2025 1:28 PM EDT [facility] Total Bilirubin 1.1 0.0 - 1.4 mg/dL LAB CHEMISTRY METHOD 02/14/2025 1:28 PM EDT [facility] Blood Venous blood specimen / Unknown Venipuncture / Unknown 02/14/2025 10:45 AM EDT 02/14/2025 10:45 AM EDT us Alma JONES LAB BLOOD ORDERABLES Final Resu lt [facility] [address] [place] [address], [place] [phone] * Microalbumin creatinine urine ratio (01/03/2025 9:47 AM EDT) Creatinine, Urine 76.0 mg/dL LAB CHEMISTRY METHOD 01/03/2025 2:29 PM EDT [facility] Microalb, Ur 8.7 0.0 - 29.0 mg/L LAB CHEMISTRY METHOD 01/03/2025 2:29 PM EDT [facility] Microalb/Creat Ratio 11 <30 mg/g creat LAB CHEMISTRY METHOD 01/03/2025 2:29 PM EDT [facility] Urine Urine specimen obtained by clean catch procedure / Unknown Non-blood Collection / Unknown 01/03/2025 9:47 AM EDT 01/03/2025 9:47 AM EDT us Hawa JONES LAB URINE ORDERABLES Final Resul t [facility] [address] [place] [address], [place] [phone] * External Diabetic Retina Eye Exam Report (01/02/2025) Anatomical Region Laterality Modality Ultrasound us Provider [facility] US PROCEDURES Final Result from Last 3 Months or Most Recently Relevant to Health Maintenance Insurance [employer] MEDICARE Member Subscriber Plan / Payer (Ef fective 2024-Present) Name:Romaine Garcia Relation to Subscriber:Self Name:Romaine Alonso Payer ID:[id number] Group ID:[id number] Type:Not on file Address: [address] [facility] [place] [address] Care Teams Gun Club Manager Relationship Specialty Start Date End Date Mila Rojas MD [address] [place] [phone] PCP - General Internal Medicine 07/12/22 Dr. Jeri Martinez [address] [place] [address] Referring Physician Ophthalmology 08/08/24
--- OUTSIDE RECORDS SUMMARY | 2025-09-18 06:33 | XMS_ITS | Encounter Summary ---
Author Organization [employer] Address [address] [place] [address] Care Team Providers Care Scallop Cutter Name Role Phone Mila Rojas MD Primary Care Prov ider Encounter Details Date Type Department Care Team (Late st Contact Info) Description 01/08/2025 Lab Requisition [facility] [address] [facility] [place] [phone] Alex Starks MD [address] [facility] [address] [place] [phone] Elevated prostate specific antigen (PSA) Social History [...] 9:00 AM EST Office Visit Adult Medicine [facility] [address] [place], [place] [phone] Alma Resendez PA [address] [place], [place] 12/08/2025 10:00 AM EDT Office Visit Orthopedic Surgery - [place] [address] [phone] Riley Jose, DPM [address] [phone] documented as of this encounter Procedures Procedure Name Priority Date/Time Associated Diagnosis Comments PROSTATE SPECIFIC ANTIGEN DIAGNOSTIC Routine 01/08/2025 10:28 AM EDT Elevated prostate specific antigen (PSA) documented in this encounter Results * Prostate specific antigen diagnostic (01/08/2025 10:28 AM EDT) PSA 2.61 0.00 - 4.00 ng/mL LAB CHEMISTRY METHOD 01/08/2025 2:51 PM EDT [facility] Blood Venous blood specimen / Unknown 01/08/2025 10:28 AM EDT 01/08/2025 1:48 PM EDT Narrative [facility] - 01/08/2025 2:51 PM EDT The Siemens Advia Centaur Chemiluminescent Immunoassay is used. Results obtained with different assay methods or kits cannot be used interchangeably. Results cannot be interpreted as absolute evidence of the presence or absence of malignant disease. us Alex Starks MD LAB BLOOD ORDERABLES Final Resul t [facility] [address] [place] [address], documented in this encounter Visit Diagnoses Diagnosis Elevated prostate specific antigen (PSA) documented in this encounter Care Teams Scallop Cutter Relationship Specialty Start Date End Date Mila Rojas MD [address] [place] [phone] PCP - General Internal Medicine 07/12/22 Dr. Jeri Martinez [address] [place] [address] Referring Physician Ophthalmology 08/08/24 documented as of this encounter
--- OUTSIDE RECORDS SUMMARY | 2025-09-18 06:33 | XMS_ITS | Encounter Summary ---
Author Organization [employer] [facility] Address [address] [facility] 7t [place] [address] Care Team Providers Care Neurophysiologist Name Role Phone Unavailable Primary Care Provider Unavailabl e Encounter Details Date Type Department Care Team (Latest Contact Info) Description 10/13/2020 Abstract [facility] CONVERSIONS Dental, Provider, DDS Social History [...]
--- OUTSIDE RECORDS SUMMARY | 2025-09-18 06:33 | XMS_ITS | Encounter Summary ---
Author Organization [employer] [facility] Address [address] [facility] 7t [place] [address] Care Team Providers Care Quarry Supervisor Name Role Phone Unavailable Primary Care Provider Unavailabl e Encounter Details Date Type Department Care Team (Latest Contact Info) Description 11/16/2021 Abstract [facility] CONVERSIONS Dental, Provider, DDS Social [...]
--- OUTSIDE RECORDS SUMMARY | 2025-09-18 06:33 | XMS_ITS | Clinical Summary ---
Author Organization [employer] [facility] Address [address] [place] [address] 7t [place] [address] Care Team Providers Care Technologist Development Name Role Phone Unavailable Primary Care Provider [...] Relevant to Health Maintenance [facility]
--- OUTSIDE RECORDS SUMMARY | 2025-09-18 06:33 | XMS_ITS | Encounter Summary ---
Author Organization [facility] Address [address] [place] [address] Care Team Providers Care Instrument Inspector Name Role Phone Mila Rojas MD Primary Care Prov ider Reason for Visit * Reason Onset Date Comments Abdominal Pain 09/17/2025 Encounter Details Date Type Department Care Team ([facility] st Contact Info) Description 09/17/2025 Telephone Adult Medicine [address] [phone] Mila Rojas MD [address] [place], [place] Social History Tobacco Use Types Packs/Day [...] for your loved ones. For example, child life assistant or elderly care for an older adult? [...] as of this encounter Progress Notes * Nadya Caceres RN - 09/17/2025 2:59 PM EST Spoke with the pt, daughter in law translating for him Low right groin, started 2-3 weeks ago Lifting groceries and that is when the pain started. He has noted a lump in the area No redness noted, area is swollen. It is the same size as when first noted. When he lifts or when walking it does get bigger. He is eating and drinking normally Moving bowels without difficulty, no blood in stool Does bother him when urinating. He is going more frequently he has increased discomfort int eh groin when urinating Advised ER for eval, they agreed and will call after for follow up * Charlene Roa - 09/17/2025 2:36 PM EST Patient call requires triage: Symptoms patient is presenting: Patient daughter in law Mcgregor called with patient. Lower right abdominal pain - patient states it may be hernia. Patient have difficulty lifting objects and walking a lot. How long has patient had these symptoms?: 2 -3 weeks For ALL patients calling to schedule any appointment (routine, sick visit, follow up, consult, etc.) in the outpatient setting please ask the following questions: Do you have fever of higher than 101, sore throat with difficulty swallowing or severe shortness ofbreath? no If YES to any of these above symptoms, send a message to triage and do not book. Red dot. If no, an audio or video visit should be booked. Have you had close contact with someone with Coronavirus in the last 14 days? no Have you traveled abroad? no Have you traveled recently to another state outside of [place], [place], [place], [place], [place], [place]? no o If yes, did you quarantine for 14 days or have a negative covid test? no If yes to any of the above, patient is not to be scheduled in office until after 14 day quarantine or negative covid test. If pain or injury related was it due to an accident at work or from a motor vehicle accident? If yes, date of accident/Injury: No If yes, gather 3rd green party insurance information [employer] Party Information: not applicable PCP: Mila Dacosta MD Payor: [employer] MEDICARE / Plan: [facility] ONE CARE / Product Type: *No Product type* / documented in this encounter Plan of Treatment Upcoming Encounters Date Type Department Care Team (Late st Contact Info) Description 11/06/2025 9:00 AM EST Office Visit Adult Medicine [address] [phone] Alma Resendez PA [address] [place], [place] 12/08/2025 10:00 AM EDT Office Visit Orthopedic Surgery [facility] [address] [phone] Riley Jose, DPM [address] [phone] documented as of this encounter Visit Diagnoses Not on filedocumented in this encounter Additional Health Concerns Assessment Noted Time PHQ-9 Depression Total Score: 1 09/04/20 25 2:19 PM EST A fall risk assessment has been complete d for the patient 07/07/2025 9:17 AM EDT documented as of this encounter Care Teams Instrument Inspector Relationship Specialty Start Date End Date Mila Rojas MD [address] [place] [address] PCP - General Internal Medicine 07/12/22 Dr. Jeri Martinez [address] [place] [address] Referring Physician Ophthalmology 08/08/24 documented as of this encounter
[2025-09-18 08:07] VITALS: BP 130/62; PULSE 60; RESP 16; TEMP 36.1; O2SAT 97
== END 2025-09-18 08:10 | disposition home or self-care (01) ==
PROVIDERS: Emergency Provider Emergency Medicine Emergency Medical Services; PCP Internal Medicine
DX: K40.90 Unilateral inguinal hernia, without obstruction or gangrene, not specified as recurrent (principal); R10.31 Right lower quadrant pain; E11.9 Type 2 diabetes mellitus without complications; I10 Essential (primary) hypertension; E78.5 Hyperlipidemia, unspecified; Z79.82 Long term (current) use of aspirin; Z79.02 Long term (current) use of antithrombotics/antiplatelets; Z79.899 Other long term (current) drug therapy
CPT/HCPCS: 36415; 80053; 83690; 85025; 85610; 85730; 96374; 96375; 99284; J1885; J2270

== ENCOUNTER 2025-09-22 08:18 | Outpatient (AMB) | payer OTHER, SELFPAY ==
--- OUTSIDE RECORDS SUMMARY | 2025-09-22 08:25 | XMS_ITS | Encounter Summary ---
Author Organization [employer] [facility] Address [address] [facility] 7t [place] [address] Care Team Providers Care White Work Cleaner Name Role Phone Unavailable Primary Care Provider Unavailabl e Encounter Details Date Type Department Care Team (Latest Contact Info) Description 10/13/2020 Abstract [facility] CONVERSIONS Dental, Provider, DDS Social History [...]
--- OUTSIDE RECORDS SUMMARY | 2025-09-22 08:25 | XMS_ITS | Encounter Summary ---
Author Organization [employer] Address [address] [place] [address] Care Team Providers Care Rags Laborer Name Role Phone Mila Rojas MD Primary Care Prov ider Encounter Details Date Type Department Care Team (Late st Contact Info) Description 01/08/2025 Lab Requisition [facility] - Main Lab 299 [facility] [place] [phone] Alex Starks MD 36[address] [facility] [address] [place] [phone] Elevated prostate specific antigen (PSA) Social History [...] 9:00 AM EST Office Visit Adult Medicine [facility] [address] [place], [place] [phone] Alma Resendez PA [address] [place], [place] 12/08/2025 10:00 AM EDT Office Visit Orthopedic Surgery - [place] [address] [phone] Riley Jose, DPM [address] [phone] documented as of this encounter Procedures Procedure Name Priority Date/Time Associated Diagnosis Comments PROSTATE SPECIFIC ANTIGEN DIAGNOSTIC Routine 01/08/2025 10:28 AM EDT Elevated prostate specific antigen (PSA) documented in this encounter Results * Prostate specific antigen diagnostic (01/08/2025 10:28 AM EDT) PSA 2.61 0.00 - 4.00 ng/mL LAB CHEMISTRY METHOD 01/08/2025 2:51 PM EDT [facility] Blood Venous blood specimen / Unknown 01/08/2025 10:28 AM EDT 01/08/2025 1:48 PM EDT Narrative [facility] - 01/08/2025 2:51 PM EDT The Siemens Advia Centaur Chemiluminescent Immunoassay is used. Results obtained with different assay methods or kits cannot be used interchangeably. Results cannot be interpreted as absolute evidence of the presence or absence of malignant disease. us Alex Starks MD LAB BLOOD ORDERABLES Final Resul t [facility] [address] [place] [address], documented in this encounter Visit Diagnoses Diagnosis Elevated prostate specific antigen (PSA) documented in this encounter Care Teams Rags Laborer Relationship Specialty Start Date End Date Mila Rojas MD [address] [place] [address] PCP - General Internal Medicine 07/12/22 Dr. Jeri Martinez [address] [place] [address] Referring Physician Ophthalmology 08/08/24 documented as of this encounter
--- OUTSIDE RECORDS SUMMARY | 2025-09-22 08:25 | XMS_ITS | Encounter Summary ---
Author Organization [facility] Address [address] [facility] 7t [place] [address] Care Team Providers Care Events Administrative Assistant Name Role Phone Unavailable Primary Care Provider Unavailabl e Encounter Details Date Type Department Care Team (Latest Contact Info) Description 11/16/2021 Abstract [facility] CONVERSION[facility] Dental, Provider, DDS Social History Tobacco [...]
--- OUTSIDE RECORDS SUMMARY | 2025-09-22 08:25 | XMS_ITS | Encounter Summary ---
Author Organization [facility] Address [address] [place] [address] Care Team Providers Care Belt Sewer Name Role Phone Mila Rojas MD Primary Care Prov ider Reason for Visit * Reason Onset Date Comments Abdominal Pain 09/17/2025 Encounter Details Date Type Department Care Team ([facility] st Contact Info) Description 09/17/2025 Telephone Adult Medicine [address] [phone] Mila Rojas MD [address] [place], [place] Social History Tobacco Use Types Packs/Day [...] care for your loved ones. For example, early childhood education instructor or elderly care for an older adult? [...] traveled recently to another state outside of [place], [place], [place], [place], [place], [place], [place]? no o If yes, did you quarantine [...] of accident/Injury: No If yes, gather 3rd republican insurance information Third Constitution Party Information: not applicable PCP: Mila Dacosta MD Payor: [employer] MEDICARE / Plan: [facility] ONE CARE / Product Type: *No Product type* / documented in this encounter Plan of Treatment Upcoming Encounters Date Type Department Care Team (Late st Contact Info) Description 11/06/2025 9:00 AM EST Office Visit Adult Medicine [address] [phone] Alma Resendez PA [address] [place], [place] 12/08/2025 10:00 AM EDT Office Visit Orthopedic Surgery [facility] [address] [phone] Riley Jose, DPM [address] [phone] documented as of this encounter Visit Diagnoses Not on filedocumented in this encounter Additional Health Concerns Assessment Noted Time PHQ-9 Depression Total Score: 1 09/04/20 25 2:19 PM EST A fall risk assessment has been complete d for the patient 07/07/2025 9:17 AM EDT documented as of this encounter Care Teams Belt Sewer Relationship Specialty Start Date End Date Mila Rojas MD [address] [place] [address] PCP - General Internal Medicine 07/12/22 Dr. Jeri Martinez [address] [place] [id number] Referring Physician Ophthalmology 08/08/24 documented as of this encounter
--- OUTSIDE RECORDS SUMMARY | 2025-09-22 08:25 | XMS_ITS | Clinical Summary ---
Author Organization [facility] Address [address] [place] [address] 7t [place] [address] Care Team Providers Care Delinquent Tax Collector Assistant Name Role Phone Unavailable Primary Care [...] Relevant to Health Maintenance Insurance DENTAL - [employer]
--- OUTSIDE RECORDS SUMMARY | 2025-09-22 08:26 | XMS_ITS | Clinical Summary ---
Author Organization [facility] [address] [facility] Address [address] [place] [address] Phone Care Team Providers Care Bumper Operator Name Role Phone Mila Rojas MD Primary [...] Care Team Description 09/17/2025 Telephone Adult Medicine [address] [phone] Mila Rojas MD 09/08/2025 9:15 AM EST Office Visit Orthopedic Surgery [address] [phone] Riley Jose, DPM Dermatophytosis of [...] of left foot 08/25/2025 Telephone Adult Medicine [address] [phone] Mila Rojas MD 08/11/2025 Telephone Adult [address] [phone] Mila Rojas MD 07/29/2025 7:30 AM EDT Office Visit [address] [phone] Hawa Ceballos PA DM (diabetes mellitus), type 2 with peripheral vascular complications (CMS/HCC V24, CMS/HCC V28) (Primary Dx); High cholesterol; Primary hypertension; Weight loss 07/29/2025 Results Follow-Up Adult [address] [phone] Mila Rojas MD 07/28/[address] [phone] Mila Rojas MD 07/07/2025 9:00 AM EDT Office Visit [address] [phone] Mila Rojas MD Encounter for annual general medical examination with abnormal findings in adult (Primary Dx); DM (diabetes mellitus), type 2 with peripheral vascular complications (CMS/HCC V24, CMS/HCC V28); Type 2 diabetes, controlled, with neuropathy (CMS/HCC V24, CMS/HCC V28); Primary hypertension; High cholesterol; Advance care planning from Last 3 Months Immunizations Immunization Administration [...] COLONOSCOPY 04/22/10 PROCEDURE: HISTORICAL COLONOSCOPY; COMMENT: at [facility] COLONOSCOPY 02/01/17 PROCEDURE: HISTORICAL COLONOSCOPY; COMMENT: diverticulosis, internal hemorrhoids, hyperplastic mucosa with edema and acute and chronic inflammation EXCISION BENIGN SKIN LESION TRUNK / ARM / LEG PROCEDURE: IA EXCISION TUMOR SOFT TISSUE BACK/FLANK SUBQ <3CM HERNIA REPAIR PROCEDURE: HISTORICAL HERNIA REPAIR/UMB TURP / TRANSURETHRAL INCISIO N / DRAINAGE PROSTATE 2014 PROCEDURE: HISTORICAL TURP ESOPHAGOGASTRODUODENOSCOPY 03/05/12 PROCEDURE: IA EGD TRANSORAL BIOPSY SINGLE/MULTIPLE; COMMENT: erosive gastritis - biopsy consistent with gastritis, negative H. pylori. ESOPHAGOGASTRODUODENOSCOPY 04/05/20 18 PROCEDURE: IA ESOPHAGOGASTRODUODENOSCOPY TRANSORAL DIAGNOSTIC; COMMENT: lineal erosive distal esoophagitis Medical History Medical History Date Comments Unspecified essential hypertension DX:Unspecified essential hypertension Esophageal reflux DX:Esophageal reflux Diabetes mellitus ([facility] V 24, [facility] V28) 01/08/2013 DX:Diabetes mellitus (HCC) Dysphagia 07/29/2013 DX:Dysphagia DM (diabetes mellitus), type 2 with peripheral vascular complications ([facility] V24, [facility] V28) 03/06/2015 DX:DM (diabetes mellitus), type 2 [...] your loved ones. For example, child care leader or elderly care for an older adult? [...] 9:00 AM EST Office Visit Adult Medicine [facility] [address] [place], [place] [phone] Alma Resendez PA [address] [place], [place] 12/08/2025 10:00 AM EDT Office Visit Orthopedic Surgery - [facility] [address] [phone] Riley Jose, DPM [address] [phone] Health Maintenance Due Date Last [...] mellitus), type 2 with peripheral vascular complications ([facility]/HCC V24, [facility] V28) LIPID PANEL WITH REFLEX [...] mg/dL LAB CHEMISTRY METHOD 07/29/2025 10:[address] [facility] Triglycerides 191(H) 0 - 150 mg/dL LAB CHEMISTRY METHOD 07/29/2025 10:[address] [facility] HDL 66 >=40 mg/dL LAB CHEMISTRY METHOD 07/29/2025 10:[address] [facility] LDL Calculated 65 0 - 100 mg/dL LAB CHEMISTRY METHOD 07/29/2025 10:[address] [facility] Comment:Estimated LDL Calcul ated using equation: Total cholesterol - HDL cholesterol - (Triglycerides/5) VLDL Cholesterol Leroy 38.2 mg/dL LAB CHEMISTRY METHOD 07/29/2025 10:[address] [facility] Non HDL Chol. (LDL+VLDL) 103 <145 mg/dL LAB CHEMISTRY METHOD 07/29/2025 10:[address] [facility] Chol/HDL Ratio 2.6 0.0 - 4.4 LAB CHEMISTRY METHOD 07/29/2025 10:[address] [facility] Blood Venous blood specimen / Unknown Venipuncture / Unknown 07/29/2025 8:29 AM EDT 07/29/2025 8:29 AM EDT Hawa JONES LAB BLOOD ORDERABLES Final Resul t Performing Organization Address [facility]/ZIP Co de Phone Number [facility] [address] [place] [address], [place] [phone] * (ABNORMAL) Hemoglobin A1c (07/29/2025 8:29 AM EDT) Hemoglobin A1C 7.1(H) <6.5 % LAB CHEMISTRY METHOD 07/29/2025 11:06 AM EDT [facility] Mean Bld Glu Estim. 157 mg/dL LAB CHEMISTRY METHOD 07/29/2025 11:06 AM EDT [facility] Blood Venous blood specimen / Unknown Venipuncture / Unknown 07/29/2025 8:29 AM EDT 07/29/2025 8:29 AM EDT Hawa JONES LAB BLOOD ORDERABLES Final Resul t Performing Organization Address [facility]/ZIP Co de Phone Number [facility] [address] [place] [address], [place] [phone] * Comprehensive metabolic panel (02/14/2025 10:45 AM EDT) Sodium 140 133 - 145 mmol/L LAB CHEMISTRY METHOD 02/14/2025 1:28 PM EDT [facility] Potassium 4.0 3.5 - 5.5 mmol/L LAB CHEMISTRY METHOD 02/14/2025 1:28 PM EDT [facility] Chloride 105 96 - 110 mmol/L LAB CHEMISTRY METHOD 02/14/2025 1:28 PM EDT [facility] CO2 26 21 - 32 mmol/L LAB CHEMISTRY METHOD 02/14/2025 1:28 PM EDT [facility] Anion Gap 9 3 - 11 LAB CHEMISTRY METHOD 02/14/2025 1:28 PM EDT [facility] Glucose 98 70 - 100 mg/dL LAB CHEMISTRY METHOD 02/14/2025 1:[address] [facility] BUN 16 5 - 25 mg/dL LAB CHEMISTRY METHOD 02/14/2025 1:[address] [facility] Creatinine 0.82 0.70 - 1.30 mg/dL LAB CHEMISTRY METHOD 02/14/2025 1:[address] [facility] eGFR 91 >=60 mL/min/1. 73m2 LAB CHEMISTRY METHOD 02/14/2025 1:[address] [facility] Comment:Calculation based on the Chronic Kidney Disease Epidemiology Collaboration (CKD-EPI) equation refit without adjustment for race. BUN/Creatinine Ratio 19.5 LAB CHEMISTRY METHOD 02/14/2025 1:[address] [facility] Calcium 9.4 8.5 - 10.5 mg/dL LAB CHEMISTRY METHOD 02/14/2025 1:[address] [facility] AST (SGOT) 15 10 - 42 unit/L LAB CHEMISTRY METHOD 02/14/2025 1:[address] [facility] ALT (SGPT) 19 10 - 60 unit/L LAB CHEMISTRY METHOD 02/14/2025 1:[address] [facility] Alkaline Phosphatase 82 42 - 121 unit/L LAB CHEMISTRY METHOD 02/14/2025 1:[address] [facility] Total Protein 6.9 6.0 - 8.0 g/dL LAB CHEMISTRY METHOD 02/14/2025 1:[address] [facility] Albumin 3.8 3.2 - 5.0 g/dL LAB CHEMISTRY METHOD 02/14/2025 1:[address] [facility] Total Bilirubin 1.1 0.0 - 1.4 mg/dL LAB CHEMISTRY METHOD 02/14/2025 1:[address] [facility] Blood Venous blood specimen / Unknown Venipuncture / Unknown 02/14/2025 10:45 AM EDT 02/14/2025 10:45 AM EDT us Alma JONES LAB BLOOD ORDERABLES Final Resu lt Performing Organization Address City/[facility]/ZIP Co de Phone Number [facility] [address] [place] [address], [place] [phone] * Microalbumin creatinine urine ratio (01/03/2025 9:47 AM EDT) Creatinine, Urine 76.0 mg/dL LAB CHEMISTRY METHOD 01/03/2025 2:29 PM EDT [facility] Microalb, Ur 8.7 0.0 - 29.0 mg/L LAB CHEMISTRY METHOD 01/03/2025 2:29 PM EDT [facility] Microalb/Creat Ratio 11 <30 mg/g creat LAB CHEMISTRY METHOD 01/03/2025 2:29 PM EDT [facility] Urine Urine specimen obtained by clean catch procedure / Unknown Non-blood Collection / Unknown 01/03/2025 9:47 AM EDT 01/03/2025 9:47 AM EDT us Hawa JONES LAB URINE ORDERABLES Final Resul t Performing Organization Address [facility] de Phone Number [facility] [address] [place] [address], [place] [phone] * External Diabetic Retina Eye Exam Report (01/02/2025) Anatomical Region Laterality Modality Ultrasound us Provider [facility] US PROCEDURES Final Result from Last 3 Months or Most Recently Relevant to Health Maintenance Insurance [employer] MED[employer] Member Subscriber Plan / Payer (Ef fective 2024-Present) Name:Romaine Garcia Relation to Subscriber:Self Name:Romaine Alonso Payer ID:[id number] Group ID:[id number] Type:Not on file Address: [place] [address] [address] [phone] Care Teams Bumper Operator Relationship Specialty Start Date End Date Mila Rojas MD [address] [place] [phone] PCP - General Internal Medicine 07/12/22 Dr. Jeri Martinez [address] [place] [id number] Referring Physician Ophthalmology 08/08/24
--- NOTE | 2025-09-22 08:45 | MHC.OFFVIS ---
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 [employer] Required: No Accompanied by: Self / Same As Patient Allergies shellfish derived Allergy (Unknown, Verified 09/18/25 05:40) Hives/Short of breath Medication List - Last Reconciled 09/22/25 by DEL Ascencio acetaminophen (Tylenol) 325 mg PO QID PRN aspirin 81 mg PO DAILY buspirone mg PO DAILY cetirizine 10 mg PO DAILY citalopram 20 mg PO BEDTIME cyanocobalamin (vitamin B-12) 500 mcg PO DAILY cyclobenzaprine 5 mg PO TID PRN 7 days docusate sodium 100 mg PO DAILY donepezil 10 mg PO BEDTIME epinephrine 0.3 mg IM DAILY PRN finasteride 5 mg PO DAILY gabapentin 300 mg PO TID [Hernia girdle As directed] linaclotide (Linzess) 72 mcg PO DAILY lisinopril 20 mg PO DAILY meclizine 25 mg PO TID PRN metformin ER 500 mg PO BID omeprazole 20 mg PO DAILY@0630 risperidone 0.5 mg PO BID rosuvastatin 40 mg PO DAILY sennosides 8.6 mg PO DAILY sodium chloride 0.65% (Saline Nasal) 1 spray intranasal tamsulosin 0.8 mg PO DAILY trazodone 1 tab PO BEDTIME PRN HPI HPI 3 mth f/up: Details: The patient is a 74 year old male presenting for follow up of ascending aorta dilation, hypertension, and hyperlipidemia. A prior cardiac catheterization on October 08, 2023, showed no significant coronary artery disease. An echocardiogram from July 30, 2025, showed an ejection fraction of 58%, no valve abnormalities, and a mildly dilated ascending aorta of 4.1 cm, which is unchanged from a prior study on February 20, 2024. A home sleep study was performed on September 16, 2025 and was below the threshold for a diagnosis of obstructive sleep apnea, with minimal snoring and no nocturnal hypoxemia. The patient reports that he did not sleep much during the test, and he takes trazodone daily for sleep, typically waking up at 4:00 or 5:00 AM. He currently denies symptoms of chest pains, sob, or heart palpitations. He tries to remain physically active. His current medications include aspirin, lisinopril, and rosuvastatin. The patient also reports a new diagnosis of a hernia, which is causing some discomfort and he is scheduled for an evaluation with a surgeon. [facility] Medical History Indirect right inguinal hernia Chest discomfort Shortness of breath Cerebral microvascular disease Confusion and disorientation Depression Dementia BPH (benign prostatic hyperplasia) Transient cerebral ischemia Other and unspecified hyperlipidemia Essential hypertension Type 2 diabetes mellitus with unspecified complications Precordial chest pain Surgical History History of cardiac catheterization (~09/17/14) Family History Father Diabetes Hyperlipidemia Mother Stroke Social History Alcohol intake: former Patient Tobacco Use Status: Never used Tobacco service: No Current occupational status: retired Review of Systems Const All systems reviewed & are unremarkable except as noted in HPI and below Denies chills, Denies fatigue, Denies fever(s), Denies frequent falls, Denies weakness, Denies weight gain and Denies weight loss ENT Denies dizziness Card Denies chest pain, Denies leg edema, Denies lightheadedness, Denies palpitations, Denies dyspnea and Denies dyspnea on exertion Resp Denies cough, Denies dyspnea and Denies dyspnea on exertion GI Denies hematochezia Musc Denies abnormal gait, Denies muscle weakness, Denies numbness, Denies radiating pain into limb and Denies tingling Neuro Denies abnormal gait, Denies dizziness, Denies frequent falls, Denies numbness, Denies tingling and Denies weakness Endo Denies fatigue and Denies palpitations Physical Exam Vital Signs: Last Vital Signs Pulse 92 09/22/25 08:47 BP 130/64 09/22/25 08:47 BMI result Body Mass Index 27.0 Const General: cooperative, healthy appearing, comfortable and no acute distress Orientation/consciousness: patient oriented x3 Neck Neck: Yes normal visual inspection and Yes no JVD Resp Effort & Inspection: normal respiratory effort Auscultation: clear to auscultation bilaterally, no rales, no rhonchi and no wheezes Cardio Jugular venous distension: no JVD Rate: regular rate Rhythm: regular rhythm Heart sounds: S1 normal heart sound present, S2 normal heart sound present, no murmurs and no rubs Neuro General: patient oriented x3 Extrem General: Yes normal to inspection and No no pedal edema Psych Appearance: grossly normal Mental Status: mental status grossly normal Speech and movement: Normal speech and movement present Assessment & Plan Assessment & Plan (1) Chest discomfort: Code(s): R07.89 - Other chest pain Category: Medical Plan: Prior report of chest discomfort, with atypical description. He does have multiple cardiac risk factors including hypertension, hyperlipidemia, diabetes. Nuclear stress test was done on 08/29/2023 showing mild reversible lateral perfusion defect suspected to be from soft tissue attenuation artifact. Cardiac cath done 04/29/2024 following admit for CP, showed no significant coronary artery disease. Recent echo showing normal EF and no wall motion abnormalities. Continue with risk factor modifications. (2) S/P cardiac catheterization: Comment: 04/30/2024, no significant coronary artery disease Code(s): Z98.890 - Other specified postprocedural states Category: Surgical Plan: As above (3) Hypersomnia: Code(s): G47.10 - Hypersomnia, unspecified Category: Medical Plan: Reports of daytime fatigue, falling asleep easily in the day and not sleeping well at night. Home sleep study results reviewed and sleep was below the threshold for diagnosis sleep apnea. Will hold off on further testing at present (4) Essential hypertension: Code(s): I10 - Essential (primary) hypertension Category: Medical Plan: Blood pressure goal less than 130/80. At goal currently. Continue lisinopril. (5) Other and unspecified hyperlipidemia: Code(s): E78.5 - Hyperlipidemia, unspecified Category: Medical Plan: [place] LDL goal less than 70 in patient with diabetes. no recent cholesterol level in our system. 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 Echocardiogram 07/30/2025 shows ascending aorta 4.1 cm. Repeat echo in 1.5 years. Plan I reviewed the results of his recent echocardiogram and home sleep study with the patient. I explained that his heart arteries are clear based on his prior catheterization and his heart function is strong. I confirmed that his ascending aorta is stable in size at 4.1 cm compared to the previous study, which is reassuring. We discussed that while the sleep study was negative for obstructive sleep apnea, its quality was limited by his poor sleep that night. I advised him to continue his current medications, including lisinopril, without any changes, and to maintain a low-salt diet and stay active with walking. The plan is to monitor the aorta with a repeat echocardiogram in about one and a half to two years, and he will be called to schedule a follow-up appointment at that time. I also advised him to continue following with his primary care provider for ongoing management. Patient Instructions: - Continue taking your current medications as prescribed, including lisinopril and rosuvastatin. - Continue to limit salt in your diet. - Stay active by walking your dog and doing other gentle activities. - We will schedule another heart ultrasound (echocardiogram) in about one and a half to two years to recheck your aorta. - You will be contacted closer to that time to schedule a follow-up appointment. - Continue to see your regular primary care doctor for your other health needs. Patient was informed and verbally consented to the use of an ambient scribe for clinic note documentation during this visit. Visit time spent on chart review, interview, assessment, orders, documentation. Coding Level of Care Code Est Pt Level 4 (99304) Add On Problem Visit Only Diagnoses Chest discomfort R07.89 S/P cardiac catheterization Z98.890 Hypersomnia G47.10 Essential hypertension I10 Other and unspecified hyperlipidemia E78.5 Abnormal nuclear stress test R94.39 Ascending aorta dilatation I77.810 Time Spent (min) 28
[2025-09-22 08:47] VITALS: BP 130/64; PULSE 92; BMI 27.0
== END 2025-09-22 09:11 | disposition home or self-care (01) ==
LOC: HO.HCS 08:19
PROVIDERS: PCP Internal Medicine; Visit Provider Nurse Practitioner Family
DX: R07.89 Other chest pain (principal); Z98.890 Other specified postprocedural states; G47.10 Hypersomnia, unspecified; I10 Essential (primary) hypertension; E78.5 Hyperlipidemia, unspecified; R94.39 Abnormal result of other cardiovascular function study; I77.810 Thoracic aortic ectasia
CPT/HCPCS: 99214; G2211

== ENCOUNTER → 2025-09-22 08:18 | Outpatient (BNVA) | payer OTHER, SELFPAY | PROVIDERS: PCP Internal Medicine; Visit Provider Nurse Practitioner Family | DX: I10 Essential (primary) hypertension (principal); R07.89 Other chest pain; G47.10 Hypersomnia, unspecified; E78.5 Hyperlipidemia, unspecified; R94.39 Abnormal result of other cardiovascular function study; I77.810 Thoracic aortic ectasia; Z98.890 Other specified postprocedural states; Z79.899 Other long term (current) drug therapy | CPT/HCPCS: 99212 ==